=== PATIENT | female | born 1935 | race Hispanic/Latino ===

== ENCOUNTER 2016-12-27 16:37 | Emergency (ER) | payer MEDICARE, BC ==
[2016-12-27 16:37] VITALS: BMI 21.1
[2016-12-27 16:45] VITALS: BP 120/73; PULSE 66; RESP 18; TEMP 97.7; O2SAT 98
[2016-12-27 17:46] LABS: BASO # 0.1 K/uL (0.0-0.2); BASO % 0.6 % (0.0-2.0); EOS # 0.1 K/uL (0.0-0.7); HEMATOCRIT 33.9 % (34.0-47.0); LYMPH % 15.5 % (20.0-40.0); MEAN CELL VOLUME 87.4 fl (81.0-99.0); MEAN CORPUSCULAR HEMOGLOBIN 27.9 pg (27.0-31.0); MEAN CORPUSCULAR HGB CONC 31.9 g/dL (33.0-37.0); MEAN PLATELET VOLUME 9.7 fl (7.2-11.7); MONO # 1.7 K/uL (0.0-0.8); MONO % 12.9 % (0.0-10.0); NEUT # 9.1 K/uL (1.8-7.0); RED CELL DISTRIBUTION WIDTH 19.3 % (11.5-14.5)
[2016-12-27 18:13] LABS: ALB/GLOB RATIO 0.8 (1.0-2.1); ALKALINE PHOSPHATASE 68 U/L (38-126); ALT/SGPT 14 U/L (9-52); AST/SGOT 34 U/L (14-36); BILIRUBIN,TOTAL 0.7 mg/dl (0.2-1.3); BLOOD UREA NITROGEN 16 mg/dl (7-17); CARBON DIOXIDE 25 mmol/L (22-30); CHLORIDE 101 mmol/L (98-107); GFR AFRICAN-AMERICAN > 60; GLUCOSE,RANDOM 120 mg/dL (65-105); SODIUM 136 mmol/l (132-148); TOTAL PROTEIN 8.5 G/DL (6.3-8.2)
[2016-12-27 18:16] LABS: PARTIAL THROMBOPLASTIN TIME 25.3 SECONDS (23.3-32.5)
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
[2016-12-27 18:22] LABS: POTASSIUM 5.5 MMOL/L (3.6-5.0)
[2016-12-27 19:36] LABS: MAGNESIUM 2.1 MG/DL (1.6-2.3); POTASSIUM 3.8 MMOL/L (3.6-5.0)
--- NOTE | 2016-12-27 20:13 | ED PDOC ---
- Laboratory Results Result Diagrams: 12/27/16 17:36 12/27/16 18:38 - ECG O2 Sat by Pulse Oximetry: 98 (RA) Medical Decision Making Medical Decision Making: Case endorsed to magnetic tape typewriter operator from JEFF Guillen at 20:00 pending consult with Pt's blind cleaner and likely admission HPI reviewed: Additional Complaint(s): Catherine Mccord is a 81 year old female, with a past medical history inclusive of atrial fibrillation (compliant with Sotalol), who presents to the ED on 12/27 with complaints of palpitations that she has experienced since just prior to arrival while she had been out shopping. Associated lightheadedness also reported, with patient stating that it felt as if she were going to syncopize; prompting ED visit. Upon arrival in the ED, patient is reporting waves of heart fluttering sensations but otherwise denies any fever, chills, chest pain or shortness of breath. Has been eating/drinking/urinating well. Of note, patients dosage of Sotalol was recently reduced to 1/2 the original, which she has been taking twice daily. She does report a prior history of COPD/ pneumonia but states that she has been breathing well of late and has not taken any antibiotics in months. PMD: Castillo Castaneda I ED course thus far: 16:54 Initial Impression: 81 year old female with rapid a-fib (159bpm on arrival) in setting of known a-fib history and recent Sotalol dose change EKG currently shows NSR at 77bpm, self-converting with no further symptoms. Will place onto lunchroom monitor and give Cardizem to ensure she remains within normal sinus. Case has been discussed with Diane Rodríguez MD (Cardiology). Labs resulted and reviewed with Pt who demonstrated full understanding Upon my eval, Pt resting in bed comfortably Vitals remain stable on lunchroom monitor: P:79 POX: 95% on RA Case discussed with Dr. Sandra, covering for Arnaldo, who advised Pt stable for discharge at this time. follow up in office Friday. Pt made aware of plan and was comfortable going home at this time Disposition - Clinical Impression Clinical Impression: Atrial fibrillation with controlled ventricular response, Syncope - POA Present On Arrival: None - Disposition Disposition: Routine/Home Disposition Time: 21:02 Condition: STABLE Additional Instructions: Follow up with your blind cleaner on Friday as discussed! Return to ED with any concerns Instructions: Atrial Fibrillation (ED), Syncope (ED)
--- NOTE | 2016-12-28 10:56 | RAD ---
HISTORY: tachycardia COMPARISON: 12/01/2016 TECHNIQUE: Chest PA and lateral FINDINGS: LUNGS: Diffuse chronic interstitial changes are identified suggesting interstitial fibrosis. This would include diffuse probable reticular nodular interstitial change. This is better seen on the prior CT scan dated 12/01/2016. No new focal alveolar infiltrate is seen. Stable areas of pleural parenchymal scarring are noted as well as a small linear area of scarring within the right upper lobe. Left-sided pleural parenchymal scarring peripherally in the left upper to mid lung field is also noted. There also appears to be some chronic pleural parenchymal change in the anterior aspects of the right middle lobe and lingula seen on prior CT scan dated 12/01/2016. PLEURA: See above CARDIOVASCULAR: No CHF. Heart is not enlarged. OSSEOUS STRUCTURES: Stable degenerative changes are noted in the spine without acute compression fracture. VISUALIZED UPPER ABDOMEN: Normal. OTHER FINDINGS: None. IMPRESSION: No new focal alveolar infiltrate or CHF. Moderate chronic reticulonodular interstitial change and fibrosis.
--- NOTE | 2016-12-30 10:08 | CARD ---
APPROVED REPORT EKG Measurement Heart [id number] <Conclusion> Atrial fibrillation with rapid ventricular response Nonspecific ST and T wave abnormality Abnormal ECG
--- NOTE | 2016-12-30 10:08 | CARD ---
APPROVED REPORT EKG Measurement Heart [id number] <Conclusion> Normal sinus rhythm Normal ECG
== END 2016-12-27 21:15 | disposition home or self-care (01) ==
LOC: H.ER 16:37
DX: I48.91 Unspecified atrial fibrillation (principal); R55 Syncope and collapse; R00.2 Palpitations; R07.9 Chest pain, unspecified; I10 Essential (primary) hypertension

== ENCOUNTER 2017-03-25 15:44 | Inpatient (IN) | payer MEDICARE, BC ==
[2017-03-25 15:45] VITALS: BMI 21.1
[2017-03-25 16:55] LABS: BASO # 0.1 K/uL (0.0-0.2); EOS # 0.1 K/uL (0.0-0.7); EOS % 0.7 % (0.0-4.0); HEMATOCRIT 34.6 % (34.0-47.0); LYMPH # 1.7 K/uL (1.0-4.3); LYMPH % 15.5 % (20.0-40.0); MEAN CELL VOLUME 88.8 fl (81.0-99.0); MEAN CORPUSCULAR HEMOGLOBIN 28.5 pg (27.0-31.0); MEAN CORPUSCULAR HGB CONC 32.1 g/dL (33.0-37.0); MONO # 1.1 K/uL (0.0-0.8); MONO % 9.7 % (0.0-10.0); NEUT # 8.2 K/uL (1.8-7.0); NEUT % 73.1 % (50.0-75.0); RED CELL DISTRIBUTION WIDTH 14.9 % (11.5-14.5); WHITE BLOOD COUNT 11.3 K/uL (4.8-10.8)
[2017-03-25 17:00] LABS: ALB/GLOB RATIO 0.9 (1.0-2.1); ALKALINE PHOSPHATASE 64 U/L (38-126); ALT/SGPT 15 U/L (9-52); AST/SGOT 20 U/L (14-36); BILIRUBIN,TOTAL 0.7 mg/dl (0.2-1.3); BLOOD UREA NITROGEN 13 mg/dl (7-17); CALCIUM 9.2 mg/dL (8.4-10.2); CARBON DIOXIDE 27 mmol/L (22-30); CHLORIDE 101 mmol/L (98-107); GFR AFRICAN-AMERICAN > 60; GLUCOSE,RANDOM 80 mg/dL (65-105); LIPASE 135 U/L (23-300); SODIUM 140 mmol/l (132-148); TOTAL PROTEIN 8.6 G/DL (6.3-8.2)
[2017-03-25 17:02] LABS: POTASSIUM 4.8 MMOL/L (3.6-5.0)
[2017-03-25 17:25] LABS: PARTIAL THROMBOPLASTIN TIME 31.9 Seconds (25.6-37.1)
--- NOTE | 2017-03-25 18:14 | CT ---
PROCEDURE: CT Abdomen and Pelvis without Oral or IV contrast. HISTORY: lower abd pain, diarrhea COMPARISON: CT abdomen and pelvis without IV contrast performed 10/16/16 TECHNIQUE: Contiguous axial images of the abdomen and pelvis. No oral or IV contrast administered. Coronal and Sagittal reformats generated and reviewed. Radiation dose: Total exam DLP = 241.24 mGy-cm. This CT exam was performed using one or more of the following dose reduction techniques: Automated exposure control, adjustment of the mA and/or kV according to patient size, and/or use of iterative reconstruction technique. FINDINGS: There is limited evaluation of the solid organs without the administration of IV contrast. LOWER THORAX: Chronic interstitial markings noted at the lung bases. Medial right lower lobe consolidation versus pleural based masslike consolidation. LIVER: Calcification along the hepatic surface, right lobe. Hepatomegaly. Mildly nodular hepatic contour. GALLBLADDER AND BILE DUCTS: The gallbladder is not visualized. PANCREAS: Unremarkable unenhanced appearance. SPLEEN: Unremarkable unenhanced appearance. ADRENALS: Unremarkable unenhanced appearance. KIDNEYS AND URETERS: Nonobstructing 2 mm left lower pole renal calculus. No hydronephrosis or obstructing renal calculus. Low-density lesion within the right upper pole kidney and left lower pole kidney, likely cysts. Exophytic left lower pole renal lesion also possibly cyst. Hyperdense 5 mm left lower pole renal lesion, too small to characterize. BLADDER: The urinary bladder appears unremarkable. REPRODUCTIVE: Uterus is absent, presumably due to hysterectomy. APPENDIX: The appendix is not identified. No secondary signs of acute appendicitis. BOWEL: The stomach is nondistended. Lack of oral contrast limits evaluation for bowel pathology. The bowel loops appear within normal limits of caliber without evidence of intestinal obstruction. PERITONEUM: No significant free fluid. No definite free air. LYMPH NODES: No bulky lymphadenopathy identified. VASCULATURE: Atherosclerotic calcifications of the aorta. No aortic aneurysm. BONES: Osseous demineralization. Degenerative changes. OTHER FINDINGS: None. IMPRESSION: Chronic interstitial markings noted at the lung bases. Medial right lower lobe consolidation versus pleural based masslike consolidation. Recommend clinical correlation and short-term follow-up in order to assess for complete resolution. Calcification along the hepatic surface, right lobe. Hepatomegaly. Mildly nodular hepatic contour ; correlate clinically for cirrhosis. Nonobstructing 2 mm left lower pole renal calculus. Low-density lesion within the right upper pole kidney and left lower pole kidney, likely cysts. Exophytic left lower pole renal lesion also possibly cyst. Hyperdense 5 mm left lower pole renal lesion, too small to characterize. Renal ultrasound suggested for further characterization of the above findings if indicated. Additional incidental findings as above.
[2017-03-25] MEDS ORDERED: Albuterol-Ipratrop 3 mg / 0.5 (3 ml) UD INH STA (18:22)
[2017-03-25] MEDS ORDERED: Albuterol-Ipratrop 3 mg / 0.5 (3 ml) UD ONE (18:24)
[2017-03-25] MEDS ORDERED: Sodium Chloride 0.9% 1,000 ML IV STA (18:27)
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
[2017-03-26] MEDS ORDERED: Sodium Chloride 3% for Inhalation 4 ML VIAL.NEB IH PRN (01:52)
[2017-03-26 04:53] LABS: ABG ALLEN TEST YES; ARTERIAL BLOOD GAS HCO3 27.5 mmol/L (21-28); ARTERIAL BLOOD GAS MODE NASAL CANNULA; ARTERIAL BLOOD GAS O2 CAPACITY 13.4 mL/dL (16-24); ARTERIAL BLOOD GAS O2 CONTENT 13.4 ML/dL (15-23); ARTERIAL BLOOD GAS PH 7.44 (7.35-7.45); ARTERIAL BLOOD GAS PO2 102 mm/Hg (80-100); ARTERIAL BLOOD HGB O2 SAT 96.7 % (95.0-98.0); CARBOXYHEMOGLOBIN 1.7 % (0.5-1.5); HHB 0.2 % (0.0-5.0); METHEMOGLOBIN 1.4 % (0.0-3.0)
[2017-03-26] MEDS ORDERED: Levalbuterol 1.25 MG/3 ML Inhal Soln UD INH PRN (06:02)
[2017-03-26] MEDS: Pantoprazole 40 mg EC Tab PO SCH (09:37)
--- NOTE | 2017-03-26 09:48 | HP ---
The patient is an 82-year-old female with multiple medical problems, who was admitted via the Emergen cy Room because of abdominal pain associated with diarrhea and palpitations for the past several days prior to presentation. She also indicates that she has had a cough with production of yellow sputum . She had started a liquid diet the day prior to this presentation in preparation for colonoscopy an d indicates that symptoms of abdominal cramps and pain have worsened following that. She denies naus ea or vomiting. She also indicates that she has had chills with cough. PAST MEDICAL HISTORY: Remarkable for bronchiectasis with recurrent pneumonia, multiple allergies to medication, atrial fibrillation with uncontrolled ventricular response that requires ablation that is scheduled at [facility]. She also has a history of granulomatous lung disease in the past, status post VATS procedure and biopsy of the lung, history of chronic obstructive pulmo nary disease from years of smoking, history of chronic anemia, also history of gastrointestinal bleed ing, and recently diagnosed with Costello's esophagus. FAMILY HISTORY: Nonrevealing. SOCIAL HISTORY: She quit smoking many years ago. Does not drink alcohol and lives alone. REVIEW OF SYSTEMS: Remarkable for shortness of breath, exercise intolerance, and palpitations. PHYSICAL EXAMINATION: GENERAL: The patient is alert and oriented, thin-built, and frail-looking. VITAL SIGNS: Blood pressure 148/68 with a pulse of 93, respiratory rate 16 per minute. She is afebr ile with a temp of 98 degrees Fahrenheit, pulse of 93, O2 sat 95% on room air. SKIN: Shows fair turgor. HEENT: Pupils equally react to light and accommodation. Mouth shows fair hygiene. NECK: JVP flat. LUNGS: Bilateral coarse rales. HEART: S1, S2. Irregular rhythm due to atrial fibrillation. BREASTS: Normal. ABDOMEN: Soft. Mild suprapubic tenderness. GENITALIA AND RECTAL: Essentially unremarkable. EXTREMITIES: Show no edema or cyanosis. CENTRAL NERVOUS SYSTEM: Grossly intact. LABORATORY DATA: Chest x-ray is remarkable for bilateral pulmonary infiltrates superimposed on chron ic lung disease. CT scan of abdomen and pelvis is remarkable for chronic interstitial markings at the lung bases, medi al right lower lobe consolidation that is pleural-based, mass-like consolidation, calcification of he patic surface - right lobe, hepatomegaly, ____ clinically for cirrhosis, nonobstructing 2-mm left low er lobe renal calculus, low density lesions right upper pole kidney, left lower pole kidney, likely cyst. A 5-mm left lower pole renal lesion too small to characterize. ABGs done on 32% FiO2: pH 7.44, pCO2 of 41, pO2 of 102, bicarbonate of 27.5. Sodium 140, potassium 4.8. BUN of 13, creatinine 0.8. Lactase 135. WBC 11.3, hemoglobin 11.1, platelet count 272,000. EKG: Normal sinus rhythm. IMPRESSION: Pneumonia superimposed on bronchiectasis, abdominal pain, questionable etiology, probabl y secondary to bile gastritis, history of Costello's esophagus, history of atrial fibrillation with co ntrolled ventricular response at present despite palpitations, chronic obstructive pulmonary disease with exacerbation due to pneumonia, hypertension, coronary artery disease. PLAN: Continue therapy as ordered with IV antibiotics, aerosolized bronchodilators, and IV H2 blocke rs. Would obtain sputum cultures and blood cultures, oxygen p.r.n. If all workup is negative, we wi ll plan discharge home soon. Advised the patient to have the colonoscopy cancelled. Castillo Castaneda MD cc: 62 TT: 03/26/2017 09:47:50 jn
--- NOTE | 2017-03-26 11:06 | PQF GENQUE ---
Dr. Castaneda, 2 (two) queries to follow: 1. Please specify type of pneumonia in the progress notes: if known after work up completed Aspiration pneumonia Please document specific aspirate (food, liquids, etc.) (please indicate specific cause) Please indicate if this is postprocedural Bacterial (specify organism) Bronchopneumonia (specify organism) Interstitual pneumonia Organizing pneumonia/BOOP RSV pneumonia Viral pneumonia Other pneumonia (specify organism or type) OR Unable to determine OR Unknown 2. Please specify the organism causing the pneumonia if known after the work up is completed Note: CAP, HAP, and HCAP indicate where the pneumonia was acquired, not a specific type. This form is a permanent part of the medical record Clarification of your documentation is requested to better reflect the severity of illness and intensity of treatment of your patient. Indicators present [] Specify: [] [] Specify: [] [] Specify: [] [] Specify: [] Location in the medical record that reflects the above clinical findings: [] Treatment Provided: [] PHYSICIAN'S RESPONSE Based on your medical judgment of the clinical indicators outlined above please clarify the following: [] Practitioner response [] If unable to determine, please check the box, sign and date. Present On Admission (POA) Indicator: [] Present at the time of admission [] Not present at the time of admission [] Clinically Undetermined In responding to this query, please exercise your independent professional judgment. The fact that a question is asked does not imply that any particular answer is desired or expected. Thank you for your clarification on this documentation. If you have any questions please call. * Thank you, Pallavi Villagran RN BSN EXT. #[phone] MTDD
--- NOTE | 2017-03-26 11:16 | PQF GENQUE ---
Dr. Castaneda, Please clarify the type of atrial fibrillation: if known >> Chronic >> Paroxysmal >> Permanent >> Persistent >> Other (please specify type) OR >> Unable to determine OR >> Unknown H and P: history of atrial fibrillation with controlled ventricular response at present despite palpitations. Betapace 40 mg PO BID This form is a permanent part of the medical record Clarification of your documentation is requested to better reflect the severity of illness and intensity of treatment of your patient. Indicators present [] Specify: [] [] Specify: [] [] Specify: [] [] Specify: [] Location in the medical record that reflects the above clinical findings: [] Treatment Provided: [] PHYSICIAN'S RESPONSE Based on your medical judgment of the clinical indicators outlined above please clarify the following: [] Practitioner response [] If unable to determine, please check the box, sign and date. Present On Admission (POA) Indicator: [] Present at the time of admission [] Not present at the time of admission [] Clinically Undetermined In responding to this query, please exercise your independent professional judgment. The fact that a question is asked does not imply that any particular answer is desired or expected. Thank you for your clarification on this documentation. If you have any questions please call. * Thank you Pallavi Villagran RN BSN ext. #[phone] MTDD
[2017-03-26] MEDS: methylPREDNISolone 40 MG in Sodium Chloride 0.9% 50 ML IVPB SCH (11:19)
--- NOTE | 2017-03-26 11:53 | RAD ---
HISTORY: Cough. COMPARISON: 12/27/2016. TECHNIQUE: Chest PA and lateral FINDINGS: LUNGS: Stable, chronic interstitial lung disease. Note new findings/discrete infiltrates. Hyperinflation, manifestations of COPD. PLEURA: No significant pleural effusion identified. No pneumothorax apparent. CARDIOVASCULAR: Normal. OSSEOUS STRUCTURES: No significant abnormalities. VISUALIZED UPPER ABDOMEN: Normal. OTHER FINDINGS: None. IMPRESSION: No significant interval change compared to the prior examination(s). No acute findings.
--- NOTE | 2017-03-26 15:27 | CARD ---
APPROVED REPORT EKG Measurement Heart [id number] [id number] <Conclusion> Normal sinus rhythm Normal ECG
[2017-03-26 22:40] LABS: RBC URINE < 1 /hpf (0-3); URINE BACTERIA FEW (<OCC); URINE BILIRUBIN NEGATIVE (NEGATIVE); URINE BLOOD NEGATIVE (NEGATIVE); URINE COLOR YELLOW (YELLOW); URINE GLUCOSE (UA) NEG (Normal); URINE KETONE NEGATIVE (NEGATIVE); URINE LEUKOCYTE ESTERASE NEG Leu/uL (Negative); URINE PROTEIN NEGATIVE (NEGATIVE); URINE UROBILINOGEN 0.2-1.0 mg/dL (0.2-1.0); WBC URINE 1 /hpf (0-5)
[2017-03-27 06:48] LABS: BASO % 0.1 % (0.0-2.0); EOS # 0.1 K/uL (0.0-0.7); EOS % 1.1 % (0.0-4.0); HEMATOCRIT 30.3 % (34.0-47.0); LYMPH % 18.8 % (20.0-40.0); MEAN CELL VOLUME 87.9 fl (81.0-99.0); MEAN CORPUSCULAR HEMOGLOBIN 28.9 pg (27.0-31.0); MEAN CORPUSCULAR HGB CONC 32.9 g/dL (33.0-37.0); MEAN PLATELET VOLUME 10.2 fl (7.2-11.7); MONO % 9.7 % (0.0-10.0); NEUT # 7.3 K/uL (1.8-7.0); NEUT % 70.3 % (50.0-75.0); RED CELL DISTRIBUTION WIDTH 14.5 % (11.5-14.5); WHITE BLOOD COUNT 10.4 K/uL (4.8-10.8)
[2017-03-27 06:52] LABS: BLOOD UREA NITROGEN 20 mg/dl (7-17); CALCIUM 8.9 mg/dL (8.4-10.2); CARBON DIOXIDE 28 mmol/L (22-30); CHLORIDE 104 mmol/L (98-107); GFR AFRICAN-AMERICAN > 60; GLUCOSE,RANDOM 96 mg/dL (65-105); SODIUM 141 mmol/l (132-148)
--- NOTE | 2017-03-27 09:44 | CP.PCM.PN ---
Subjective - Date & Time of Evaluation Date of Evaluation: 03/27/17 Time of Evaluation: 09:44 - Subjective Subjective: ABDOMINAL PAIN IMPROVED NO DIARRHEA/NAUSEA/VOMITING Objective - Vital Signs/Intake and Output Vital Signs (last 24 hours): Temp Pulse Resp BP Pulse Ox 97.5 F L 68 18 117/60 93 L 03/27/17 08:08 03/27/17 08:08 03/27/17 08:08 03/27/17 08:08 03/27/17 08:08 Intake and Output: 03/27/17 03/27/17 06:59 18:59 Intake Total 250 Balance 250 - Medications Medications: Current Medications Doxycycline Hyclate 100 mg/ (Sodium Chloride) 100 mls @ 100 mls/hr IVPB Q12 [facility] Last Admin: 03/26/17 22:08 Dose: 100 mls/hr Methylprednisolone 40 mg/ (Sodium Chloride) 50 mls @ 100 mls/hr IVPB DAILY [facility] Last Admin: 03/26/17 11:19 Dose: 100 mls/hr Levalbuterol HCl (Xopenex) 1.25 mg INH RQ8 PRN PRN Reason: Shortness of Breath Pantoprazole Sodium (Protonix Ec Tab) 40 mg PO DAILY [facility] Last Admin: 03/26/17 09:37 Dose: 40 mg Sotalol HCl (Betapace) 40 mg PO BID [facility] Last Admin: 03/26/17 16:43 Dose: 40 mg - Labs Labs: 03/27/17 05:00 03/27/17 05:00 PT 13.0 Seconds (9.8-13.1) 03/25/17 16:42 INR 1.2 (0.9-1.2) 03/25/17 16:42 APTT 31.9 Seconds (25.6-37.1) 03/25/17 16:42 - Constitutional Appears: No Acute Distress - Head Exam Head Exam: ATRAUMATIC, NORMAL INSPECTION, NORMOCEPHALIC - Eye Exam Eye Exam: EOMI, Normal appearance, PERRL Pupil Exam: NORMAL ACCOMODATION, PERRL - ENT Exam ENT Exam: Mucous Membranes Moist, Normal Exam - Neck Exam Neck Exam: Full ROM, Normal Inspection. absent: Lymphadenopathy - Respiratory Exam Respiratory Exam: Decreased Breath Sounds, Rales, NORMAL BREATHING PATTERN - Cardiovascular Exam Cardiovascular Exam: REGULAR RHYTHM, +S1, +S2. absent: Murmur - GI/Abdominal Exam GI & Abdominal Exam: Soft, Normal Bowel Sounds. absent: Tenderness - Rectal Exam Rectal Exam: NORMAL INSPECTION - Extremities Exam Extremities Exam: Full ROM, Normal Capillary Refill, Normal Inspection. absent : Joint Swelling, Pedal Edema - Back Exam Back Exam: NORMAL INSPECTION - Neurological Exam Neurological Exam: Alert, Awake, CN II-XII Intact, Normal Gait, Oriented x3 - Psychiatric Exam Psychiatric exam: Normal Affect, Normal Mood - Skin Skin Exam: Dry, Intact, Normal Color, Warm Assessment and Plan - Assessment and Plan (Free Text) Assessment: PNEUMONIA-CLINICALLY IMPROVING BRONCHIECTASES GASTRITIS ARRYTHMIAS Plan: CONTINUE ANTIBIOTIC RX CARDIOLOGY EVAL--ARRYTHMIAS
[2017-03-27] MEDS: methylPREDNISolone 40 MG in Sodium Chloride 0.9% 50 ML IVPB SCH (10:40)
[2017-03-27] MEDS: Pantoprazole 40 mg EC Tab PO SCH (10:40)
[2017-03-28] MEDS: Pantoprazole 40 mg EC Tab PO SCH (08:41)
[2017-03-28] MEDS: methylPREDNISolone 40 MG in Sodium Chloride 0.9% 50 ML IVPB SCH (08:42)
--- NOTE | 2017-03-28 09:33 | CP.PCM.CON ---
History of Present Illness - History of Present Illness History of Present Illness: Full Note Dictated. Pneumonia/Exacerbation of Bronchiectasis Recurrent A Fib H/O Hypertension Pt has finished her W/U at [facility] and awaits ablation for a fib I have strongly urged to proceed with it. Past Patient History - Infectious Disease Hx of Infectious Diseases: None - Past Medical History & Family History Past Medical History?: Yes - Past Social History Smoking Status: Never Smoked - CARDIAC Hx Atrial Fibrillation: Yes Hx Cardia Arrhythmia: Yes Hx Congestive Heart Failure: No Hx Hypercholesterolemia: No Hx Hypertension: Yes Hx Mitral Valve Prolapse: Yes Hx Pacemaker: No Hx Peripheral Edema: No - PULMONARY Hx Asthma: Yes Hx Bronchitis: Yes Hx Chronic Obstructive Pulmonary Disease (COPD): Yes Hx Emphysema: Yes Hx Pneumonia: Yes Hx Pulmonary Embolism: Yes Hx Sleep Apnea: No - NEUROLOGICAL Hx Alzheimer's Disease: No Hx Dementia: No Hx Migraine: No Hx Multiple Sclerosis: No Hx Parkinson's Disease: No Hx Seizures: No Hx Transient Ischemic Attacks (TIA): No - HEENT Hx HEENT Problems: No - RENAL Hx Chronic Kidney Disease: No - ENDOCRINE/METABOLIC Hx Hyperthyroidism: No Hx Hypothyroidism: No - HEMATOLOGICAL/ONCOLOGICAL Hx Anemia: No Hx Human Immunodeficiency Virus (HIV): No Hx Sickle Cell Disease: No - INTEGUMENTARY Hx Dermatological Problems: Yes - MUSCULOSKELETAL/RHEUMATOLOGICAL Hx Arthritis: No Hx Falls: No Hx Fractures: Yes (ribs, wrist, thumb) Hx Osteoporosis: No Hx Rheumatoid Arthritis: No - GASTROINTESTINAL Hx Crohn's Disease: No Hx Diverticulitis: No Hx Gall Bladder Disease: Yes (gb removed) Hx Gastritis: No Hx Pancreatitis: No - GENITOURINARY/GYNECOLOGICAL Hx Sexually Transmitted Disorders: No - PSYCHIATRIC Hx Anxiety: No Hx Bipolar Disorder: No Hx Depression: No Hx Paranoia: No Hx Post Traumatic Stress Disorder: No Hx Schizophrenia: No Hx Substance Use: No - SURGICAL HISTORY Hx Appendectomy: Yes Hx Cholecystectomy: Yes Hx Coronary Artery Bypass Graft: No Hx Coronary Stent: No Hx Tonsillectomy: No - ANESTHESIA Hx Anesthesia: Yes Hx Anesthesia Reactions: No Hx Malignant Hyperthermia: No Meds Allergies/Adverse Reactions: Allergies Allergy/AdvReac Type Severity Reaction Status Date / Time acetaminophen [From Ultracet] Allergy RASH Verified 12/17/16 13:08 aztreonam Allergy RASH Verified 12/17/16 13:08 clarithromycin Allergy RASH Verified 03/25/17 20:37 clindamycin Allergy RASH Verified 03/25/17 20:37 erythromycin base Allergy RASH Verified 03/25/17 20:37 ibuprofen Allergy RASH Verified 03/25/17 20:37 levofloxacin [From Levaquin] Allergy RASH Verified 03/25/17 20:37 moxifloxacin HCl Allergy RASH Verified 03/25/17 20:37 [From Avelox] Penicillins Allergy RASH Verified 03/25/17 20:37 rifampin Allergy RASH Verified 03/25/17 20:37 sulfamethoxazole Allergy RASH Verified 03/25/17 20:37 [From Sulfatrim] tramadol HCl [From Ultracet] Allergy RASH Verified 03/25/17 20:37 trimethoprim [From Sulfatrim] Allergy RASH Verified 03/25/17 20:37 vancomycin Allergy RASH Verified 03/25/17 20:37 - Medications Medications: Current Medications Doxycycline Hyclate 100 mg/ (Sodium Chloride) 100 mls @ 100 mls/hr IVPB Q12 [facility] Last Admin: 03/28/17 08:43 Dose: 100 mls/hr Methylprednisolone 40 mg/ (Sodium Chloride) 50 mls @ 100 mls/hr IVPB DAILY [facility] Last Admin: 03/28/17 08:42 Dose: 100 mls/hr Levalbuterol HCl (Xopenex) 1.25 mg INH RQ8 PRN PRN Reason: Shortness of Breath Pantoprazole Sodium (Protonix Ec Tab) 40 mg PO DAILY [facility] Last Admin: 03/28/17 08:41 Dose: 40 mg Sotalol HCl (Betapace) 40 mg PO 0900,2100 [facility] Last Admin: 03/28/17 08:41 Dose: 40 mg Results - Vital Signs Recent Vital Signs: Last Vital Signs Temp 96.4 F L 03/28/17 07:54 Pulse 58 L 03/28/17 08:41 Resp 18 03/28/17 07:54 BP 136/64 03/28/17 08:41 Pulse Ox 95 03/28/17 07:54 - Labs Result Diagrams: 03/27/17 05:00 03/27/17 05:00
--- NOTE | 2017-03-28 11:57 | CON ---
DATE: 03/28/2017 She is hospitalized under Dr. Castaneda's care. HISTORY OF PRESENT ILLNESS: This 82-year-old female is known to me over approximately 15-17 years. She has a long history of recurrent atrial fibrillation which had responded well to propafenone for a number of years. Now, she is unresponsive to it and has had multiple bouts of atrial fibrillation d uring which she has near fainting to fainting episodes. Attempts to resolve this with medications norris s been unsuccessful. The patient also has bronchiectasis and has had numerous hospitalizations for r ecurring pneumonia and exacerbation of COPD as well as exacerbation of her bronchiectasis. She has u ndergone workup at [facility] both for her lungs and her heart. Has finished the initial mary ann p and is awaiting atrial fibrillation ablation. Now she is hospitalized with an acute episode of exa cerbation of bronchiectasis/pneumonia. PHYSICAL EXAMINATION: GENERAL: Shows an elderly pleasant lady who has lost more than 20 pounds over last year to year and a half. At this point, she looks extremely emaciated. Alert, awake, coherent. VITAL SIGNS: Afebrile with a pulse rate of 68 beats per minute, regular and a blood pressure of 114/ 70 mmHg. NECK: Her jugular venous pressure was not elevated. EXTREMITIES: There was no edema of lower extremity. The pedal pulses were well felt. There were no carotid bruits. Thyroid and breasts did not reveal anything abnormal. HEART: The first and second heart sounds were normal. There was no murmur or gallop. LUNGS: There were no rales. There were coarse crepitations at both bases. ABDOMEN: Soft. Liver and spleen were not palpable. Electrocardiogram showed sinus rhythm with a normal EKG pattern. Review of her echocardiogram from [facility] of last year showed borderline left ventricular systolic function. Review of her nuclear str ess test last month at [facility] showed a preserved left ventricular systolic function. A small area o f myocardial necrosis in the anterior wall was detected, but no potentially ischemic myocardium was d etected. Her labs are noted. IMPRESSION: At this time is recurrent atrial fibrillation in a patient with known bronchiectasis and chronic obstructive pulmonary disease. Because her episodes of atrial fibrillation are so debilitati ng and because they are resistant to medical intervention, I strongly urged her to proceed with the p lanned ablation procedure and the patient concurs. Sharif Rodríguez MD cc: [id number] TT: 03/28/2017 11:57:11 Confirmation # [id number] Dictation # [id number] jn
--- NOTE | 2017-03-28 13:32 | CP.PCM.PN ---
Subjective - Date & Time of Evaluation Date of Evaluation: 03/28/17 Time of Evaluation: 13:32 - Subjective Subjective: FEELS BETTER SOB AND COUGH LESS SPUTUM +PSEUDOMONAS Objective - Vital Signs/Intake and Output Vital Signs (last 24 hours): Temp Pulse Resp BP Pulse Ox 96.4 F L 58 L 18 136/64 95 03/28/17 07:54 03/28/17 08:41 03/28/17 07:54 03/28/17 08:41 03/28/17 07:54 Intake and Output: 03/28/17 03/28/17 06:59 18:59 Intake Total 100 Balance 100 - Medications Medications: Current Medications Doxycycline Hyclate 100 mg/ (Sodium Chloride) 100 mls @ 100 mls/hr IVPB Q12 [facility] Last Admin: 03/28/17 08:43 Dose: 100 mls/hr Methylprednisolone 40 mg/ (Sodium Chloride) 50 mls @ 100 mls/hr IVPB DAILY [facility] Last Admin: 03/28/17 08:42 Dose: 100 mls/hr Levalbuterol HCl (Xopenex) 1.25 mg INH RQ8 PRN PRN Reason: Shortness of Breath Pantoprazole Sodium (Protonix Ec Tab) 40 mg PO DAILY [facility] Last Admin: 03/28/17 08:41 Dose: 40 mg Sotalol HCl (Betapace) 40 mg PO 0900,2100 [facility] Last Admin: 03/28/17 08:41 Dose: 40 mg - Labs Labs: 03/27/17 05:00 03/27/17 05:00 PT 13.0 Seconds (9.8-13.1) 03/25/17 16:42 INR 1.2 (0.9-1.2) 03/25/17 16:42 APTT 31.9 Seconds (25.6-37.1) 03/25/17 16:42 - Constitutional Appears: No Acute Distress - Head Exam Head Exam: ATRAUMATIC, NORMAL INSPECTION, NORMOCEPHALIC - Eye Exam Eye Exam: EOMI, Normal appearance, PERRL Pupil Exam: NORMAL ACCOMODATION, PERRL - ENT Exam ENT Exam: Mucous Membranes Moist, Normal Exam - Neck Exam Neck Exam: Full ROM, Normal Inspection. absent: Lymphadenopathy - Respiratory Exam Respiratory Exam: Decreased Breath Sounds, Prolonged Expiratory Phase, Rales, NORMAL BREATHING PATTERN - Cardiovascular Exam Cardiovascular Exam: REGULAR RHYTHM, +S1, +S2. absent: Murmur - GI/Abdominal Exam GI & Abdominal Exam: Soft, Normal Bowel Sounds. absent: Tenderness - Rectal Exam Rectal Exam: NORMAL INSPECTION - Extremities Exam Extremities Exam: Full ROM, Normal Capillary Refill, Normal Inspection. absent : Joint Swelling, Pedal Edema - Back Exam Back Exam: NORMAL INSPECTION - Neurological Exam Neurological Exam: Alert, Awake, CN II-XII Intact, Normal Gait, Oriented x3 - Psychiatric Exam Psychiatric exam: Normal Affect, Normal Mood - Skin Skin Exam: Dry, Intact, Normal Color, Warm Assessment and Plan - Assessment and Plan (Free Text) Assessment: PNEUMONIA BRONCHIECTASIS PSEUDOMONAS URI ATRIAL FIB GASTRITIS Plan: CHANGE ANTIBIOTICS TO GENTAMYCIN CXR IN AM
[2017-03-28] MEDS: Gentamicin 80mg/50ml NS 80 MG/50 ML BAG IVPB SCH (20:12)
[2017-03-29] MEDS: Gentamicin 80mg/50ml NS 80 MG/50 ML BAG IVPB SCH ×2 (09:53→20:12)
[2017-03-29] MEDS: methylPREDNISolone 40 MG in Sodium Chloride 0.9% 50 ML IVPB SCH (09:53)
[2017-03-29] MEDS: Pantoprazole 40 mg EC Tab PO SCH (09:53)
[2017-03-29] MEDS ORDERED: Sodium Chloride 3% for Inhalation 4 ML VIAL.NEB IH PRN (13:43)
--- NOTE | 2017-03-29 13:46 | CP.PCM.PN ---
Subjective - Date & Time of Evaluation Date of Evaluation: 03/29/17 Time of Evaluation: 13:45 - Subjective Subjective: SOB CONTINUES TO IMPROVE ABDOMINAL PAIN RESOLVED Objective - Vital Signs/Intake and Output Vital Signs (last 24 hours): Temp Pulse Resp BP Pulse Ox 98.6 F 95 H 20 116/70 100 03/29/17 08:36 03/29/17 09:52 03/29/17 08:36 03/29/17 09:52 03/29/17 08:36 - Medications Medications: Current Medications Methylprednisolone 40 mg/ (Sodium Chloride) 50 mls @ 100 mls/hr IVPB DAILY [facility] Last Admin: 03/29/17 09:53 Dose: 100 mls/hr Gentamicin Sulfate/Sodium Chloride (Gentamicin 80mg/50ml Ns) 80 mg in 50 mls @ 50 mls/hr IVPB Q12 [facility] Last Admin: 03/29/17 09:53 Dose: 50 mls/hr Levalbuterol HCl (Xopenex) 1.25 mg INH RQ8 PRN PRN Reason: Shortness of Breath Pantoprazole Sodium (Protonix Ec Tab) 40 mg PO DAILY [facility] Last Admin: 03/29/17 09:53 Dose: 40 mg Sotalol HCl (Betapace) 40 mg PO 0900,2100 [facility] Last Admin: 03/29/17 09:52 Dose: 40 mg - Labs Labs: 03/27/17 05:00 03/27/17 05:00 PT 13.0 Seconds (9.8-13.1) 03/25/17 16:42 INR 1.2 (0.9-1.2) 03/25/17 16:42 APTT 31.9 Seconds (25.6-37.1) 03/25/17 16:42 - Constitutional Appears: No Acute Distress - Head Exam Head Exam: ATRAUMATIC, NORMAL INSPECTION, NORMOCEPHALIC - Eye Exam Eye Exam: EOMI, Normal appearance, PERRL Pupil Exam: NORMAL ACCOMODATION, PERRL - ENT Exam ENT Exam: Mucous Membranes Moist, Normal Exam - Neck Exam Neck Exam: Full ROM, Normal Inspection. absent: Lymphadenopathy - Respiratory Exam Respiratory Exam: Decreased Breath Sounds, Wheezes, NORMAL BREATHING PATTERN - Cardiovascular Exam Cardiovascular Exam: REGULAR RHYTHM, +S1, +S2. absent: Murmur - GI/Abdominal Exam GI & Abdominal Exam: Soft, Normal Bowel Sounds. absent: Tenderness - Rectal Exam Rectal Exam: NORMAL INSPECTION - Extremities Exam Extremities Exam: Full ROM, Normal Capillary Refill, Normal Inspection. absent : Joint Swelling, Pedal Edema - Back Exam Back Exam: NORMAL INSPECTION - Neurological Exam Neurological Exam: Alert, Awake, CN II-XII Intact, Normal Gait, Oriented x3 - Psychiatric Exam Psychiatric exam: Normal Affect, Normal Mood - Skin Skin Exam: Dry, Intact, Normal Color, Warm Assessment and Plan - Assessment and Plan (Free Text) Assessment: PNEUMONIA BRONCHIECTASIS ARRYTHMIAS COPD Plan: CONTINUE PRESENT RX
--- NOTE | 2017-03-29 13:58 | RAD ---
HISTORY: PNEUMONIA COMPARISON: Comparison chest 03/25/2017 comparison also made with CTA chest 12/01/2016. TECHNIQUE: Chest PA and lateral FINDINGS: LUNGS: Hyperinflation. Diffuse interstitial fibrosis and or scarring changes. There are scattered nodular opacities also noted throughout the mid to upper lung zones right greater than left. . Note that the possibility of superimposed scattered multifocal infiltrates or interstitial infiltrates not excluded. . Vague nodular densities within the lower lung mendez could represent patchy nodular infiltrates or possibly bilateral nipple shadows PLEURA: No significant pleural effusion identified. No pneumothorax apparent. CARDIOVASCULAR: Heart size is within range of normal. Ectatic uncoiled aorta. OSSEOUS STRUCTURES: Multilevel degenerative spondylosis of the thoracic spine VISUALIZED UPPER ABDOMEN: Normal. OTHER FINDINGS: None. IMPRESSION: Hyperinflation. Diffuse interstitial fibrosis and or scarring changes. There are scattered nodular opacities also noted throughout the mid to upper lung zones right greater than left. . Note that the possibility of superimposed scattered multifocal infiltrates or interstitial infiltrates not excluded. . Vague nodular densities within the lower lung mendez could represent patchy nodular infiltrates or possibly bilateral nipple shadows
[2017-03-30] MEDS: Gentamicin 80mg/50ml NS 80 MG/50 ML BAG IVPB SCH ×2 (09:21→20:54)
[2017-03-30] MEDS: Pantoprazole 40 mg EC Tab PO SCH (09:21)
[2017-03-30] MEDS: methylPREDNISolone 40 MG in Sodium Chloride 0.9% 50 ML IVPB SCH (09:24)
--- NOTE | 2017-03-30 10:06 | CP.PCM.PN ---
Subjective - Date & Time of Evaluation Date of Evaluation: 03/30/17 Time of Evaluation: 10:06 - Subjective Subjective: FEELS BETTER COUGH AND SOB LESS STILL HAS SPUTUM PRODUCTION BUT CLEAR Objective - Vital Signs/Intake and Output Vital Signs (last 24 hours): Temp Pulse Resp BP Pulse Ox 97.6 F 51 L 20 113/51 L 97 03/30/17 08:44 03/30/17 08:44 03/30/17 08:44 03/30/17 08:44 03/30/17 08:44 - Medications Medications: Current Medications Methylprednisolone 40 mg/ (Sodium Chloride) 50 mls @ 100 mls/hr IVPB DAILY [facility] Last Admin: 03/30/17 09:24 Dose: 100 mls/hr Gentamicin Sulfate/Sodium Chloride (Gentamicin 80mg/50ml Ns) 80 mg in 50 mls @ 50 mls/hr IVPB Q12 [facility] Last Admin: 03/30/17 09:21 Dose: 50 mls/hr Levalbuterol HCl (Xopenex) 1.25 mg INH RQ8 PRN PRN Reason: Shortness of Breath Pantoprazole Sodium (Protonix Ec Tab) 40 mg PO DAILY [facility] Last Admin: 03/30/17 09:21 Dose: 40 mg Sotalol HCl (Betapace) 40 mg PO 0900,2100 [facility] Last Admin: 03/29/17 20:11 Dose: 40 mg - Labs Labs: 03/27/17 05:00 03/27/17 05:00 PT 13.0 Seconds (9.8-13.1) 03/25/17 16:42 INR 1.2 (0.9-1.2) 03/25/17 16:42 APTT 31.9 Seconds (25.6-37.1) 03/25/17 16:42 - Constitutional Appears: Chronically Ill - Head Exam Head Exam: ATRAUMATIC, NORMAL INSPECTION, NORMOCEPHALIC - Eye Exam Eye Exam: EOMI, Normal appearance, PERRL Pupil Exam: NORMAL ACCOMODATION, PERRL - ENT Exam ENT Exam: Mucous Membranes Moist, Normal Exam - Neck Exam Neck Exam: Full ROM, Normal Inspection. absent: Lymphadenopathy - Respiratory Exam Respiratory Exam: Prolonged Expiratory Phase, NORMAL BREATHING PATTERN - Cardiovascular Exam Cardiovascular Exam: REGULAR RHYTHM, +S1, +S2. absent: Murmur - GI/Abdominal Exam GI & Abdominal Exam: Soft, Normal Bowel Sounds. absent: Tenderness - Rectal Exam Rectal Exam: NORMAL INSPECTION - Extremities Exam Extremities Exam: Full ROM, Normal Capillary Refill, Normal Inspection. absent : Joint Swelling, Pedal Edema - Back Exam Back Exam: NORMAL INSPECTION - Neurological Exam Neurological Exam: Alert, Awake, CN II-XII Intact, Normal Gait, Oriented x3 - Psychiatric Exam Psychiatric exam: Normal Affect, Normal Mood - Skin Skin Exam: Dry, Intact, Normal Color, Warm Assessment and Plan - Assessment and Plan (Free Text) Assessment: PNEUMONIA IMPROVING BRONCHIECTASIS IMPROVING ATRIAL FIB--CHRONIC ABDOMINAL PAIN RESOLCED Plan: CONTINUE PRESENT RX DISCHARGE IN AM IF STABLE
[2017-03-30] MEDS ORDERED: Sodium Chloride 0.9% 50 ML IV ONE (12:13)
[2017-03-30] MEDS ORDERED: Iodixanol 320 MG/ML 100 ML BOTTLE IV ONE (12:13)
--- NOTE | 2017-03-31 08:10 | PQF GENQUE ---
Dr. Castaneda, (1) In agreement with BMI 18.1 listed in the EMR? (5ft 96lbs) ?:if yes please include the BMI in your next progress note (2 )If you are in agreement: Is there an associated diagnosis to go along with the BMI? OR: Disagree OR: Other explanation of clinical findings 03/28: Cardiology consult: elderly pleasant lady who has lost more than 20 pounds over last year to year and a half. At this point, she looks extremely emaciated Heart Healthy Diet This form is a permanent part of the medical record Clarification of your documentation is requested to better reflect the severity of illness and intensity of treatment of your patient. Indicators present [] Specify: [X LOW BMI--ETIOLOGY UNDETERMINED] [] Specify: [] [] Specify: [] [] Specify: [] Location in the medical record that reflects the above clinical findings: [] Treatment Provided: [] PHYSICIAN'S RESPONSE Based on your medical judgment of the clinical indicators outlined above please clarify the following: [] Practitioner response [] If unable to determine, please check the box, sign and date. Present On Admission (POA) Indicator: [] Present at the time of admission [] Not present at the time of admission [] Clinically Undetermined In responding to this query, please exercise your independent professional judgment. The fact that a question is asked does not imply that any particular answer is desired or expected. Thank you for your clarification on this documentation. If you have any questions please call. * Thank you, Pallavi Villagran RN BSN ext. #[phone] MTDD
--- NOTE | 2017-03-31 09:15 | IP.NPCORE ---
COPD Progress Note - COPD Progress Note Spirometry Assessment Completed:: No Symptoms:: Increase in Dyspnea Initial CXR:: yes Date:: 03/25/17 Oxygen Saturation/Pulse Oximetry:: 95 ABG:: yes Date:: 03/26/17 Nebulizers Q2-4 hrs:: Xopenex Antibiotics (Name/Dose/Frequency):: Gentamycin Systemic Steroids w/ methylprednisolone Name/Dose/Frequency:: methylprednisolone Oxygen Delivery Method: Room Air
--- NOTE | 2017-03-31 09:16 | CP.PCM.PN ---
Subjective - Date & Time of Evaluation Date of Evaluation: 03/31/17 Time of Evaluation: 09:17 - Subjective Subjective: C/O SOB TODAY C/O DARK GREEN SPUTUM STATES THAT SHE INHALED SONE [employer]FUME/[employer]ING [employer] YESTERDAY AND BECAME ILL Objective - Vital Signs/Intake and Output Vital Signs (last 24 hours): Temp Pulse Resp BP Pulse Ox 98.5 F 63 19 112/66 97 03/31/17 07:36 03/31/17 07:36 03/31/17 07:36 03/31/17 07:36 03/31/17 07:36 - Medications Medications: Current Medications Methylprednisolone 40 mg/ (Sodium Chloride) 50 mls @ 100 mls/hr IVPB DAILY [facility] Last Admin: 03/30/17 09:24 Dose: 100 mls/hr Gentamicin Sulfate/Sodium Chloride (Gentamicin 80mg/50ml Ns) 80 mg in 50 mls @ 50 mls/hr IVPB Q12 [facility] Last Admin: 03/30/17 20:54 Dose: 50 mls/hr Levalbuterol HCl (Xopenex) 1.25 mg INH RQ8 PRN PRN Reason: Shortness of Breath Pantoprazole Sodium (Protonix Ec Tab) 40 mg PO DAILY [facility] Last Admin: 03/30/17 09:21 Dose: 40 mg Sotalol HCl (Betapace) 40 mg PO 0900,2100 [facility] Last Admin: 03/30/17 21:35 Dose: 40 mg - Labs Labs: 03/27/17 05:00 03/27/17 05:00 PT 13.0 Seconds (9.8-13.1) 03/25/17 16:42 INR 1.2 (0.9-1.2) 03/25/17 16:42 APTT 31.9 Seconds (25.6-37.1) 03/25/17 16:42 - Constitutional Appears: Chronically Ill - Head Exam Head Exam: ATRAUMATIC, NORMAL INSPECTION, NORMOCEPHALIC - Eye Exam Eye Exam: EOMI, Normal appearance, PERRL Pupil Exam: NORMAL ACCOMODATION, PERRL - ENT Exam ENT Exam: Mucous Membranes Moist, Normal Exam - Neck Exam Neck Exam: Full ROM, Normal Inspection. absent: Lymphadenopathy - Respiratory Exam Respiratory Exam: Decreased Breath Sounds, Rales, Wheezes, NORMAL BREATHING PATTERN - Cardiovascular Exam Cardiovascular Exam: REGULAR RHYTHM, +S1, +S2. absent: Murmur - GI/Abdominal Exam GI & Abdominal Exam: Soft, Normal Bowel Sounds. absent: Tenderness - Rectal Exam Rectal Exam: NORMAL INSPECTION - Extremities Exam Extremities Exam: Full ROM, Normal Capillary Refill, Normal Inspection. absent : Joint Swelling, Pedal Edema - Back Exam Back Exam: NORMAL INSPECTION - Neurological Exam Neurological Exam: Alert, Awake, CN II-XII Intact, Normal Gait, Oriented x3 - Psychiatric Exam Psychiatric exam: Normal Affect, Normal Mood - Skin Skin Exam: Dry, Intact, Normal Color, Warm Assessment and Plan - Assessment and Plan (Free Text) Assessment: ACUTE EXAC OF BRONCHIECTASIS PNEUMONIA COPD EXAC ARRYTHMIAS LOW BMI ABDOMINAL PAINS-RESOLVED Plan: CONTINUE PRESENT RX HOLD D/C TODAY
[2017-03-31] MEDS: Pantoprazole 40 mg EC Tab PO SCH (09:18)
[2017-03-31] MEDS: methylPREDNISolone 40 MG in Sodium Chloride 0.9% 50 ML IVPB SCH (09:19)
[2017-03-31] MEDS: Gentamicin 80mg/50ml NS 80 MG/50 ML BAG IVPB SCH ×2 (09:24→21:15)
--- NOTE | 2017-04-01 08:34 | CP.PCM.DIS ---
Provider - Provider Date of Admission: 03/25/17 18:32 Attending physician: Castillo Markham MD Time Spent in preparation of Discharge (in minutes): 30 Diagnosis - Discharge Diagnosis (1) Abdominal pain Status: Acute (2) COPD exacerbation Status: Acute (3) Pneumonia Status: Acute (4) Anemia Status: Acute (5) Arrhythmia Status: Acute (6) Atrial fibrillation Status: Acute (7) Bronchiectasis Status: Acute (8) COPD (chronic obstructive pulmonary disease) Status: Acute (9) Gastritis Status: Acute (10) Pseudomonas aeruginosa infection Status: Acute Hospital Course - Lab Results Lab Results: Micro Results 03/29/17 00:50 Sputum Induced Gram Stain - Final 03/29/17 00:50 Sputum Induced Sputum Culture - Preliminary Gram Negative Yeison 03/25/17 19:20 Blood Blood Culture - Final NO GROWTH AFTER 5 DAYS 03/25/17 19:20 Blood Gram Stain - Final 03/25/17 18:55 Blood Blood Culture - Final NO GROWTH AFTER 5 DAYS 03/25/17 18:55 Blood Gram Stain - Final TEST NOT PERFORMED 03/26/17 02:00 Sputum Gram Stain - Final 03/26/17 02:00 Sputum Sputum Culture - Final Pseudomonas Aeruginosa Most Recent Lab Values WBC 10.4 K/uL (4.8-10.8) 03/27/17 05:00 RBC 3.44 Mil/uL (3.80-5.20) L 03/27/17 05:00 Hgb 9.9 g/dL (12.0-16.0) L 03/27/17 05:00 Hct 30.3 % (34.0-47.0) L 03/27/17 05:00 MCV 87.9 fl (81.0-99.0) 03/27/17 05:00 MCH 28.9 pg (27.0-31.0) 03/27/17 05:00 MCHC 32.9 g/dL (33.0-37.0) L 03/27/17 05:00 RDW 14.5 % (11.5-14.5) 03/27/17 05:00 Plt Count 236 K/uL (130-400) 03/27/17 05:00 MPV 10.2 fl (7.2-11.7) 03/27/17 05:00 Neut % (Auto) 70.3 % (50.0-75.0) 03/27/17 05:00 Lymph % (Auto) 18.8 % (20.0-40.0) L 03/27/17 05:00 [place] % (Auto) 9.7 % (0.0-10.0) 03/27/17 05:00 Eos % (Auto) 1.1 % (0.0-4.0) 03/27/17 05:00 Baso % (Auto) 0.1 % (0.0-2.0) 03/27/17 05:00 Neut # 7.3 K/uL (1.8-7.0) H 03/27/17 05:00 Lymph # 2.0 K/uL (1.0-4.3) 03/27/17 05:00 Hancock # 1.0 K/uL (0.0-0.8) H 03/27/17 05:00 Eos # 0.1 K/uL (0.0-0.7) 03/27/17 05:00 Baso # 0.0 K/uL (0.0-0.2) 03/27/17 05:00 PT 13.0 Seconds (9.8-13.1) 03/25/17 16:42 INR 1.2 (0.9-1.2) 03/25/17 16:42 APTT 31.9 Seconds (25.6-37.1) 03/25/17 16:42 pCO2 41 mm/Hg (35-45) 03/26/17 04:50 pO2 102 mm/Hg (80-100) H 03/26/17 04:50 HCO3 27.5 mmol/L (21-28) 03/26/17 04:50 ABG pH 7.44 (7.35-7.45) 03/26/17 04:50 ABG Total CO2 29.1 mmol/L (22-28) H 03/26/17 04:50 ABG O2 Saturation 99.8 % (95-98) H 03/26/17 04:50 ABG O2 Content 13.4 ML/dL (15-23) L 03/26/17 04:50 ABG Base Excess 3.3 mmol/L (-2.0-3.0) H 03/26/17 04:50 ABG Hemoglobin 9.7 g/dL (11.7-17.4) L 03/26/17 04:50 ABG Carboxyhemoglobin 1.7 % (0.5-1.5) H 03/26/17 04:50 POC ABG HHb (Measured) 0.2 % (0.0-5.0) 03/26/17 04:50 ABG Methemoglobin 1.4 % (0.0-3.0) 03/26/17 04:50 ABG O2 Capacity 13.4 mL/dL (16-24) L 03/26/17 04:50 Yan Test Yes 03/26/17 04:50 A-a O2 Difference 75.0 mm/Hg 03/26/17 04:50 Hgb O2 Saturation 96.7 % (95.0-98.0) 03/26/17 04:50 Vent Mode Nasal cannula 03/26/17 04:50 FiO2 32.0 % 03/26/17 04:50 Sodium 141 mmol/l (132-148) 03/27/17 05:00 Potassium 4.0 MMOL/L (3.6-5.0) 03/27/17 05:00 Chloride 104 mmol/L (98-107) 03/27/17 05:00 Carbon Dioxide 28 mmol/L (22-30) 03/27/17 05:00 Anion Gap 13 (10-20) 03/27/17 05:00 BUN 20 mg/dl (7-17) H 03/27/17 05:00 Creatinine 0.9 mg/dL (0.7-1.2) 03/27/17 05:00 Est GFR ( Amer) > 60 03/27/17 05:00 Est GFR (Non-Af Amer) > 60 03/27/17 05:00 Random Glucose 96 mg/dL (65-105) 03/27/17 05:00 Calcium 8.9 mg/dL (8.4-10.2) 03/27/17 05:00 Total Bilirubin 0.7 mg/dl (0.2-1.3) 03/25/17 16:42 AST 20 U/L (14-36) 03/25/17 16:42 ALT 15 U/L (9-52) 03/25/17 16:42 Alkaline Phosphatase 64 U/L (38-126) 03/25/17 16:42 Total Protein 8.6 G/DL (6.3-8.2) H 03/25/17 16:42 Albumin 4.0 g/dL (3.5-5.0) 03/25/17 16:42 Globulin 4.6 gm/dL (2.2-3.9) H 03/25/17 16:42 Albumin/Globulin Ratio 0.9 (1.0-2.1) L 03/25/17 16:42 Lipase 135 U/L (23-300) 03/25/17 16:42 Urine Color Yellow (YELLOW) 03/26/17 22:21 Urine Clarity Clear (Clear) 03/26/17 22:21 Urine pH 5.0 (5.0-8.0) 03/26/17 22:21 Ur Specific [place] 1.009 (1.003-1.030) 03/26/17 22:21 Urine Protein Negative mg/dL (NEGATIVE) 03/26/17 22:21 Urine Glucose (UA) Neg mg/dL (Normal) 03/26/17 22:21 Urine Ketones Negative mg/dL (NEGATIVE) 03/26/17 22:21 Urine Blood Negative (NEGATIVE) 03/26/17 22:21 Urine Nitrate Negative (NEGATIVE) 03/26/17 22:21 Urine Bilirubin Negative (NEGATIVE) 03/26/17 22:21 Urine Urobilinogen 0.2-1.0 mg/dL (0.2-1.0) 03/26/17 22:21 Ur Leukocyte Esterase Neg Dom/uL (Negative) 03/26/17 22:21 Urine RBC (Auto) < 1 /hpf (0-3) 03/26/17 22:21 Urine Microscopic WBC 1 /hpf (0-5) 03/26/17 22:21 Ur Squamous Epith Cells < 1 /hpf (0-5) 03/26/17 22:21 Urine Bacteria Few (<OCC) H 03/26/17 22:21 - Hospital Course Hospital Course: FEELS BETTER COUGH AND SOB IMPROVED ABDOMINAL PAIN RESOLVED Discharge Exam - Head Exam Head Exam: ATRAUMATIC, NORMAL INSPECTION, NORMOCEPHALIC - Eye Exam Eye Exam: EOMI, Normal appearance, PERRL Pupil Exam: NORMAL ACCOMODATION, PERRL - GI/Abdominal Exam GI & Abdominal Exam: Normal Bowel Sounds - Rectal Exam Rectal Exam: NORMAL INSPECTION - Neurological Exam Neurological exam: Alert, CN II-XII Intact, Normal Gait, Oriented x3, Reflexes Normal - Psychiatric Exam Psychiatric exam: Normal Affect, Normal Mood - Skin Skin Exam: Dry, Intact, Normal Color, Warm Discharge Plan - Follow Up Plan Condition: FAIR Disposition: HOME/ ROUTINE Patient education suggested?: Yes Additional Instructions: DISCHARGE HOME TODAY FOLLOW UP WITH DR MARKHAM IN 1 WEEK
[2017-04-01 08:39] VITALS: PULSE 81; RESP 20; TEMP 98.1; O2SAT 97
[2017-04-01 09:00] VITALS: BP 121/60
[2017-04-01] MEDS: Pantoprazole 40 mg EC Tab PO SCH (09:00)
== END 2017-04-01 10:30 | disposition home or self-care (01) | DRG 190 ==
LOC: H.ER 15:44 → H.ERHOLD 18:32 → H.TEL 21:11 → H.MEDSURG1 03-27 14:42
PROVIDERS: ADMIT Internal Medicine Pulmonary Disease; ATTEND Internal Medicine Pulmonary Disease
DX: J44.0 Chronic obstructive pulmonary disease with (acute) lower respiratory infection (principal); J15.1 Pneumonia due to Pseudomonas; D64.9 Anemia, unspecified; J47.1 Bronchiectasis with (acute) exacerbation; I34.1 Nonrheumatic mitral (valve) prolapse; I48.2 Chronic atrial fibrillation; J44.1 Chronic obstructive pulmonary disease with (acute) exacerbation; I10 Essential (primary) hypertension; I25.10 Atherosclerotic heart disease of native coronary artery without angina pectoris; K22.70 Barrett's esophagus without dysplasia; K29.70 Gastritis, unspecified, without bleeding; Z86.711 Personal history of pulmonary embolism; Z88.1 Allergy status to other antibiotic agents

== ENCOUNTER 2017-04-02 18:14 | Inpatient (IN) | payer MEDICARE, BC ==
[2017-04-02 18:14] VITALS: BMI 21.1
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
[2017-04-02 19:44] LABS: BASO # 0.2 K/uL (0.0-0.2); EOS # 0.2 K/uL (0.0-0.7); EOS % 0.9 % (0.0-4.0); HEMATOCRIT 32.7 % (34.0-47.0); LYMPH # 1.7 K/uL (1.0-4.3); LYMPH % 8.8 % (20.0-40.0); MEAN CELL VOLUME 89.1 fl (81.0-99.0); MEAN CORPUSCULAR HEMOGLOBIN 28.3 pg (27.0-31.0); MEAN CORPUSCULAR HGB CONC 31.7 g/dL (33.0-37.0); MEAN PLATELET VOLUME 10.1 fl (7.2-11.7); MONO # 1.4 K/uL (0.0-0.8); MONO % 7.2 % (0.0-10.0); NEUT % 82.1 % (50.0-75.0); PLATELET COUNT 249 K/uL (130-400); RED CELL DISTRIBUTION WIDTH 15.3 % (11.5-14.5); WHITE BLOOD COUNT 19.5 K/uL (4.8-10.8)
[2017-04-02 19:54] LABS: VENOUS BLOOD GAS BASE EXCESS 6.5 mmol/L (0.0-2.0); VENOUS BLOOD GAS PCO2 53 mmHg (40-60)
[2017-04-02 20:02] LABS: ALB/GLOB RATIO 0.9 (1.0-2.1); ALKALINE PHOSPHATASE 65 U/L (38-126); ALT/SGPT 38 U/L (9-52); AST/SGOT 16 U/L (14-36); BILIRUBIN,TOTAL 0.4 mg/dl (0.2-1.3); BLOOD UREA NITROGEN 26 mg/dl (7-17); CALCIUM 8.7 mg/dL (8.4-10.2); CARBON DIOXIDE 30 mmol/L (22-30); CHLORIDE 98 mmol/L (98-107); GFR AFRICAN-AMERICAN > 60; GLUCOSE,RANDOM 85 mg/dL (65-105); POTASSIUM 3.9 MMOL/L (3.6-5.0); SODIUM 138 mmol/l (132-148); TOTAL PROTEIN 7.4 G/DL (6.3-8.2)
[2017-04-02 20:12] LABS: EOSINOPHIL 1 % (0-7); NEUTROPHIL 78 % (42-75); REACTIVE LYMPHOCYTES 1 % (0-0); TOTAL CELLS COUNTED 100
[2017-04-02 20:17] LABS: VENOUS BLOOD GAS BASE EXCESS 6.8 mmol/L (0.0-2.0); VENOUS BLOOD GAS PCO2 57 mmHg (40-60); VENOUS BLOOD PH 7.38 (7.32-7.43)
--- NOTE | 2017-04-02 21:03 | ED PDOC ---
- Laboratory Results Result Diagrams: 04/02/17 19:35 04/02/17 19:35 - ECG O2 Sat by Pulse Oximetry: 99 - Radiology X-Ray: Viewed By Me X-Ray Interpretation: Other (unchanged from previous) - Progress ED Course And Treament: Case endorsed to entry writer from Eva AGUILAR pending labs, xray duoneb ordered Case discussed with Dr. Castaneda, recommends placement in tele obs status and IV Gentamicin. Disposition - Clinical Impression Clinical Impression: Bronchiectasis - POA Present On Arrival: None - Disposition Disposition: Hospitalized as Observation Patient Disposition Time: 21:31 Condition: FAIR
[2017-04-02] MEDS ORDERED: Albuterol-Ipratrop 3 mg / 0.5 (3 ml) UD INH STA (21:26)
[2017-04-02] MEDS ORDERED: Gentamicin 80mg/50ml NS 80 MG/50 ML BAG IVPB ONE (22:00)
[2017-04-03] MEDS ORDERED: guaiFENesin DM 200 mg-20 mg/10 ml UD PO PRN (00:45)
[2017-04-03] MEDS ORDERED: Levalbuterol 1.25 MG/3 ML Inhal Soln UD INH PRN (00:46)
[2017-04-03] MEDS ORDERED: Sodium Chloride 3% for Inhalation 4 ML VIAL.NEB IH PRN (00:48)
[2017-04-03 01:17] LABS: RBC URINE 6 /hpf (0-3); URINE BILIRUBIN NEGATIVE (NEGATIVE); URINE BLOOD NEGATIVE (NEGATIVE); URINE COLOR YELLOW (YELLOW); URINE GLUCOSE (UA) NEG (Normal); URINE KETONE NEGATIVE (NEGATIVE); URINE LEUKOCYTE ESTERASE NEG Leu/uL (Negative); URINE PROTEIN 30 mg/dL (NEGATIVE); URINE UROBILINOGEN 0.2-1.0 mg/dL (0.2-1.0); WBC URINE 1 /hpf (0-5)
[2017-04-03] MEDS: Gentamicin 80mg/50ml NS 80 MG/50 ML BAG IVPB SCH ×3 (05:53→21:52)
[2017-04-03 07:21] LABS: BASO % 0.3 % (0.0-2.0); EOS # 0.2 K/uL (0.0-0.7); EOS % 1.8 % (0.0-4.0); HEMATOCRIT 30.2 % (34.0-47.0); LYMPH # 1.9 K/uL (1.0-4.3); LYMPH % 15.2 % (20.0-40.0); MEAN CELL VOLUME 88.6 fl (81.0-99.0); MEAN CORPUSCULAR HEMOGLOBIN 29.1 pg (27.0-31.0); MEAN CORPUSCULAR HGB CONC 32.9 g/dL (33.0-37.0); MEAN PLATELET VOLUME 10.1 fl (7.2-11.7); MONO # 1.4 K/uL (0.0-0.8); NEUT # 9.1 K/uL (1.8-7.0); NEUT % 71.7 % (50.0-75.0); RED CELL DISTRIBUTION WIDTH 15.1 % (11.5-14.5); WHITE BLOOD COUNT 12.6 K/uL (4.8-10.8)
[2017-04-03 07:32] LABS: BLOOD UREA NITROGEN 21 mg/dl (7-17); CALCIUM 8.5 mg/dL (8.4-10.2); CARBON DIOXIDE 32 mmol/L (22-30); CHLORIDE 99 mmol/L (98-107); GFR AFRICAN-AMERICAN > 60; GLUCOSE,RANDOM 86 mg/dL (65-105); POTASSIUM 4.1 MMOL/L (3.6-5.0); SODIUM 139 mmol/l (132-148)
--- NOTE | 2017-04-03 09:54 | HP ---
The patient is an 82-year-old female who was recently discharged from [facility]. She spent less than 24 hours home and then was readmitted because of fever, chills, shortness of breath, cough productive of thick tenacious sputum. She was admitted with pneumonia and bronchiecta sis with recurrent pseudomonas upper respiratory tract infection, and seems to have done quite well w ith IV antibiotics and oxygen, with antitussives and aerosolized bronchodilators. She went home and then returned less than 24 hours after discharge. PAST MEDICAL HISTORY: Bronchiectasis with recurrent pseudomonas upper respiratory tract infection wi th chronic obstructive pulmonary disease with recurrent exacerbations, coronary artery disease and ca rdiac arrhythmias (atrial fibrillation - chronic requiring ablation therapy). She also has severe an xiety disorder, recently admitted with abdominal pain, which resolved, and granulomatous lung disease , which has been biopsied with open lung biopsy in the past. FAMILY HISTORY: Noncontributory. SOCIAL HISTORY: She used to smoke years ago, but quit. Does not drink and does not use drugs. REVIEW OF SYSTEMS: Remarkable for recurrent shortness of breath, exercise intolerance, and cough wit h recurrent upper respiratory tract infections. PHYSICAL EXAMINATION: GENERAL: The patient is alert, oriented, appears to be in moderate distress this morning. VITAL SIGNS: Blood pressure 94/41 with a pulse of 62. Respiratory rate is 18 per minute. She was f ebrile to 101 degrees on admission, down to 98.3 degrees Fahrenheit today. O2 sat 95% on room air. SKIN: Shows fair turgor. HEENT: Pupils are equal and react to light and accommodation. Mouth shows mucous engorgement of pha rynx. LUNGS: Poor aeration bilaterally with audible rales and wheezing, dullness at both bases. HEART: Regular. BREASTS: Normal. ABDOMEN: Soft, nontender. No organomegaly. EXTREMITIES: Shows no edema or cyanosis. GENITAL AND RECTAL: Deferred. CENTRAL NERVOUS SYSTEM: Grossly intact. LABORATORY DATA: Remarkable for WBC count of 19.5 on admission, hemoglobin 10.4, platelet count of 2 49,000. Sodium 138, potassium 3.9. BUN 26, creatinine 0.9. Venous blood gas: pH of 7.4, pCO2 of 5 3, pO2 of 23; this is on room air. Chest x-ray shows chronic pulmonary disease. Compared to old x-ray, shows no changes. IMPRESSION: Acute exacerbation of bronchiectasis secondary to recurrent pseudomonas upper respirator y tract infection (pneumonia), acute exacerbation of chronic obstructive pulmonary disease, history o f cardiac arrhythmias, history of coronary artery disease, history of granulomatous lung disease. PLAN: Restart IV antibiotics, infectious disease evaluation. Obtain sputum for cultures, oxygen the rapy, aerosolized bronchodilators. Would consider transferring the patient to transitional care unit for IV antibiotic therapy prior to discharge home. In the past, the patient's insurance has been un willing to pay for IV antibiotic therapy at home or aerosolized gentamicin or amikacin at home. We w ill continue therapy as ordered. Castillo Castaneda MD cc: 62 TT: 04/03/2017 09:53:19 jn
--- NOTE | 2017-04-03 11:43 | PCM.SURG1 ---
Surgeon's Initial Post Op Note - Surgeon's Notes Surgeon: Keagan Occupational Therapist Home Based: None Type of Anesthesia: Local Pre-Operative Diagnosis: Infection Operative Findings: Patent right basilic vein. Post-Operative Diagnosis: Infection. Operation Performed: Right basilic vein 4F SL 30cm PICC placed with the tip at the RA/SVC junction. Specimen/Specimens Removed: None Estimated Blood Loss: EBL {In ML}: 1 Date of Surgery/Procedure: 04/03/17 Time of Surgery/Procedure: 10:45
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
--- NOTE | 2017-04-03 15:45 | RAD ---
HISTORY: cough COMPARISON: Comparison made with prior chest radiograph 03/29/2017 comparison also made with CTA chest 12/01/2016. TECHNIQUE: Chest PA and lateral FINDINGS: LUNGS: Hyperinflation. Consistent with COPD. Extensive interstitial fibrosis. Changes are most severe in the upper lung mendez and apices. Note that the possibility of superimposed infiltrate cannot be excluded PLEURA: No significant pleural effusion identified. No pneumothorax apparent. CARDIOVASCULAR: Heart size within range of normal. OSSEOUS STRUCTURES: No significant abnormalities. VISUALIZED UPPER ABDOMEN: Normal. OTHER FINDINGS: None. IMPRESSION: Extensive on hyperinflation consistent with underlying COPD. Extensive interstitial fibrosis particularly severe in the upper lung mendez and apices. Superimposed infiltrate not excluded. Clinical correlation recommended.
--- NOTE | 2017-04-03 15:50 | RAD ---
PROCEDURE: Radiographs of the Left Shoulder HISTORY: pain COMPARISON: No prior. FINDINGS: BONES: No evidence of acute displaced fracture nor dislocation. 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 SOFT TISSUES: Normal. OTHER FINDINGS: Note made of mild left apical pleural thickening IMPRESSION: No evidence of acute displaced fracture nor dislocation. Mild degenerative osteoarthritis as above
--- NOTE | 2017-04-03 23:57 | CARD ---
APPROVED REPORT EKG Measurement Heart [id number] <Conclusion> Sinus rhythm with premature atrial complexes Nonspecific ST abnormality Abnormal ECG
[2017-04-04] MEDS: Gentamicin 80mg/50ml NS 80 MG/50 ML BAG IVPB SCH ×2 (05:43→15:24)
[2017-04-04 09:40] VITALS: RESP 20
--- NOTE | 2017-04-04 12:20 | CP.PCM.PN ---
Subjective - Date & Time of Evaluation Date of Evaluation: 04/04/17 Time of Evaluation: 07:00 - Subjective Subjective: wbc trending down c/o pleuritic pain Objective - Vital Signs/Intake and Output Vital Signs (last 24 hours): Temp Pulse Resp BP Pulse Ox 97.6 F 63 20 97/58 L 95 04/04/17 09:00 04/04/17 09:06 04/04/17 09:00 04/04/17 09:06 04/04/17 09:00 - Medications Medications: Current Medications Acetaminophen (Tylenol 325mg Tab) 650 mg PO Q6 PRN PRN Reason: Fever T>100.1 Last Admin: 04/03/17 09:36 Dose: 650 mg Acetaminophen (Tylenol 325mg Tab) 650 mg PO Q4 PRN PRN Reason: Pain, moderate (4-7) Last Admin: 04/04/17 05:40 Dose: 650 mg Guaifenesin/Dextromethorphan (Robitussin Dm) 10 ml PO Q6 PRN PRN Reason: Cough Gentamicin Sulfate/Sodium Chloride (Gentamicin 80mg/50ml Ns) 80 mg in 50 mls @ 50 mls/hr IVPB Q8H [facility] Last Admin: 04/04/17 05:43 Dose: 50 mls/hr Levalbuterol HCl (Xopenex) 1.25 mg INH RQ6 PRN PRN Reason: Shortness of Breath Sotalol HCl (Betapace) 40 mg PO BID [facility] Last Admin: 04/04/17 09:06 Dose: 40 mg - Constitutional Appears: Non-toxic, Cachectic, Chronically Ill - Head Exam Head Exam: NORMOCEPHALIC - Eye Exam Eye Exam: PERRL. absent: Scleral icterus - ENT Exam ENT Exam: Mucous Membranes Dry, Normal External Ear Exam - Neck Exam Neck Exam: absent: Lymphadenopathy - Respiratory Exam Respiratory Exam: Decreased Breath Sounds, Rhonchi - Cardiovascular Exam Cardiovascular Exam: REGULAR RHYTHM, +S1, +S2 - GI/Abdominal Exam GI & Abdominal Exam: Distended, Soft - Rectal Exam Rectal Exam: Deferred Assessment and Plan (1) Bronchiectasis Status: Acute (2) Bronchiectasis Status: Acute (3) COPD (chronic obstructive pulmonary disease) Status: Acute (4) Chr obstructive pulmonary disease w/ acute lower respiratory infxn Status: Acute (5) Pseudomonas aeruginosa infection Status: Acute
--- NOTE | 2017-04-04 14:28 | CP.PCM.PN ---
Subjective - Date & Time of Evaluation Date of Evaluation: 04/04/17 Time of Evaluation: 14:28 - Subjective Subjective: FEELS WEAK TODAY AFEBRILE STILL COUGHING C/O BACK PAIN Objective - Vital Signs/Intake and Output Vital Signs (last 24 hours): Temp Pulse Resp BP Pulse Ox 97.6 F 63 20 97/58 L 95 04/04/17 09:00 04/04/17 09:06 04/04/17 09:00 04/04/17 09:06 04/04/17 09:00 - Medications Medications: Current Medications Acetaminophen (Tylenol 325mg Tab) 650 mg PO Q6 PRN PRN Reason: Fever T>100.1 Last Admin: 04/03/17 09:36 Dose: 650 mg Acetaminophen (Tylenol 325mg Tab) 650 mg PO Q4 PRN PRN Reason: Pain, moderate (4-7) Last Admin: 04/04/17 05:40 Dose: 650 mg Guaifenesin/Dextromethorphan (Robitussin Dm) 10 ml PO Q6 PRN PRN Reason: Cough Gentamicin Sulfate/Sodium Chloride (Gentamicin 80mg/50ml Ns) 80 mg in 50 mls @ 50 mls/hr IVPB Q8H [facility] Last Admin: 04/04/17 05:43 Dose: 50 mls/hr Levalbuterol HCl (Xopenex) 1.25 mg INH RQ6 PRN PRN Reason: Shortness of Breath Sotalol HCl (Betapace) 40 mg PO BID [facility] Last Admin: 04/04/17 09:06 Dose: 40 mg - Constitutional Appears: Chronically Ill - Head Exam Head Exam: ATRAUMATIC, NORMAL INSPECTION, NORMOCEPHALIC - Eye Exam Eye Exam: EOMI, Normal appearance, PERRL Pupil Exam: NORMAL ACCOMODATION, PERRL - ENT Exam ENT Exam: Mucous Membranes Moist, Normal Exam - Neck Exam Neck Exam: Full ROM, Normal Inspection. absent: Lymphadenopathy - Respiratory Exam Respiratory Exam: Decreased Breath Sounds, Prolonged Expiratory Phase, Rales, NORMAL BREATHING PATTERN - Cardiovascular Exam Cardiovascular Exam: REGULAR RHYTHM, +S1, +S2. absent: Murmur - GI/Abdominal Exam GI & Abdominal Exam: Soft, Normal Bowel Sounds. absent: Tenderness - Rectal Exam Rectal Exam: NORMAL INSPECTION - Extremities Exam Extremities Exam: Full ROM, Normal Capillary Refill, Normal Inspection. absent : Joint Swelling, Pedal Edema - Back Exam Back Exam: NORMAL INSPECTION - Neurological Exam Neurological Exam: Alert, Awake, CN II-XII Intact, Normal Gait, Oriented x3 - Psychiatric Exam Psychiatric exam: Normal Affect, Normal Mood - Skin Skin Exam: Dry, Intact, Normal Color, Warm Assessment and Plan - Assessment and Plan (Free Text) Assessment: BRONCHIECTASIS PNEUMONIA [id number] PULMONARY INFECTION ARRYTHMIAS Plan: CONTINUE ANTIBIOTIC RX TRANSFER TO TCU ONCE A BED IS AVALIABLE
[2017-04-04] MEDS ORDERED: Lidocaine 5% Patch TD SCH (14:30)
[2017-04-04 16:08] VITALS: BP 106/57; PULSE 77; TEMP 98.2; O2SAT 94
--- NOTE | 2017-04-04 17:34 | VASCULAR ---
Procedure: Ultrasound and fluoroscopically placed Right upper extremity PICC. Clinical indication: Long-term IV antibiotics. Technique: The relative risks and indications of the procedure were explained to the patient and written informed consent obtained. The patient was placed supine on the angiographic table and the right arm prepped and draped in the usual sterile fashion. A tourniquet was applied to the right axilla. 1% lidocaine was used to anesthetize the skin and soft tissues at the puncture site above the elbow. The right basilic vein was punctured under direct ultrasound guidance with a micropuncture set. Permanent image was stored. A 0.018 guidewire was advanced centrally and used to measure the length to the SVC/RA junction. A 4 Macedonian single -lumen PICC size 30 cm long was advanced to the SVC/RA junction. The catheter was flushed and secured. The patient tolerated the procedure well. Impression: Ultrasound and fluoroscopically placed right upper extremity PICC. A 4 Macedonian single -lumen PICC line size 30 cm long was advanced to the SVC/RA junction
--- NOTE | 2017-04-05 12:11 | CP.PCM.DIS ---
Provider - Provider Date of Admission: 04/03/17 08:57 Attending physician: Castillo Castaneda MD Time Spent in preparation of Discharge (in minutes): 30 Diagnosis - Discharge Diagnosis (1) Anemia Status: Acute (2) Arrhythmia Status: Acute (3) Atrial fibrillation Status: Acute (4) Atypical chest pain Status: Acute (5) Bronchiectasis Status: Acute (6) COPD (chronic obstructive pulmonary disease) Status: Acute (7) Chr obstructive pulmonary disease w/ acute lower respiratory infxn Status: Acute (8) Pneumonia Status: Acute (9) Pseudomonas aeruginosa infection Status: Acute Hospital Course - Lab Results Lab Results: Micro Results 04/03/17 13:00 Sputum Gram Stain - Final 04/03/17 13:00 Sputum Sputum Culture - Preliminary Gram Negative Yeison Most Recent Lab Values WBC 12.6 K/uL (4.8-10.8) H 04/03/17 06:15 RBC 3.40 Mil/uL (3.80-5.20) L 04/03/17 06:15 Hgb 9.9 g/dL (12.0-16.0) L 04/03/17 06:15 Hct 30.2 % (34.0-47.0) L 04/03/17 06:15 MCV 88.6 fl (81.0-99.0) 04/03/17 06:15 MCH 29.1 pg (27.0-31.0) 04/03/17 06:15 MCHC 32.9 g/dL (33.0-37.0) L 04/03/17 06:15 RDW 15.1 % (11.5-14.5) H 04/03/17 06:15 Plt Count 251 K/uL (130-400) 04/03/17 06:15 MPV 10.1 fl (7.2-11.7) 04/03/17 06:15 Neut % (Auto) 71.7 % (50.0-75.0) 04/03/17 06:15 Lymph % (Auto) 15.2 % (20.0-40.0) L 04/03/17 06:15 Bee % (Auto) 11.0 % (0.0-10.0) H 04/03/17 06:15 Eos % (Auto) 1.8 % (0.0-4.0) 04/03/17 06:15 Baso % (Auto) 0.3 % (0.0-2.0) 04/03/17 06:15 Neut # 9.1 K/uL (1.8-7.0) H 04/03/17 06:15 Lymph # 1.9 K/uL (1.0-4.3) 04/03/17 06:15 Bee # 1.4 K/uL (0.0-0.8) H 04/03/17 06:15 Eos # 0.2 K/uL (0.0-0.7) 04/03/17 06:15 Baso # 0.0 K/uL (0.0-0.2) 04/03/17 06:15 Neutrophils % (Manual) 78 % (42-75) H 04/02/17 19:35 Band Neutrophils % 2 % (0-2) 04/02/17 19:35 Lymphocytes % (Manual) 10 % (20-50) L 04/02/17 19:35 Reactive Lymphs % 1 % (0-0) H 04/02/17 19:35 Monocytes % (Manual) 8 % (0-10) 04/02/17 19:35 Eosinophils % (Manual) 1 % (0-7) 04/02/17 19:35 Toxic Granulation Present 04/02/17 19:35 Platelet Estimate Normal (NORMAL) 04/02/17 19:35 Hypochromasia (manual) Slight 04/02/17 19:35 Anisocytosis (manual) Moderate 04/02/17 19:35 Ovalocytes Slight 04/02/17 19:35 pO2 23 mm/Hg (30-55) L 04/02/17 20:14 VBG pH 7.38 (7.32-7.43) 04/02/17 20:14 VBG pCO2 57 mmHg (40-60) 04/02/17 20:14 VBG HCO3 28.6 mmol/L 04/02/17 20:14 VBG Total CO2 35.4 mmol/L (22-28) H 04/02/17 20:14 VBG O2 Sat (Calc) 41.8 % (40-65) 04/02/17 20:14 VBG Base Excess 6.8 mmol/L (0.0-2.0) H 04/02/17 20:14 VBG Potassium 3.9 mmol/L (3.6-5.2) 04/02/17 20:14 Sodium 136.0 mmol/L (132-148) 04/02/17 20:14 Chloride 98.0 mmol/L (98-107) 04/02/17 20:14 Glucose 81 mg/dL (65-105) 04/02/17 20:14 Lactate 1.6 mmol/L (0.7-2.1) 04/02/17 20:14 FiO2 21.0 % 04/02/17 20:14 Sodium 139 mmol/l (132-148) 04/03/17 06:15 Potassium 4.1 MMOL/L (3.6-5.0) 04/03/17 06:15 Chloride 99 mmol/L (98-107) 04/03/17 06:15 Carbon Dioxide 32 mmol/L (22-30) H 04/03/17 06:15 Anion Gap 12 (10-20) 04/03/17 06:15 BUN 21 mg/dl (7-17) H 04/03/17 06:15 Creatinine 0.9 mg/dL (0.7-1.2) 04/03/17 06:15 Est GFR ( Amer) > 60 04/03/17 06:15 Est GFR (Non-Af Amer) > 60 04/03/17 06:15 Random Glucose 86 mg/dL (65-105) 04/03/17 06:15 Calcium 8.5 mg/dL (8.4-10.2) 04/03/17 06:15 Total Bilirubin 0.4 mg/dl (0.2-1.3) 04/02/17 19:35 AST 16 U/L (14-36) 04/02/17 19:35 ALT 38 U/L (9-52) 04/02/17 19:35 Alkaline Phosphatase 65 U/L (38-126) 04/02/17 19:35 Troponin I < 0.0120 ng/mL (0.00-0.120) 04/02/17 19:35 Total Protein 7.4 G/DL (6.3-8.2) 04/02/17 19:35 Albumin 3.6 g/dL (3.5-5.0) 04/02/17 19:35 Globulin 3.8 gm/dL (2.2-3.9) 04/02/17 19:35 Albumin/Globulin Ratio 0.9 (1.0-2.1) L 04/02/17 19:35 Venous Blood Potassium 3.9 mmol/L (3.6-5.2) 04/02/17 20:14 Urine Color Yellow (YELLOW) 04/02/17 23:27 Urine Clarity Clear (Clear) 04/02/17 23:27 Urine pH 6.0 (5.0-8.0) 04/02/17 23:27 Ur Specific Burton 1.017 (1.003-1.030) 04/02/17 23:27 Urine Protein 30 mg/dL (NEGATIVE) 04/02/17 23:27 Urine Glucose (UA) Neg mg/dL (Normal) 04/02/17 23:27 Urine Ketones Negative mg/dL (NEGATIVE) 04/02/17 23:27 Urine Blood Negative (NEGATIVE) 04/02/17 23:27 Urine Nitrate Negative (NEGATIVE) 04/02/17 23:27 Urine Bilirubin Negative (NEGATIVE) 04/02/17 23:27 Urine Urobilinogen 0.2-1.0 mg/dL (0.2-1.0) 04/02/17 23:27 Ur Leukocyte Esterase Neg Dom/uL (Negative) 04/02/17 23:27 Urine RBC (Auto) 6 /hpf (0-3) H 04/02/17 23:27 Urine Microscopic WBC 1 /hpf (0-5) 04/02/17 23:27 Gentamicin Trough 6.4 ug/mL (0.0-0.9) H* 04/04/17 13:00 Influenza Typ A,B (EIA) Negative for flu a/b (NEGATIVE) 04/02/17 19:35 - Hospital Course Hospital Course: PERSISTENT COUGH WITH SOB AND BACK PAIN Discharge Exam - Head Exam Head Exam: ATRAUMATIC, NORMAL INSPECTION, NORMOCEPHALIC - Eye Exam Eye Exam: EOMI, Normal appearance, PERRL Pupil Exam: NORMAL ACCOMODATION, PERRL - Respiratory Exam Respiratory Exam: Decreased Breath Sounds, Rales, NORMAL BREATHING PATTERN - GI/Abdominal Exam GI & Abdominal Exam: Normal Bowel Sounds - Rectal Exam Rectal Exam: NORMAL INSPECTION - Neurological Exam Neurological exam: Alert, CN II-XII Intact, Normal Gait, Oriented x3, Reflexes Normal - Psychiatric Exam Psychiatric exam: Normal Affect, Normal Mood - Skin Skin Exam: Dry, Intact, Normal Color, Warm Discharge Plan - Discharge Medications Prescriptions: Gentamicin 80 mg in 0.9% NS [Gentamicin IV 80 mg PREMIX] 80 mg IVPB Q8 #21 bag - Follow Up Plan Condition: FAIR Disposition: HOME/ ROUTINE Patient education suggested?: Yes Instructions: Bronchiectasis (DC) Additional Instructions: TRANSFER TO TCU
== END 2017-04-04 18:26 | DRG 190 ==
LOC: H.ER 18:14 → H.ERHOLD 21:25 → H.TEL 23:45 → OBSVTOIN 04-03 08:57 → H.MEDSURG1 04-03 13:15
PROVIDERS: ADMIT Internal Medicine Pulmonary Disease; ATTEND Internal Medicine Pulmonary Disease
PROC: 02HV33Z Insertion of Infusion Device into Superior Vena Cava, Percutaneous Approach (ICD-10-PCS; principal; 2017-04-03)
DX: J44.0 Chronic obstructive pulmonary disease with (acute) lower respiratory infection (principal); J15.1 Pneumonia due to Pseudomonas; I48.2 Chronic atrial fibrillation; D64.9 Anemia, unspecified; I34.1 Nonrheumatic mitral (valve) prolapse; J47.1 Bronchiectasis with (acute) exacerbation; R07.89 Other chest pain; J47.9 Bronchiectasis, uncomplicated; Z87.891 Personal history of nicotine dependence; J45.909 Unspecified asthma, uncomplicated; I10 Essential (primary) hypertension; I25.10 Atherosclerotic heart disease of native coronary artery without angina pectoris; F41.9 Anxiety disorder, unspecified; M25.512 Pain in left shoulder; Z88.1 Allergy status to other antibiotic agents; Z86.711 Personal history of pulmonary embolism; J44.1 Chronic obstructive pulmonary disease with (acute) exacerbation

== ENCOUNTER 2017-04-04 18:47 | Inpatient (IN) | payer OTHER, BC ==
[2017-04-04 18:58] VITALS: BMI 18.1
[2017-04-04 19:59] VITALS: RESP 20
[2017-04-04] MEDS ORDERED: Levalbuterol 1.25 MG/3 ML Inhal Soln UD INH PRN (20:26)
[2017-04-04] MEDS ORDERED: guaiFENesin DM 200 mg-20 mg/10 ml UD PO PRN (20:26)
[2017-04-05] MEDS: Lidocaine 5% Patch TD SCH (08:26)
[2017-04-05] MEDS: Levalbuterol 1.25 MG/3 ML Inhal Soln UD INH SCH ×2 (14:09→19:25)
--- NOTE | 2017-04-05 14:31 | HP ---
HISTORY OF PRESENT ILLNESS: This patient is an 82-year-old female who was admitted to the transition al care unit following admission to the medical floor for pneumonia, persistent pseudomonas pulmonary infection, acute exacerbation of bronchiectasis. She was recently discharged from [facility] and then readmitted with fever, chills, cough, body aches and pains and then transfe rred to the transitional care unit for IV antibiotic therapy, occupational and physical therapy. PAST MEDICAL HISTORY: She has a past medical history of bronchiectasis, chronic obstructive pulmonar y disease, granulomatous lung disease, cardiac arrhythmias, cachexia with a low BMI anemia. FAMILY HISTORY: Noncontributory. SOCIAL HISTORY: She used to smoke, but quit years ago, does not drink alcohol, does not use drugs an d lives by herself, but has a supportive family. REVIEW OF SYSTEMS: Remarkable for shortness of breath, exercise intolerance, cough and occasional fe dougie. PHYSICAL EXAMINATION: GENERAL: The patient is alert and oriented. VITAL SIGNS: Stable. She appears emaciated. HEENT: Pupils equal, react to light and accommodation. Mouth shows fair hygiene. NECK: JVP flat. LUNGS: Bilateral scattered rales with dullness at the bases. HEART: S1, S2. ABDOMEN: Soft, nontender, no organomegaly. EXTREMITIES: Shows no edema or cyanosis. RECTAL AND GENITALIA: Deferred. CENTRAL NERVOUS SYSTEM: Grossly intact. LABORATORY DATA: Pending. IMPRESSION: Acute exacerbation of bronchiectasis, pseudomonas pneumonia, cardiac arrhythmias, chroni c anemia, cachexia with a BMI of 18. PLAN: Intravenous antibiotics, aerosolized bronchodilators. I repeat medications. Oxygen therapy p .r.n. Further therapy will depend on findings. Castillo Castaneda MD cc: [id number] TT: 04/05/2017 14:30:20 carola
[2017-04-05] MEDS: Gentamicin 80mg/50ml NS 80 MG/50 ML BAG IVPB SCH (21:45)
[2017-04-06] MEDS: Levalbuterol 1.25 MG/3 ML Inhal Soln UD INH SCH ×4 (01:03→19:25)
[2017-04-06] MEDS: Gentamicin 80mg/50ml NS 80 MG/50 ML BAG IVPB SCH ×3 (04:10→21:53)
[2017-04-06] MEDS: Lidocaine 5% Patch TD SCH (08:50)
--- NOTE | 2017-04-06 09:49 | CP.PCM.PN ---
Subjective - Date & Time of Evaluation Date of Evaluation: 04/06/17 Time of Evaluation: 09:53 - Subjective Subjective: C/O BACK AND SHOULDER PAINS THICK TENACEOUS SPUTUM PRODUCTION PERSISTS Objective - Vital Signs/Intake and Output Vital Signs (last 24 hours): Temp Pulse Resp BP Pulse Ox 97.0 F L 60 20 101/52 L 99 04/06/17 08:12 04/06/17 08:49 04/06/17 08:12 04/06/17 08:49 04/06/17 08:12 - Medications Medications: Current Medications Acetaminophen (Tylenol 325mg Tab) 650 mg PO Q4 PRN PRN Reason: Pain, moderate (4-7) Last Admin: 04/06/17 02:33 Dose: 650 mg Acetaminophen (Tylenol 325mg Tab) 650 mg PO Q6 PRN PRN Reason: Fever T>100.1 Guaifenesin/Dextromethorphan (Robitussin Dm) 10 ml PO Q6 PRN PRN Reason: Cough Last Admin: 04/05/17 01:36 Dose: 10 ml Gentamicin Sulfate/Sodium Chloride (Gentamicin 80mg/50ml Ns) 80 mg in 50 mls @ 50 mls/hr IVPB Q8@0500,1300,2100 [facility] Last Admin: 04/06/17 04:10 Dose: 50 mls/hr Levalbuterol HCl (Xopenex) 1.25 mg INH RQ6 [facility] Last Admin: 04/06/17 08:39 Dose: 1.25 mg Lidocaine (Lidoderm) 1 ea TD DAILY [facility] Last Admin: 04/06/17 08:50 Dose: 1 ea Sotalol HCl (Betapace) 40 mg PO BID [facility] Last Admin: 04/06/17 08:49 Dose: 40 mg - Constitutional Appears: Cachectic, Chronically Ill - Head Exam Head Exam: ATRAUMATIC, NORMAL INSPECTION, NORMOCEPHALIC - Eye Exam Eye Exam: EOMI, Normal appearance, PERRL Pupil Exam: NORMAL ACCOMODATION, PERRL - ENT Exam ENT Exam: Mucous Membranes Moist, Normal Exam - Neck Exam Neck Exam: Full ROM, Normal Inspection. absent: Lymphadenopathy - Respiratory Exam Respiratory Exam: Prolonged Expiratory Phase, Rales, Wheezes, NORMAL BREATHING PATTERN - Cardiovascular Exam Cardiovascular Exam: REGULAR RHYTHM, +S1, +S2. absent: Murmur - GI/Abdominal Exam GI & Abdominal Exam: Soft, Normal Bowel Sounds. absent: Tenderness - Rectal Exam Rectal Exam: NORMAL INSPECTION - Extremities Exam Extremities Exam: Full ROM, Normal Capillary Refill, Normal Inspection. absent : Joint Swelling, Pedal Edema - Back Exam Back Exam: muscle spasm, NORMAL INSPECTION, tenderness - Neurological Exam Neurological Exam: Alert, Awake, CN II-XII Intact, Normal Gait, Oriented x3 - Psychiatric Exam Psychiatric exam: Normal Affect, Normal Mood - Skin Skin Exam: Dry, Intact, Normal Color, Warm Assessment and Plan - Assessment and Plan (Free Text) Assessment: ACUTE BRONCHIECTASIS MUSCULOSKELETAL PAIN PSEUDOMONAS PNEUMONIA CHRONIC ATRIAL FIB CACHEXIA CHRONIC ANEMIA Plan: ADD MUCOMYST TO RX TO HELP EXPECTORATE SPUTUM FLEXERIL BID TO RELIEVE MUSCLE SPASM REPEAT CXR AND LABS
[2017-04-06] MEDS ORDERED: Sodium Chloride 3% for Inhalation 4 ML VIAL.NEB IH PRN (09:54)
--- NOTE | 2017-04-06 12:41 | CP.PCM.CON ---
History of Present Illness - History of Present Illness History of Present Illness: admitted to tcu for iv rx of pseudomonas pneumonia has multiple severe allergies tolerating genta however genta levels high Review of Systems - Constitutional Constitutional: As Per HPI, Anorexia, Chills - EENT Eyes: absent: As Per HPI, Blind Spots, Blurred Vision, Change in Vision, Decreased Night Vision, Diplopia, Discharge, Dry Eye, Exophthalmos, Floaters, Irritation, Itchy Eyes, Loss of Peripheral Vision, Pain, Photophobia, Requires Corrective Lenses, Sees Flashes, Spots in Vision, Tunnel Vision, Other Visual Disturbances, Loss of Vision, Other Ears: absent: As Per HPI, Decreased Hearing, Ear Discharge, Ear Pain, Tinnitus, Abnormal Hearing, Disequilibrium, Dizziness, Other Nose/Mouth/Throat: absent: As Per HPI, Epistaxis, Nasal Congestion, Nasal Discharge, Nasal Obstruction, Nasal Trauma, Nose Pain, Post Nasal Drip, Sinus Pain, Sinus Pressure, Bleeding Gums, Change in Voice, Dental Pain, Dry Mouth, Dysphagia, Halitosis, Hoarsness, Lip Swelling, Mouth Lesions, Mouth Pain, Odynophagia, Sore Throat, Throat Swelling, Tongue Swelling, Facial Pain, Neck Pain, Neck Mass, Other - Breasts Breasts: absent: As Per HPI, Change in Shape, Mass, Pain, Nipple Discharge, Nipple Inversion, Skin Changes, Swelling, Other - Cardiovascular Cardiovascular: absent: As Per HPI, Acrocyanosis, Chest Pain, Chest Pain at Rest , Chest Pain with Activity, Claudication, Diaphoresis, Dyspnea, Dyspnea on Exertion, Edema, Irregular Heart Rhythm, Pain Radiating to Arm/Neck/Jaw, Leg Edema, Leg Ulcers, Lightheadedness, Orthopnea, Palpitations, Paroxysmal Nocturnal Dyspnea, Pedal Edema, Radiating Pain, Rapid Heart Rate, Slow Heart Rate, Syncope, Other - Respiratory Respiratory: As Per HPI, Cough, Dyspnea, Pain on Inspiration, Chest Congestion, Excessive Mucous Production, Pain with Coughing - Gastrointestinal Gastrointestinal: absent: As Per HPI, Abdominal Pain, Belching, Bloating, Change in Bowel Habits, Change in Stool Character, Coffee Ground Emesis, Constipation, Cramping, Diarrhea, Dyspepsia, Dysphagia, Early Satiety, Excessive Flatus, Fecal Incontinence, Heartburn, Hematemesis, Hematochezia, Loose Stools, Melena, Nausea, Odynophagia, Temesmus, Vomiting, Other - Genitourinary Genitourinary: absent: As Per HPI, Change in Urinary Stream, Difficulty Urinating, Dysuria, Flank Pain, Hematuria, Pyuria, Nocturia, Urinary Incontinence, Urinary Frequency, Urinary Hesitance, Urinary Urgency, Voiding Freq/Small Amts, Freq UTI, Hx Renal/Bladder Calculi, Hx /Renal Surgery, Bladder Distension, Other - Reproductive: Female Reproductive:Female: absent: As Per HPI, Amenorrhea, Amenorrhea/ Control, Currently Menstual, Cycle <21 Days, Cycle >35 Days, Cycle Variable, Menses 1-7 Days, Menses >/= 8 Days, Menses Variable, Cycle > 4 Weeks Between, No Menses for 6 Months, Heavy Menses, Light Menses, Normal Menses, Spotting Between Cycles , S/P Hysterectomy, Menopausal, Post Menopausal, Premenarche, Abnormal Vaginal Bleeding, Dysmenorrhea, Dyspareunia, Genital Lesions, Genital Pruritis, Pelvic Pain, Prolapse Symptoms, Sexual Dysfunction, Vaginal Discharge, Vaginal Dryness , Vaginal Odor, Vaginal Pruritis, Other - Menstruation Menstruation: absent: As Per HPI, Amenorrhea, Amenorrhea/ Control, Currently Menstual, Cycle <21 Days, Cycle >35 Days, Cycle Variable, Menses 1-7 Days, Menses >/= 8 Days, Menses Variable, Cycle > 4 Weeks Between, No Menses for 6 Months, Heavy Menses, Light Menses, Normal Menses, Spotting Between Cycles , S/P Hysterectomy, Menopausal, Post Menopausal, Premenarche, Abnormal Vaginal Bleeding, Dysmenorrhea, Other - Musculoskeletal Musculoskeletal: absent: As Per HPI, Abnormal Gait, Arthralgias, Atrophy, Back Pain, Deformity, Joint Swelling, Limited Range of Motion, Loss of Height, Muscle Cramps, Muscle Weakness, Myalgias, Neck Pain, Numbness, Radiating Pain into Limb, Stiffness, Tingling, Other - Integumentary Integumentary: absent: As Per HPI, Acne, Alopecia, Bleeding Lesions, Change in Hair, Change in Nails, Change in Pigmentation, Changing Lesions, Dry Skin, Erythema, Furuncle, Hirsutism, Lesions, New Lesions, Non-Healing Lesions, Photosensitivity, Pruritus, Rash, Skin Pain, Skin Ulcer, Sores, Striae, Swelling , Unusual Bruising, Wounds, Jaundice, Other - Neurological Neurological: absent: As Per HPI, Abnormal Gait, Abnormal Hearing, Abnormal Movements, Abnormal Speech, Behavioral Changes, Burning Sensations, Confusion, Convulsions, Disequilibrium, Dizziness, Numbness, Focal Weakness, Frequent Falls , Headaches, Lack of Coordination, Loss of Vision, Memory Loss, Paresthesias, Radicular Pain, Restless Legs, Sensory Deficit, Syncope, Tingling, Tremor, Vertigo, Weakness, Other Visual Disturbances, Other - Psychiatric Psychiatric: absent: As Per HPI, Abnormal Sleep Pattern, Anhedonia, Anxiety, Auditory Hallucinations, Behavioral Changes, Change in Appetite, Change in Libido, Confusion, Depression, Difficulty Concentrating, Hallucinations, Homicidal Ideation, Hopelessness, Irritability, Memory Loss, Mood Swings, Panic Attacks, Paranoia, Suicidal Ideation, Visual Hallucinations, Tactile Hallucinations, Other - Endocrine Endocrine: absent: As Per HPI, Change in Body Appearance, Change in Libido, Cold Intolorance, Deepening of Voice, Excessive Sweating, Fatigue, Flushing, Heat Intolorance, Increase in Ring/Shoe/Hat Size, Palpitations, Polydipsia, Polyphagia, Polyuria, Other - Hematologic/Lymphatic Hematologic: absent: As Per HPI, Easy Bleeding, Easy Bruising, Lymphadenopathy, Other Past Patient History - Infectious Disease Hx of Infectious Diseases: None - Past Medical History & Family History Past Medical History?: Yes - Past Social History Smoking Status: Never Smoked - CARDIAC Hx Cardiac Disorders: Yes Hx Hypertension: Yes - PULMONARY Hx Chronic Obstructive Pulmonary Disease (COPD): Yes - NEUROLOGICAL Hx Neurological Disorder: No - HEENT Hx HEENT Problems: No - RENAL Hx Chronic Kidney Disease: No - ENDOCRINE/METABOLIC Hx Endocrine Disorders: No - HEMATOLOGICAL/ONCOLOGICAL Hx Blood Disorders: No Hx AIDS: No Hx Human Immunodeficiency Virus (HIV): No - INTEGUMENTARY Hx Dermatological Problems: No - MUSCULOSKELETAL/RHEUMATOLOGICAL Hx Musculoskeletal Disorders: Yes Hx Back Pain: Yes Hx Falls: No Hx Fractures: Yes (ribs, wrist,thumb) - GASTROINTESTINAL Hx Crohn's Disease: No Hx Diverticulitis: No Hx Gall Bladder Disease: Yes (gb removed) Hx Gastritis: No Hx Pancreatitis: No - GENITOURINARY/GYNECOLOGICAL Hx Genitourinary Disorders: No - PSYCHIATRIC Hx Psychophysiologic Disorder: No Hx Substance Use: No - SURGICAL HISTORY Hx Appendectomy: Yes Hx Cholecystectomy: Yes Hx Coronary Artery Bypass Graft: No Hx Coronary Stent: No Hx Tonsillectomy: No - ANESTHESIA Hx Anesthesia: Yes Hx Anesthesia Reactions: No Hx Malignant Hyperthermia: No Meds Allergies/Adverse Reactions: Allergies Allergy/AdvReac Type Severity Reaction Status Date / Time aztreonam Allergy RASH Verified 04/04/17 18:58 clarithromycin Allergy RASH Verified 04/04/17 18:58 clindamycin Allergy RASH Verified 04/04/17 18:58 erythromycin base Allergy RASH Verified 04/04/17 18:58 ibuprofen Allergy RASH Verified 04/04/17 18:58 levofloxacin [From Levaquin] Allergy RASH Verified 04/04/17 18:58 moxifloxacin HCl Allergy RASH Verified 04/04/17 18:58 [From Avelox] Penicillins Allergy RASH Verified 04/04/17 18:58 rifampin Allergy RASH Verified 04/04/17 18:58 sulfamethoxazole Allergy RASH Verified 04/04/17 18:58 [From Sulfatrim] tramadol HCl [From Ultracet] Allergy RASH Verified 04/04/17 18:58 trimethoprim [From Sulfatrim] Allergy RASH Verified 04/04/17 18:58 vancomycin Allergy RASH Verified 04/04/17 18:58 - Medications Medications: Current Medications Acetaminophen (Tylenol 325mg Tab) 650 mg PO Q4 PRN PRN Reason: Pain, moderate (4-7) Last Admin: 04/06/17 02:33 Dose: 650 mg Acetaminophen (Tylenol 325mg Tab) 650 mg PO Q6 PRN PRN Reason: Fever T>100.1 Acetylcysteine (Acetylcysteine 20%) 2 ml INH RBID [facility] Cyclobenzaprine HCl (Flexeril) 10 mg PO BID [facility] Last Admin: 04/06/17 12:19 Dose: 10 mg Guaifenesin/Dextromethorphan (Robitussin Dm) 10 ml PO Q6 PRN PRN Reason: Cough Last Admin: 04/05/17 01:36 Dose: 10 ml Gentamicin Sulfate/Sodium Chloride (Gentamicin 80mg/50ml Ns) 80 mg in 50 mls @ 50 mls/hr IVPB Q8@0500,1300,2100 [facility] Last Admin: 04/06/17 12:21 Dose: 50 mls/hr Levalbuterol HCl (Xopenex) 1.25 mg INH RQ6 [facility] Last Admin: 04/06/17 08:39 Dose: 1.25 mg Lidocaine (Lidoderm) 1 ea TD DAILY [facility] Last Admin: 04/06/17 08:50 Dose: 1 ea Sotalol HCl (Betapace) 40 mg PO BID [facility] Last Admin: 04/06/17 08:49 Dose: 40 mg Physical Exam - Constitutional Appears: Non-toxic, Cachectic, Chronically Ill - Head Exam Head Exam: NORMOCEPHALIC - Eye Exam Eye Exam: PERRL. absent: Scleral icterus - ENT Exam ENT Exam: Mucous Membranes Dry, Normal External Ear Exam - Neck Exam Neck exam: Negative for: Lymphadenopathy - Respiratory Exam Respiratory Exam: Decreased Breath Sounds, Prolonged Expiratory Phase, Rhonchi - Cardiovascular Exam Cardiovascular Exam: REGULAR RHYTHM, +S1, +S2 - GI/Abdominal Exam GI & Abdominal Exam: Diminished Bowel Sounds, Soft. absent: Tenderness - Rectal Exam Rectal Exam: Deferred - Exam Exam: NORMAL INSPECTION - Extremities Exam Extremities exam: Negative for: calf tenderness, pedal edema - Back Exam Back exam: absent: CVA tenderness (L), CVA tenderness (R), paraspinal tenderness - Neurological Exam Neurological exam: Alert, CN II-XII Intact, Oriented x3, Reflexes Normal - Psychiatric Exam Psychiatric exam: Normal Mood - Skin Skin Exam: Dry, Intact Results - Vital Signs Recent Vital Signs: Last Vital Signs Temp 97.0 F L 04/06/17 08:12 Pulse 60 04/06/17 08:49 Resp 20 04/06/17 08:12 BP 101/52 L 04/06/17 08:49 Pulse Ox 99 04/06/17 08:12 - Labs Labs: Laboratory Results - last 24 hr 04/05/17 07:30 Random Gentamicin 2.9 Assessment & Plan (1) Pseudomonas infection Status: Acute (2) Bronchiectasis Status: Acute (3) COPD exacerbation Status: Acute (4) COPD exacerbation Status: Acute (5) COPD with acute exacerbation Status: Acute (6) Chr obstructive pulmonary disease w/ acute lower respiratory infxn Status: Acute - Assessment and Plan (Free Text) Assessment: cont genta check levels
--- NOTE | 2017-04-06 14:41 | RAD ---
PROCEDURE: CHEST RADIOGRAPH, 1 VIEW HISTORY: PNEUMONIA/BRONCHIECTASIS COMPARISON: Comparison chest 04/02/2017 and CTA chest 12/01/2016. FINDINGS: LUNGS: Interval placement right-sided PICC line with tip in the SVC. Re- demonstrated are hyperinflation consistent with COPD. E additionally, note again made of extensive interstitial fibrosis scarring with atelectasis and bronchiectasis. . Changes are most severe in the upper lung mendez and apices. Note that possibility of superimposed infiltrate cannot be excluded PLEURA: No pneumothorax or pleural fluid seen. CARDIOVASCULAR: Normal. OSSEOUS STRUCTURES: No significant abnormalities. VISUALIZED UPPER ABDOMEN: Normal. OTHER FINDINGS: None. IMPRESSION: Interval placement right-sided PICC line with tip in the SVC. Re- demonstrated are hyperinflation consistent with COPD. E additionally, note again made of extensive interstitial fibrosis scarring with atelectasis and bronchiectasis. . Changes are most severe in the upper lung mendez and apices. Note that possibility of superimposed infiltrate cannot be excluded
[2017-04-06] MEDS: Acetylcysteine 20% Inhal Soln (4ml) INH SCH (19:25)
[2017-04-07] MEDS: Levalbuterol 1.25 MG/3 ML Inhal Soln UD INH SCH ×4 (01:00→19:01)
[2017-04-07] MEDS: Gentamicin 80mg/50ml NS 80 MG/50 ML BAG IVPB SCH ×2 (05:18→13:45)
[2017-04-07 05:34] LABS: BASO # 0.1 K/uL (0.0-0.2); BASO % 0.6 % (0.0-2.0); EOS # 0.5 K/uL (0.0-0.7); EOS % 4.9 % (0.0-4.0); HEMOGLOBIN 10.6 g/dL (12.0-16.0); LYMPH # 1.9 K/uL (1.0-4.3); LYMPH % 20.4 % (20.0-40.0); MEAN CELL VOLUME 88.8 fl (81.0-99.0); MEAN CORPUSCULAR HGB CONC 32.6 g/dL (33.0-37.0); MEAN PLATELET VOLUME 9.4 fl (7.2-11.7); MONO # 1.1 K/uL (0.0-0.8); MONO % 12.3 % (0.0-10.0); NEUT # 5.8 K/uL (1.8-7.0); NEUT % 61.8 % (50.0-75.0); RBC 3.64 Mil/uL (3.80-5.20); RED CELL DISTRIBUTION WIDTH 14.6 % (11.5-14.5); WHITE BLOOD COUNT 9.4 K/uL (4.8-10.8)
[2017-04-07 06:03] LABS: BLOOD UREA NITROGEN 30 mg/dl (7-17); CALCIUM 8.9 mg/dL (8.4-10.2); GFR AFRICAN-AMERICAN > 60; GFR NON-AFRICAN AMERICAN 53
[2017-04-07] MEDS: Acetylcysteine 20% Inhal Soln (4ml) INH SCH ×2 (07:54→19:01)
--- NOTE | 2017-04-07 08:32 | CP.PCM.PN ---
Subjective - Date & Time of Evaluation Date of Evaluation: 04/07/17 Time of Evaluation: 08:32 - Subjective Subjective: C/O GENERALISED WEAKNESS COUGH IMPROVING NO CHEST PAINS SOB LESS Objective - Vital Signs/Intake and Output Vital Signs (last 24 hours): Temp Pulse Resp BP Pulse Ox 97.2 F L 59 L 20 105/51 L 100 04/07/17 08:26 04/07/17 08:26 04/07/17 08:26 04/07/17 08:26 04/07/17 08:26 - Medications Medications: Current Medications Acetaminophen (Tylenol 325mg Tab) 650 mg PO Q4 PRN PRN Reason: Pain, moderate (4-7) Last Admin: 04/07/17 05:27 Dose: 650 mg Acetaminophen (Tylenol 325mg Tab) 650 mg PO Q6 PRN PRN Reason: Fever T>100.1 Acetylcysteine (Acetylcysteine 20%) 2 ml INH RBID [facility] Last Admin: 04/07/17 07:54 Dose: 2 ml Cyclobenzaprine HCl (Flexeril) 10 mg PO BID [facility] Last Admin: 04/06/17 18:29 Dose: Not Given Guaifenesin/Dextromethorphan (Robitussin Dm) 10 ml PO Q6 PRN PRN Reason: Cough Last Admin: 04/05/17 01:36 Dose: 10 ml Gentamicin Sulfate/Sodium Chloride (Gentamicin 80mg/50ml Ns) 80 mg in 50 mls @ 50 mls/hr IVPB Q8@0500,1300,2100 [facility] Last Admin: 04/07/17 05:18 Dose: 50 mls/hr Levalbuterol HCl (Xopenex) 1.25 mg INH RQ6 [facility] Last Admin: 04/07/17 07:55 Dose: 1.25 mg Lidocaine (Lidoderm) 1 ea TD DAILY [facility] Last Admin: 04/06/17 08:50 Dose: 1 ea Sotalol HCl (Betapace) 40 mg PO BID [facility] Last Admin: 04/06/17 18:28 Dose: Not Given - Labs Labs: 04/07/17 05:10 04/07/17 05:10 - Constitutional Appears: Chronically Ill - Head Exam Head Exam: ATRAUMATIC, NORMAL INSPECTION, NORMOCEPHALIC - Eye Exam Eye Exam: EOMI, Normal appearance, PERRL Pupil Exam: NORMAL ACCOMODATION, PERRL - ENT Exam ENT Exam: Mucous Membranes Moist, Normal Exam - Neck Exam Neck Exam: Full ROM, Normal Inspection. absent: Lymphadenopathy - Respiratory Exam Respiratory Exam: Decreased Breath Sounds, Prolonged Expiratory Phase, Rales, NORMAL BREATHING PATTERN - Cardiovascular Exam Cardiovascular Exam: REGULAR RHYTHM, +S1, +S2. absent: Murmur - GI/Abdominal Exam GI & Abdominal Exam: Soft, Normal Bowel Sounds. absent: Tenderness - Rectal Exam Rectal Exam: NORMAL INSPECTION - Extremities Exam Extremities Exam: Full ROM, Normal Capillary Refill, Normal Inspection. absent : Joint Swelling, Pedal Edema - Back Exam Back Exam: NORMAL INSPECTION - Neurological Exam Neurological Exam: Alert, Awake, CN II-XII Intact, Normal Gait, Oriented x3 - Psychiatric Exam Psychiatric exam: Normal Affect, Normal Mood - Skin Skin Exam: Dry, Intact, Normal Color, Warm Assessment and Plan - Assessment and Plan (Free Text) Assessment: ACUTE EXAC OF BRONCHIECTASIS ACUTE EXAC OF COPD CARDIAC ARRYTHMIAS LOW BP Plan: CONTINUE IV ANTIBIOTIC RX AND ANTIARRYTHMICS
[2017-04-07] MEDS: Lidocaine 5% Patch TD SCH (08:57)
[2017-04-08] MEDS: Levalbuterol 1.25 MG/3 ML Inhal Soln UD INH SCH ×4 (01:11→20:00)
[2017-04-08] MEDS: Acetylcysteine 20% Inhal Soln (4ml) INH SCH ×2 (07:32→20:01)
--- NOTE | 2017-04-08 08:42 | CP.PCM.PN ---
Subjective - Date & Time of Evaluation Date of Evaluation: 04/08/17 Time of Evaluation: 08:44 - Subjective Subjective: STILL COUGHING UP BROWN SPUTUM FEELS SLIGHTLY BETTER SOB IMPROVED BACK PAIN LESS Objective - Vital Signs/Intake and Output Vital Signs (last 24 hours): Temp Pulse Resp BP Pulse Ox 96.6 F L 66 20 96/52 L 100 04/08/17 08:04 04/08/17 08:04 04/08/17 08:04 04/08/17 08:04 04/08/17 08:04 - Medications Medications: Current Medications Acetaminophen (Tylenol 325mg Tab) 650 mg PO Q4 PRN PRN Reason: Pain, moderate (4-7) Last Admin: 04/08/17 01:25 Dose: 650 mg Acetaminophen (Tylenol 325mg Tab) 650 mg PO Q6 PRN PRN Reason: Fever T>100.1 Acetylcysteine (Acetylcysteine 20%) 2 ml INH RBID [facility] Last Admin: 04/08/17 07:32 Dose: 2 ml Cyclobenzaprine HCl (Flexeril) 10 mg PO BID [facility] Last Admin: 04/07/17 17:36 Dose: 10 mg Guaifenesin/Dextromethorphan (Robitussin Dm) 10 ml PO Q6 PRN PRN Reason: Cough Last Admin: 04/05/17 01:36 Dose: 10 ml Gentamicin Sulfate/Sodium Chloride (Gentamicin 80mg/50ml Ns) 80 mg in 50 mls @ 50 mls/hr IVPB Q8@0500,1300,2100 [facility] Last Admin: 04/07/17 13:45 Dose: Not Given Levalbuterol HCl (Xopenex) 1.25 mg INH RQ6 [facility] Last Admin: 04/08/17 07:32 Dose: 1.25 mg Lidocaine (Lidoderm) 1 ea TD DAILY [facility] Last Admin: 04/07/17 08:57 Dose: 1 ea Sotalol HCl (Betapace) 40 mg PO BID [facility] Last Admin: 04/07/17 17:34 Dose: Not Given - Labs Labs: 04/07/17 05:10 04/07/17 05:10 - Constitutional Appears: No Acute Distress - Head Exam Head Exam: ATRAUMATIC, NORMAL INSPECTION, NORMOCEPHALIC - Eye Exam Eye Exam: EOMI, Normal appearance, PERRL Pupil Exam: NORMAL ACCOMODATION, PERRL - ENT Exam ENT Exam: Mucous Membranes Moist, Normal Exam - Neck Exam Neck Exam: Full ROM, Normal Inspection. absent: Lymphadenopathy - Respiratory Exam Respiratory Exam: Clear to Ausculation Bilateral, Prolonged Expiratory Phase, NORMAL BREATHING PATTERN - Cardiovascular Exam Cardiovascular Exam: REGULAR RHYTHM, +S1, +S2. absent: Murmur - GI/Abdominal Exam GI & Abdominal Exam: Soft, Normal Bowel Sounds. absent: Tenderness - Rectal Exam Rectal Exam: NORMAL INSPECTION - Extremities Exam Extremities Exam: Full ROM, Normal Capillary Refill, Normal Inspection. absent : Joint Swelling, Pedal Edema - Back Exam Back Exam: NORMAL INSPECTION - Neurological Exam Neurological Exam: Alert, Awake, CN II-XII Intact, Normal Gait, Oriented x3 - Psychiatric Exam Psychiatric exam: Normal Affect, Normal Mood - Skin Skin Exam: Dry, Intact, Normal Color, Warm Assessment and Plan - Assessment and Plan (Free Text) Assessment: BRONCHIECTASIS PSEUDOMONAS PNEUMONIA COPD EXAC ARRYTHMIAS Plan: GENTAMYCIN IS ON HOLD BECAUSE OF ELEVATED SERUM LEVELS WILL CONTINUE RX ORDERED
[2017-04-08] MEDS: Lidocaine 5% Patch TD SCH (08:44)
[2017-04-09] MEDS: Levalbuterol 1.25 MG/3 ML Inhal Soln UD INH SCH ×4 (01:23→19:30)
[2017-04-09] MEDS: Acetylcysteine 20% Inhal Soln (4ml) INH SCH ×2 (07:55→19:29)
[2017-04-09 08:03] LABS: BLOOD UREA NITROGEN 29 mg/dl (7-17); CALCIUM 8.8 mg/dL (8.4-10.2); GFR AFRICAN-AMERICAN > 60; GFR NON-AFRICAN AMERICAN 53
[2017-04-09] MEDS: Lidocaine 5% Patch TD SCH (08:25)
--- NOTE | 2017-04-09 09:26 | CP.PCM.PN ---
Subjective - Date & Time of Evaluation Date of Evaluation: 04/09/17 Time of Evaluation: 09:26 - Subjective Subjective: clinically continues to improve no chest pains cough less Objective - Vital Signs/Intake and Output Vital Signs (last 24 hours): Temp Pulse Resp BP Pulse Ox 97.3 F L 80 20 119/57 L 98 04/09/17 08:07 04/09/17 08:23 04/09/17 08:07 04/09/17 08:23 04/09/17 08:07 - Medications Medications: Current Medications Acetaminophen (Tylenol 325mg Tab) 650 mg PO Q4 PRN PRN Reason: Pain, moderate (4-7) Last Admin: 04/08/17 01:25 Dose: 650 mg Acetaminophen (Tylenol 325mg Tab) 650 mg PO Q6 PRN PRN Reason: Fever T>100.1 Acetylcysteine (Acetylcysteine 20%) 2 ml INH RBID [facility] Last Admin: 04/09/17 07:55 Dose: 2 ml Cyclobenzaprine HCl (Flexeril) 10 mg PO BID [facility] Last Admin: 04/09/17 08:26 Dose: 10 mg Guaifenesin/Dextromethorphan (Robitussin Dm) 10 ml PO Q6 PRN PRN Reason: Cough Last Admin: 04/05/17 01:36 Dose: 10 ml Gentamicin Sulfate/Sodium Chloride (Gentamicin 80mg/50ml Ns) 80 mg in 50 mls @ 50 mls/hr IVPB Q8@0500,1300,2100 [facility] Last Admin: 04/07/17 13:45 Dose: Not Given Levalbuterol HCl (Xopenex) 1.25 mg INH RQ6 [facility] Last Admin: 04/09/17 07:56 Dose: 1.25 mg Lidocaine (Lidoderm) 1 ea TD DAILY [facility] Last Admin: 04/09/17 08:25 Dose: 1 ea Sotalol HCl (Betapace) 40 mg PO BID [facility] Last Admin: 04/09/17 08:23 Dose: 40 mg - Labs Labs: 04/07/17 05:10 04/09/17 07:06 - Constitutional Appears: Chronically Ill - Head Exam Head Exam: ATRAUMATIC, NORMAL INSPECTION, NORMOCEPHALIC - Eye Exam Eye Exam: EOMI, Normal appearance, PERRL Pupil Exam: NORMAL ACCOMODATION, PERRL - ENT Exam ENT Exam: Mucous Membranes Moist, Normal Exam - Neck Exam Neck Exam: Full ROM, Normal Inspection. absent: Lymphadenopathy - Respiratory Exam Respiratory Exam: Decreased Breath Sounds, Prolonged Expiratory Phase, Rales, NORMAL BREATHING PATTERN - Cardiovascular Exam Cardiovascular Exam: REGULAR RHYTHM, +S1, +S2. absent: Murmur - GI/Abdominal Exam GI & Abdominal Exam: Soft, Normal Bowel Sounds. absent: Tenderness - Rectal Exam Rectal Exam: NORMAL INSPECTION - Extremities Exam Extremities Exam: Full ROM, Normal Capillary Refill, Normal Inspection. absent : Joint Swelling, Pedal Edema - Back Exam Back Exam: NORMAL INSPECTION - Neurological Exam Neurological Exam: Alert, Awake, CN II-XII Intact, Normal Gait, Oriented x3 - Psychiatric Exam Psychiatric exam: Normal Affect, Normal Mood - Skin Skin Exam: Dry, Intact, Normal Color, Warm Assessment and Plan - Assessment and Plan (Free Text) Assessment: acute bronchiectasis pseudomonas pneumonia arrythmias Plan: will review gentamycin level and restart meds
--- NOTE | 2017-04-09 18:50 | CP.PCM.PN ---
Subjective - Date & Time of Evaluation Date of Evaluation: 04/09/17 Time of Evaluation: 08:00 - Subjective Subjective: genta level 0.6 will resume rx Objective - Vital Signs/Intake and Output Vital Signs (last 24 hours): Temp Pulse Resp BP Pulse Ox 97.2 F L 78 20 97/61 L 97 04/09/17 17:31 04/09/17 17:31 04/09/17 17:31 04/09/17 17:31 04/09/17 17:31 - Medications Medications: Current Medications Acetaminophen (Tylenol 325mg Tab) 650 mg PO Q4 PRN PRN Reason: Pain, moderate (4-7) Last Admin: 04/08/17 01:25 Dose: 650 mg Acetaminophen (Tylenol 325mg Tab) 650 mg PO Q6 PRN PRN Reason: Fever T>100.1 Acetylcysteine (Acetylcysteine 20%) 2 ml INH RBID [facility] Last Admin: 04/09/17 07:55 Dose: 2 ml Cyclobenzaprine HCl (Flexeril) 10 mg PO BID [facility] Last Admin: 04/09/17 17:05 Dose: Not Given Guaifenesin/Dextromethorphan (Robitussin Dm) 10 ml PO Q6 PRN PRN Reason: Cough Last Admin: 04/05/17 01:36 Dose: 10 ml Gentamicin Sulfate 80 mg/ (Sodium Chloride) 102 mls @ 100 mls/hr IVPB Q24H [facility] Levalbuterol HCl (Xopenex) 1.25 mg INH RQ6 [facility] Last Admin: 04/09/17 13:31 Dose: 1.25 mg Lidocaine (Lidoderm) 1 ea TD DAILY [facility] Last Admin: 04/09/17 08:25 Dose: 1 ea Sotalol HCl (Betapace) 40 mg PO BID [facility] Last Admin: 04/09/17 17:01 Dose: 40 mg - Labs Labs: 04/07/17 05:10 04/09/17 07:06 Assessment and Plan (1) Pseudomonas infection Status: Acute (2) Bronchiectasis Status: Acute (3) COPD exacerbation Status: Acute (4) COPD exacerbation Status: Acute (5) COPD with acute exacerbation Status: Acute (6) Chr obstructive pulmonary disease w/ acute lower respiratory infxn Status: Acute
[2017-04-09] MEDS ORDERED: Gentamicin 80mg/50ml NS 80 MG/50 ML BAG IVPB SCH (19:00)
[2017-04-10] MEDS: Levalbuterol 1.25 MG/3 ML Inhal Soln UD INH SCH ×4 (01:00→19:14)
[2017-04-10] MEDS: Acetylcysteine 20% Inhal Soln (4ml) INH SCH ×2 (08:02→19:13)
--- NOTE | 2017-04-10 08:20 | CP.PCM.PN ---
Subjective - Date & Time of Evaluation Date of Evaluation: 04/10/17 Time of Evaluation: 08:22 - Subjective Subjective: FEELS BETTER NO CHEST PAINS/SOB COUGH LESS SPUTUM STILL POSITIVE FOR MODERATE GROWTH OF PSEUDOMONAS Objective - Vital Signs/Intake and Output Vital Signs (last 24 hours): Temp Pulse Resp BP Pulse Ox 97.7 F 66 20 91/53 L 100 04/10/17 08:05 04/10/17 08:05 04/10/17 08:05 04/10/17 08:05 04/10/17 08:05 - Medications Medications: Current Medications Acetaminophen (Tylenol 325mg Tab) 650 mg PO Q4 PRN PRN Reason: Pain, moderate (4-7) Last Admin: 04/08/17 01:25 Dose: 650 mg Acetaminophen (Tylenol 325mg Tab) 650 mg PO Q6 PRN PRN Reason: Fever T>100.1 Acetylcysteine (Acetylcysteine 20%) 2 ml INH RBID [facility] Last Admin: 04/10/17 08:02 Dose: 2 ml Cyclobenzaprine HCl (Flexeril) 10 mg PO BID [facility] Last Admin: 04/09/17 17:05 Dose: Not Given Guaifenesin/Dextromethorphan (Robitussin Dm) 10 ml PO Q6 PRN PRN Reason: Cough Last Admin: 04/05/17 01:36 Dose: 10 ml Gentamicin Sulfate/Sodium Chloride (Gentamicin 80mg/50ml Ns) 80 mg in 50 mls @ 50 mls/hr IVPB DAILY@1700 [facility] Levalbuterol HCl (Xopenex) 1.25 mg INH RQ6 [facility] Last Admin: 04/10/17 08:02 Dose: 1.25 mg Lidocaine (Lidoderm) 1 ea TD DAILY [facility] Last Admin: 04/09/17 08:25 Dose: 1 ea Sotalol HCl (Betapace) 40 mg PO BID [facility] Last Admin: 04/09/17 17:01 Dose: 40 mg - Labs Labs: 04/07/17 05:10 04/09/17 07:06 - Constitutional Appears: No Acute Distress - Head Exam Head Exam: ATRAUMATIC, NORMAL INSPECTION, NORMOCEPHALIC - Eye Exam Eye Exam: EOMI, Normal appearance, PERRL Pupil Exam: NORMAL ACCOMODATION, PERRL - ENT Exam ENT Exam: Mucous Membranes Moist, Normal Exam - Neck Exam Neck Exam: Full ROM, Normal Inspection. absent: Lymphadenopathy - Respiratory Exam Respiratory Exam: Prolonged Expiratory Phase, Rales, NORMAL BREATHING PATTERN - Cardiovascular Exam Cardiovascular Exam: REGULAR RHYTHM, +S1, +S2. absent: Murmur - GI/Abdominal Exam GI & Abdominal Exam: Soft, Normal Bowel Sounds. absent: Tenderness - Rectal Exam Rectal Exam: NORMAL INSPECTION - Extremities Exam Extremities Exam: Full ROM, Normal Capillary Refill, Normal Inspection. absent : Joint Swelling, Pedal Edema - Back Exam Back Exam: NORMAL INSPECTION - Neurological Exam Neurological Exam: Alert, Awake, CN II-XII Intact, Normal Gait, Oriented x3 - Psychiatric Exam Psychiatric exam: Normal Affect, Normal Mood - Skin Skin Exam: Dry, Intact, Normal Color, Warm Assessment and Plan - Assessment and Plan (Free Text) Assessment: BRONCHIECTASIS PSEUDOMONAS PNEUMONIA Plan: CONTINUE IV ANTIBIOTIC RX
[2017-04-10] MEDS: Lidocaine 5% Patch TD SCH (08:43)
[2017-04-10] MEDS: Gentamicin 80mg/50ml NS 80 MG/50 ML BAG IVPB SCH (16:49)
[2017-04-11] MEDS: Levalbuterol 1.25 MG/3 ML Inhal Soln UD INH SCH ×4 (01:01→19:52)
[2017-04-11] MEDS: Acetylcysteine 20% Inhal Soln (4ml) INH SCH ×2 (07:37→19:51)
[2017-04-11] MEDS: Lidocaine 5% Patch TD SCH (09:06)
--- NOTE | 2017-04-11 12:04 | CP.PCM.PN ---
Subjective - Date & Time of Evaluation Date of Evaluation: 04/11/17 Time of Evaluation: 12:04 - Subjective Subjective: COUGHING UP GREEN SPUTUM NO CHEST PAINS/SOB Objective - Vital Signs/Intake and Output Vital Signs (last 24 hours): Temp Pulse Resp BP Pulse Ox 97.2 F L 65 20 109/60 99 04/11/17 08:20 04/11/17 09:04 04/11/17 08:20 04/11/17 09:04 04/11/17 08:20 - Medications Medications: Current Medications Acetaminophen (Tylenol 325mg Tab) 650 mg PO Q4 PRN PRN Reason: Pain, moderate (4-7) Last Admin: 04/10/17 21:21 Dose: 650 mg Acetaminophen (Tylenol 325mg Tab) 650 mg PO Q6 PRN PRN Reason: Fever T>100.1 Acetylcysteine (Acetylcysteine 20%) 2 ml INH RBID [facility] Last Admin: 04/11/17 07:37 Dose: 2 ml Cyclobenzaprine HCl (Flexeril) 10 mg PO BID [facility] Last Admin: 04/11/17 09:07 Dose: Not Given Guaifenesin/Dextromethorphan (Robitussin Dm) 10 ml PO Q6 PRN PRN Reason: Cough Last Admin: 04/05/17 01:36 Dose: 10 ml Gentamicin Sulfate/Sodium Chloride (Gentamicin 80mg/50ml Ns) 80 mg in 50 mls @ 50 mls/hr IVPB DAILY@1700 [facility] Last Admin: 04/10/17 16:49 Dose: 50 mls/hr Levalbuterol HCl (Xopenex) 1.25 mg INH RQ6 [facility] Last Admin: 04/11/17 07:38 Dose: 1.25 mg Lidocaine (Lidoderm) 1 ea TD DAILY [facility] Last Admin: 04/11/17 09:06 Dose: 1 ea Sotalol HCl (Betapace) 40 mg PO BID [facility] Last Admin: 04/11/17 09:04 Dose: 40 mg - Labs Labs: 04/07/17 05:10 04/09/17 07:06 - Constitutional Appears: No Acute Distress - Head Exam Head Exam: ATRAUMATIC, NORMAL INSPECTION, NORMOCEPHALIC - Eye Exam Eye Exam: EOMI, Normal appearance, PERRL Pupil Exam: NORMAL ACCOMODATION, PERRL - ENT Exam ENT Exam: Mucous Membranes Moist, Normal Exam - Neck Exam Neck Exam: Full ROM, Normal Inspection. absent: Lymphadenopathy - Respiratory Exam Respiratory Exam: Decreased Breath Sounds, Prolonged Expiratory Phase, Rales, NORMAL BREATHING PATTERN - Cardiovascular Exam Cardiovascular Exam: REGULAR RHYTHM, +S1, +S2. absent: Murmur - GI/Abdominal Exam GI & Abdominal Exam: Soft, Normal Bowel Sounds. absent: Tenderness - Rectal Exam Rectal Exam: NORMAL INSPECTION - Extremities Exam Extremities Exam: Full ROM, Normal Capillary Refill, Normal Inspection. absent : Joint Swelling, Pedal Edema - Back Exam Back Exam: NORMAL INSPECTION - Neurological Exam Neurological Exam: Alert, Awake, CN II-XII Intact, Normal Gait, Oriented x3 - Psychiatric Exam Psychiatric exam: Normal Affect, Normal Mood - Skin Skin Exam: Dry, Intact, Normal Color, Warm Assessment and Plan - Assessment and Plan (Free Text) Assessment: BRONCHIECTASIS PSEUDOMONAS PNEUMONIA ANEMIA ARRYTHMIAS Plan: CONTINUE IV ANTIBIOTICS AND BRONCHODILATORS D/C FLEXERIL
--- NOTE | 2017-04-11 13:00 | CP.PCM.PN ---
Subjective - Date & Time of Evaluation Date of Evaluation: 04/11/17 Time of Evaluation: 09:00 - Subjective Subjective: still has pseudomonas iv rx in progress may need 3 wks more ? refused out pt rx due to cost Objective - Vital Signs/Intake and Output Vital Signs (last 24 hours): Temp Pulse Resp BP Pulse Ox 97.2 F L 65 20 109/60 99 04/11/17 08:20 04/11/17 09:04 04/11/17 08:20 04/11/17 09:04 04/11/17 08:20 - Medications Medications: Current Medications Acetaminophen (Tylenol 325mg Tab) 650 mg PO Q4 PRN PRN Reason: Pain, moderate (4-7) Last Admin: 04/10/17 21:21 Dose: 650 mg Acetaminophen (Tylenol 325mg Tab) 650 mg PO Q6 PRN PRN Reason: Fever T>100.1 Acetylcysteine (Acetylcysteine 20%) 2 ml INH RBID [facility] Last Admin: 04/11/17 07:37 Dose: 2 ml Guaifenesin/Dextromethorphan (Robitussin Dm) 10 ml PO Q6 PRN PRN Reason: Cough Last Admin: 04/05/17 01:36 Dose: 10 ml Gentamicin Sulfate/Sodium Chloride (Gentamicin 80mg/50ml Ns) 80 mg in 50 mls @ 50 mls/hr IVPB DAILY@1700 [facility] Last Admin: 04/10/17 16:49 Dose: 50 mls/hr Levalbuterol HCl (Xopenex) 1.25 mg INH RQ6 [facility] Last Admin: 04/11/17 07:38 Dose: 1.25 mg Lidocaine (Lidoderm) 1 ea TD DAILY [facility] Last Admin: 04/11/17 09:06 Dose: 1 ea Sotalol HCl (Betapace) 40 mg PO BID [facility] Last Admin: 04/11/17 09:04 Dose: 40 mg - Labs Labs: 04/07/17 05:10 04/09/17 07:06 - Constitutional Appears: Non-toxic, Cachectic, Chronically Ill - Head Exam Head Exam: NORMOCEPHALIC - Eye Exam Eye Exam: absent: Scleral icterus - ENT Exam ENT Exam: Mucous Membranes Dry, Normal External Ear Exam - Neck Exam Neck Exam: absent: Lymphadenopathy - Respiratory Exam Respiratory Exam: Decreased Breath Sounds, Prolonged Expiratory Phase, Rhonchi - Cardiovascular Exam Cardiovascular Exam: REGULAR RHYTHM, +S1, +S2 - GI/Abdominal Exam GI & Abdominal Exam: Distended, Soft Assessment and Plan (1) Pseudomonas infection Status: Acute (2) Bronchiectasis Status: Acute (3) COPD exacerbation Status: Acute (4) COPD exacerbation Status: Acute (5) COPD with acute exacerbation Status: Acute (6) Chr obstructive pulmonary disease w/ acute lower respiratory infxn Status: Acute
[2017-04-11] MEDS: Gentamicin 80mg/50ml NS 80 MG/50 ML BAG IVPB SCH (16:55)
[2017-04-12] MEDS: Levalbuterol 1.25 MG/3 ML Inhal Soln UD INH SCH ×3 (01:17→19:45)
[2017-04-12] MEDS: Acetylcysteine 20% Inhal Soln (4ml) INH SCH ×2 (07:10→19:45)
[2017-04-12 07:32] LABS: BASO % 0.4 % (0.0-2.0); EOS # 0.2 K/uL (0.0-0.7); EOS % 1.6 % (0.0-4.0); HEMOGLOBIN 9.6 g/dL (12.0-16.0); LYMPH # 1.7 K/uL (1.0-4.3); MEAN CELL VOLUME 88.8 fl (81.0-99.0); MEAN CORPUSCULAR HEMOGLOBIN 29.4 pg (27.0-31.0); MEAN CORPUSCULAR HGB CONC 33.1 g/dL (33.0-37.0); MEAN PLATELET VOLUME 9.9 fl (7.2-11.7); MONO # 1.1 K/uL (0.0-0.8); MONO % 10.6 % (0.0-10.0); NEUT # 7.2 K/uL (1.8-7.0); NEUT % 70.4 % (50.0-75.0); RBC 3.28 Mil/uL (3.80-5.20); RED CELL DISTRIBUTION WIDTH 15.1 % (11.5-14.5); WHITE BLOOD COUNT 10.2 K/uL (4.8-10.8)
[2017-04-12 07:45] LABS: BLOOD UREA NITROGEN 31 mg/dl (7-17); CALCIUM 8.7 mg/dL (8.4-10.2); GFR AFRICAN-AMERICAN > 60; GFR NON-AFRICAN AMERICAN 53
[2017-04-12] MEDS: Lidocaine 5% Patch TD SCH (08:31)
[2017-04-12] MEDS ORDERED: Gentamicin 80 mg/2mL Inj. ONE (09:00)
[2017-04-12] MEDS ORDERED: Acetylcysteine 20% Inhal Soln (4ml) ONE (09:00)
[2017-04-12] MEDS ORDERED: Levalbuterol 1.25 MG/3 ML Inhal Soln UD ONE (09:00)
[2017-04-13] MEDS: Levalbuterol 1.25 MG/3 ML Inhal Soln UD INH SCH ×4 (01:00→19:26)
[2017-04-13] MEDS: Acetylcysteine 20% Inhal Soln (4ml) INH SCH ×2 (07:26→19:26)
[2017-04-13] MEDS: Lidocaine 5% Patch TD SCH (08:34)
--- NOTE | 2017-04-13 12:03 | CP.PCM.PN ---
Subjective - Date & Time of Evaluation Date of Evaluation: 04/13/17 Time of Evaluation: 12:05 - Subjective Subjective: FEELS WELL TODAY COUGH LESS FAMILY AT BEDSIDE WILLING TO STAY IN HOSPITAL FOR A FEW MORE DAYS FOR IV ANTIBIOTIC RX Objective - Vital Signs/Intake and Output Vital Signs (last 24 hours): Temp Pulse Resp BP Pulse Ox 97.3 F L 77 20 106/57 L 97 04/13/17 08:53 04/13/17 08:53 04/13/17 08:53 04/13/17 08:53 04/13/17 08:53 - Medications Medications: Current Medications Acetaminophen (Tylenol 325mg Tab) 650 mg PO Q4 PRN PRN Reason: Pain, moderate (4-7) Last Admin: 04/13/17 00:49 Dose: 650 mg Acetaminophen (Tylenol 325mg Tab) 650 mg PO Q6 PRN PRN Reason: Fever T>100.1 Acetylcysteine (Acetylcysteine 20%) 2 ml INH RBID [facility] Last Admin: 04/13/17 07:26 Dose: 2 ml Guaifenesin/Dextromethorphan (Robitussin Dm) 10 ml PO Q6 PRN PRN Reason: Cough Last Admin: 04/05/17 01:36 Dose: 10 ml Gentamicin Sulfate/Sodium Chloride (Gentamicin 80mg/50ml Ns) 80 mg in 50 mls @ 50 mls/hr IVPB DAILY@1700 [facility] Last Admin: 04/11/17 16:55 Dose: 50 mls/hr Levalbuterol HCl (Xopenex) 1.25 mg INH RQ6 [facility] Last Admin: 04/13/17 07:26 Dose: 1.25 mg Lidocaine (Lidoderm) 1 ea TD DAILY [facility] Last Admin: 04/13/17 08:34 Dose: 1 ea Sotalol HCl (Betapace) 40 mg PO BID [facility] Last Admin: 04/13/17 08:34 Dose: 40 mg - Labs Labs: 04/12/17 05:30 04/12/17 05:30 - Constitutional Appears: No Acute Distress - Head Exam Head Exam: ATRAUMATIC, NORMAL INSPECTION, NORMOCEPHALIC - Eye Exam Eye Exam: EOMI, Normal appearance, PERRL Pupil Exam: NORMAL ACCOMODATION, PERRL - ENT Exam ENT Exam: Mucous Membranes Moist, Normal Exam - Neck Exam Neck Exam: Full ROM, Normal Inspection. absent: Lymphadenopathy - Respiratory Exam Respiratory Exam: Decreased Breath Sounds, Rales, NORMAL BREATHING PATTERN - Cardiovascular Exam Cardiovascular Exam: REGULAR RHYTHM, +S1, +S2. absent: Murmur - GI/Abdominal Exam GI & Abdominal Exam: Soft, Normal Bowel Sounds. absent: Tenderness - Rectal Exam Rectal Exam: NORMAL INSPECTION - Extremities Exam Extremities Exam: Full ROM, Normal Capillary Refill, Normal Inspection. absent : Joint Swelling, Pedal Edema - Back Exam Back Exam: NORMAL INSPECTION - Neurological Exam Neurological Exam: Alert, Awake, CN II-XII Intact, Normal Gait, Oriented x3 - Psychiatric Exam Psychiatric exam: Normal Affect, Normal Mood - Skin Skin Exam: Dry, Intact, Normal Color, Warm Assessment and Plan - Assessment and Plan (Free Text) Assessment: BRONCHIECTASIS PSEUDOMONAS PNEUMONIA--PERSISTENT Plan: HOLD GENTAMYCIN FOR NOW UNTIL TROUGH IS THERAPEUTIC WILL DISCUS POSSIBILITY OF OUTPT RX WITH [facility] [employer]
--- NOTE | 2017-04-13 12:44 | CP.PCM.PN ---
Subjective - Date & Time of Evaluation Date of Evaluation: 04/13/17 Time of Evaluation: 07:00 - Subjective Subjective: discussed on rounds genta adjusted Objective - Vital Signs/Intake and Output Vital Signs (last 24 hours): Temp Pulse Resp BP Pulse Ox 97.3 F L 77 20 106/57 L 97 04/13/17 08:53 04/13/17 08:53 04/13/17 08:53 04/13/17 08:53 04/13/17 08:53 - Medications Medications: Current Medications Acetaminophen (Tylenol 325mg Tab) 650 mg PO Q4 PRN PRN Reason: Pain, moderate (4-7) Last Admin: 04/13/17 00:49 Dose: 650 mg Acetaminophen (Tylenol 325mg Tab) 650 mg PO Q6 PRN PRN Reason: Fever T>100.1 Acetylcysteine (Acetylcysteine 20%) 2 ml INH RBID [facility] Last Admin: 04/13/17 07:26 Dose: 2 ml Guaifenesin/Dextromethorphan (Robitussin Dm) 10 ml PO Q6 PRN PRN Reason: Cough Last Admin: 04/05/17 01:36 Dose: 10 ml Levalbuterol HCl (Xopenex) 1.25 mg INH RQ6 [facility] Last Admin: 04/13/17 07:26 Dose: 1.25 mg Lidocaine (Lidoderm) 1 ea TD DAILY [facility] Last Admin: 04/13/17 08:34 Dose: 1 ea Sotalol HCl (Betapace) 40 mg PO BID [facility] Last Admin: 04/13/17 08:34 Dose: 40 mg - Labs Labs: 04/12/17 05:30 04/12/17 05:30 Assessment and Plan (1) Pseudomonas infection Status: Acute (2) Bronchiectasis Status: Acute (3) COPD exacerbation Status: Acute (4) COPD exacerbation Status: Acute (5) COPD with acute exacerbation Status: Acute (6) Chr obstructive pulmonary disease w/ acute lower respiratory infxn Status: Acute
[2017-04-14] MEDS: Levalbuterol 1.25 MG/3 ML Inhal Soln UD INH SCH ×4 (01:05→19:02)
[2017-04-14 06:23] LABS: BLOOD UREA NITROGEN 33 mg/dl (7-17); GFR AFRICAN-AMERICAN > 60; GFR NON-AFRICAN AMERICAN 53
[2017-04-14] MEDS: Acetylcysteine 20% Inhal Soln (4ml) INH SCH ×2 (07:42→19:02)
[2017-04-14] MEDS: Lidocaine 5% Patch TD SCH (08:28)
--- NOTE | 2017-04-14 10:40 | CP.PCM.PN ---
Subjective - Date & Time of Evaluation Date of Evaluation: 04/14/17 Time of Evaluation: 10:42 - Subjective Subjective: CONTINUES TO IMPROVE CLINICALLY NO CHEST PAINS AFEBRILE Objective - Vital Signs/Intake and Output Vital Signs (last 24 hours): Temp Pulse Resp BP Pulse Ox 97.0 F L 64 20 110/55 L 99 04/14/17 08:13 04/14/17 08:32 04/14/17 08:13 04/14/17 08:32 04/14/17 08:13 - Medications Medications: Current Medications Acetaminophen (Tylenol 325mg Tab) 650 mg PO Q4 PRN PRN Reason: Pain, moderate (4-7) Last Admin: 04/14/17 01:08 Dose: 650 mg Acetaminophen (Tylenol 325mg Tab) 650 mg PO Q6 PRN PRN Reason: Fever T>100.1 Acetylcysteine (Acetylcysteine 20%) 2 ml INH RBID [facility] Last Admin: 04/14/17 07:42 Dose: 2 ml Guaifenesin/Dextromethorphan (Robitussin Dm) 10 ml PO Q6 PRN PRN Reason: Cough Last Admin: 04/05/17 01:36 Dose: 10 ml Gentamicin Sulfate/Sodium Chloride (Gentamicin 80mg/50ml Ns) 80 mg in 50 mls @ 49.02 mls/hr IVPB Q48H [facility] Levalbuterol HCl (Xopenex) 1.25 mg INH RQ6 [facility] Last Admin: 04/14/17 07:43 Dose: 1.25 mg Lidocaine (Lidoderm) 1 ea TD DAILY [facility] Last Admin: 04/14/17 08:28 Dose: 1 ea Sotalol HCl (Betapace) 40 mg PO BID [facility] Last Admin: 04/14/17 08:32 Dose: 40 mg - Labs Labs: 04/12/17 05:30 04/14/17 05:40 - Constitutional Appears: No Acute Distress - Head Exam Head Exam: ATRAUMATIC, NORMAL INSPECTION, NORMOCEPHALIC - Eye Exam Eye Exam: EOMI, Normal appearance, PERRL Pupil Exam: NORMAL ACCOMODATION, PERRL - ENT Exam ENT Exam: Mucous Membranes Moist, Normal Exam - Neck Exam Neck Exam: Full ROM, Normal Inspection. absent: Lymphadenopathy - Respiratory Exam Respiratory Exam: Clear to Ausculation Bilateral, NORMAL BREATHING PATTERN - Cardiovascular Exam Cardiovascular Exam: REGULAR RHYTHM, +S1, +S2. absent: Murmur - GI/Abdominal Exam GI & Abdominal Exam: Soft, Normal Bowel Sounds. absent: Tenderness - Rectal Exam Rectal Exam: NORMAL INSPECTION - Extremities Exam Extremities Exam: Full ROM, Normal Capillary Refill, Normal Inspection. absent : Joint Swelling, Pedal Edema - Back Exam Back Exam: NORMAL INSPECTION - Neurological Exam Neurological Exam: Alert, Awake, CN II-XII Intact, Normal Gait, Oriented x3 - Psychiatric Exam Psychiatric exam: Normal Affect, Normal Mood - Skin Skin Exam: Dry, Intact, Normal Color, Warm Assessment and Plan - Assessment and Plan (Free Text) Assessment: ACUTE EXAC OF BRONCHIECTASIS PSEUDOMONAS PNEUMONIA ARRYTHMIAS Plan: CONTINUE RX ORDERED CAREER AND GUIDANCE COUNSELOR TO LOOK INTO OUT PT WEEKLY IV ANTIBIOTICS X 1 MONTH--[facility]
--- NOTE | 2017-04-14 12:08 | CP.PCM.PN ---
Subjective - Date & Time of Evaluation Date of Evaluation: 04/14/17 Time of Evaluation: 08:00 - Subjective Subjective: afeb on genta 80mg q 48 h has picc line possible out pt rx Objective - Vital Signs/Intake and Output Vital Signs (last 24 hours): Temp Pulse Resp BP Pulse Ox 97.0 F L 64 20 110/55 L 99 04/14/17 08:13 04/14/17 08:32 04/14/17 08:13 04/14/17 08:32 04/14/17 08:13 - Medications Medications: Current Medications Acetaminophen (Tylenol 325mg Tab) 650 mg PO Q4 PRN PRN Reason: Pain, moderate (4-7) Last Admin: 04/14/17 01:08 Dose: 650 mg Acetaminophen (Tylenol 325mg Tab) 650 mg PO Q6 PRN PRN Reason: Fever T>100.1 Acetylcysteine (Acetylcysteine 20%) 2 ml INH RBID [facility] Last Admin: 04/14/17 07:42 Dose: 2 ml Guaifenesin/Dextromethorphan (Robitussin Dm) 10 ml PO Q6 PRN PRN Reason: Cough Last Admin: 04/05/17 01:36 Dose: 10 ml Gentamicin Sulfate/Sodium Chloride (Gentamicin 80mg/50ml Ns) 80 mg in 50 mls @ 49.02 mls/hr IVPB Q48H [facility] Levalbuterol HCl (Xopenex) 1.25 mg INH RQ6 [facility] Last Admin: 04/14/17 07:43 Dose: 1.25 mg Lidocaine (Lidoderm) 1 ea TD DAILY [facility] Last Admin: 04/14/17 08:28 Dose: 1 ea Sotalol HCl (Betapace) 40 mg PO BID [facility] Last Admin: 04/14/17 08:32 Dose: 40 mg - Labs Labs: 04/12/17 05:30 04/14/17 05:40 Assessment and Plan (1) Pseudomonas infection Status: Acute (2) Bronchiectasis Status: Acute (3) COPD exacerbation Status: Acute (4) COPD exacerbation Status: Acute (5) COPD with acute exacerbation Status: Acute (6) Chr obstructive pulmonary disease w/ acute lower respiratory infxn Status: Acute
[2017-04-14] MEDS: Gentamicin 80mg/50ml NS 80 MG/50 ML BAG IVPB SCH (12:26)
[2017-04-15] MEDS: Levalbuterol 1.25 MG/3 ML Inhal Soln UD INH SCH ×4 (02:00→19:04)
[2017-04-15] MEDS: Acetylcysteine 20% Inhal Soln (4ml) INH SCH ×2 (07:33→19:04)
[2017-04-15] MEDS: Lidocaine 5% Patch TD SCH (08:40)
--- NOTE | 2017-04-15 09:09 | CP.PCM.PN ---
Subjective - Date & Time of Evaluation Date of Evaluation: 04/15/17 Time of Evaluation: 09:09 - Subjective Subjective: NO CHEST PAINS/SOB COUGH LESS TOLERATING IV GENTAMYCIN Objective - Vital Signs/Intake and Output Vital Signs (last 24 hours): Temp Pulse Resp BP Pulse Ox 97.0 F L 71 20 106/50 L 98 04/15/17 08:00 04/15/17 08:45 04/15/17 08:00 04/15/17 08:45 04/15/17 08:00 - Medications Medications: Current Medications Acetaminophen (Tylenol 325mg Tab) 650 mg PO Q4 PRN PRN Reason: Pain, moderate (4-7) Last Admin: 04/15/17 02:23 Dose: 650 mg Acetaminophen (Tylenol 325mg Tab) 650 mg PO Q6 PRN PRN Reason: Fever T>100.1 Acetylcysteine (Acetylcysteine 20%) 2 ml INH RBID [facility] Last Admin: 04/15/17 07:33 Dose: 2 ml Guaifenesin/Dextromethorphan (Robitussin Dm) 10 ml PO Q6 PRN PRN Reason: Cough Last Admin: 04/05/17 01:36 Dose: 10 ml Gentamicin Sulfate/Sodium Chloride (Gentamicin 80mg/50ml Ns) 80 mg in 50 mls @ 49.02 mls/hr IVPB Q48H [facility] Last Admin: 04/14/17 12:26 Dose: 49.02 mls/hr Levalbuterol HCl (Xopenex) 1.25 mg INH RQ6 [facility] Last Admin: 04/15/17 07:33 Dose: 1.25 mg Lidocaine (Lidoderm) 1 ea TD DAILY [facility] Last Admin: 04/15/17 08:40 Dose: 1 ea Sotalol HCl (Betapace) 40 mg PO BID [facility] Last Admin: 04/15/17 08:45 Dose: 40 mg - Labs Labs: 04/12/17 05:30 04/14/17 05:40 - Constitutional Appears: No Acute Distress - Head Exam Head Exam: ATRAUMATIC, NORMAL INSPECTION, NORMOCEPHALIC - Eye Exam Eye Exam: EOMI, Normal appearance, PERRL Pupil Exam: NORMAL ACCOMODATION, PERRL - ENT Exam ENT Exam: Mucous Membranes Moist, Normal Exam - Neck Exam Neck Exam: Full ROM, Normal Inspection. absent: Lymphadenopathy - Respiratory Exam Respiratory Exam: Prolonged Expiratory Phase, NORMAL BREATHING PATTERN - Cardiovascular Exam Cardiovascular Exam: REGULAR RHYTHM, +S1, +S2. absent: Murmur - GI/Abdominal Exam GI & Abdominal Exam: Soft, Normal Bowel Sounds. absent: Tenderness - Rectal Exam Rectal Exam: NORMAL INSPECTION - Extremities Exam Extremities Exam: Full ROM, Normal Capillary Refill, Normal Inspection. absent : Joint Swelling, Pedal Edema - Back Exam Back Exam: NORMAL INSPECTION - Neurological Exam Neurological Exam: Alert, Awake, CN II-XII Intact, Normal Gait, Oriented x3 - Psychiatric Exam Psychiatric exam: Normal Affect, Normal Mood - Skin Skin Exam: Dry, Intact, Normal Color, Warm Assessment and Plan - Assessment and Plan (Free Text) Assessment: ACUTE EXAC OF BRONCHIECTASIS PSEUDOMONAS PNEUMONIA COPD EXAC ARRYTHMIAS ANEMIA--CHRONIC Plan: CONTINUE PRESENT RX DISCHARGE IN AM --OUT PT IV ANTIBIOTIC RX X 1 MONTH
[2017-04-16] MEDS: Levalbuterol 1.25 MG/3 ML Inhal Soln UD INH SCH ×2 (01:00→07:26)
[2017-04-16] MEDS: Acetylcysteine 20% Inhal Soln (4ml) INH SCH (07:25)
[2017-04-16 07:51] VITALS: TEMP 97.7; O2SAT 98
--- NOTE | 2017-04-16 08:51 | CP.PCM.DIS ---
Provider - Provider Date of Admission: 04/04/17 18:59 Attending physician: Castillo Castaneda MD Time Spent in preparation of Discharge (in minutes): 30 Diagnosis - Discharge Diagnosis (1) Anemia Status: Acute (2) Pseudomonas infection Status: Acute (3) Acute bronchitis with chronic obstructive pulmonary disease (COPD) Status: Acute (4) Arrhythmia Status: Acute (5) Atrial fibrillation Status: Acute (6) Bronchiectasis Status: Acute (7) Pseudomonas aeruginosa infection Status: Acute Hospital Course - Lab Results Lab Results: Micro Results 04/06/17 07:00 Sputum Gram Stain - Final 04/06/17 07:00 Sputum Sputum Culture - Final Pseudomonas Aeruginosa Most Recent Lab Values WBC 10.2 K/uL (4.8-10.8) 04/12/17 05:30 RBC 3.28 Mil/uL (3.80-5.20) L 04/12/17 05:30 Hgb 9.6 g/dL (12.0-16.0) L 04/12/17 05:30 Hct 29.1 % (34.0-47.0) L 04/12/17 05:30 MCV 88.8 fl (81.0-99.0) 04/12/17 05:30 MCH 29.4 pg (27.0-31.0) 04/12/17 05:30 MCHC 33.1 g/dL (33.0-37.0) 04/12/17 05:30 RDW 15.1 % (11.5-14.5) H 04/12/17 05:30 Plt Count 256 K/uL (130-400) 04/12/17 05:30 MPV 9.9 fl (7.2-11.7) 04/12/17 05:30 Neut % (Auto) 70.4 % (50.0-75.0) 04/12/17 05:30 Lymph % (Auto) 17.0 % (20.0-40.0) L 04/12/17 05:30 Riley % (Auto) 10.6 % (0.0-10.0) H 04/12/17 05:30 Eos % (Auto) 1.6 % (0.0-4.0) 04/12/17 05:30 Baso % (Auto) 0.4 % (0.0-2.0) 04/12/17 05:30 Neut # 7.2 K/uL (1.8-7.0) H 04/12/17 05:30 Lymph # 1.7 K/uL (1.0-4.3) 04/12/17 05:30 Riley # 1.1 K/uL (0.0-0.8) H 04/12/17 05:30 Eos # 0.2 K/uL (0.0-0.7) 04/12/17 05:30 Baso # 0.0 K/uL (0.0-0.2) 04/12/17 05:30 ESR 92 mm/hr (0-30) H 04/07/17 05:10 Sodium 140 mmol/l (132-148) 04/14/17 05:40 Potassium 4.2 MMOL/L (3.6-5.0) 04/14/17 05:40 Chloride 102 mmol/L (98-107) 04/14/17 05:40 Carbon Dioxide 32 mmol/L (22-30) H 04/14/17 05:40 Anion Gap 10 (10-20) 04/14/17 05:40 BUN 33 mg/dl (7-17) H 04/14/17 05:40 Creatinine 1.0 mg/dL (0.7-1.2) 04/14/17 05:40 Est GFR ( Amer) > 60 04/14/17 05:40 Est GFR (Non-Af Amer) 53 04/14/17 05:40 Random Glucose 83 mg/dL (65-105) 04/14/17 05:40 Calcium 9.0 mg/dL (8.4-10.2) 04/14/17 05:40 Gentamicin Trough < 0.6 ug/mL (0.0-0.9) 04/14/17 05:40 Random Gentamicin 1.7 ug/mL 04/11/17 06:30 - Hospital Course Hospital Course: cough with sob improved no chest pains sputum continues to show pseudomonas Discharge Exam - Head Exam Head Exam: ATRAUMATIC, NORMAL INSPECTION, NORMOCEPHALIC - Eye Exam Eye Exam: EOMI, Normal appearance, PERRL Pupil Exam: NORMAL ACCOMODATION, PERRL - GI/Abdominal Exam GI & Abdominal Exam: Normal Bowel Sounds - Rectal Exam Rectal Exam: NORMAL INSPECTION - Neurological Exam Neurological exam: Alert, CN II-XII Intact, Normal Gait, Oriented x3, Reflexes Normal - Psychiatric Exam Psychiatric exam: Normal Affect, Normal Mood - Skin Skin Exam: Dry, Intact, Normal Color, Warm Discharge Plan - Follow Up Plan Condition: GOOD Disposition: HOME/ ROUTINE Patient education suggested?: Yes Additional Instructions: d/c home today on iv gentamycin weekly x 1 month
[2017-04-16] MEDS: Gentamicin 80mg/50ml NS 80 MG/50 ML BAG IVPB SCH (09:13)
[2017-04-16] MEDS: Lidocaine 5% Patch TD SCH (09:15)
[2017-04-16 09:17] VITALS: BP 102/47; PULSE 77
== END 2017-04-16 13:10 | disposition home or self-care (01) | DRG 190 ==
LOC: H.TCU 18:59
PROVIDERS: ADMIT Internal Medicine Pulmonary Disease; ATTEND Internal Medicine Pulmonary Disease
PROC: F08Z4ZZ Home Management Treatment (ICD-10-PCS; principal; 2017-04-04)
PROC: 5A0955Z Assistance with Respiratory Ventilation, Greater than 96 Consecutive Hours (ICD-10-PCS; 2017-04-04)
DX: J44.0 Chronic obstructive pulmonary disease with (acute) lower respiratory infection (principal); J15.1 Pneumonia due to Pseudomonas; R64 Cachexia; D64.9 Anemia, unspecified; I48.2 Chronic atrial fibrillation; J47.1 Bronchiectasis with (acute) exacerbation; Z68.1 Body mass index [BMI] 19.9 or less, adult; J44.1 Chronic obstructive pulmonary disease with (acute) exacerbation; J20.9 Acute bronchitis, unspecified; M54.9 Dorsalgia, unspecified; M25.519 Pain in unspecified shoulder

== ENCOUNTER 2017-06-03 14:21 | Inpatient (IN) | payer MEDICARE, BC ==
[2017-06-03 14:21] VITALS: BMI 18.1
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
[2017-06-03 14:58] LABS: BASO # 0.1 K/uL (0.0-0.2); BASO % 1.1 % (0.0-2.0); EOS # 0.1 K/uL (0.0-0.7); EOS % 1.4 % (0.0-4.0); HEMATOCRIT 31.1 % (34.0-47.0); LYMPH # 1.9 K/uL (1.0-4.3); LYMPH % 20.5 % (20.0-40.0); MEAN CELL VOLUME 89.8 fl (81.0-99.0); MEAN CORPUSCULAR HEMOGLOBIN 30.3 pg (27.0-31.0); MEAN CORPUSCULAR HGB CONC 33.7 g/dL (33.0-37.0); MEAN PLATELET VOLUME 9.6 fl (7.2-11.7); MONO # 1.1 K/uL (0.0-0.8); MONO % 11.7 % (0.0-10.0); NEUT # 6.1 K/uL (1.8-7.0); NEUT % 65.3 % (50.0-75.0); RED CELL DISTRIBUTION WIDTH 14.8 % (11.5-14.5); WHITE BLOOD COUNT 9.4 K/uL (4.8-10.8)
[2017-06-03 15:07] LABS: ALB/GLOB RATIO 0.9 (1.0-2.1); ALKALINE PHOSPHATASE 68 U/L (38-126); ALT/SGPT 28 U/L (9-52); AST/SGOT 18 U/L (14-36); BILIRUBIN,TOTAL 0.4 mg/dl (0.2-1.3); BLOOD UREA NITROGEN 16 mg/dl (7-17); CALCIUM 9.1 mg/dL (8.4-10.2); CARBON DIOXIDE 28 mmol/L (22-30); CHLORIDE 100 mmol/L (98-107); GFR AFRICAN-AMERICAN > 60; GLUCOSE,RANDOM 91 mg/dL (65-105); PHOSPHOROUS 4.4 mg/dl (2.5-4.5); POTASSIUM 3.8 MMOL/L (3.6-5.0); SODIUM 137 mmol/l (132-148); TOTAL PROTEIN 7.9 G/DL (6.3-8.2)
[2017-06-03] MEDS ORDERED: Sodium Chloride 0.9% 250 ML IV STA (15:16)
[2017-06-03 15:28] LABS: PARTIAL THROMBOPLASTIN TIME 33.3 Seconds (25.6-37.1)
[2017-06-03 15:39] LABS: THYROID STIMULATING HORMONE 2.36 mIU/ML (0.46-4.68)
--- NOTE | 2017-06-03 15:42 | RAD ---
HISTORY: palpitations COMPARISON: 04/06/2017 FINDINGS: LUNGS: The lungs are hyperinflated and there is peribronchial thickening with chronic changes in both lungs. There are fibrotic changes in both lungs and old calcified granulomas in the upper lobes. No lobar pneumonia. PLEURA: No significant pleural effusion identified, no pneumothorax apparent. CARDIOVASCULAR: Normal. OSSEOUS STRUCTURES: Within normal limits for the patient's age. VISUALIZED UPPER ABDOMEN: Normal. OTHER FINDINGS: None. IMPRESSION: COPD. No acute findings.
[2017-06-03] MEDS ORDERED: Levalbuterol 1.25 MG/3 ML Inhal Soln UD INH PRN (17:28)
[2017-06-04 06:52] LABS: T4 7.52 ug/dl (5.5-11.0)
[2017-06-04 07:05] LABS: THYROID STIMULATING HORMONE 2.5 mIU/ML (0.46-4.68)
[2017-06-04] MEDS ORDERED: Sodium Chloride 3% for Inhalation 4 ML VIAL.NEB IH PRN (10:41)
--- NOTE | 2017-06-04 10:43 | CARD ---
APPROVED REPORT EKG Measurement Heart [id number] <Conclusion> Sinus rhythm with premature atrial contractions in a trigeminal pattern Otherwise normal ECG
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
[2017-06-04] MEDS: methylPREDNISolone 40 MG in Sodium Chloride 0.9% 50 ML IV SCH (12:12)
[2017-06-04] MEDS: Gentamicin 80mg/50ml NS 80 MG/50 ML BAG IVPB SCH (12:13)
[2017-06-04] MEDS: Lidocaine 5% Patch TD SCH (12:14)
--- NOTE | 2017-06-04 20:53 | HP ---
HISTORY OF PRESENT ILLNESS: Ms. Mccord is an 82-year-old female who was admitted via the emergency room because of rapid atrial fibrillation and feeling of near syncope on the day of admission. PAST MEDICAL HISTORY: She has a past medical history of paroxysmal atrial fibrillation with rapid ventricular response, had recently been to [facility] in [place], [place] and had been offered ablative therapy, but still thinking about it. She has been admitted to on multiple occasions for similar complaints and has been placed on multiple medications including sotalol, but has not been able to tolerate medications properly. She has multiple drug allergies and is unable to tolerate multiple medications. She also has a history of bronchiectasis with recurrent hemoptysis, chronic obstructive pulmonary disease, granulomatous lung disease, weight loss, bone pains. FAMILY HISTORY: Unremarkable except for sister that recently of pancreatic cancer. SOCIAL HISTORY: The patient quit smoking several years ago, does not drink alcohol, does not use drugs and he lives alone. REVIEW OF SYSTEMS: Essentially unremarkable for shortness of breath, exercise intolerance, chest tightness, palpitations, and hemoptysis. PHYSICAL EXAMINATION: GENERAL: The patient is alert and oriented, but appears emaciated. VITAL SIGNS: Blood pressure 112/69 with a pulse 69, respiratory rate 20 per minute. She is afebrile, O2 sat 99% on nasal cannula oxygen. SKIN: Shows fair turgor. HEENT: Pupils are equal and reactive to light and accommodation. Mouth shows fair hygiene. JVP flat. CARDIOPULMONARY: Regular rhythm. No murmurs or gallops are appreciated at rest. LUNGS: Fair aeration with wheezing bilaterally and basal rales ABDOMEN: Soft, nontender, no organomegaly. EXTREMITIES: Shows no edema or cyanosis. CENTRAL NERVOUS SYSTEM: Grossly intact. LABORATORY DATA: Remarkable for sodium of 137, potassium 3.8, BUN of 16, creatinine 0.9, pro-BNP 1170, troponin less than 0.012, TSH 2.5, T4 7.52, WBC 9.4, hemoglobin 10.5, platelet count 312,000. Chest x-ray shows no acute cardiopulmonary pathology. EKG first in the emergency room was remarkable for sinus rhythm with premature atrial contractions and trigeminy; repeat this a.m. shows regular sinus rhythm. IMPRESSION: Paroxysmal atrial fibrillation with rapid ventricular response, appears to have reverted to normal sinus rhythm, hemoptysis due to bronchiectasis, chronic obstructive pulmonary disease with exacerbation, weight loss. PLAN: Monitor the patient in telemetry, monitor for hemoptysis and treat bronchiectasis with IV antibiotics, aerosol as bronchodilator is already started, sputum sent for cultures. The patient is strongly advised to return to [facility] for ablation once clinically stable. Castillo Castaneda MD
--- NOTE | 2017-06-05 08:00 | PQF GENQUE ---
This form is a permanent part of the medical record 06/05/17 Dr. Castaneda, Would you please further clarify the Bronchiectasis if known: Admitted with the feeling of near syncope. Diagnoses include: Paroxysmal atrial fibrillation with rapid ventricular \response, appears to have reverted to normal sinus rhythm, hemoptysis due to bronchiectasis, chronic obstructive pulmonary disease with exacerbation, weight loss. Fair aeration with wheezing bilaterally and basal rales. Treatment includes: Xopenex, Solumedrol and IV Gentamycin. Clarification of your documentation is requested to better reflect the severity of illness and intensity of treatment of your patient. PHYSICIAN'S RESPONSE [] Bronchiectasis uncomplicated [x] Bronchiectasis with acute exacerbation [] Bronchiectasis with acute lower respiratory infection [] Other please specify [] Unable to determine Based on your medical judgment of the clinical indicators outlined above please clarify the following: [] Practitioner response [] If unable to determine, please check the box, sign and date. Present On Admission (POA) Indicator: x[] Present at the time of admission [] Not present at the time of admission [] Clinically Undetermined In responding to this query, please exercise your independent professional judgment. The fact that a question is asked does not imply that any particular answer is desired or expected. Thank you for your clarification on this documentation. If you have any questions please call:extension [phone] * Thank you, Tatyana Solorio RN CDMP MTDD
--- NOTE | 2017-06-05 08:10 | PQF GENQUE ---
This form is a permanent part of the medical record 06/05/17 Dr. Castaneda, ER with an additional diagnosis of a history of CHF. No mention elsewhere of this diagnosis. Please clarify if CHF is ruled out or ruled in. If ruled in please clarify the type/acuity. Clarification of your documentation is requested to better reflect the severity of illness and intensity of treatment of your patient. PHYSICIAN'S RESPONSE [x] CHF ruled out [] CHF ruled in. Please clarify the type and acuity Based on your medical judgment of the clinical indicators outlined above please clarify the following: [] Practitioner response [] If unable to determine, please check the box, sign and date. Present On Admission (POA) Indicator: [] Present at the time of admission [x] Not present at the time of admission [] Clinically Undetermined In responding to this query, please exercise your independent professional judgment. The fact that a question is asked does not imply that any particular answer is desired or expected. Thank you for your clarification on this documentation. If you have any questions please call:ext [phone] * Thank you, Tatyana Solorio RN [facility]
[2017-06-05] MEDS: methylPREDNISolone 40 MG in Sodium Chloride 0.9% 50 ML IV SCH (09:28)
[2017-06-05] MEDS: Gentamicin 80mg/50ml NS 80 MG/50 ML BAG IVPB SCH (09:29)
[2017-06-05] MEDS: Lidocaine 5% Patch TD SCH (09:31)
--- NOTE | 2017-06-05 09:44 | CP.PCM.PN ---
Subjective - Date & Time of Evaluation Date of Evaluation: 06/05/17 Time of Evaluation: 09:43 - Subjective Subjective: HEMOPTYSIS RESOLVED NO RECURRENCE OF DIZZINESS OR PALPITAIONS Objective - Vital Signs/Intake and Output Vital Signs (last 24 hours): Temp Pulse Resp BP Pulse Ox 97.7 F 66 18 122/63 97 06/05/17 08:00 06/05/17 09:32 06/05/17 08:00 06/05/17 09:32 06/05/17 08:00 - Medications Medications: Current Medications Acetaminophen (Tylenol 325mg Tab) 650 mg PO Q4 PRN PRN Reason: Pain, moderate (4-7) Cyproheptadine HCl (Periactin) 4 mg PO Q8 [facility] Last Admin: 06/05/17 09:31 Dose: 4 mg Gentamicin Sulfate/Sodium Chloride (Gentamicin 80mg/50ml Ns) 80 mg in 50 mls @ 49.02 mls/hr IVPB DAILY [facility] Last Admin: 06/05/17 09:29 Dose: 49.02 mls/hr Methylprednisolone 40 mg/ (Sodium Chloride) 50 mls @ 100 mls/hr IV DAILY [facility] Last Admin: 06/05/17 09:28 Dose: 100 mls/hr Levalbuterol HCl (Xopenex) 1.25 mg INH RQ8 PRN PRN Reason: Shortness of Breath Lidocaine (Lidoderm) 1 ea TD DAILY [facility] Last Admin: 06/05/17 09:31 Dose: 1 ea Sotalol HCl (Betapace) 40 mg PO Q12 [facility] Last Admin: 06/05/17 09:32 Dose: 40 mg - Labs Labs: PT 13.0 Seconds (9.8-13.1) 06/03/17 14:40 INR 1.3 (0.9-1.2) H 06/03/17 14:40 APTT 33.3 Seconds (25.6-37.1) 06/03/17 14:40 - Constitutional Appears: No Acute Distress - Head Exam Head Exam: ATRAUMATIC, NORMAL INSPECTION, NORMOCEPHALIC - Eye Exam Eye Exam: EOMI, Normal appearance, PERRL Pupil Exam: NORMAL ACCOMODATION, PERRL - ENT Exam ENT Exam: Mucous Membranes Moist, Normal Exam - Neck Exam Neck Exam: Full ROM, Normal Inspection. absent: Lymphadenopathy - Respiratory Exam Respiratory Exam: Clear to Ausculation Bilateral, NORMAL BREATHING PATTERN - Cardiovascular Exam Cardiovascular Exam: REGULAR RHYTHM, +S1, +S2. absent: Murmur - GI/Abdominal Exam GI & Abdominal Exam: Soft, Normal Bowel Sounds. absent: Tenderness - Rectal Exam Rectal Exam: NORMAL INSPECTION - Extremities Exam Extremities Exam: Full ROM, Normal Capillary Refill, Normal Inspection. absent : Joint Swelling, Pedal Edema - Back Exam Back Exam: NORMAL INSPECTION - Neurological Exam Neurological Exam: Alert, Awake, CN II-XII Intact, Normal Gait, Oriented x3 - Psychiatric Exam Psychiatric exam: Normal Affect, Normal Mood - Skin Skin Exam: Dry, Intact, Normal Color, Warm Assessment and Plan - Assessment and Plan (Free Text) Assessment: ATRIAL FIB--RSR BRONCHIECTASES--EXACERBATION MULTIPLE ALLERGIES Plan: CONTINUE PRESENT RX D/C IN AM IF STABLE
--- NOTE | 2017-06-05 12:28 | CP.PCM.PN ---
Subjective - Date & Time of Evaluation Date of Evaluation: 06/05/17 Time of Evaluation: 11:00 - Subjective Subjective: Feels sl better No dizziness no palpitations Objective - Vital Signs/Intake and Output Vital Signs (last 24 hours): Temp Pulse Resp BP Pulse Ox 97.7 F 66 18 122/63 97 06/05/17 08:00 06/05/17 09:32 06/05/17 08:00 06/05/17 09:32 06/05/17 08:00 - Medications Medications: Current Medications Acetaminophen (Tylenol 325mg Tab) 650 mg PO Q4 PRN PRN Reason: Pain, moderate (4-7) Cyproheptadine HCl (Periactin) 4 mg PO Q8 [facility] Last Admin: 06/05/17 09:31 Dose: 4 mg Gentamicin Sulfate/Sodium Chloride (Gentamicin 80mg/50ml Ns) 80 mg in 50 mls @ 49.02 mls/hr IVPB DAILY [facility] Last Admin: 06/05/17 09:29 Dose: 49.02 mls/hr Methylprednisolone 40 mg/ (Sodium Chloride) 50 mls @ 100 mls/hr IV DAILY [facility] Last Admin: 06/05/17 09:28 Dose: 100 mls/hr Levalbuterol HCl (Xopenex) 1.25 mg INH RQ8 PRN PRN Reason: Shortness of Breath Lidocaine (Lidoderm) 1 ea TD DAILY [facility] Last Admin: 06/05/17 09:31 Dose: 1 ea Sotalol HCl (Betapace) 40 mg PO Q12 [facility] Last Admin: 06/05/17 09:32 Dose: 40 mg - Labs Labs: PT 13.0 Seconds (9.8-13.1) 06/03/17 14:40 INR 1.3 (0.9-1.2) H 06/03/17 14:40 APTT 33.3 Seconds (25.6-37.1) 06/03/17 14:40 Assessment and Plan (1) Near syncope Status: Acute (2) Atrial fibrillation Status: Acute (3) Bronchiectasis Status: Acute (4) COPD (chronic obstructive pulmonary disease) Status: Acute
--- NOTE | 2017-06-05 12:48 | PQF GENQUE ---
This form is a permanent part of the medical record 06/05/17 Dr. Castaneda, If in agreement with BMI of 17.8 please include it in your next progress note along with any associated diagnosis to go along with it. Admitted with COPD exacerbation, bronchiectasis, near syncope and PAF. Documentation of patient appears "emaciated", "weight loss". EMR has the patient listed as 5' 1" and weighing 94 pounds with a BMI of 17.8. Total protein and albumin normal. Dietary consult pending. Clarification of your documentation is requested to better reflect the severity of illness and intensity of treatment of your patient. PHYSICIAN'S RESPONSE Based on your medical judgment of the clinical indicators outlined above please clarify the following: [] Practitioner response [] If unable to determine, please check the box, sign and date. Present On Admission (POA) Indicator: [] Present at the time of admission [] Not present at the time of admission [] Clinically Undetermined In responding to this query, please exercise your independent professional judgment. The fact that a question is asked does not imply that any particular answer is desired or expected. Thank you for your clarification on this documentation. If you have any questions please call:extension [phone] * Thank you, Tatyana Solorio RN CDMP [facility]
[2017-06-06] MEDS: methylPREDNISolone 40 MG in Sodium Chloride 0.9% 50 ML IV SCH (09:00)
--- NOTE | 2017-06-06 09:56 | CARD ---
APPROVED REPORT EKG Measurement Heart [id number] <Conclusion> Normal sinus rhythm Normal ECG
[2017-06-06] MEDS: Lidocaine 5% Patch TD SCH (10:00)
[2017-06-06] MEDS: Gentamicin 80mg/50ml NS 80 MG/50 ML BAG IVPB SCH (10:00)
--- NOTE | 2017-06-06 11:25 | CP.PCM.PN ---
Subjective - Date & Time of Evaluation Date of Evaluation: 06/06/17 Time of Evaluation: 10:00 - Subjective Subjective: Feels much better no Palpitations/vertigo since admission Breathing better Telemetry: NSR for possible discharge today ( as per patient) Objective - Vital Signs/Intake and Output Vital Signs (last 24 hours): Temp Pulse Resp BP Pulse Ox 97.8 F 55 L 20 101/58 L 95 06/06/17 04:54 06/06/17 10:32 06/06/17 04:54 06/06/17 10:32 06/06/17 04:54 - Medications Medications: Current Medications Acetaminophen (Tylenol 325mg Tab) 650 mg PO Q4 PRN PRN Reason: Pain, moderate (4-7) Cyproheptadine HCl (Periactin) 4 mg PO Q8 [facility] Last Admin: 06/06/17 10:00 Dose: 4 mg Gentamicin Sulfate/Sodium Chloride (Gentamicin 80mg/50ml Ns) 80 mg in 50 mls @ 49.02 mls/hr IVPB DAILY [facility] Last Admin: 06/06/17 10:00 Dose: 49.02 mls/hr Methylprednisolone 40 mg/ (Sodium Chloride) 50 mls @ 100 mls/hr IV DAILY [facility] Last Admin: 06/06/17 09:00 Dose: 100 mls/hr Levalbuterol HCl (Xopenex) 1.25 mg INH RQ8 PRN PRN Reason: Shortness of Breath Lidocaine (Lidoderm) 1 ea TD DAILY [facility] Last Admin: 06/06/17 10:00 Dose: 1 ea Sotalol HCl (Betapace) 40 mg PO Q12 [facility] Last Admin: 06/06/17 10:32 Dose: 40 mg - Labs Labs: PT 13.0 Seconds (9.8-13.1) 06/03/17 14:40 INR 1.3 (0.9-1.2) H 06/03/17 14:40 APTT 33.3 Seconds (25.6-37.1) 06/03/17 14:40 Assessment and Plan (1) Near syncope Status: Acute (2) Atrial fibrillation Status: Acute (3) Bronchiectasis Status: Acute (4) COPD (chronic obstructive pulmonary disease) Status: Acute
[2017-06-06 11:56] VITALS: BP 98/55; PULSE 67; RESP 18; TEMP 97.6; O2SAT 97
--- NOTE | 2017-06-06 12:39 | CP.PCM.DIS ---
Provider - Provider Date of Admission: 06/04/17 10:49 Attending physician: Castillo Castaneda MD Primary care physician: Castillo Castaneda MD Time Spent in preparation of Discharge (in minutes): 35 Diagnosis - Discharge Diagnosis (1) Atrial fibrillation Status: Acute (2) Near syncope Status: Acute (3) Acute bronchitis with chronic obstructive pulmonary disease (COPD) Status: Acute (4) Anemia Status: Acute (5) Bronchiectasis Status: Acute (6) Hemoptysis Status: Acute Hospital Course - Lab Results Lab Results: Most Recent Lab Values WBC 9.4 K/uL (4.8-10.8) 06/03/17 14:40 RBC 3.46 Mil/uL (3.80-5.20) L 06/03/17 14:40 Hgb 10.5 g/dL (12.0-16.0) L 06/03/17 14:40 Hct 31.1 % (34.0-47.0) L 06/03/17 14:40 MCV 89.8 fl (81.0-99.0) 06/03/17 14:40 MCH 30.3 pg (27.0-31.0) 06/03/17 14:40 MCHC 33.7 g/dL (33.0-37.0) 06/03/17 14:40 RDW 14.8 % (11.5-14.5) H 06/03/17 14:40 Plt Count 312 K/uL (130-400) 06/03/17 14:40 MPV 9.6 fl (7.2-11.7) 06/03/17 14:40 Neut % (Auto) 65.3 % (50.0-75.0) 06/03/17 14:40 Lymph % (Auto) 20.5 % (20.0-40.0) 06/03/17 14:40 [place] % (Auto) 11.7 % (0.0-10.0) H 06/03/17 14:40 Eos % (Auto) 1.4 % (0.0-4.0) 06/03/17 14:40 Baso % (Auto) 1.1 % (0.0-2.0) 06/03/17 14:40 Neut # 6.1 K/uL (1.8-7.0) 06/03/17 14:40 Lymph # 1.9 K/uL (1.0-4.3) 06/03/17 14:40 [place] # 1.1 K/uL (0.0-0.8) H 06/03/17 14:40 Eos # 0.1 K/uL (0.0-0.7) 06/03/17 14:40 Baso # 0.1 K/uL (0.0-0.2) 06/03/17 14:40 PT 13.0 Seconds (9.8-13.1) 06/03/17 14:40 INR 1.3 (0.9-1.2) H 06/03/17 14:40 APTT 33.3 Seconds (25.6-37.1) 06/03/17 14:40 Sodium 137 mmol/l (132-148) 06/03/17 14:40 Potassium 3.8 MMOL/L (3.6-5.0) 06/03/17 14:40 Chloride 100 mmol/L (98-107) 06/03/17 14:40 Carbon Dioxide 28 mmol/L (22-30) 06/03/17 14:40 Anion Gap 13 (10-20) 06/03/17 14:40 BUN 16 mg/dl (7-17) 06/03/17 14:40 Creatinine 0.9 mg/dL (0.7-1.2) 06/03/17 14:40 Est GFR ( Amer) > 60 06/03/17 14:40 Est GFR (Non-Af Amer) > 60 06/03/17 14:40 POC Glucose (mg/dL) 95 mg/dL (65-110) 06/03/17 14:24 Random Glucose 91 mg/dL (65-105) 06/03/17 14:40 Calcium 9.1 mg/dL (8.4-10.2) 06/03/17 14:40 Phosphorus 4.4 mg/dl (2.5-4.5) 06/03/17 14:40 Magnesium 2.0 MG/DL (1.6-2.3) 06/03/17 14:40 Total Bilirubin 0.4 mg/dl (0.2-1.3) 06/03/17 14:40 AST 18 U/L (14-36) 06/03/17 14:40 ALT 28 U/L (9-52) 06/03/17 14:40 Alkaline Phosphatase 68 U/L (38-126) 06/03/17 14:40 Troponin I < 0.0120 ng/mL (0.00-0.120) 06/04/17 05:15 NT-Pro-B Natriuret Pep 1170 pg/ml (0-900) H 06/03/17 14:40 Total Protein 7.9 G/DL (6.3-8.2) 06/03/17 14:40 Albumin 3.8 g/dL (3.5-5.0) 06/03/17 14:40 Globulin 4.1 gm/dL (2.2-3.9) H 06/03/17 14:40 Albumin/Globulin Ratio 0.9 (1.0-2.1) L 06/03/17 14:40 Triglycerides 82 mg/DL (0-149) D 06/04/17 05:15 Cholesterol 101 mg/dL (0-199) 06/04/17 05:15 LDL Cholesterol Direct 38 mg/dL (0-129) 06/04/17 05:15 HDL Cholesterol 26 MG/DL (30-70) L 06/04/17 05:15 Thyroxine (T4) 7.52 ug/dl (5.5-11.0) 06/04/17 05:15 TSH 3rd Generation 2.50 mIU/ML (0.46-4.68) 06/04/17 05:15 Blood Type A POSITIVE 06/03/17 14:40 Antibody Screen Positive 06/03/17 14:40 Antibody Identification Anti E 06/03/17 14:40 BBK History Checked Patient has bt 06/03/17 14:40 - Hospital Course Hospital Course: FEELS BETTER NO RECURRENCE OF NEAR SYNCOPE/HEMOPTYSIS Discharge Exam - Head Exam Head Exam: ATRAUMATIC, NORMAL INSPECTION, NORMOCEPHALIC - Eye Exam Eye Exam: EOMI, Normal appearance, PERRL Pupil Exam: NORMAL ACCOMODATION, PERRL - GI/Abdominal Exam GI & Abdominal Exam: Normal Bowel Sounds - Rectal Exam Rectal Exam: NORMAL INSPECTION - Neurological Exam Neurological exam: Alert, CN II-XII Intact, Normal Gait, Oriented x3, Reflexes Normal - Psychiatric Exam Psychiatric exam: Normal Affect, Normal Mood - Skin Skin Exam: Dry, Intact, Normal Color, Warm Discharge Plan - Follow Up Plan Condition: GUARDED Disposition: HOME/ ROUTINE Patient education suggested?: Yes Additional Instructions: DISCHARGE TODAY FOLLOW UP AT [facility] Referrals: Castillo Castaneda MD [Primary Care Provider] -
--- NOTE | 2017-06-10 08:19 | PQF GENQUE ---
This form is a permanent part of the medical record Dr. Castaneda, If in agreement with BMI of 17.8 please include it in your notes along with any associated diagnosis to go along with it. Admitted with COPD exacerbation, bronchiectasis, near syncope and PAF. Documentation of patient appears "emaciated, weight loss". EMR has the patient listed as 5' 1" and weighing 94 pounds with a BMI of 17.8. Total protein and albumin normal. Dietary consult with "underweight". Clarification of your documentation is requested to better reflect the severity of illness and intensity of treatment of your patient. Indicators present [] Specify: [] [] Specify: [] [] Specify: [] [] Specify: [] Location in the medical record that reflects the above clinical findings: [] Treatment Provided: [] PHYSICIAN'S RESPONSE Based on your medical judgment of the clinical indicators outlined above please clarify the following: [x] Practitioner response --underweight--low bmi-17 [] If unable to determine, please check the box, sign and date. Present On Admission (POA) Indicator: [x] Present at the time of admission [] Not present at the time of admission [] Clinically Undetermined In responding to this query, please exercise your independent professional judgment. The fact that a question is asked does not imply that any particular answer is desired or expected. Thank you for your clarification on this documentation. If you have any questions please call:extension [phone] * Thank you, Tatyana Solorio RN CD MTDD
== END 2017-06-06 14:28 | disposition home or self-care (01) | DRG 191 ==
LOC: H.ER 14:21 → H.ERHOLD 15:29 → H.TEL 16:37 → OBSVTOIN 06-04 10:49
PROVIDERS: ADMIT Internal Medicine Pulmonary Disease; ATTEND Internal Medicine Pulmonary Disease
DX: J44.0 Chronic obstructive pulmonary disease with (acute) lower respiratory infection (principal); J47.1 Bronchiectasis with (acute) exacerbation; D64.9 Anemia, unspecified; R04.2 Hemoptysis; I48.0 Paroxysmal atrial fibrillation; Z68.1 Body mass index [BMI] 19.9 or less, adult; I10 Essential (primary) hypertension; R55 Syncope and collapse; J44.1 Chronic obstructive pulmonary disease with (acute) exacerbation; I34.1 Nonrheumatic mitral (valve) prolapse; J20.9 Acute bronchitis, unspecified; K29.70 Gastritis, unspecified, without bleeding; J45.909 Unspecified asthma, uncomplicated; Z86.711 Personal history of pulmonary embolism; R63.4 Abnormal weight loss; Z88.1 Allergy status to other antibiotic agents

== ENCOUNTER 2017-07-21 22:31 | Emergency (ER) | payer MEDICARE, BC ==
[2017-07-21 22:31] VITALS: BMI 18.1
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
[2017-07-22 00:49] VITALS: BP 121/73; PULSE 83; RESP 17; TEMP 98.6
[2017-07-22 00:54] VITALS: O2SAT 99
== END 2017-07-22 00:45 | disposition home or self-care (01) ==
LOC: H.ER 22:31
DX: K59.00 Constipation, unspecified (principal)

== ENCOUNTER 2017-10-03 08:28 | Inpatient (IN) | payer MEDICARE, BC ==
[2017-10-03 08:28] VITALS: BMI 18.1
[2017-10-03] MEDS ORDERED: Albuterol-Ipratrop 3 mg / 0.5 (3 ml) UD IH STA (08:56)
[2017-10-03] MEDS ORDERED: Lactated Ringer's 1,000 ML IV SCH (09:00)
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
[2017-10-03] MEDS ORDERED: MethylPREDNISolone 40 mg Vial ONE (09:32)
[2017-10-03] MEDS ORDERED: Albuterol-Ipratrop 3 mg / 0.5 (3 ml) UD ONE (09:33)
[2017-10-03 09:35] LABS: BASO % 0.6 % (0.0-2.0); EOS % 0.3 % (0.0-4.0); HEMATOCRIT 32.4 % (34.0-47.0); LYMPH # 0.7 K/uL (1.0-4.3); LYMPH % 10.1 % (20.0-40.0); MEAN CORPUSCULAR HEMOGLOBIN 28.5 pg (27.0-31.0); MEAN CORPUSCULAR HGB CONC 32.7 g/dL (33.0-37.0); MEAN PLATELET VOLUME 9.2 fl (7.2-11.7); MONO # 0.9 K/uL (0.0-0.8); MONO % 12.7 % (0.0-10.0); NEUT # 5.4 K/uL (1.8-7.0); NEUT % 76.3 % (50.0-75.0); NRBC % 0.1 % (0.0-0.0); RED CELL DISTRIBUTION WIDTH 15.9 % (11.5-14.5); WHITE BLOOD COUNT 7.1 K/uL (4.8-10.8)
[2017-10-03 09:43] LABS: VENOUS BLOOD GAS BASE EXCESS 5.1 mmol/L (0.0-2.0); VENOUS BLOOD GAS PCO2 44 mmHg (40-60); VENOUS BLOOD PH 7.44 (7.32-7.43)
[2017-10-03 10:01] LABS: ALB/GLOB RATIO 0.9 (1.0-2.1); ALKALINE PHOSPHATASE 67 U/L (38-126); ALT/SGPT 24 U/L (9-52); AST/SGOT 26 U/L (14-36); BILIRUBIN,TOTAL 0.3 mg/dl (0.2-1.3); BLOOD UREA NITROGEN 18 mg/dl (7-17); CALCIUM 9.1 mg/dL (8.4-10.2); CARBON DIOXIDE 28 mmol/L (22-30); CHLORIDE 99 mmol/L (98-107); GFR AFRICAN-AMERICAN > 60; GLUCOSE,RANDOM 91 mg/dL (65-105); POTASSIUM 3.8 MMOL/L (3.6-5.0); SODIUM 136 mmol/l (132-148); TOTAL PROTEIN 8.2 G/DL (6.3-8.2)
[2017-10-03] MEDS ORDERED: Sodium Chloride 3% for Inhalation 4 ML VIAL.NEB IH PRN ×2 (13:12→13:44)
[2017-10-03] MEDS ORDERED: Albuterol-Ipratrop 3 mg / 0.5 (3 ml) UD INH PRN (13:13)
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
--- NOTE | 2017-10-03 15:20 | RAD ---
HISTORY: Cough COMPARISON: 06/03/2017 TECHNIQUE: Chest PA and lateral FINDINGS: LUNGS: Chronic interstitial lung disease essentially stable compared to the prior study. Hyperinflation/manifestations of COPD. PLEURA: No significant pleural effusion identified. No pneumothorax apparent. CARDIOVASCULAR: No radiographic findings to suggest acute or significant cardiovascular disease.Position/ configuration of pacemaker device: Satisfactory. OSSEOUS STRUCTURES: No significant abnormalities. VISUALIZED UPPER ABDOMEN: Normal. OTHER FINDINGS: None. IMPRESSION: No active disease. No significant interval change compared to the prior examination(s).
--- NOTE | 2017-10-03 15:51 | CARD ---
APPROVED REPORT EKG Measurement Heart [id number] <Conclusion> Atrial-sensed ventricular-paced rhythm Abnormal ECG
[2017-10-03] MEDS: Gentamicin 60mg/50ml NS 60 MG/50 ML BAG IVPB SCH (16:53)
[2017-10-03] MEDS ORDERED: methylPREDNISolone 60 MG in Sodium Chloride 0.9% 50 ML IVPB SCH (17:00)
--- NOTE | 2017-10-03 21:46 | HP ---
HISTORY OF PRESENT ILLNESS: Ms. Mccord is an 82-year-old female who was admitted via the emergency room because of fever, chills, headaches, body aches for the past several days prior to presentation, worse on the day of admission, associated with a temperature of 102.6 degrees Fahrenheit. She was seen in the emergency room and workup was remarkable for bilateral pneumonia. She was therefore admitted for workup and therapy. PAST MEDICAL HISTORY: She has a past medical history of chronic atrial fibrillation status post recent pacemaker placement at [facility]. She also has chronic obstructive pulmonary disease, bronchiectasis, granulomatous lung disease, mitral valve prolapse, hypertension, and weight loss. FAMILY HISTORY: Unremarkable except for sister who of recent pancreatic disease. SOCIAL HISTORY: She quit smoking years ago, does not drink, does use drugs. Lives alone, but has a supportive family. REVIEW OF SYSTEMS: Remarkable for shortness of breath, cough, recurrent bronchiectasis with occasional hemoptysis. PHYSICAL EXAMINATION GENERAL: The patient is emaciated, appears much more comfortable since admission. VITAL SIGNS: Blood pressure 132/60, pulse of 104, respiratory rate 21, temperature maximum 102 degrees Fahrenheit, O2 sat 96% on room air. SKIN: Shows fair turgor. HEENT: Pupils are equal and reactive to light and accommodation. Mouth shows fair hygiene. JVP flat. LUNGS: Bilateral scattered rales and wheezing. HEART: S1, S2. There is a pacemaker in place over the left anterior chest wall. ABDOMEN: Soft, nontender, no organomegaly. EXTREMITIES: Show no edema or cyanosis. CENTRAL NERVOUS SYSTEM: Grossly intact. GENITOURINARY: Deferred. RECTAL: Deferred. LABORATORY DATA: Remarkable for WBC of 7.1, hemoglobin 10.6, platelet count 235,000. Sodium 136, potassium 3.8, BUN of 18, creatinine 0.9. Venous blood gas; pH 7.44, pCO2 44, pO2 of 17. Lactate level 0.9. EKG and chest x-ray, official report pending; but chest x-ray reviewed by me shows bilateral chronic interstitial lung disease with superimposed pulmonary infiltrates. IMPRESSION: Bilateral pneumonia, history of bronchiectasis with recurrent Pseudomonas infection, history of cardiac arrhythmia status post pacemaker placement, and hypertension. PLAN: Intravenous antibiotics as well as bronchodilators, oxygen. Would obtain sputum for cultures and blood cultures. Further therapy will depend on findings. Infectious Disease evaluation called with Dr. Ambrose. Castillo Castaneda MD
[2017-10-03 22:55] LABS: RBC URINE 3 /hpf (0-3); URINE BILIRUBIN NEGATIVE (NEGATIVE); URINE BLOOD NEGATIVE (NEGATIVE); URINE COLOR YELLOW (YELLOW); URINE GLUCOSE (UA) NEG (Normal); URINE KETONE TRACE mg/dL (NEGATIVE); URINE LEUKOCYTE ESTERASE NEG Leu/uL (Negative); URINE PROTEIN NEGATIVE (NEGATIVE); URINE UROBILINOGEN 0.2-1.0 mg/dL (0.2-1.0); WBC URINE < 1 /hpf (0-5)
[2017-10-04] MEDS: Gentamicin 60mg/50ml NS 60 MG/50 ML BAG IVPB SCH ×3 (00:11→16:47)
[2017-10-04 08:16] LABS: BASO % 0.3 % (0.0-2.0); HEMATOCRIT 29.4 % (34.0-47.0); LYMPH # 0.7 K/uL (1.0-4.3); LYMPH % 15.7 % (20.0-40.0); MEAN CELL VOLUME 86.8 fl (81.0-99.0); MEAN CORPUSCULAR HEMOGLOBIN 27.9 pg (27.0-31.0); MEAN CORPUSCULAR HGB CONC 32.2 g/dL (33.0-37.0); MEAN PLATELET VOLUME 9.4 fl (7.2-11.7); MONO # 0.2 K/uL (0.0-0.8); MONO % 5.3 % (0.0-10.0); NEUT # 3.4 K/uL (1.8-7.0); NEUT % 78.7 % (50.0-75.0); RED CELL DISTRIBUTION WIDTH 15.7 % (11.5-14.5); WHITE BLOOD COUNT 4.3 K/uL (4.8-10.8)
[2017-10-04 08:36] LABS: BLOOD UREA NITROGEN 24 mg/dl (7-17); CALCIUM 8.7 mg/dL (8.4-10.2); CARBON DIOXIDE 25 mmol/L (22-30); CHLORIDE 103 mmol/L (98-107); GFR AFRICAN-AMERICAN > 60; GLUCOSE,RANDOM 122 mg/dL (65-105); POTASSIUM 4.2 MMOL/L (3.6-5.0); SODIUM 138 mmol/l (132-148)
--- NOTE | 2017-10-04 10:22 | CP.PCM.PN ---
Subjective - Date & Time of Evaluation Date of Evaluation: 10/04/17 Time of Evaluation: 10:23 - Subjective Subjective: COUGH LESS SOB IMPROVING WANTS TO GO HOME FOR XMAS Objective - Vital Signs/Intake and Output Vital Signs (last 24 hours): Temp Pulse Resp BP Pulse Ox 97.4 F L 89 20 106/50 L 97 10/04/17 07:31 10/04/17 07:31 10/04/17 07:31 10/04/17 07:31 10/04/17 07:31 - Medications Medications: Current Medications Acetaminophen (Tylenol 325mg Tab) 650 mg PO Q4 PRN PRN Reason: Headache Acetaminophen (Tylenol 325mg Tab) 650 mg PO Q4 PRN PRN Reason: Fever >100.4 F Albuterol/Ipratropium (Duoneb 3 Mg/0.5 Mg (3 Ml) Ud) 3 ml INH RQ6 PRN PRN Reason: Shortness of Breath Gentamicin Sulfate/Sodium Chloride (Gentamicin 60mg/50ml Ns) 60 mg in 50 mls @ 50 mls/hr IVPB Q8 [facility] Last Admin: 10/04/17 08:50 Dose: 50 mls/hr Methylprednisolone (Solu-Medrol) 60 mg IV Q8 [facility] Last Admin: 10/04/17 08:49 Dose: 60 mg - Labs Labs: 10/04/17 06:30 10/04/17 06:30 - Constitutional Appears: No Acute Distress - Head Exam Head Exam: ATRAUMATIC, NORMAL INSPECTION, NORMOCEPHALIC - Eye Exam Eye Exam: EOMI, Normal appearance, PERRL Pupil Exam: NORMAL ACCOMODATION, PERRL - ENT Exam ENT Exam: Mucous Membranes Moist, Normal Exam - Neck Exam Neck Exam: Full ROM, Normal Inspection. absent: Lymphadenopathy - Respiratory Exam Respiratory Exam: Decreased Breath Sounds, Rales, Wheezes, NORMAL BREATHING PATTERN - Cardiovascular Exam Cardiovascular Exam: REGULAR RHYTHM, +S1, +S2. absent: Murmur - GI/Abdominal Exam GI & Abdominal Exam: Soft, Normal Bowel Sounds. absent: Tenderness - Rectal Exam Rectal Exam: NORMAL INSPECTION - Extremities Exam Extremities Exam: Full ROM, Normal Capillary Refill, Normal Inspection. absent : Joint Swelling, Pedal Edema - Back Exam Back Exam: NORMAL INSPECTION - Neurological Exam Neurological Exam: Alert, Awake, CN II-XII Intact, Normal Gait, Oriented x3 - Psychiatric Exam Psychiatric exam: Normal Affect, Normal Mood - Skin Skin Exam: Dry, Intact, Normal Color, Warm Assessment and Plan - Assessment and Plan (Free Text) Assessment: ACUTE EXAC OF COPD PNEUMONIA BRONCHIECTASIS ARRYTHMIAS CHRONIC ANEMIA HX OF HEMOPTYSIS AND GI BLEED Plan: CONTINUE PRESENT RX
[2017-10-05] MEDS: Gentamicin 60mg/50ml NS 60 MG/50 ML BAG IVPB SCH ×2 (00:17→12:09)
[2017-10-05 07:49] LABS: LYMPH # 0.4 K/uL (1.0-4.3); LYMPH % 4.5 % (20.0-40.0); MEAN CELL VOLUME 88.1 fl (81.0-99.0); MEAN CORPUSCULAR HEMOGLOBIN 28.3 pg (27.0-31.0); MEAN CORPUSCULAR HGB CONC 32.1 g/dL (33.0-37.0); MEAN PLATELET VOLUME 9.6 fl (7.2-11.7); MONO # 0.7 K/uL (0.0-0.8); MONO % 9.1 % (0.0-10.0); NEUT # 6.9 K/uL (1.8-7.0); NEUT % 86.4 % (50.0-75.0); PLATELET COUNT 230 K/uL (130-400); RED CELL DISTRIBUTION WIDTH 16.1 % (11.5-14.5)
[2017-10-05 08:24] LABS: ALB/GLOB RATIO 0.9 (1.0-2.1); ALKALINE PHOSPHATASE 50 U/L (38-126); ALT/SGPT 30 U/L (9-52); AST/SGOT 27 U/L (14-36); BILIRUBIN,TOTAL < 0.1 mg/dl (0.2-1.3); BLOOD UREA NITROGEN 31 mg/dl (7-17); CALCIUM 8.5 mg/dL (8.4-10.2); CARBON DIOXIDE 28 mmol/L (22-30); CHLORIDE 102 mmol/L (98-107); GFR AFRICAN-AMERICAN > 60; GLUCOSE,RANDOM 128 mg/dL (65-105); POTASSIUM 4.4 MMOL/L (3.6-5.0); SODIUM 139 mmol/l (132-148); TOTAL PROTEIN 7.1 G/DL (6.3-8.2)
[2017-10-05 10:27] LABS: NEUTROPHIL 83 % (42-75); TOTAL CELLS COUNTED 100
--- NOTE | 2017-10-05 11:34 | CP.PCM.PN ---
Subjective - Date & Time of Evaluation Date of Evaluation: 10/05/17 Time of Evaluation: 11:34 - Subjective Subjective: C/O COUGH NO FEVER/SOB WANTS TO GO HOME TOMORROW TO BE WITH FAMILY DESPITE MY OBJECTIONS Objective - Vital Signs/Intake and Output Vital Signs (last 24 hours): Temp Pulse Resp BP Pulse Ox 98.1 F 96 H 20 94/60 L 97 10/05/17 07:21 10/05/17 07:21 10/05/17 07:21 10/05/17 07:21 10/05/17 07:21 - Medications Medications: Current Medications Acetaminophen (Tylenol 325mg Tab) 650 mg PO Q4 PRN PRN Reason: Headache Acetaminophen (Tylenol 325mg Tab) 650 mg PO Q4 PRN PRN Reason: Fever >100.4 F Albuterol/Ipratropium (Duoneb 3 Mg/0.5 Mg (3 Ml) Ud) 3 ml INH RQ6 PRN PRN Reason: Shortness of Breath Last Admin: 10/05/17 02:55 Dose: 3 ml Gentamicin Sulfate/Sodium Chloride (Gentamicin 60mg/50ml Ns) 60 mg in 50 mls @ 50 mls/hr IVPB Q12H [facility] Methylprednisolone (Solu-Medrol) 60 mg IV Q8 [facility] Last Admin: 10/05/17 10:14 Dose: 60 mg - Labs Labs: 10/05/17 05:30 10/05/17 05:30 - Constitutional Appears: No Acute Distress - Head Exam Head Exam: ATRAUMATIC, NORMAL INSPECTION, NORMOCEPHALIC - Eye Exam Eye Exam: EOMI, Normal appearance, PERRL Pupil Exam: NORMAL ACCOMODATION, PERRL - ENT Exam ENT Exam: Mucous Membranes Moist, Normal Exam - Neck Exam Neck Exam: Full ROM, Normal Inspection. absent: Lymphadenopathy - Respiratory Exam Respiratory Exam: Decreased Breath Sounds, Prolonged Expiratory Phase, Rales, Wheezes, NORMAL BREATHING PATTERN - Cardiovascular Exam Cardiovascular Exam: REGULAR RHYTHM, +S1, +S2. absent: Murmur - GI/Abdominal Exam GI & Abdominal Exam: Soft, Normal Bowel Sounds. absent: Tenderness - Rectal Exam Rectal Exam: NORMAL INSPECTION - Extremities Exam Extremities Exam: Full ROM, Normal Capillary Refill, Normal Inspection. absent : Joint Swelling, Pedal Edema - Back Exam Back Exam: NORMAL INSPECTION - Neurological Exam Neurological Exam: Alert, Awake, CN II-XII Intact, Normal Gait, Oriented x3 - Psychiatric Exam Psychiatric exam: Normal Affect, Normal Mood - Skin Skin Exam: Dry, Intact, Normal Color, Warm Assessment and Plan - Assessment and Plan (Free Text) Assessment: PNEUMONIA BRONCHIECTASIS COPD ARRYTHMIAS Plan: CONTINUE PRESENT RX D/C IN AM ON PO DOXYCYCLINE IF ALL CULTURES ARE NON-REVEALING
--- NOTE | 2017-10-05 11:49 | RAD ---
PROCEDURE: CHEST RADIOGRAPH, 1 VIEW HISTORY: PNEUMONIA COMPARISON: Chest radiograph dated 10/03/2017. FINDINGS: LUNGS: Stable chronic prominence of the bilateral interstitial markings with fibrotic changes. Bibasilar pleural thickening. PLEURA: No pneumothorax or pleural fluid seen. CARDIOVASCULAR: Left subclavian access pacemaker redemonstrated. Atherosclerotic aortic calcifications. Cardiomediastinal silhouette unchanged. OSSEOUS STRUCTURES: Unchanged. VISUALIZED UPPER ABDOMEN: Normal. OTHER FINDINGS: None. IMPRESSION: Stable chronic interstitial lung disease. No focal consolidation or pleural effusion.
--- NOTE | 2017-10-05 12:04 | CP.PCM.PN ---
Subjective - Date & Time of Evaluation Date of Evaluation: 10/05/17 Time of Evaluation: 09:00 - Subjective Subjective: awake alert c/o cough no fever insists on going home for chris Objective - Vital Signs/Intake and Output Vital Signs (last 24 hours): Temp Pulse Resp BP Pulse Ox 98.1 F 96 H 20 94/60 L 97 10/05/17 07:21 10/05/17 07:21 10/05/17 07:21 10/05/17 07:21 10/05/17 07:21 - Medications Medications: Current Medications Acetaminophen (Tylenol 325mg Tab) 650 mg PO Q4 PRN PRN Reason: Headache Acetaminophen (Tylenol 325mg Tab) 650 mg PO Q4 PRN PRN Reason: Fever >100.4 F Albuterol/Ipratropium (Duoneb 3 Mg/0.5 Mg (3 Ml) Ud) 3 ml INH RQ6 PRN PRN Reason: Shortness of Breath Last Admin: 10/05/17 02:55 Dose: 3 ml Gentamicin Sulfate/Sodium Chloride (Gentamicin 60mg/50ml Ns) 60 mg in 50 mls @ 50 mls/hr IVPB Q12H [facility] Methylprednisolone (Solu-Medrol) 60 mg IV Q8 [facility] Last Admin: 10/05/17 10:14 Dose: 60 mg - Labs Labs: 10/05/17 05:30 10/05/17 05:30 - Constitutional Appears: Non-toxic, Cachectic, Chronically Ill - Head Exam Head Exam: NORMOCEPHALIC - Eye Exam Eye Exam: PERRL. absent: Scleral icterus - ENT Exam ENT Exam: Mucous Membranes Dry - Neck Exam Neck Exam: absent: Lymphadenopathy - Respiratory Exam Respiratory Exam: Decreased Breath Sounds, Prolonged Expiratory Phase, Rales, Rhonchi - Cardiovascular Exam Cardiovascular Exam: REGULAR RHYTHM, +S1, +S2 - GI/Abdominal Exam GI & Abdominal Exam: Distended, Soft. absent: Tenderness - Rectal Exam Rectal Exam: Deferred - Exam Exam: NORMAL INSPECTION - Extremities Exam Extremities Exam: absent: Calf Tenderness, Pedal Edema - Back Exam Back Exam: absent: CVA tenderness (L), CVA tenderness (R) - Neurological Exam Neurological Exam: Alert, Awake, Oriented x3 - Psychiatric Exam Psychiatric exam: Normal Mood - Skin Skin Exam: Dry Assessment and Plan (1) Acute bronchitis with chronic obstructive pulmonary disease (COPD) Status: Acute - Assessment and Plan (Free Text) Assessment: severe bronchiectasis with recurrent pseudomonas infections prognosis guarded
[2017-10-05] MEDS ORDERED: Promethazine 12.5 mg/10 ml Syrup PO PRN ×2 (12:16→13:47)
[2017-10-05] MEDS ORDERED: Promethazine 12.5 mg/10 ml Syrup PO SCH (16:00)
[2017-10-06] MEDS: Gentamicin 60mg/50ml NS 60 MG/50 ML BAG IVPB SCH (00:42)
[2017-10-06 08:12] VITALS: BP 118/65; PULSE 75; RESP 18; TEMP 97.8; O2SAT 97
--- NOTE | 2017-10-06 09:19 | CP.PCM.DIS ---
Provider - Provider Date of Admission: 10/03/17 10:15 Attending physician: Castillo Castaneda MD Time Spent in preparation of Discharge (in minutes): 35 Diagnosis - Discharge Diagnosis (1) COPD exacerbation Status: Acute (2) Acute bronchitis with chronic obstructive pulmonary disease (COPD) Status: Acute (3) Anemia Status: Acute (4) Atrial fibrillation Status: Acute (5) Bronchiectasis Status: Acute (6) COPD with acute exacerbation Status: Acute (7) Pneumonia Status: Acute Hospital Course - Lab Results Lab Results: Micro Results 10/03/17 11:30 Sputum Gram Stain - Final 10/03/17 11:30 Sputum Sputum Culture - Preliminary NORMAL ORAL DEBBIE 10/03/17 22:40 Urine Urine Culture - Final No Growth (<1,000 CFU/ML) 10/03/17 09:40 Blood-Venous Blood Culture - Preliminary NO GROWTH AFTER 48 HOURS 10/03/17 09:23 Blood-Venous Blood Culture - Preliminary NO GROWTH AFTER 48 HOURS Most Recent Lab Values WBC 8.0 K/uL (4.8-10.8) D 10/05/17 05:30 RBC 3.52 Mil/uL (3.80-5.20) L 10/05/17 05:30 Hgb 10.0 g/dL (12.0-16.0) L 10/05/17 05:30 Hct 31.0 % (34.0-47.0) L 10/05/17 05:30 MCV 88.1 fl (81.0-99.0) 10/05/17 05:30 MCH 28.3 pg (27.0-31.0) 10/05/17 05:30 MCHC 32.1 g/dL (33.0-37.0) L 10/05/17 05:30 RDW 16.1 % (11.5-14.5) H 10/05/17 05:30 Plt Count 230 K/uL (130-400) 10/05/17 05:30 MPV 9.6 fl (7.2-11.7) 10/05/17 05:30 Neut % (Auto) 86.4 % (50.0-75.0) H 10/05/17 05:30 Lymph % (Auto) 4.5 % (20.0-40.0) L 10/05/17 05:30 [place] % (Auto) 9.1 % (0.0-10.0) 10/05/17 05:30 Eos % (Auto) 0.0 % (0.0-4.0) 10/05/17 05:30 Baso % (Auto) 0.0 % (0.0-2.0) 10/05/17 05:30 Neut # 6.9 K/uL (1.8-7.0) 10/05/17 05:30 Lymph # 0.4 K/uL (1.0-4.3) L 10/05/17 05:30 [place] # 0.7 K/uL (0.0-0.8) 10/05/17 05:30 Eos # 0.0 K/uL (0.0-0.7) 10/05/17 05:30 Baso # 0.0 K/uL (0.0-0.2) 10/05/17 05:30 Neutrophils % (Manual) 83 % (42-75) H 10/05/17 05:30 Band Neutrophils % 2 % (0-2) 10/05/17 05:30 Lymphocytes % (Manual) 7 % (20-50) L 10/05/17 05:30 Monocytes % (Manual) 8 % (0-10) 10/05/17 05:30 Platelet Estimate Normal (NORMAL) 10/05/17 05:30 Hypochromasia (manual) Slight 10/05/17 05:30 Anisocytosis (manual) Slight 10/05/17 05:30 Ovalocytes Slight 10/05/17 05:30 ESR 71 mm/hr (0-30) H 10/04/17 06:30 pO2 17 mm/Hg (30-55) L 10/03/17 09:02 VBG pH 7.44 (7.32-7.43) H 10/03/17 09:02 VBG pCO2 44 mmHg (40-60) 10/03/17 09:02 VBG HCO3 27.6 mmol/L 10/03/17 09:02 VBG Total CO2 31.3 mmol/L (22-28) H 10/03/17 09:02 VBG O2 Sat (Calc) 33.1 % (40-65) L 10/03/17 09:02 VBG Base Excess 5.1 mmol/L (0.0-2.0) H 10/03/17 09:02 VBG Potassium 3.7 mmol/L (3.6-5.2) 10/03/17 09:02 Sodium 136.0 mmol/L (132-148) 10/03/17 09:02 Chloride 103.0 mmol/L (98-107) 10/03/17 09:02 Glucose 95 mg/dL (65-105) 10/03/17 09:02 Lactate 0.9 mmol/L (0.7-2.1) 10/03/17 09:02 FiO2 21.0 % 10/03/17 09:02 Sodium 139 mmol/l (132-148) 10/05/17 05:30 Potassium 4.4 MMOL/L (3.6-5.0) 10/05/17 05:30 Chloride 102 mmol/L (98-107) 10/05/17 05:30 Carbon Dioxide 28 mmol/L (22-30) 10/05/17 05:30 Anion Gap 13 (10-20) 10/05/17 05:30 BUN 31 mg/dl (7-17) H 10/05/17 05:30 Creatinine 0.9 mg/dl (0.7-1.2) 10/05/17 05:30 Est GFR ( Amer) > 60 10/05/17 05:30 Est GFR (Non-Af Amer) > 60 10/05/17 05:30 Random Glucose 128 mg/dL (65-105) H 10/05/17 05:30 Calcium 8.5 mg/dL (8.4-10.2) 10/05/17 05:30 Total Bilirubin < 0.1 mg/dl (0.2-1.3) L 10/05/17 05:30 AST 27 U/L (14-36) 10/05/17 05:30 ALT 30 U/L (9-52) 10/05/17 05:30 Alkaline Phosphatase 50 U/L (38-126) 10/05/17 05:30 Total Protein 7.1 G/DL (6.3-8.2) 10/05/17 05:30 Albumin 3.3 g/dL (3.5-5.0) L 10/05/17 05:30 Globulin 3.8 gm/dL (2.2-3.9) 10/05/17 05:30 Albumin/Globulin Ratio 0.9 (1.0-2.1) L 10/05/17 05:30 Procalcitonin 0.05 NG/ML (0.19-0.49) L 10/04/17 06:30 Venous Blood Potassium 3.7 mmol/L (3.6-5.2) 10/03/17 09:02 Urine Color Yellow (YELLOW) 10/03/17 22:40 Urine Clarity Clear (Clear) 10/03/17 22:40 Urine pH 6.0 (5.0-8.0) 10/03/17 22:40 Ur Specific [place] < 1.005 (1.003-1.030) 10/03/17 22:40 Urine Protein Negative mg/dL (NEGATIVE) 10/03/17 22:40 Urine Glucose (UA) Neg mg/dL (Normal) 10/03/17 22:40 Urine Ketones Trace mg/dL (NEGATIVE) 10/03/17 22:40 Urine Blood Negative (NEGATIVE) 10/03/17 22:40 Urine Nitrate Negative (NEGATIVE) 10/03/17 22:40 Urine Bilirubin Negative (NEGATIVE) 10/03/17 22:40 Urine Urobilinogen 0.2-1.0 mg/dL (0.2-1.0) 10/03/17 22:40 Ur Leukocyte Esterase Neg Dom/uL (Negative) 10/03/17 22:40 Urine RBC (Auto) 3 /hpf (0-3) 10/03/17 22:40 Urine Microscopic WBC < 1 /hpf (0-5) 10/03/17 22:40 Ur Squamous Epith Cells < 1 /hpf (0-5) 10/03/17 22:40 Gentamicin Trough 2.5 ug/mL (0.0-0.9) H* 10/04/17 06:30 Influenza Typ A,B (EIA) Negative for flu a/b (NEGATIVE) 10/03/17 09:30 - Hospital Course Hospital Course: STILL COUGHING BUT SOB RESOLVED NO FEVER INSISTS ON GOING HOME TODAY TO BE WITH FAMILY DESPITE BEING ADVISED TO STAY Discharge Exam - Head Exam Head Exam: NORMOCEPHALIC - Eye Exam Eye Exam: EOMI, Normal appearance, PERRL Pupil Exam: NORMAL ACCOMODATION, PERRL - Respiratory Exam Respiratory Exam: Decreased Breath Sounds, Prolonged Expiratory Phase, Rales - GI/Abdominal Exam GI & Abdominal Exam: Normal Bowel Sounds - Rectal Exam Rectal Exam: NORMAL INSPECTION - Neurological Exam Neurological exam: Alert, CN II-XII Intact, Normal Gait, Oriented x3, Reflexes Normal - Psychiatric Exam Psychiatric exam: Normal Affect, Normal Mood - Skin Skin Exam: Dry, Intact, Normal Color, Warm Discharge Plan - Follow Up Plan Condition: STABLE Disposition: HOME/ ROUTINE Patient education suggested?: Yes Additional Instructions: DISCHARGE TODAY ON DOXYCYCLINE 100MG BID X 5 DAYS AND ROBITUSSIN,PRN
== END 2017-10-06 12:28 | disposition home or self-care (01) | DRG 190 ==
LOC: H.ER 08:28 → H.ERHOLD 10:15 → H.MEDSURG1 11:48
PROVIDERS: ADMIT Internal Medicine Pulmonary Disease; ATTEND Internal Medicine Pulmonary Disease
PROC: 3E0F73Z Introduction of Anti-inflammatory into Respiratory Tract, Via Natural or Artificial Opening (ICD-10-PCS; principal; 2017-10-03)
DX: J44.0 Chronic obstructive pulmonary disease with (acute) lower respiratory infection (principal); J18.9 Pneumonia, unspecified organism; J44.1 Chronic obstructive pulmonary disease with (acute) exacerbation; J20.9 Acute bronchitis, unspecified; I48.2 Chronic atrial fibrillation; I34.1 Nonrheumatic mitral (valve) prolapse; B96.5 Pseudomonas (aeruginosa) (mallei) (pseudomallei) as the cause of diseases classified elsewhere; D64.9 Anemia, unspecified; I10 Essential (primary) hypertension; K29.70 Gastritis, unspecified, without bleeding; Z95.0 Presence of cardiac pacemaker; Z86.711 Personal history of pulmonary embolism; Z87.01 Personal history of pneumonia (recurrent); Z87.891 Personal history of nicotine dependence; Z88.6 Allergy status to analgesic agent; Z88.1 Allergy status to other antibiotic agents

== ENCOUNTER 2017-10-07 10:06 | Inpatient (IN) | payer MEDICARE, BC ==
[2017-10-07 10:07] VITALS: BMI 18.1
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
[2017-10-07] MEDS ORDERED: Sodium Chloride 0.9% 500 ML IV STA (10:58)
[2017-10-07 11:30] LABS: BASO % 0.4 % (0.0-2.0); HEMOGLOBIN 10.9 g/dL (12.0-16.0); LYMPH # 0.5 K/uL (1.0-4.3); LYMPH % 5.3 % (20.0-40.0); MEAN CORPUSCULAR HEMOGLOBIN 28.4 pg (27.0-31.0); MEAN PLATELET VOLUME 8.9 fl (7.2-11.7); MONO # 0.7 K/uL (0.0-0.8); MONO % 7.1 % (0.0-10.0); NEUT # 8.4 K/uL (1.8-7.0); NEUT % 87.2 % (50.0-75.0); NRBC % 0.1 % (0.0-0.0); RBC 3.84 Mil/uL (3.80-5.20); WHITE BLOOD COUNT 9.6 K/uL (4.8-10.8)
--- NOTE | 2017-10-07 11:35 | RAD ---
HISTORY: fevers COMPARISON: 10/05/2017 FINDINGS: LUNGS: Persistent left basilar opacity. Increasing multifocal right lung opacity. Possible multifocal pneumonia. Underlying chronic interstitial changes noted. PLEURA: No significant pleural effusion identified, no pneumothorax apparent. CARDIOVASCULAR: Permanent pacemaker. Normal heart size. OSSEOUS STRUCTURES: No significant abnormalities. VISUALIZED UPPER ABDOMEN: Normal. OTHER FINDINGS: None. IMPRESSION: Multifocal opacities representing interval change, possible multifocal pneumonia. Underlying interstitial disease is again noted.
[2017-10-07 12:00] LABS: ALB/GLOB RATIO 0.9 (1.0-2.1); ALBUMIN 3.5 g/dL (3.5-5.0); ALT/SGPT 42 U/L (9-52); AST/SGOT 40 U/L (14-36); BLOOD UREA NITROGEN 24 mg/dl (7-17); CALCIUM 8.1 mg/dL (8.4-10.2); GFR AFRICAN-AMERICAN > 60; GFR NON-AFRICAN AMERICAN > 60
--- NOTE | 2017-10-07 12:09 | CARD ---
APPROVED REPORT EKG Measurement Heart [id number] <Conclusion> Atrial-sensed ventricular-paced rhythm Abnormal ECG
[2017-10-07] MEDS ORDERED: Gentamicin 80 mg/2mL Inj. IVPB STA (12:52)
[2017-10-07] MEDS ORDERED: Gentamicin 160 MG in Sodium Chloride 0.9% 100 ML IVPB SCH (13:00)
[2017-10-07 13:50] LABS: VENOUS BLOOD GAS BASE EXCESS 6.4 mmol/L (0.0-2.0); VENOUS BLOOD GAS PCO2 41 mmHg (40-60); VENOUS BLOOD GAS PO2 46 mm/Hg (30-55); VENOUS BLOOD PH 7.48 (7.32-7.43)
[2017-10-07] MEDS ORDERED: Sodium Chloride 3% for Inhalation 4 ML VIAL.NEB IH PRN (14:11)
--- NOTE | 2017-10-07 14:37 | CT ---
PROCEDURE: CT Chest without contrast HISTORY: coughm, fever, abnormal xray COMPARISON: 12/01/2016 TECHNIQUE: Contiguous axial images were obtained through the chest without intravenous contrast enhancement. Sagittal and coronal reconstructions were performed. Radiation dose (DLP): 210.60 mGy-cm. This CT exam was performed using one or more of the following dose reduction techniques: Automated exposure control, adjustment of the mA and/or kV according to patient size, and/or use of iterative reconstruction technique. FINDINGS: LUNGS: There is no acute consolidation. There is mild bronchiectasis in both upper lobes new since prior examination. Bilateral apical pleural thickening is noted with a linear opacity seen within the right apical pleural-based soft tissue, possibly calcified suture material. This is unchanged from prior. There is also bronchiectasis seen in the right lower lobe and right middle lobe, again mild and new since prior examination. There is mild right middle lobe subsegmental atelectasis and lingular subsegmental atelectasis. Multifocal small opacities are seen bilaterally, most of which are new since prior examination. Most prominently, these are seen in the anterior segment right upper lobe but also in the superior segment right lower lobe and in the left upper lobe. There is a 10 mm nodule in the right lower lobe on series 3, image 56. There are smaller discrete nodules noted in the left upper lobe in the left lower lobe. There is diffuse reticulonodular interstitial disease, somewhat heterogeneous, seen in both lung bases, as well as in the superior segment both lower lobes and in both right upper lobes. There is a cylindrical opacity in the left lower lobe on series 3, image 75. This may represent mucoid impaction. It is possible that some of the 3rd opacities could represent mucoid impaction as well. However, given the presence of multifocal ill-defined and discrete nodular opacities, the possibility of metastatic disease must be considered as well. MEDIASTINUM: Unremarkable thoracic aorta. No aneurysm. Normal-sized heart. Minimal pericardial effusion. Permanent pacemaker. Mild dilatation of main pulmonary artery to a 3.2 cm diameter. This may correlate with pulmonary arterial hypertension. There is mediastinal lymphadenopathy as was present on prior examination as well. Right hilar lymphadenopathy seen on prior examination is likely present as well although evaluation is limited by the absence of intravenous contrast. PLEURA: No pleural fluid. No pneumothorax. BONES: No fracture. No destructive lesion. UPPER ABDOMEN: Grossly unremarkable. OTHER FINDINGS: None. IMPRESSION: No acute consolidation. Multifocal heterogeneous interstitial disease, more extensive in the lower lobes than on prior examination. Also advanced in the superior segment right lower lobe. The extent of disease is grossly unchanged in the upper lobes. Multifocal mild bronchiectasis. Multifocal ill-defined small opacities as well as small discrete nodules. Cylindrical opacity in the left lower lobe may represent mucoid impaction. It is likely that some of the other ill-defined opacities represent mucoid impaction as well. Cannot rule out metastatic disease. Stable mediastinal lymphadenopathy.
[2017-10-07] MEDS ORDERED: guaiFENesin 100 mg/5 ml Syrup UD PO PRN (17:25)
[2017-10-07] MEDS ORDERED: Levalbuterol 1.25 MG/3 ML Inhal Soln UD INH PRN (17:29)
[2017-10-07] MEDS ORDERED: Gentamicin 80mg/50ml NS 80 MG/50 ML BAG IVPB SCH (17:30)
[2017-10-07] MEDS ORDERED: guaiFENesin 200 mg/10 ml Syrup UD PO PRN (17:34)
[2017-10-07] MEDS ORDERED: methylPREDNISolone 60 MG in Sodium Chloride 0.9% 50 ML IVPB SCH (21:00)
[2017-10-07] MEDS: Gentamicin 80mg/50ml NS 80 MG/50 ML BAG IVPB SCH (22:21)
[2017-10-08] MEDS: Gentamicin 80mg/50ml NS 80 MG/50 ML BAG IVPB SCH ×3 (06:49→22:18)
[2017-10-08 12:02] LABS: BLOOD UREA NITROGEN 39 mg/dl (7-17); CALCIUM 7.9 mg/dL (8.4-10.2); GFR AFRICAN-AMERICAN > 60; GFR NON-AFRICAN AMERICAN > 60
--- NOTE | 2017-10-08 13:30 | CP.PCM.CON ---
History of Present Illness - History of Present Illness History of Present Illness: 82 YO FEMALE WITH SEVERE COPD/ BRONCHIECTASIS AND RECURRENT PSEUDOMONAS INFECTION OF LUNG IS ADMITTED [facility] AFTER RECENTLY SIGNING OUT AMA HAS MULTIPLE ALLERGIES TO PCN, QUINOLONES MAKING OPTIONS FEW Review of Systems - Constitutional Constitutional: As Per HPI, Chills, Fever, Malaise - EENT Eyes: absent: As Per HPI, Blind Spots, Blurred Vision, Change in Vision, Decreased Night Vision, Diplopia, Discharge, Dry Eye, Exophthalmos, Floaters, Irritation, Itchy Eyes, Loss of Peripheral Vision, Pain, Photophobia, Requires Corrective Lenses, Sees Flashes, Spots in Vision, Tunnel Vision, Other Visual Disturbances, Loss of Vision, Other Ears: absent: As Per HPI, Decreased Hearing, Ear Discharge, Ear Pain, Tinnitus, Abnormal Hearing, Disequilibrium, Dizziness, Other Nose/Mouth/Throat: absent: As Per HPI, Epistaxis, Nasal Congestion, Nasal Discharge, Nasal Obstruction, Nasal Trauma, Nose Pain, Post Nasal Drip, Sinus Pain, Sinus Pressure, Bleeding Gums, Change in Voice, Dental Pain, Dry Mouth, Dysphagia, Halitosis, Hoarsness, Lip Swelling, Mouth Lesions, Mouth Pain, Odynophagia, Sore Throat, Throat Swelling, Tongue Swelling, Facial Pain, Neck Pain, Neck Mass, Other - Breasts Breasts: absent: As Per HPI, Change in Shape, Mass, Pain, Nipple Discharge, Nipple Inversion, Skin Changes, Swelling, Other - Cardiovascular Cardiovascular: absent: As Per HPI, Acrocyanosis, Chest Pain, Chest Pain at Rest , Chest Pain with Activity, Claudication, Diaphoresis, Dyspnea, Dyspnea on Exertion, Edema, Irregular Heart Rhythm, Pain Radiating to Arm/Neck/Jaw, Leg Edema, Leg Ulcers, Lightheadedness, Orthopnea, Palpitations, Paroxysmal Nocturnal Dyspnea, Pedal Edema, Radiating Pain, Rapid Heart Rate, Slow Heart Rate, Syncope, Other - Respiratory Respiratory: As Per HPI, Cough, Dyspnea. absent: Hemoptysis - Gastrointestinal Gastrointestinal: absent: As Per HPI, Abdominal Pain, Belching, Bloating, Change in Bowel Habits, Change in Stool Character, Coffee Ground Emesis, Constipation, Cramping, Diarrhea, Dyspepsia, Dysphagia, Early Satiety, Excessive Flatus, Fecal Incontinence, Heartburn, Hematemesis, Hematochezia, Loose Stools, Melena, Nausea, Odynophagia, Temesmus, Vomiting, Other - Genitourinary Genitourinary: absent: As Per HPI, Change in Urinary Stream, Difficulty Urinating, Dysuria, Flank Pain, Hematuria, Pyuria, Nocturia, Urinary Incontinence, Urinary Frequency, Urinary Hesitance, Urinary Urgency, Voiding Freq/Small Amts, Freq UTI, Hx Renal/Bladder Calculi, Hx /Renal Surgery, Bladder Distension, Other - Reproductive: Female Reproductive:Female: absent: As Per HPI, Amenorrhea, Amenorrhea/ Control, Currently Menstual, Cycle <21 Days, Cycle >35 Days, Cycle Variable, Menses 1-7 Days, Menses >/= 8 Days, Menses Variable, Cycle > 4 Weeks Between, No Menses for 6 Months, Heavy Menses, Light Menses, Normal Menses, Spotting Between Cycles , S/P Hysterectomy, Menopausal, Post Menopausal, Premenarche, Abnormal Vaginal Bleeding, Dysmenorrhea, Dyspareunia, Genital Lesions, Genital Pruritis, Pelvic Pain, Prolapse Symptoms, Sexual Dysfunction, Vaginal Discharge, Vaginal Dryness , Vaginal Odor, Vaginal Pruritis, Other - Menstruation Menstruation: absent: As Per HPI, Amenorrhea, Amenorrhea/ Control, Currently Menstual, Cycle <21 Days, Cycle >35 Days, Cycle Variable, Menses 1-7 Days, Menses >/= 8 Days, Menses Variable, Cycle > 4 Weeks Between, No Menses for 6 Months, Heavy Menses, Light Menses, Normal Menses, Spotting Between Cycles , S/P Hysterectomy, Menopausal, Post Menopausal, Premenarche, Abnormal Vaginal Bleeding, Dysmenorrhea, Other - Musculoskeletal Musculoskeletal: absent: As Per HPI, Abnormal Gait, Arthralgias, Atrophy, Back Pain, Deformity, Joint Swelling, Limited Range of Motion, Loss of Height, Muscle Cramps, Muscle Weakness, Myalgias, Neck Pain, Numbness, Radiating Pain into Limb, Stiffness, Tingling, Other - Integumentary Integumentary: absent: As Per HPI, Acne, Alopecia, Bleeding Lesions, Change in Hair, Change in Nails, Change in Pigmentation, Changing Lesions, Dry Skin, Erythema, Furuncle, Hirsutism, Lesions, New Lesions, Non-Healing Lesions, Photosensitivity, Pruritus, Rash, Skin Pain, Skin Ulcer, Sores, Striae, Swelling , Unusual Bruising, Wounds, Jaundice, Other - Neurological Neurological: absent: As Per HPI, Abnormal Gait, Abnormal Hearing, Abnormal Movements, Abnormal Speech, Behavioral Changes, Burning Sensations, Confusion, Convulsions, Disequilibrium, Dizziness, Numbness, Focal Weakness, Frequent Falls , Headaches, Lack of Coordination, Loss of Vision, Memory Loss, Paresthesias, Radicular Pain, Restless Legs, Sensory Deficit, Syncope, Tingling, Tremor, Vertigo, Weakness, Other Visual Disturbances, Other - Psychiatric Psychiatric: absent: As Per HPI, Abnormal Sleep Pattern, Anhedonia, Anxiety, Auditory Hallucinations, Behavioral Changes, Change in Appetite, Change in Libido, Confusion, Depression, Difficulty Concentrating, Hallucinations, Homicidal Ideation, Hopelessness, Irritability, Memory Loss, Mood Swings, Panic Attacks, Paranoia, Suicidal Ideation, Visual Hallucinations, Tactile Hallucinations, Other - Endocrine Endocrine: absent: As Per HPI, Change in Body Appearance, Change in Libido, Cold Intolorance, Deepening of Voice, Excessive Sweating, Fatigue, Flushing, Heat Intolorance, Increase in Ring/Shoe/Hat Size, Palpitations, Polydipsia, Polyphagia, Polyuria, Other - Hematologic/Lymphatic Hematologic: absent: As Per HPI, Easy Bleeding, Easy Bruising, Lymphadenopathy, Other Past Patient History - Infectious Disease Hx of Infectious Diseases: None - Past Medical History & Family History Past Medical History?: Yes - Past Social History Smoking Status: Former Smoker - CARDIAC Hx Atrial Fibrillation: Yes Hx Cardia Arrhythmia: Yes Hx Congestive Heart Failure: Yes Hx Hypercholesterolemia: No Hx Hypertension: Yes Hx Mitral Valve Prolapse: Yes Hx Pacemaker: Yes Hx Peripheral Edema: No - PULMONARY Hx Asthma: Yes Hx Bronchitis: Yes Hx Chronic Obstructive Pulmonary Disease (COPD): Yes Hx Emphysema: Yes Hx Pneumonia: Yes Hx Pulmonary Embolism: Yes Hx Sleep Apnea: No - NEUROLOGICAL Hx Alzheimer's Disease: No Hx Dementia: No Hx Migraine: No Hx Multiple Sclerosis: No Hx Parkinson's Disease: No Hx Seizures: No Hx Transient Ischemic Attacks (TIA): No - HEENT Hx HEENT Problems: No - RENAL Hx Chronic Kidney Disease: No Hx Kidney Stones: No - ENDOCRINE/METABOLIC Hx Hyperthyroidism: No Hx Hypothyroidism: No - HEMATOLOGICAL/ONCOLOGICAL Hx AIDS: No Hx Anemia: No Hx Human Immunodeficiency Virus (HIV): No Hx Sickle Cell Disease: No - INTEGUMENTARY Hx Dermatological Problems: No - MUSCULOSKELETAL/RHEUMATOLOGICAL Hx Arthritis: No Hx Falls: No Hx Fractures: Yes (ribs, wrist,thumb) Hx Osteoporosis: No Hx Rheumatoid Arthritis: No - GASTROINTESTINAL Hx Crohn's Disease: No Hx Diverticulitis: No Hx Gall Bladder Disease: Yes (gb removed) Hx Gastritis: Yes Hx Pancreatitis: No - GENITOURINARY/GYNECOLOGICAL Hx Sexually Transmitted Disorders: No - PSYCHIATRIC Hx Anxiety: No Hx Bipolar Disorder: No Hx Depression: No Hx Paranoia: No Hx Post Traumatic Stress Disorder: No Hx Schizophrenia: No Hx Substance Use: No - SURGICAL HISTORY Hx Appendectomy: Yes Hx Cholecystectomy: Yes Hx Coronary Artery Bypass Graft: No Hx Coronary Stent: No Hx Tonsillectomy: No - ANESTHESIA Hx Anesthesia: Yes Hx Anesthesia Reactions: No Hx Malignant Hyperthermia: No Meds Allergies/Adverse Reactions: Allergies Allergy/AdvReac Type Severity Reaction Status Date / Time aztreonam Allergy RASH Verified 04/04/17 18:58 clarithromycin Allergy RASH Verified 10/03/17 08:39 clindamycin Allergy RASH Verified 10/03/17 08:39 erythromycin base Allergy RASH Verified 10/03/17 08:39 ibuprofen Allergy RASH Verified 10/03/17 08:39 levofloxacin [From Levaquin] Allergy RASH Verified 10/03/17 08:39 moxifloxacin HCl Allergy RASH Verified 10/03/17 08:39 [From Avelox] Penicillins Allergy RASH Verified 10/03/17 08:39 rifampin Allergy RASH Verified 10/03/17 08:39 sulfamethoxazole Allergy RASH Verified 10/03/17 08:39 [From Sulfatrim] tramadol HCl [From Ultracet] Allergy RASH Verified 10/03/17 10:38 trimethoprim [From Sulfatrim] Allergy RASH Verified 04/04/17 18:58 vancomycin Allergy RASH Verified 04/04/17 18:58 - Medications Medications: Current Medications Acetaminophen (Tylenol 325mg Tab) 650 mg PO Q4 PRN PRN Reason: Pain, moderate (4-7) Guaifenesin (Robitussin) 200 mg PO Q6 PRN PRN Reason: Cough Gentamicin Sulfate/Sodium Chloride (Gentamicin 80mg/50ml Ns) 80 mg in 50 mls @ 49.02 mls/hr IVPB Q8@0700,1500,2300 YVETTE PRN Reason: Protocol Last Admin: 10/08/17 06:49 Dose: 49.02 mls/hr Levalbuterol HCl (Xopenex) 1.25 mg INH RQ8 PRN PRN Reason: Shortness of Breath Methylprednisolone (Solu-Medrol) 60 mg IV Q12H [facility] Last Admin: 10/08/17 09:59 Dose: 60 mg Ondansetron HCl (Zofran Inj) 4 mg IVP Q4 PRN PRN Reason: Nausea/Vomiting Physical Exam - Constitutional Appears: No Acute Distress, Cachectic, Chronically Ill - Head Exam Head Exam: ATRAUMATIC, NORMAL INSPECTION, NORMOCEPHALIC - Eye Exam Eye Exam: PERRL. absent: Scleral icterus - ENT Exam ENT Exam: Mucous Membranes Dry, Normal External Ear Exam - Neck Exam Neck exam: Negative for: Lymphadenopathy - Respiratory Exam Respiratory Exam: Decreased Breath Sounds, Prolonged Expiratory Phase, Rales, Rhonchi - Cardiovascular Exam Cardiovascular Exam: REGULAR RHYTHM, +S1, +S2 - GI/Abdominal Exam GI & Abdominal Exam: Diminished Bowel Sounds, Soft. absent: Tenderness - Rectal Exam Rectal Exam: Deferred - Exam Exam: NORMAL INSPECTION - Extremities Exam Extremities exam: Positive for: pedal pulses present. Negative for: calf tenderness, pedal edema, tenderness - Back Exam Back exam: absent: CVA tenderness (L), CVA tenderness (R) - Neurological Exam Neurological exam: Alert, CN II-XII Intact, Oriented x3, Reflexes Normal - Psychiatric Exam Psychiatric exam: Depressed - Skin Skin Exam: Dry Results - Vital Signs Recent Vital Signs: Last Vital Signs Temp 97.1 F L 10/08/17 07:48 Pulse 86 10/08/17 07:48 Resp 20 10/08/17 07:48 BP 113/64 10/08/17 07:48 Pulse Ox 91 L 10/08/17 07:48 - Labs Result Diagrams: 10/07/17 11:20 10/08/17 10:50 Labs: Laboratory Results - last 24 hr 10/07/17 10/08/17 13:19 10:50 pO2 46 VBG pH 7.48 H VBG pCO2 41 VBG HCO3 29.7 VBG Total CO2 31.8 H VBG O2 Sat (Calc) 89.7 H VBG Base Excess 6.4 H VBG Potassium 3.2 L Sodium 129.0 L 135 Chloride 98.0 96 L Glucose 97 Lactate 0.8 FiO2 21.0 Potassium 3.7 Carbon Dioxide 32 H Anion Gap 11 BUN 39 H Creatinine 0.9 Est GFR ( Amer) > 60 Est GFR (Non-Af Amer) > 60 Random Glucose 174 H Calcium 7.9 L Venous Blood Potassium 3.2 L Assessment & Plan (1) Pseudomonas aeruginosa infection Status: Acute (2) Multifocal pneumonia Status: Acute (3) Pneumonia Status: Acute (4) Bronchiectasis Status: Acute - Assessment and Plan (Free Text) Plan: CONT ANTIPSEUDIOMONAL RX WITH BRONCHODILATORS MAY NEED TOBRAMYCIN INHALATION RX
--- NOTE | 2017-10-08 15:43 | HP ---
HISTORY OF PRESENT ILLNESS: Mrs. Mccord is an [id number] who was admitted to the medical floor because of fever, chills, cough, shortness of breath, and exercise intolerance, which started about a week prior to this presentation. She was admitted to the hospital and treated with IV antibiotics, but insisted on going home for despite feeling ill. She was discharged on , then readmitted late 10/07/2017, feeling exactly the same. She indicates that everybody in her house is sick including her son and grandchildren. She has a past medical history of chronic obstructive pulmonary disease, interstitial lung disease, severe bronchiectasis with recurrent Pseudomonas upper respiratory tract infection. She also has granulomatous lung disease, cardiac arrhythmia, status post permanent pacemaker placement several months ago, coronary artery disease, MULTIPLE ALLERGIES TO MULTIPLE DRUGS, and gastritis with history of peptic ulcer and GI bleed in the past. FAMILY HISTORY: Nonrevealing except for sister who from pancreatic complications. SOCIAL HISTORY: She quit smoking many years ago. Does not drink, does not use any drugs, and lives alone at home but has a supportive family. PHYSICAL EXAMINATION: GENERAL: The patient is thin built, alert, oriented, still in some distress from coughing. VITAL SIGNS: Blood pressure 113/64 with a pulse of 86, respiratory rate of 20 per minute. She is febrile. O2 sat 91% on room air. SKIN: Shows fair turgor. HEENT: Pupils are equal, reactive to light and accommodation. Mouth shows fair hygiene with mucous engorgement of pharynx. JVP flat. LUNGS: Poor aeration bilaterally with audible rales and wheezing, dullness at both bases. HEART: S1, S2. Pacemaker in place over the left anterior chest wall. BREASTS: Normal. ABDOMEN: Soft, nontender, no organomegaly. EXTREMITIES: Show no edema or cyanosis. CENTRAL NERVOUS SYSTEM: Grossly intact. LABORATORY DATA: Remarkable for WBC of 9.6, hemoglobin 10.9, platelet count 178,000. Sodium 130, potassium 3.3, BUN 24, creatinine 0.9. AST 40, ALT 42. Venous blood gas reveals a pH of 7.48, pCO2 of 41, pO2 of 46, O2 sat 89.7. Chest x-ray is remarkable for persistent left basilar opacity, increasing multifocal right lung opacity, possible multifocal pneumonia, and underlying chronic interstitial changes, confirmed on CT scan of the chest. EKG, pacemaker rhythm. IMPRESSION: Acute exacerbation of chronic obstructive pulmonary disease and pneumonia, bilateral, multifocal; history of bronchiectasis; cardiac arrhythmias; coronary artery disease; granulomatous lung disease; history of peptic ulcer disease (bleeding). PLAN: Aerosolized bronchodilators, intravenous steroids, oxygen. I would obtain sputum for Gram stain and cultures. Continue IV antibiotic therapy. We will not give anticoagulation because of history of peptic ulcer disease but we will give CHARMAINE stockings. We will continue therapy as ordered and further therapy will depend on findings. The patient may need IV antibiotic therapy at home or in Transitional Care Unit once clinically stable. Castillo Castaneda MD
[2017-10-09 04:38] LABS: BASO % 0.2 % (0.0-2.0); HEMOGLOBIN 10.1 g/dL (12.0-16.0); LYMPH # 0.7 K/uL (1.0-4.3); MEAN CELL VOLUME 86.1 fl (81.0-99.0); MEAN CORPUSCULAR HEMOGLOBIN 28.1 pg (27.0-31.0); MEAN CORPUSCULAR HGB CONC 32.7 g/dL (33.0-37.0); MEAN PLATELET VOLUME 9.2 fl (7.2-11.7); MONO # 0.5 K/uL (0.0-0.8); NEUT # 6.4 K/uL (1.8-7.0); NEUT % 84.8 % (50.0-75.0); PLATELET COUNT 177 K/uL (130-400); RBC 3.59 Mil/uL (3.80-5.20); WHITE BLOOD COUNT 7.5 K/uL (4.8-10.8)
[2017-10-09 04:50] LABS: BLOOD UREA NITROGEN 45 mg/dl (7-17); CALCIUM 8.1 mg/dL (8.4-10.2); GFR AFRICAN-AMERICAN > 60; GFR NON-AFRICAN AMERICAN > 60
[2017-10-09] MEDS: Gentamicin 80mg/50ml NS 80 MG/50 ML BAG IVPB SCH ×3 (06:10→22:06)
[2017-10-09 06:34] LABS: ANISOCYTOSIS SLIGHT; LARGE PLATELETS PRESENT; LYMPHOCYTE 5 % (20-50); MONOCYTE 2 % (0-10); NEUTROPHIL 93 % (42-75); PLATELET ESTIMATE NORMAL (NORMAL); POLYCHROMIC SLIGHT; TOTAL CELLS COUNTED 100
--- NOTE | 2017-10-09 08:47 | PQF GENQUE ---
This form is a permanent part of the medical record 10/09/17 Dr. Castaneda, Please specify the type or suspected type of pneumonia in the progress notes after workup. Note: CAP, HAP, and HCAP indicate where the pneumonia was acquired, not a specific type Aspiration pneumonia Bacterial (specify organism) Bronchopneumonia (specify organism) Interstitial pneumonia Pneumonia with influenza, scarlett flu, or H1N1 flu Viral pneumonia Other pneumonia (specify organism or type) Clinically unable to determine Unknown Patient with a history of chronic obstructive pulmonary disease, interstitial lung disease, severe bronchiectasis with recurrent Pseudomonas upper respiratory tract infection and granulomatous lung disease is admitted with fever, chills, SOB and exercise intolerance. Was admitted to the hospital and given IVAB but insisted on going home for [place] despite feeling ill and returned on 10/07/17. Multiple sick contacts in her home. CXR: Multifocal opacities representing interval change, possible multifocal pneumonia. Underlying interstitial disease is again noted. CT CHEST: NO acute consolidation, ILD, bronchiectasis, opacities. Full report in EMR Afebrile, WBC 9.6 with a L shift. Sputum CS pending. Treated with Gentamycin. Clarification of your documentation is requested to better reflect the severity of illness and intensity of treatment of your patient. Indicators present [] Specify: [] [] Specify: [] [] Specify: [] [] Specify: [] Location in the medical record that reflects the above clinical findings: [] Treatment Provided: [] PHYSICIAN'S RESPONSE Based on your medical judgment of the clinical indicators outlined above please clarify the following: [X] Practitioner response BRONCHOPNEUMONIA--UNSPECIFIED ORGANISM [] If unable to determine, please check the box, sign and date. Present On Admission (POA) Indicator: [] Present at the time of admission [] Not present at the time of admission [] Clinically Undetermined In responding to this query, please exercise your independent professional judgment. The fact that a question is asked does not imply that any particular answer is desired or expected. Thank you for your clarification on this documentation. If you have any questions please call:extension [phone] * Thank you, Tatyana Solorio RN CDMP [facility]
--- NOTE | 2017-10-09 09:10 | CP.PCM.PN ---
Subjective - Date & Time of Evaluation Date of Evaluation: 10/09/17 Time of Evaluation: 09:11 - Subjective Subjective: FEELING BETTER SOB AND COUGH LESS Objective - Vital Signs/Intake and Output Vital Signs (last 24 hours): Temp Pulse Resp BP Pulse Ox 97.5 F L 88 20 123/67 89 L 10/09/17 07:46 10/09/17 07:46 10/09/17 07:46 10/09/17 07:46 10/09/17 07:46 - Medications Medications: Current Medications Acetaminophen (Tylenol 325mg Tab) 650 mg PO Q4 PRN PRN Reason: Pain, moderate (4-7) Guaifenesin (Robitussin) 200 mg PO Q6 PRN PRN Reason: Cough Gentamicin Sulfate/Sodium Chloride (Gentamicin 80mg/50ml Ns) 80 mg in 50 mls @ 49.02 mls/hr IVPB Q8@0700,1500,2300 YVETTE PRN Reason: Protocol Last Admin: 10/09/17 06:10 Dose: 49.02 mls/hr Levalbuterol HCl (Xopenex) 1.25 mg INH RQ8 PRN PRN Reason: Shortness of Breath Methylprednisolone (Solu-Medrol) 60 mg IV Q12H [facility] Last Admin: 10/09/17 09:02 Dose: 60 mg Ondansetron HCl (Zofran Inj) 4 mg IVP Q4 PRN PRN Reason: Nausea/Vomiting - Labs Labs: 10/09/17 04:00 10/09/17 04:00 - Constitutional Appears: No Acute Distress - Head Exam Head Exam: ATRAUMATIC, NORMAL INSPECTION, NORMOCEPHALIC - Eye Exam Eye Exam: EOMI, Normal appearance, PERRL Pupil Exam: NORMAL ACCOMODATION, PERRL - ENT Exam ENT Exam: Mucous Membranes Moist, Normal Exam - Neck Exam Neck Exam: Full ROM, Normal Inspection. absent: Lymphadenopathy - Respiratory Exam Respiratory Exam: Decreased Breath Sounds, Prolonged Expiratory Phase, Rales, NORMAL BREATHING PATTERN - Cardiovascular Exam Cardiovascular Exam: REGULAR RHYTHM, +S1, +S2. absent: Murmur - GI/Abdominal Exam GI & Abdominal Exam: Soft, Normal Bowel Sounds. absent: Tenderness - Extremities Exam Extremities Exam: Full ROM, Normal Capillary Refill, Normal Inspection. absent : Joint Swelling, Pedal Edema - Back Exam Back Exam: NORMAL INSPECTION - Neurological Exam Neurological Exam: Alert, Awake, CN II-XII Intact, Normal Gait, Oriented x3 - Psychiatric Exam Psychiatric exam: Normal Affect, Normal Mood - Skin Skin Exam: Dry, Intact, Normal Color, Warm Assessment and Plan - Assessment and Plan (Free Text) Assessment: COPD EXAC PNEUMONIA BRONCHIECTASIS ARRYTHMIAS Plan: CONTINUE IV ANTIBIOTICS AND STEROIDS TRANSFER TO TCU IN AM
--- NOTE | 2017-10-09 12:50 | CP.PCM.PN ---
Subjective - Date & Time of Evaluation Date of Evaluation: 10/09/17 Time of Evaluation: 10:00 - Subjective Subjective: slow progress await genta trough Objective - Vital Signs/Intake and Output Vital Signs (last 24 hours): Temp Pulse Resp BP Pulse Ox 97.5 F L 88 20 123/67 89 L 10/09/17 07:46 10/09/17 07:46 10/09/17 07:46 10/09/17 07:46 10/09/17 07:46 - Medications Medications: Current Medications Acetaminophen (Tylenol 325mg Tab) 650 mg PO Q4 PRN PRN Reason: Pain, moderate (4-7) Guaifenesin (Robitussin) 200 mg PO Q6 PRN PRN Reason: Cough Gentamicin Sulfate/Sodium Chloride (Gentamicin 80mg/50ml Ns) 80 mg in 50 mls @ 49.02 mls/hr IVPB Q8@0700,1500,2300 YVETTE PRN Reason: Protocol Last Admin: 10/09/17 06:10 Dose: 49.02 mls/hr Levalbuterol HCl (Xopenex) 1.25 mg INH RQ8 PRN PRN Reason: Shortness of Breath Methylprednisolone (Solu-Medrol) 60 mg IV Q12H [facility] Last Admin: 10/09/17 09:02 Dose: 60 mg Ondansetron HCl (Zofran Inj) 4 mg IVP Q4 PRN PRN Reason: Nausea/Vomiting - Labs Labs: 10/09/17 04:00 10/09/17 04:00 - Constitutional Appears: Cachectic, Chronically Ill - Head Exam Head Exam: NORMOCEPHALIC - Eye Exam Eye Exam: PERRL - ENT Exam ENT Exam: Mucous Membranes Dry - Neck Exam Neck Exam: absent: Lymphadenopathy - Respiratory Exam Respiratory Exam: Decreased Breath Sounds - Cardiovascular Exam Cardiovascular Exam: REGULAR RHYTHM - GI/Abdominal Exam GI & Abdominal Exam: Distended - Rectal Exam Rectal Exam: Deferred - Exam Exam: NORMAL INSPECTION External exam: absent: Swelling - Extremities Exam Extremities Exam: absent: Pedal Edema - Back Exam Back Exam: absent: CVA tenderness (L), CVA tenderness (R) Assessment and Plan (1) Pseudomonas aeruginosa infection Status: Acute (2) Multifocal pneumonia Status: Acute (3) Pneumonia Status: Acute (4) Bronchiectasis Status: Acute
--- NOTE | 2017-10-09 13:36 | RAD ---
HISTORY: Pneumonia. COMPARISON: 10/07/2017 single-view chest. 10/07/2017 CT abdomen and pelvis TECHNIQUE: Chest PA and lateral FINDINGS: LUNGS: Stable primarily interstitial lung disease. Hyperinflation, findings consistent with COPD. PLEURA: No significant pleural effusion identified. No pneumothorax apparent. CARDIOVASCULAR: No radiographic findings to suggest acute or significant cardiovascular disease. Position/ configuration of pacemaker device: Satisfactory. OSSEOUS STRUCTURES: No significant abnormalities. VISUALIZED UPPER ABDOMEN: Normal. OTHER FINDINGS: None. IMPRESSION: No significant interval change compared to the prior examination(s).
[2017-10-10 07:37] VITALS: BP 111/71; PULSE 85; RESP 18; TEMP 97.4; O2SAT 96
[2017-10-10] MEDS: Gentamicin 80mg/50ml NS 80 MG/50 ML BAG IVPB SCH (09:07)
--- NOTE | 2017-10-10 12:18 | CP.PCM.PN ---
Subjective - Date & Time of Evaluation Date of Evaluation: 10/10/17 Time of Evaluation: 08:00 - Subjective Subjective: genta on hold levels toxic Objective - Vital Signs/Intake and Output Vital Signs (last 24 hours): Temp Pulse Resp BP Pulse Ox 97.4 F L 85 18 111/71 96 10/10/17 07:36 10/10/17 07:36 10/10/17 07:36 10/10/17 07:36 10/10/17 07:36 - Medications Medications: Current Medications Acetaminophen (Tylenol 325mg Tab) 650 mg PO Q4 PRN PRN Reason: Pain, moderate (4-7) Guaifenesin (Robitussin) 200 mg PO Q6 PRN PRN Reason: Cough Gentamicin Sulfate/Sodium Chloride (Gentamicin 80mg/50ml Ns) 80 mg in 50 mls @ 49.02 mls/hr IVPB Q8@0700,1500,2300 YVETTE PRN Reason: Protocol Last Admin: 10/10/17 09:07 Dose: Not Given Levalbuterol HCl (Xopenex) 1.25 mg INH RQ8 PRN PRN Reason: Shortness of Breath Methylprednisolone (Solu-Medrol) 60 mg IV Q12H [facility] Last Admin: 10/10/17 09:04 Dose: 60 mg Ondansetron HCl (Zofran Inj) 4 mg IVP Q4 PRN PRN Reason: Nausea/Vomiting - Labs Labs: 10/09/17 04:00 10/09/17 04:00 - Constitutional Appears: Non-toxic, Cachectic, Chronically Ill - Head Exam Head Exam: NORMOCEPHALIC - Eye Exam Eye Exam: PERRL - ENT Exam ENT Exam: Mucous Membranes Dry - Neck Exam Neck Exam: absent: Lymphadenopathy - Respiratory Exam Respiratory Exam: Decreased Breath Sounds - Cardiovascular Exam Cardiovascular Exam: REGULAR RHYTHM - GI/Abdominal Exam GI & Abdominal Exam: Distended, Soft - Rectal Exam Rectal Exam: Deferred - Exam Exam: NORMAL INSPECTION Assessment and Plan (1) Pseudomonas aeruginosa infection Status: Acute (2) Multifocal pneumonia Status: Acute (3) Pneumonia Status: Acute (4) Bronchiectasis Status: Acute
--- NOTE | 2017-10-10 13:12 | CP.PCM.DIS ---
Provider - Provider Date of Admission: 10/07/17 14:03 Attending physician: Castillo Castaneda MD Time Spent in preparation of Discharge (in minutes): 30 Diagnosis - Discharge Diagnosis (1) Bronchiectasis Status: Acute (2) Multifocal pneumonia Status: Acute (3) Anemia Status: Acute (4) Arrhythmia Status: Acute (5) Atrial fibrillation Status: Acute (6) COPD (chronic obstructive pulmonary disease) Status: Acute (7) Iron deficiency anemia Status: Acute Hospital Course - Lab Results Lab Results: Micro Results 10/07/17 11:00 Blood Blood Culture - Preliminary NO GROWTH AFTER 3 DAYS 10/07/17 11:30 Blood Blood Culture - Preliminary NO GROWTH AFTER 3 DAYS 10/07/17 15:55 Sputum Gram Stain - Final 10/07/17 15:55 Sputum Sputum Culture - Final NORMAL ORAL DEBBIE Most Recent Lab Values WBC 7.5 K/uL (4.8-10.8) 10/09/17 04:00 RBC 3.59 Mil/uL (3.80-5.20) L 10/09/17 04:00 Hgb 10.1 g/dL (12.0-16.0) L 10/09/17 04:00 Hct 30.9 % (34.0-47.0) L 10/09/17 04:00 MCV 86.1 fl (81.0-99.0) 10/09/17 04:00 MCH 28.1 pg (27.0-31.0) 10/09/17 04:00 MCHC 32.7 g/dL (33.0-37.0) L 10/09/17 04:00 RDW 16.0 % (11.5-14.5) H 10/09/17 04:00 Plt Count 177 K/uL (130-400) 10/09/17 04:00 MPV 9.2 fl (7.2-11.7) 10/09/17 04:00 Neut % (Auto) 84.8 % (50.0-75.0) H 10/09/17 04:00 Lymph % (Auto) 9.0 % (20.0-40.0) L 10/09/17 04:00 [place] % (Auto) 6.0 % (0.0-10.0) 10/09/17 04:00 Eos % (Auto) 0.0 % (0.0-4.0) 10/09/17 04:00 Baso % (Auto) 0.2 % (0.0-2.0) 10/09/17 04:00 Neut # 6.4 K/uL (1.8-7.0) 10/09/17 04:00 Lymph # 0.7 K/uL (1.0-4.3) L 10/09/17 04:00 [place] # 0.5 K/uL (0.0-0.8) 10/09/17 04:00 Eos # 0.0 K/uL (0.0-0.7) 10/09/17 04:00 Baso # 0.0 K/uL (0.0-0.2) 10/09/17 04:00 Neutrophils % (Manual) 93 % (42-75) H 10/09/17 04:00 Lymphocytes % (Manual) 5 % (20-50) L 10/09/17 04:00 Monocytes % (Manual) 2 % (0-10) 10/09/17 04:00 Platelet Estimate Normal (NORMAL) 10/09/17 04:00 Large Platelets Present 10/09/17 04:00 Polychromasia Slight 10/09/17 04:00 Anisocytosis (manual) Slight 10/09/17 04:00 ESR 49 mm/hr (0-30) H 10/09/17 04:00 pO2 46 mm/Hg (30-55) 10/07/17 13:19 VBG pH 7.48 (7.32-7.43) H 10/07/17 13:19 VBG pCO2 41 mmHg (40-60) 10/07/17 13:19 VBG HCO3 29.7 mmol/L 10/07/17 13:19 VBG Total CO2 31.8 mmol/L (22-28) H 10/07/17 13:19 VBG O2 Sat (Calc) 89.7 % (40-65) H 10/07/17 13:19 VBG Base Excess 6.4 mmol/L (0.0-2.0) H 10/07/17 13:19 VBG Potassium 3.2 mmol/L (3.6-5.2) L 10/07/17 13:19 Sodium 129.0 mmol/L (132-148) L 10/07/17 13:19 Chloride 98.0 mmol/L (98-107) 10/07/17 13:19 Glucose 97 mg/dL (65-105) 10/07/17 13:19 Lactate 0.8 mmol/L (0.7-2.1) 10/07/17 13:19 FiO2 21.0 % 10/07/17 13:19 Sodium 134 mmol/l (132-148) 10/09/17 04:00 Potassium 3.9 MMOL/L (3.6-5.0) 10/09/17 04:00 Chloride 98 mmol/L (98-107) 10/09/17 04:00 Carbon Dioxide 31 mmol/L (22-30) H 10/09/17 04:00 Anion Gap 9 (10-20) L 10/09/17 04:00 BUN 45 mg/dl (7-17) H 10/09/17 04:00 Creatinine 0.8 mg/dl (0.7-1.2) 10/09/17 04:00 Est GFR ( Amer) > 60 10/09/17 04:00 Est GFR (Non-Af Amer) > 60 10/09/17 04:00 Random Glucose 139 mg/dL (65-105) H 10/09/17 04:00 Calcium 8.1 mg/dL (8.4-10.2) L 10/09/17 04:00 Total Bilirubin 0.2 mg/dl (0.2-1.3) 10/07/17 11:20 AST 40 U/L (14-36) H D 10/07/17 11:20 ALT 42 U/L (9-52) 10/07/17 11:20 Alkaline Phosphatase 57 U/L (38-126) 10/07/17 11:20 Troponin I 0.0390 ng/mL (0.00-0.120) 10/07/17 11:20 Total Protein 7.4 G/DL (6.3-8.2) 10/07/17 11:20 Albumin 3.5 g/dL (3.5-5.0) 10/07/17 11:20 Globulin 3.9 gm/dL (2.2-3.9) 10/07/17 11:20 Albumin/Globulin Ratio 0.9 (1.0-2.1) L 10/07/17 11:20 Venous Blood Potassium 3.2 mmol/L (3.6-5.2) L 10/07/17 13:19 Gentamicin Trough 4.9 ug/mL (0.0-0.9) H* 10/09/17 04:00 Influenza Typ A,B (EIA) Negative for flu a/b (NEGATIVE) 10/07/17 11:20 - Hospital Course Hospital Course: clinically improving Discharge Exam - Head Exam Head Exam: NORMOCEPHALIC - Eye Exam Eye Exam: EOMI, Normal appearance, PERRL Pupil Exam: NORMAL ACCOMODATION, PERRL - Respiratory Exam Respiratory Exam: Decreased Breath Sounds - GI/Abdominal Exam GI & Abdominal Exam: Normal Bowel Sounds - Rectal Exam Rectal Exam: NORMAL INSPECTION - Neurological Exam Neurological exam: Alert, CN II-XII Intact, Normal Gait, Oriented x3, Reflexes Normal - Psychiatric Exam Psychiatric exam: Normal Affect, Normal Mood - Skin Skin Exam: Dry, Intact, Normal Color, Warm Discharge Plan - Discharge Medications Prescriptions: Gentamicin 80mg/50ml NS 80 mg IVPB Q8 #10 bag methylPREDNISolone [Solu-Medrol] 60 mg IV Q12 #8 vial - Follow Up Plan Condition: FAIR Disposition: REHAB FACILITY/REHAB UNIT Patient education suggested?: Yes Additional Instructions: transfer to transitional care for iv antibiotics
== END 2017-10-10 13:35 | DRG 194 ==
LOC: H.ER 10:06 → H.ERHOLD 14:03 → H.MEDSURG1 16:40
PROVIDERS: ADMIT Internal Medicine Pulmonary Disease; ATTEND Internal Medicine Pulmonary Disease
DX: J18.0 Bronchopneumonia, unspecified organism (principal); J47.0 Bronchiectasis with acute lower respiratory infection; I27.21 Secondary pulmonary arterial hypertension; I48.91 Unspecified atrial fibrillation; J98.11 Atelectasis; B96.5 Pseudomonas (aeruginosa) (mallei) (pseudomallei) as the cause of diseases classified elsewhere; D50.9 Iron deficiency anemia, unspecified; I25.10 Atherosclerotic heart disease of native coronary artery without angina pectoris; I34.1 Nonrheumatic mitral (valve) prolapse; Y95 Nosocomial condition; Z86.711 Personal history of pulmonary embolism; Z87.01 Personal history of pneumonia (recurrent); Z87.11 Personal history of peptic ulcer disease; Z87.891 Personal history of nicotine dependence; Z88.0 Allergy status to penicillin; Z90.49 Acquired absence of other specified parts of digestive tract; Z90.710 Acquired absence of both cervix and uterus; Z95.0 Presence of cardiac pacemaker; I49.9 Cardiac arrhythmia, unspecified; K29.70 Gastritis, unspecified, without bleeding; R59.0 Localized enlarged lymph nodes; R91.1 Solitary pulmonary nodule; I10 Essential (primary) hypertension

== ENCOUNTER 2017-10-10 11:17 | Inpatient (IN) | payer OTHER, BC ==
[2017-10-10] MEDS ORDERED: guaiFENesin 200 mg/10 ml Syrup UD PO PRN (14:12)
[2017-10-10] MEDS ORDERED: Levalbuterol 1.25 MG/3 ML Inhal Soln UD INH PRN (14:12)
[2017-10-10 15:39] VITALS: RESP 20
[2017-10-10] MEDS: Levalbuterol 1.25 MG/3 ML Inhal Soln UD INH SCH (16:15)
[2017-10-10] MEDS ORDERED: Gentamicin 80mg/50ml NS 80 MG/50 ML BAG IVPB SCH (17:00)
[2017-10-10] MEDS ORDERED: GENTAMICIN 80 MG/50 ML IVPB SCH (17:00)
[2017-10-10] MEDS ORDERED: [UNRECOGNIZED DRUG - OTHER] IVPB SCH (17:00)
[2017-10-11] MEDS: Levalbuterol 1.25 MG/3 ML Inhal Soln UD INH SCH ×4 (00:10→23:06)
[2017-10-11] MEDS: Omega-3-Acid Ethyl Esters 1 GM Cap PO SCH (09:08)
[2017-10-11] MEDS: Cholecalciferol 1,000 INTLU TAB PO SCH (09:09)
--- NOTE | 2017-10-11 14:44 | HP ---
HISTORY OF PRESENT ILLNESS: Mrs. Mccord is an 82-year-old female who was admitted to the medical floor, then transferred to the Transitional Care Unit. She was admitted because of fever, chills, cough productive of thick tenacious mucus, expectoration and chest tightness. She was originally discharged from the hospital after she had been urged to stay for further therapy of pneumonia, but she refused. She, however, went home and then was readmitted the next day because of both symptoms including fever and chest x-ray that shows bilateral bronchopneumonia. She spent a few days on the medical floor, then was transferred to the Transitional Care Unit for IV antibiotic therapy and physical therapy. She has a past medical history of bronchiectasis, chronic obstructive pulmonary disease, cardiac arrhythmia, status post pacemaker placement, hypertension, peptic ulcer disease with gastrointestinal bleeding and chronic anemia. FAMILY HISTORY: Unremarkable. SOCIAL HISTORY: She quit smoking many years ago. Does not drink. Does not use drugs. REVIEW OF SYSTEMS: Remarkable for cough, shortness of breath, exercise intolerance. PHYSICAL EXAMINATION: GENERAL: The patient is alert, oriented, appears to be much more comfortable since admission. VITAL SIGNS: Remarkable for blood pressure of 122/62, pulse of 86, respiratory rate 20. She is febrile. O2 sat 98% on room air. SKIN: Shows fair turgor. HEENT: Pupils equal, reactive to light and accommodation. Mouth shows fair hygiene. LUNGS: Fair aeration with some basal dullness and some rales. HEART: S1, S2. There is pacemaker in place over the left anterior chest wall. ABDOMEN: Soft, nontender. No organomegaly. EXTREMITIES: Show no edema or cyanosis. CENTRAL NERVOUS SYSTEM: Grossly intact. LABORATORY DATA: Laboratory data and chest x-ray are pending. IMPRESSION: Acute exacerbation of chronic obstructive pulmonary disease; bronchopneumonia, questionable etiology; chronic obstructive pulmonary disease; cardiac arrhythmias, status post pacemaker placement; history of chronic anemia; history of peptic ulcer disease. PLAN: The plan is continue intravenous antibiotics and physical therapy. Further therapy will depend on findings. I will repeat chest x-ray to evaluate progress of pneumonia. Castillo Castaneda MD
[2017-10-11] MEDS: MethylPREDNISolone 40 mg Vial IV SCH (22:17)
[2017-10-12 07:24] LABS: BASO % 0.2 % (0.0-2.0); HEMOGLOBIN 10.3 g/dL (12.0-16.0); LYMPH # 0.9 K/uL (1.0-4.3); LYMPH % 13.5 % (20.0-40.0); MEAN CELL VOLUME 87.1 fl (81.0-99.0); MEAN CORPUSCULAR HEMOGLOBIN 28.3 pg (27.0-31.0); MEAN CORPUSCULAR HGB CONC 32.5 g/dL (33.0-37.0); MEAN PLATELET VOLUME 9.2 fl (7.2-11.7); MONO # 0.7 K/uL (0.0-0.8); MONO % 9.9 % (0.0-10.0); NEUT # 5.1 K/uL (1.8-7.0); NEUT % 76.4 % (50.0-75.0); RBC 3.63 Mil/uL (3.80-5.20); RED CELL DISTRIBUTION WIDTH 15.9 % (11.5-14.5); WHITE BLOOD COUNT 6.7 K/uL (4.8-10.8)
[2017-10-12] MEDS: Levalbuterol 1.25 MG/3 ML Inhal Soln UD INH SCH ×2 (07:34→15:26)
[2017-10-12 07:38] LABS: BLOOD UREA NITROGEN 34 mg/dl (7-17); CALCIUM 8.3 mg/dL (8.4-10.2); GFR AFRICAN-AMERICAN > 60; GFR NON-AFRICAN AMERICAN > 60
[2017-10-12] MEDS: MethylPREDNISolone 40 mg Vial IV SCH ×2 (08:39→20:56)
[2017-10-12] MEDS: Cholecalciferol 1,000 INTLU TAB PO SCH (08:39)
[2017-10-12] MEDS: Omega-3-Acid Ethyl Esters 1 GM Cap PO SCH (08:39)
--- NOTE | 2017-10-12 12:26 | CP.PCM.PN ---
Subjective - Date & Time of Evaluation Date of Evaluation: 10/12/17 Time of Evaluation: 12:25 - Subjective Subjective: COUGH LESS NO CHEST PAINS C/O CONSTIPATION Objective - Vital Signs/Intake and Output Vital Signs (last 24 hours): Temp Pulse Resp BP Pulse Ox 97.5 F L 85 20 123/66 98 10/12/17 08:44 10/12/17 08:44 10/12/17 08:44 10/12/17 08:44 10/12/17 08:44 - Medications Medications: Current Medications Acetaminophen (Tylenol 325mg Tab) 650 mg PO Q4 PRN PRN Reason: Pain, moderate (4-7) Ascorbic Acid (Vitamin C 500 Mg Tab) 500 mg PO DAILY [facility] Last Admin: 10/12/17 08:39 Dose: 500 mg Cholecalciferol (Vitamin D) 1,000 intlu PO DAILY [facility] Last Admin: 10/12/17 08:39 Dose: 1,000 intlu Guaifenesin (Robitussin) 200 mg PO Q6 PRN PRN Reason: Cough Gentamicin Sulfate/Sodium Chloride (Gentamicin 80mg/50ml Ns) 80 mg in 50 mls @ 50 mls/hr IVPB Q8 [facility] Levalbuterol HCl (Xopenex) 1.25 mg INH RQ8 [facility] Last Admin: 10/12/17 07:34 Dose: 1.25 mg Methylprednisolone (Solu-Medrol) 40 mg IV Q12 [facility] Last Admin: 10/12/17 08:39 Dose: 40 mg [id number] Ethyl Esters (Lovaza) 1 gm PO DAILY [facility] Last Admin: 10/12/17 08:39 Dose: 1 gm Ondansetron HCl (Zofran Tab) 4 mg PO Q6 PRN PRN Reason: Nausea/Vomiting Vitamin E (Vitamin E 400 Units Cap) 400 intlu PO DAILY [facility] Last Admin: 10/12/17 08:39 Dose: 400 intlu - Labs Labs: 10/12/17 05:30 10/12/17 05:30 - Constitutional Appears: No Acute Distress - Head Exam Head Exam: ATRAUMATIC, NORMAL INSPECTION, NORMOCEPHALIC - Eye Exam Eye Exam: EOMI, Normal appearance, PERRL Pupil Exam: NORMAL ACCOMODATION, PERRL - ENT Exam ENT Exam: Mucous Membranes Moist, Normal Exam - Neck Exam Neck Exam: Full ROM, Normal Inspection. absent: Lymphadenopathy - Respiratory Exam Respiratory Exam: Decreased Breath Sounds, Prolonged Expiratory Phase, Rales, NORMAL BREATHING PATTERN - Cardiovascular Exam Cardiovascular Exam: REGULAR RHYTHM, +S1, +S2. absent: Murmur - GI/Abdominal Exam GI & Abdominal Exam: Soft, Normal Bowel Sounds. absent: Tenderness - Rectal Exam Rectal Exam: NORMAL INSPECTION - Extremities Exam Extremities Exam: Full ROM, Normal Capillary Refill, Normal Inspection. absent : Joint Swelling, Pedal Edema - Back Exam Back Exam: NORMAL INSPECTION - Neurological Exam Neurological Exam: Alert, Awake, CN II-XII Intact, Normal Gait, Oriented x3 - Psychiatric Exam Psychiatric exam: Normal Affect, Normal Mood - Skin Skin Exam: Dry, Intact, Normal Color, Warm Assessment and Plan - Assessment and Plan (Free Text) Assessment: PNEUMONIA COPD Plan: CONTINUE PRESENT RX WILL GIVE LACTULOSE FOR CONSTIPATION
--- NOTE | 2017-10-12 12:48 | CP.PCM.CON ---
History of Present Illness - History of Present Illness History of Present Illness: 82 yo female with hx ashd htn copd bronchiectasis admitted to TCU for exac copd, bronchiectasis has multiple allergies to antibiotics surg hx- + PPM FH- N/C Review of Systems - Review of Systems All systems: reviewed and no additional remarkable complaints except - Constitutional Constitutional: As Per HPI, Anorexia - EENT Eyes: absent: As Per HPI, Blind Spots, Blurred Vision, Change in Vision, Decreased Night Vision, Diplopia, Discharge, Dry Eye, Exophthalmos, Floaters, Irritation, Itchy Eyes, Loss of Peripheral Vision, Pain, Photophobia, Requires Corrective Lenses, Sees Flashes, Spots in Vision, Tunnel Vision, Other Visual Disturbances, Loss of Vision, Other Ears: absent: As Per HPI, Decreased Hearing, Ear Discharge, Ear Pain, Tinnitus, Abnormal Hearing, Disequilibrium, Dizziness, Other Nose/Mouth/Throat: absent: As Per HPI, Epistaxis, Nasal Congestion, Nasal Discharge, Nasal Obstruction, Nasal Trauma, Nose Pain, Post Nasal Drip, Sinus Pain, Sinus Pressure, Bleeding Gums, Change in Voice, Dental Pain, Dry Mouth, Dysphagia, Halitosis, Hoarsness, Lip Swelling, Mouth Lesions, Mouth Pain, Odynophagia, Sore Throat, Throat Swelling, Tongue Swelling, Facial Pain, Neck Pain, Neck Mass, Other - Breasts Breasts: absent: As Per HPI, Change in Shape, Mass, Pain, Nipple Discharge, Nipple Inversion, Skin Changes, Swelling, Other - Cardiovascular Cardiovascular: absent: As Per HPI, Acrocyanosis, Chest Pain, Chest Pain at Rest , Chest Pain with Activity, Claudication, Diaphoresis, Dyspnea, Dyspnea on Exertion, Edema, Irregular Heart Rhythm, Pain Radiating to Arm/Neck/Jaw, Leg Edema, Leg Ulcers, Lightheadedness, Orthopnea, Palpitations, Paroxysmal Nocturnal Dyspnea, Pedal Edema, Radiating Pain, Rapid Heart Rate, Slow Heart Rate, Syncope, Other - Respiratory Respiratory: As Per HPI - Gastrointestinal Gastrointestinal: absent: As Per HPI, Abdominal Pain, Belching, Bloating, Change in Bowel Habits, Change in Stool Character, Coffee Ground Emesis, Constipation, Cramping, Diarrhea, Dyspepsia, Dysphagia, Early Satiety, Excessive Flatus, Fecal Incontinence, Heartburn, Hematemesis, Hematochezia, Loose Stools, Melena, Nausea, Odynophagia, Temesmus, Vomiting, Other - Genitourinary Genitourinary: absent: As Per HPI, Change in Urinary Stream, Difficulty Urinating, Dysuria, Flank Pain, Hematuria, Pyuria, Nocturia, Urinary Incontinence, Urinary Frequency, Urinary Hesitance, Urinary Urgency, Voiding Freq/Small Amts, Freq UTI, Hx Renal/Bladder Calculi, Hx /Renal Surgery, Bladder Distension, Other - Reproductive: Female Reproductive:Female: absent: As Per HPI, Amenorrhea, Amenorrhea/ Control, Currently Menstual, Cycle <21 Days, Cycle >35 Days, Cycle Variable, Menses 1-7 Days, Menses >/= 8 Days, Menses Variable, Cycle > 4 Weeks Between, No Menses for 6 Months, Heavy Menses, Light Menses, Normal Menses, Spotting Between Cycles , S/P Hysterectomy, Menopausal, Post Menopausal, Premenarche, Abnormal Vaginal Bleeding, Dysmenorrhea, Dyspareunia, Genital Lesions, Genital Pruritis, Pelvic Pain, Prolapse Symptoms, Sexual Dysfunction, Vaginal Discharge, Vaginal Dryness , Vaginal Odor, Vaginal Pruritis, Other - Menstruation Menstruation: absent: As Per HPI, Amenorrhea, Amenorrhea/ Control, Currently Menstual, Cycle <21 Days, Cycle >35 Days, Cycle Variable, Menses 1-7 Days, Menses >/= 8 Days, Menses Variable, Cycle > 4 Weeks Between, No Menses for 6 Months, Heavy Menses, Light Menses, Normal Menses, Spotting Between Cycles , S/P Hysterectomy, Menopausal, Post Menopausal, Premenarche, Abnormal Vaginal Bleeding, Dysmenorrhea, Other - Musculoskeletal Musculoskeletal: absent: As Per HPI, Abnormal Gait, Arthralgias, Atrophy, Back Pain, Deformity, Joint Swelling, Limited Range of Motion, Loss of Height, Muscle Cramps, Muscle Weakness, Myalgias, Neck Pain, Numbness, Radiating Pain into Limb, Stiffness, Tingling, Other - Neurological Neurological: absent: As Per HPI, Abnormal Gait, Abnormal Hearing, Abnormal Movements, Abnormal Speech, Behavioral Changes, Burning Sensations, Confusion, Convulsions, Disequilibrium, Dizziness, Numbness, Focal Weakness, Frequent Falls , Headaches, Lack of Coordination, Loss of Vision, Memory Loss, Paresthesias, Radicular Pain, Restless Legs, Sensory Deficit, Syncope, Tingling, Tremor, Vertigo, Weakness, Other Visual Disturbances, Other - Psychiatric Psychiatric: absent: As Per HPI, Abnormal Sleep Pattern, Anhedonia, Anxiety, Auditory Hallucinations, Behavioral Changes, Change in Appetite, Change in Libido, Confusion, Depression, Difficulty Concentrating, Hallucinations, Homicidal Ideation, Hopelessness, Irritability, Memory Loss, Mood Swings, Panic Attacks, Paranoia, Suicidal Ideation, Visual Hallucinations, Tactile Hallucinations, Other - Endocrine Endocrine: absent: As Per HPI, Change in Body Appearance, Change in Libido, Cold Intolorance, Deepening of Voice, Excessive Sweating, Fatigue, Flushing, Heat Intolorance, Increase in Ring/Shoe/Hat Size, Palpitations, Polydipsia, Polyphagia, Polyuria, Other - Hematologic/Lymphatic Hematologic: absent: As Per HPI, Easy Bleeding, Easy Bruising, Lymphadenopathy, Other Past Patient History - Infectious Disease Hx of Infectious Diseases: None - Past Medical History & Family History Past Medical History?: Yes - Past Social History Smoking Status: Former Smoker - CARDIAC Hx Cardiac Disorders: Yes Hx Congestive Heart Failure: Yes - PULMONARY Hx Chronic Obstructive Pulmonary Disease (COPD): Yes - NEUROLOGICAL Hx Alzheimer's Disease: No Hx Dementia: No Hx Migraine: No Hx Multiple Sclerosis: No Hx Parkinson's Disease: No Hx Seizures: No Hx Transient Ischemic Attacks (TIA): No - HEENT Hx HEENT Problems: No - RENAL Hx Chronic Kidney Disease: No Hx Kidney Stones: No - ENDOCRINE/METABOLIC Hx Hypothyroidism: No - HEMATOLOGICAL/ONCOLOGICAL Hx AIDS: No Hx Anemia: No Hx Human Immunodeficiency Virus (HIV): No Hx Sickle Cell Disease: No - INTEGUMENTARY Hx Dermatological Problems: No - MUSCULOSKELETAL/RHEUMATOLOGICAL Hx Arthritis: No Hx Rheumatoid Arthritis: No - GASTROINTESTINAL Hx Crohn's Disease: No Hx Diverticulitis: No Hx Gall Bladder Disease: Yes (gb removed) Hx Gastritis: Yes Hx Pancreatitis: No - GENITOURINARY/GYNECOLOGICAL Hx Sexually Transmitted Disorders: No - PSYCHIATRIC Hx Anxiety: No Hx Bipolar Disorder: No Hx Depression: No Hx Paranoia: No Hx Post Traumatic Stress Disorder: No Hx Schizophrenia: No Hx Substance Use: No - SURGICAL HISTORY Hx Appendectomy: Yes Hx Cholecystectomy: Yes Hx Coronary Artery Bypass Graft: No Hx Coronary Stent: No Hx Tonsillectomy: No - ANESTHESIA Hx Anesthesia: Yes Hx Anesthesia Reactions: No Hx Malignant Hyperthermia: No Meds Allergies/Adverse Reactions: Allergies Allergy/AdvReac Type Severity Reaction Status Date / Time aztreonam Allergy RASH Verified 04/04/17 18:58 clarithromycin Allergy RASH Verified 10/10/17 13:31 clindamycin Allergy RASH Verified 10/10/17 13:31 erythromycin base Allergy RASH Verified 10/10/17 13:31 ibuprofen Allergy RASH Verified 10/10/17 13:31 levofloxacin [From Levaquin] Allergy RASH Verified 10/10/17 13:31 moxifloxacin HCl Allergy RASH Verified 10/10/17 13:31 [From Avelox] Penicillins Allergy RASH Verified 10/10/17 13:31 rifampin Allergy RASH Verified 10/10/17 13:31 sulfamethoxazole Allergy RASH Verified 10/10/17 13:31 [From Sulfatrim] tramadol HCl [From Ultracet] Allergy RASH Verified 10/10/17 13:31 trimethoprim [From Sulfatrim] Allergy RASH Verified 10/10/17 13:31 vancomycin Allergy RASH Verified 10/10/17 13:31 - Medications Medications: Current Medications Acetaminophen (Tylenol 325mg Tab) 650 mg PO Q4 PRN PRN Reason: Pain, moderate (4-7) Ascorbic Acid (Vitamin C 500 Mg Tab) 500 mg PO DAILY [facility] Last Admin: 10/12/17 08:39 Dose: 500 mg Cholecalciferol (Vitamin D) 1,000 intlu PO DAILY [facility] Last Admin: 10/12/17 08:39 Dose: 1,000 intlu Guaifenesin (Robitussin) 200 mg PO Q6 PRN PRN Reason: Cough Gentamicin Sulfate/Sodium Chloride (Gentamicin 80mg/50ml Ns) 80 mg in 50 mls @ 50 mls/hr IVPB Q8 [facility] Levalbuterol HCl (Xopenex) 1.25 mg INH RQ8 [facility] Last Admin: 10/12/17 07:34 Dose: 1.25 mg Methylprednisolone (Solu-Medrol) 40 mg IV Q12 [facility] Last Admin: 10/12/17 08:39 Dose: 40 mg [id number]-6-[id number] Ethyl Esters (Lovaza) 1 gm PO DAILY [facility] Last Admin: 10/12/17 08:39 Dose: 1 gm Ondansetron HCl (Zofran Tab) 4 mg PO Q6 PRN PRN Reason: Nausea/Vomiting Vitamin E (Vitamin E 400 Units Cap) 400 intlu PO DAILY [facility] Last Admin: 10/12/17 08:39 Dose: 400 intlu Physical Exam - Constitutional Appears: Non-toxic, Cachectic, Chronically Ill - Head Exam Head Exam: NORMOCEPHALIC - Eye Exam Eye Exam: PERRL. absent: Scleral icterus - ENT Exam ENT Exam: Mucous Membranes Dry - Neck Exam Neck exam: Negative for: Lymphadenopathy - Respiratory Exam Respiratory Exam: Decreased Breath Sounds, Clear to Auscultation Bilateral - Cardiovascular Exam Cardiovascular Exam: REGULAR RHYTHM, +S1, +S2 - GI/Abdominal Exam GI & Abdominal Exam: Diminished Bowel Sounds, Soft. absent: Tenderness - Rectal Exam Rectal Exam: Deferred - Exam Exam: NORMAL INSPECTION - Extremities Exam Extremities exam: Positive for: pedal pulses present. Negative for: calf tenderness, pedal edema, tenderness - Back Exam Back exam: absent: CVA tenderness (L), CVA tenderness (R) - Neurological Exam Neurological exam: Alert, CN II-XII Intact, Oriented x3, Reflexes Normal - Psychiatric Exam Psychiatric exam: Depressed - Skin Skin Exam: Dry, Intact Results - Vital Signs Recent Vital Signs: Last Vital Signs Temp 97.5 F L 10/12/17 10:00 Pulse 85 10/12/17 10:00 Resp 20 10/12/17 10:00 BP 123/66 10/12/17 10:00 Pulse Ox 98 10/12/17 10:00 - Labs Result Diagrams: 10/12/17 05:30 10/12/17 05:30 Labs: Laboratory Results - last 24 hr 10/11/17 10/12/17 10/12/17 05:20 05:30 05:30 WBC 6.7 RBC 3.63 L Hgb 10.3 L Hct 31.6 L MCV 87.1 MCH 28.3 MCHC 32.5 L RDW 15.9 H Plt Count 210 MPV 9.2 Neut % (Auto) 76.4 H Lymph % (Auto) 13.5 L [place] % (Auto) 9.9 Eos % (Auto) 0.0 Baso % (Auto) 0.2 Neut # 5.1 Lymph # 0.9 L [place] # 0.7 Eos # 0.0 Baso # 0.0 Sodium 136 Potassium 4.5 Chloride 98 Carbon Dioxide 34 H Anion Gap 9 L BUN 34 H Creatinine 0.7 Est GFR ( Amer) > 60 Est GFR (Non-Af Amer) > 60 Random Glucose 102 Calcium 8.3 L Random Gentamicin < 0.6 Assessment & Plan (1) Acute bronchitis with chronic obstructive pulmonary disease (COPD) Status: Acute (2) Arrhythmia Status: Acute (3) Bronchiectasis Status: Acute (4) COPD (chronic obstructive pulmonary disease) Status: Acute (5) COPD with acute exacerbation Status: Acute (6) Pseudomonas respiratory infection Status: Acute - Assessment and Plan (Free Text) Assessment: cont rx pseudomonas limited options poor prognosis
[2017-10-12] MEDS: Gentamicin 80mg/50ml NS 80 MG/50 ML BAG IVPB SCH (13:16)
--- NOTE | 2017-10-12 13:36 | RAD ---
HISTORY: PNEUMONIA COMPARISON: 10/09/2017 TECHNIQUE: Chest PA and lateral FINDINGS: LUNGS: Pulmonary hyperinflation consistent with emphysema. Patchy left basilar opacity unchanged from prior examination. Patchy right upper lobe opacity unchanged from prior examination. PLEURA: There is blunting of both costophrenic angles which likely reflects chronic pleural thickening. No pneumothorax. CARDIOVASCULAR: Normal heart size. No congestive change. Permanent pacemaker. OSSEOUS STRUCTURES: No significant abnormalities. VISUALIZED UPPER ABDOMEN: Normal. OTHER FINDINGS: None. IMPRESSION: Stable right upper lobe and left basilar opacity. Emphysema.
[2017-10-13] MEDS: Levalbuterol 1.25 MG/3 ML Inhal Soln UD INH SCH ×4 (00:56→23:30)
[2017-10-13 07:12] LABS: BLOOD UREA NITROGEN 35 mg/dl (7-17); CALCIUM 8.5 mg/dL (8.4-10.2); GFR AFRICAN-AMERICAN > 60; GFR NON-AFRICAN AMERICAN > 60
--- NOTE | 2017-10-13 08:41 | CP.PCM.PN ---
Subjective - Date & Time of Evaluation Date of Evaluation: 10/13/17 Time of Evaluation: 08:44 - Subjective Subjective: DENIES CHEST PAINS/SOB COUGH LESS Objective - Vital Signs/Intake and Output Vital Signs (last 24 hours): Temp Pulse Resp BP Pulse Ox 97.3 F L 85 20 106/54 L 99 10/13/17 07:58 10/13/17 07:58 10/13/17 07:58 10/13/17 07:58 10/13/17 07:58 - Medications Medications: Current Medications Acetaminophen (Tylenol 325mg Tab) 650 mg PO Q4 PRN PRN Reason: Pain, moderate (4-7) Ascorbic Acid (Vitamin C 500 Mg Tab) 500 mg PO DAILY [facility] Last Admin: 10/12/17 08:39 Dose: 500 mg Cholecalciferol (Vitamin D) 1,000 intlu PO DAILY [facility] Last Admin: 10/12/17 08:39 Dose: 1,000 intlu Guaifenesin (Robitussin) 200 mg PO Q6 PRN PRN Reason: Cough Gentamicin Sulfate/Sodium Chloride (Gentamicin 80mg/50ml Ns) 80 mg in 50 mls @ 50 mls/hr IVPB Q8 [facility] Gentamicin Sulfate/Sodium Chloride (Gentamicin 80mg/50ml Ns) 80 mg in 50 mls @ 50 mls/hr IVPB Q24H [facility] Last Admin: 10/12/17 13:16 Dose: 50 mls/hr Levalbuterol HCl (Xopenex) 1.25 mg INH RQ8 [facility] Last Admin: 10/13/17 08:04 Dose: 1.25 mg Methylprednisolone (Solu-Medrol) 40 mg IV Q12 [facility] Last Admin: 10/12/17 20:56 Dose: 40 mg [id number]-2-Zulq Ethyl Esters (Lovaza) 1 gm PO DAILY [facility] Last Admin: 10/12/17 08:39 Dose: 1 gm Ondansetron HCl (Zofran Tab) 4 mg PO Q6 PRN PRN Reason: Nausea/Vomiting Vitamin E (Vitamin E 400 Units Cap) 400 intlu PO DAILY [facility] Last Admin: 10/12/17 08:39 Dose: 400 intlu - Labs Labs: 10/12/17 05:30 10/13/17 06:51 - Constitutional Appears: No Acute Distress - Head Exam Head Exam: ATRAUMATIC, NORMAL INSPECTION, NORMOCEPHALIC - Eye Exam Eye Exam: EOMI, Normal appearance, PERRL Pupil Exam: NORMAL ACCOMODATION, PERRL - ENT Exam ENT Exam: Mucous Membranes Moist, Normal Exam - Neck Exam Neck Exam: Full ROM, Normal Inspection. absent: Lymphadenopathy - Respiratory Exam Respiratory Exam: Decreased Breath Sounds, Rales, NORMAL BREATHING PATTERN - Cardiovascular Exam Cardiovascular Exam: REGULAR RHYTHM, +S1, +S2. absent: Murmur - GI/Abdominal Exam GI & Abdominal Exam: Soft, Normal Bowel Sounds. absent: Tenderness - Rectal Exam Rectal Exam: NORMAL INSPECTION - Extremities Exam Extremities Exam: Full ROM, Normal Capillary Refill, Normal Inspection. absent : Joint Swelling, Pedal Edema - Back Exam Back Exam: NORMAL INSPECTION - Neurological Exam Neurological Exam: Alert, Awake, CN II-XII Intact, Normal Gait, Oriented x3 - Psychiatric Exam Psychiatric exam: Normal Affect, Normal Mood - Skin Skin Exam: Dry, Intact, Normal Color, Warm Assessment and Plan - Assessment and Plan (Free Text) Assessment: PNEUMONIA COPD BRONCHIECTASES ARRYTHMIAS CHRONIC ANEMIA Plan: CONTINUE PRESENT RX
[2017-10-13] MEDS: MethylPREDNISolone 40 mg Vial IV SCH ×2 (09:01→21:05)
[2017-10-13] MEDS: Cholecalciferol 1,000 INTLU TAB PO SCH (09:02)
[2017-10-13] MEDS: Omega-3-Acid Ethyl Esters 1 GM Cap PO SCH (09:02)
[2017-10-13] MEDS: Gentamicin 80mg/50ml NS 80 MG/50 ML BAG IVPB SCH (13:26)
[2017-10-14] MEDS: Levalbuterol 1.25 MG/3 ML Inhal Soln UD INH SCH ×3 (07:17→23:44)
--- NOTE | 2017-10-14 07:40 | CP.PCM.PN ---
Subjective - Date & Time of Evaluation Date of Evaluation: 10/14/17 Time of Evaluation: 07:42 - Subjective Subjective: FEELS BETTER WANTS TO GO HOME COUGH LESS SOB IMPROVED Objective - Vital Signs/Intake and Output Vital Signs (last 24 hours): Temp Pulse Resp BP Pulse Ox 97.2 F L 86 20 104/62 96 10/13/17 19:55 10/13/17 19:55 10/13/17 19:55 10/13/17 19:55 10/13/17 19:55 - Medications Medications: Current Medications Acetaminophen (Tylenol 325mg Tab) 650 mg PO Q4 PRN PRN Reason: Pain, moderate (4-7) Ascorbic Acid (Vitamin C 500 Mg Tab) 500 mg PO DAILY [facility] Last Admin: 10/13/17 09:02 Dose: 500 mg Cholecalciferol (Vitamin D) 1,000 intlu PO DAILY [facility] Last Admin: 10/13/17 09:02 Dose: 1,000 intlu Guaifenesin (Robitussin) 200 mg PO Q6 PRN PRN Reason: Cough Gentamicin Sulfate/Sodium Chloride (Gentamicin 80mg/50ml Ns) 80 mg in 50 mls @ 50 mls/hr IVPB Q24H [facility] Last Admin: 10/13/17 13:26 Dose: 50 mls/hr Levalbuterol HCl (Xopenex) 1.25 mg INH RQ8 [facility] Last Admin: 10/14/17 07:17 Dose: 1.25 mg Methylprednisolone (Solu-Medrol) 40 mg IV Q12 [facility] Last Admin: 10/13/17 21:05 Dose: 40 mg Zvkod-4-Tios Ethyl Esters (Lovaza) 1 gm PO DAILY [facility] Last Admin: 10/13/17 09:02 Dose: 1 gm Ondansetron HCl (Zofran Tab) 4 mg PO Q6 PRN PRN Reason: Nausea/Vomiting Vitamin E (Vitamin E 400 Units Cap) 400 intlu PO DAILY [facility] Last Admin: 10/13/17 09:02 Dose: 400 intlu - Labs Labs: 10/12/17 05:30 10/13/17 06:51 - Constitutional Appears: No Acute Distress - Head Exam Head Exam: ATRAUMATIC, NORMAL INSPECTION, NORMOCEPHALIC - Eye Exam Eye Exam: EOMI, Normal appearance, PERRL Pupil Exam: NORMAL ACCOMODATION, PERRL - ENT Exam ENT Exam: Mucous Membranes Moist, Normal Exam - Neck Exam Neck Exam: Full ROM, Normal Inspection. absent: Lymphadenopathy - Respiratory Exam Respiratory Exam: Prolonged Expiratory Phase, NORMAL BREATHING PATTERN - Cardiovascular Exam Cardiovascular Exam: REGULAR RHYTHM, +S1, +S2. absent: Murmur - GI/Abdominal Exam GI & Abdominal Exam: Soft, Normal Bowel Sounds. absent: Tenderness - Rectal Exam Rectal Exam: NORMAL INSPECTION - Extremities Exam Extremities Exam: Full ROM, Normal Capillary Refill, Normal Inspection. absent : Joint Swelling, Pedal Edema - Back Exam Back Exam: NORMAL INSPECTION - Neurological Exam Neurological Exam: Alert, Awake, CN II-XII Intact, Normal Gait, Oriented x3 - Psychiatric Exam Psychiatric exam: Normal Affect, Normal Mood - Skin Skin Exam: Dry, Intact, Normal Color, Warm Assessment and Plan - Assessment and Plan (Free Text) Assessment: PNEUMONIA-RESOLVED COPD IMPROVED BRONCHIECTASES Plan: TAPER STEROIDS DISCHARGE HOME IN AM
[2017-10-14] MEDS: Omega-3-Acid Ethyl Esters 1 GM Cap PO SCH (08:53)
[2017-10-14] MEDS: Cholecalciferol 1,000 INTLU TAB PO SCH (08:54)
--- NOTE | 2017-10-14 13:02 | CP.PCM.PN ---
Subjective - Date & Time of Evaluation Date of Evaluation: 10/14/17 Time of Evaluation: 08:00 - Subjective Subjective: events noted iv rx in progress cxr shows pneumonia consider cont iv rx poor prognosis Objective - Vital Signs/Intake and Output Vital Signs (last 24 hours): Temp Pulse Resp BP Pulse Ox 97.6 F 91 H 20 101/56 L 95 10/14/17 07:46 10/14/17 10:51 10/14/17 07:46 10/14/17 07:46 10/14/17 10:51 - Medications Medications: Current Medications Acetaminophen (Tylenol 325mg Tab) 650 mg PO Q4 PRN PRN Reason: Pain, moderate (4-7) Ascorbic Acid (Vitamin C 500 Mg Tab) 500 mg PO DAILY [facility] Last Admin: 10/14/17 08:54 Dose: 500 mg Cholecalciferol (Vitamin D) 1,000 intlu PO DAILY [facility] Last Admin: 10/14/17 08:54 Dose: 1,000 intlu Guaifenesin (Robitussin) 200 mg PO Q6 PRN PRN Reason: Cough Gentamicin Sulfate 160 mg/ (Sodium Chloride) 104 mls @ 100 mls/hr IVPB Q24H [facility] PRN Reason: Protocol Levalbuterol HCl (Xopenex) 1.25 mg INH RQ8 [facility] Last Admin: 10/14/17 07:17 Dose: 1.25 mg Wjwdo-6-Snys Ethyl Esters (Lovaza) 1 gm PO DAILY [facility] Last Admin: 10/14/17 08:53 Dose: 1 gm Ondansetron HCl (Zofran Tab) 4 mg PO Q6 PRN PRN Reason: Nausea/Vomiting Prednisone (Prednisone Tab) 5 mg PO DAILY [facility] Last Admin: 10/14/17 12:03 Dose: 5 mg Vitamin E (Vitamin E 400 Units Cap) 400 intlu PO DAILY [facility] Last Admin: 10/14/17 08:53 Dose: 400 intlu - Labs Labs: 10/12/17 05:30 10/13/17 06:51 Assessment and Plan (1) Acute bronchitis with chronic obstructive pulmonary disease (COPD) Status: Acute (2) Arrhythmia Status: Acute (3) Bronchiectasis Status: Acute (4) COPD (chronic obstructive pulmonary disease) Status: Acute (5) COPD with acute exacerbation Status: Acute (6) Pseudomonas respiratory infection Status: Acute
[2017-10-14] MEDS: Gentamicin 160 MG in Sodium Chloride 0.9% 100 ML IVPB SCH (15:22)
[2017-10-15] MEDS: Levalbuterol 1.25 MG/3 ML Inhal Soln UD INH SCH (07:31)
[2017-10-15] MEDS: Omega-3-Acid Ethyl Esters 1 GM Cap PO SCH (08:19)
[2017-10-15] MEDS: Cholecalciferol 1,000 INTLU TAB PO SCH (08:21)
[2017-10-15 09:20] VITALS: BP 98/56; TEMP 97.3
[2017-10-15 10:40] VITALS: PULSE 88; O2SAT 92
[2017-10-15] MEDS: Gentamicin 160 MG in Sodium Chloride 0.9% 100 ML IVPB SCH (12:35)
== END 2017-10-15 13:20 | disposition home or self-care (01) | DRG 190 ==
LOC: H.TCU 13:47
PROVIDERS: ADMIT Internal Medicine Pulmonary Disease; ATTEND Internal Medicine Pulmonary Disease
PROC: F07Z9ZZ Gait Training/Functional Ambulation Treatment (ICD-10-PCS; principal; 2017-10-10)
PROC: F07Z5ZZ Bed Mobility Treatment (ICD-10-PCS; 2017-10-10)
PROC: F07Z8ZZ Transfer Training Treatment (ICD-10-PCS; 2017-10-10)
PROC: F07L6ZZ Therapeutic Exercise Treatment of Musculoskeletal System - Lower Back / Lower Extremity (ICD-10-PCS; 2017-10-10)
PROC: 5A0955Z Assistance with Respiratory Ventilation, Greater than 96 Consecutive Hours (ICD-10-PCS; 2017-10-10)
DX: J44.0 Chronic obstructive pulmonary disease with (acute) lower respiratory infection (principal); J18.0 Bronchopneumonia, unspecified organism; D64.9 Anemia, unspecified; B96.5 Pseudomonas (aeruginosa) (mallei) (pseudomallei) as the cause of diseases classified elsewhere; I49.9 Cardiac arrhythmia, unspecified; J20.9 Acute bronchitis, unspecified; K59.00 Constipation, unspecified; J47.9 Bronchiectasis, uncomplicated; J44.1 Chronic obstructive pulmonary disease with (acute) exacerbation; Z87.11 Personal history of peptic ulcer disease; Z95.0 Presence of cardiac pacemaker; Z88.1 Allergy status to other antibiotic agents; I10 Essential (primary) hypertension; I25.10 Atherosclerotic heart disease of native coronary artery without angina pectoris; Z87.891 Personal history of nicotine dependence

== ENCOUNTER 2017-10-25 15:34 | Inpatient (IN) | payer MEDICARE, BC ==
[2017-10-25 15:47] VITALS: BMI 16.8
[2017-10-25] MEDS ORDERED: Albuterol-Ipratrop 3 mg / 0.5 (3 ml) UD INH STA ×2 (16:18→18:53)
[2017-10-25] MEDS ORDERED: Albuterol-Ipratrop 3 mg / 0.5 (3 ml) UD ONE ×2 (16:51→19:50)
[2017-10-25 17:10] LABS: BASO # 0.1 K/uL (0.0-0.2); BASO % 1.3 % (0.0-2.0); EOS # 0.2 K/uL (0.0-0.7); EOS % 1.8 % (0.0-4.0); HEMOGLOBIN 9.5 g/dL (12.0-16.0); LYMPH # 1.4 K/uL (1.0-4.3); LYMPH % 15.2 % (20.0-40.0); MEAN CELL VOLUME 87.1 fl (81.0-99.0); MEAN CORPUSCULAR HEMOGLOBIN 28.5 pg (27.0-31.0); MEAN CORPUSCULAR HGB CONC 32.7 g/dL (33.0-37.0); MEAN PLATELET VOLUME 8.4 fl (7.2-11.7); MONO # 1.2 K/uL (0.0-0.8); MONO % 13.1 % (0.0-10.0); NEUT # 6.5 K/uL (1.8-7.0); NEUT % 68.6 % (50.0-75.0); RBC 3.35 Mil/uL (3.80-5.20); RED CELL DISTRIBUTION WIDTH 15.5 % (11.5-14.5); WHITE BLOOD COUNT 9.4 K/uL (4.8-10.8)
--- NOTE | 2017-10-25 17:20 | RAD ---
HISTORY: Cough SOB COMPARISON: Chest radiograph dated 10/12/2017. TECHNIQUE: Chest PA and lateral FINDINGS: LUNGS: Stable chronic prominence of the bilateral interstitial markings. Biapical bibasilar fibrotic changes redemonstrated. PLEURA: No significant pleural effusion identified. No pneumothorax apparent. CARDIOVASCULAR: Left subclavian access dual lead pacemaker redemonstrated. Atherosclerotic aortic calcifications. Cardiomediastinal silhouette within normal limits. OSSEOUS STRUCTURES: Unchanged. VISUALIZED UPPER ABDOMEN: Normal. OTHER FINDINGS: None. IMPRESSION: No active disease.
[2017-10-25 18:11] LABS: B-TYPE NATRIURETIC PEPTIDE 781 pg/ml (0-900)
[2017-10-25 18:14] LABS: BLOOD UREA NITROGEN 21 mg/dl (7-17); GFR AFRICAN-AMERICAN > 60; GFR NON-AFRICAN AMERICAN 53
[2017-10-25 18:15] LABS: ALB/GLOB RATIO 0.9 (1.0-2.1); ALBUMIN 3.5 g/dL (3.5-5.0); ALT/SGPT 11 U/L (9-52); AST/SGOT 42 U/L (14-36); CALCIUM 8.4 mg/dL (8.4-10.2)
[2017-10-25 18:29] LABS: SQUAMOUS EPITHIAL < 1 /hpf (0-5); URINE BACTERIA RARE (<OCC); URINE BILIRUBIN NEGATIVE (NEGATIVE); URINE BLOOD NEGATIVE (NEGATIVE); URINE CLARITY CLOUDY (Clear); URINE COLOR AMBER (YELLOW); URINE GLUCOSE (UA) NEG (Normal); URINE HYALINE CAST 0-2 /hpf (0-2); URINE LEUKOCYTE ESTERASE NEG Leu/uL (Negative); URINE NITRATE NEGATIVE (NEGATIVE); URINE PROTEIN 30 mg/dL (NEGATIVE); URINE UROBILINOGEN 0.2-1.0 mg/dL (0.2-1.0)
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
[2017-10-25] MEDS ORDERED: Gentamicin 80mg/50ml NS 80 MG/50 ML BAG IVPB STA (18:34)
[2017-10-25] MEDS ORDERED: Levalbuterol 1.25 MG/3 ML Inhal Soln UD INH PRN (21:38)
[2017-10-25] MEDS ORDERED: Sodium Chloride 3% for Inhalation 4 ML VIAL.NEB IH PRN (21:41)
[2017-10-25] MEDS ORDERED: Promethazine 12.5 mg/10 ml Syrup PO PRN (22:04)
[2017-10-25] MEDS ORDERED: methylPREDNISolone 40 MG in Sodium Chloride 0.9% 50 ML IVPB SCH (22:15)
[2017-10-25] MEDS: MethylPREDNISolone 40 mg Vial IVP SCH (22:30)
[2017-10-26] MEDS: Gentamicin 80mg/50ml NS 80 MG/50 ML BAG IVPB SCH ×3 (01:11→17:01)
[2017-10-26] MEDS: MethylPREDNISolone 40 mg Vial IVP SCH ×2 (09:00→21:38)
--- NOTE | 2017-10-26 13:02 | HP ---
Ms. Mccord is an 82-year-old female who was admitted via the emergency room because of shortness of breath, cough productive of thick tenacious mucoid sputum associated with fever, chills, body aches for the past several days prior to presentation. She was just discharged from [facility] weeks ago after treatment for acute exacerbation of chronic obstructive pulmonary disease and bronchiectasis with recurrent upper respiratory tract infection. She spent several days in hospital and also in the Transitional Care Unit on IV antibiotics and steroids and was discharged feeling better. Symptoms however, returned. She, therefore, came to the emergency room where she was admitted for workup and therapy of recurrent bronchiectasis and exacerbation of chronic obstructive pulmonary disease. 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 She also has a history of hypertension, cardiac arrhythmias, peptic ulcer disease with GI bleed, status post pacemaker placement for atrial fibrillation with severe arrhythmias. She also has a history of multiple drug allergies and bronchiectasis with recurrent pulmonary infection with Pseudomonas. FAMILY HISTORY Nonrevealing. SOCIAL HISTORY Socially, she used to smoke years ago, but quit. Does not drink, does not use drugs and lives alone, but has a very supportive family. REVIEW OF SYSTEMS Remarkable for weight loss, shortness of breath and cough. PHYSICAL EXAMINATION GENERAL: The patient is alert and oriented. She is emaciated. VITAL SIGNS: Blood pressure 120/100, pulse of 89, respiratory rate of 12 to 16 per minute, O2 saturation 96% on room air. She is febrile. Skin: Shows fair turgor. HEENT: Pupils equal, reactive to light and accommodation. JVP flat. Mouth shows fair hygiene. LUNGS: Fair aeration with scattered bilateral rales and wheezing. HEART: S1, S2. There is a pacemaker in place over her left anterior chest wall. ABDOMEN: Soft, nontender. No organomegaly. EXTREMITIES: Shows no edema or cyanosis. CENTRAL NERVOUS SYSTEM: Exam grossly intact. LABORATORY DATA WBC 9.4, hemoglobin 9.5, platelet count of 65,000. Sodium 136, potassium 3.8, BUN 21, creatinine 1.0, serum glucose 91. Chest x-ray remarkable for chronic lung disease with possible superimposed pneumonia and this could be compatible with a history of bronchiectasis. EKG reviewed shows tachycardia with atrial paced rhythm. No other acute findings noted. IMPRESSION Acute exacerbation of chronic obstructive pulmonary disease and bronchiectasis, one has to rule out superimposed pneumonia; history of recurrent Pseudomonas pneumonia; cardiac arrhythmia, status post pacemaker placement; cachexia. Plan is IV antibiotics as well as bronchodilators, oxygen. We will probably give IV steroids. Further therapy will depend on findings. Presently, the patient seems to be improving with IV medications. We will continue therapy as ordered. MANUEL HISTORY: Text. SOCIAL HISTORY: Text. REVIEW OF SYSTEMS: Text. PHYSICAL EXAMINATION GENERAL: Text. VITAL SIGNS: Text. HEENT: Text. NECK: Text. CARDIOPULMONARY: Text. LUNGS: Text. ABDOMEN: Text. EXTREMITIES: Text. LABORATORY DATA: Text. IMPRESSION: Text. PLAN: Text. Castillo Castaneda MD cc:
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
[2017-10-26] MEDS: guaiFENesin DM 200 mg-20 mg/10 ml UD PO PRN (21:39)
[2017-10-27] MEDS: Gentamicin 80mg/50ml NS 80 MG/50 ML BAG IVPB SCH ×2 (01:20→09:37)
--- NOTE | 2017-10-27 08:37 | CP.PCM.PN ---
Subjective - Date & Time of Evaluation Date of Evaluation: 10/27/17 Time of Evaluation: 08:38 - Subjective Subjective: COUGH AND SOB IMPROVING NO FEVER NO CHEST PAIN Objective - Vital Signs/Intake and Output Vital Signs (last 24 hours): Temp Pulse Resp BP Pulse Ox 97.4 F L 92 H 18 97/61 L 96 10/27/17 08:10 10/27/17 08:10 10/27/17 08:10 10/27/17 08:10 10/27/17 08:10 - Medications Medications: Current Medications Acetaminophen (Tylenol 325mg Tab) 650 mg PO Q4 PRN PRN Reason: Pain, moderate (4-7) Guaifenesin/Dextromethorphan (Robitussin Dm) 10 ml PO Q6 PRN PRN Reason: Cough Last Admin: 10/26/17 21:39 Dose: 10 ml Gentamicin Sulfate/Sodium Chloride (Gentamicin 80mg/50ml Ns) 80 mg in 50 mls @ 49.02 mls/hr IVPB Q8H [facility]TE PRN Reason: Protocol Last Admin: 10/27/17 01:20 Dose: 49.02 mls/hr Levalbuterol HCl (Xopenex) 1.25 mg INH RQ8 PRN PRN Reason: Shortness of Breath Methylprednisolone (Solu-Medrol) 40 mg IVP Q12H [facility] Last Admin: 10/26/17 21:38 Dose: 40 mg Promethazine HCl (Phenergan Syrup) 12.5 mg PO Q6 PRN PRN Reason: Cough - Labs Labs: 10/25/17 17:01 10/25/17 17:01 - Constitutional Appears: Chronically Ill - Head Exam Head Exam: ATRAUMATIC, NORMAL INSPECTION, NORMOCEPHALIC - Eye Exam Eye Exam: EOMI, Normal appearance, PERRL Pupil Exam: NORMAL ACCOMODATION, PERRL - ENT Exam ENT Exam: Mucous Membranes Moist, Normal Exam - Neck Exam Neck Exam: Full ROM, Normal Inspection. absent: Lymphadenopathy - Respiratory Exam Respiratory Exam: Decreased Breath Sounds, Rales, NORMAL BREATHING PATTERN - Cardiovascular Exam Cardiovascular Exam: REGULAR RHYTHM, +S1, +S2. absent: Murmur - GI/Abdominal Exam GI & Abdominal Exam: Soft, Normal Bowel Sounds. absent: Tenderness - Rectal Exam Rectal Exam: NORMAL INSPECTION - Extremities Exam Extremities Exam: Full ROM, Normal Capillary Refill, Normal Inspection. absent : Joint Swelling, Pedal Edema - Back Exam Back Exam: NORMAL INSPECTION - Neurological Exam Neurological Exam: Alert, Awake, CN II-XII Intact, Normal Gait, Oriented x3 - Psychiatric Exam Psychiatric exam: Normal Affect, Normal Mood - Skin Skin Exam: Dry, Intact, Normal Color, Warm Assessment and Plan - Assessment and Plan (Free Text) Assessment: ACUTE EXAC OF COPD BRONCHIECTASES PNEUMONIA ARRYTMIAS RECURRENT PSEUDOMONAS PULMONARY INFECTIONS Plan: CONTINUE IV ANTIBIOTICS AND STEROIDS O2 AEROSOLIZED BRONCHODILATORS
[2017-10-27] MEDS: MethylPREDNISolone 40 mg Vial IVP SCH (09:37)
[2017-10-27] MEDS: guaiFENesin DM 200 mg-20 mg/10 ml UD PO PRN (09:38)
--- NOTE | 2017-10-28 09:06 | CP.PCM.PN ---
Subjective - Date & Time of Evaluation Date of Evaluation: 10/28/17 Time of Evaluation: 09:06 - Subjective Subjective: COUGHING UP CLEAR MUCOID SPUTUM Objective - Vital Signs/Intake and Output Vital Signs (last 24 hours): Temp Pulse Resp BP Pulse Ox 98.0 F 90 18 101/61 95 10/28/17 08:14 10/28/17 08:14 10/28/17 08:14 10/28/17 08:14 10/28/17 08:14 - Medications Medications: Current Medications Acetaminophen (Tylenol 325mg Tab) 650 mg PO Q4 PRN PRN Reason: Pain, moderate (4-7) Guaifenesin/Dextromethorphan (Robitussin Dm) 10 ml PO Q6 PRN PRN Reason: Cough Last Admin: 10/27/17 09:38 Dose: 10 ml Levalbuterol HCl (Xopenex) 1.25 mg INH RQ8 PRN PRN Reason: Shortness of Breath Methylprednisolone (Solu-Medrol) 40 mg IVP DAILY [facility] Last Admin: 10/27/17 09:37 Dose: 40 mg - Labs Labs: 10/25/17 17:01 10/25/17 17:01 - Constitutional Appears: Chronically Ill - Head Exam Head Exam: ATRAUMATIC, NORMAL INSPECTION, NORMOCEPHALIC - Eye Exam Eye Exam: EOMI, Normal appearance, PERRL Pupil Exam: NORMAL ACCOMODATION, PERRL - ENT Exam ENT Exam: Mucous Membranes Moist, Normal Exam - Neck Exam Neck Exam: Full ROM, Normal Inspection. absent: Lymphadenopathy - Respiratory Exam Respiratory Exam: Decreased Breath Sounds, Rales, Wheezes, NORMAL BREATHING PATTERN - Cardiovascular Exam Cardiovascular Exam: REGULAR RHYTHM, +S1, +S2. absent: Murmur - GI/Abdominal Exam GI & Abdominal Exam: Soft, Normal Bowel Sounds. absent: Tenderness - Rectal Exam Rectal Exam: NORMAL INSPECTION - Extremities Exam Extremities Exam: Full ROM, Normal Capillary Refill, Normal Inspection. 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
[2017-10-28] MEDS: MethylPREDNISolone 40 mg Vial IVP SCH (09:50)
[2017-10-28] MEDS: guaiFENesin DM 200 mg-20 mg/10 ml UD PO PRN ×2 (09:51→23:12)
[2017-10-28 10:04] LABS: CALCIUM 8.7 mg/dL (8.4-10.2)
--- NOTE | 2017-10-28 10:28 | CP.PCM.PN ---
Subjective - Date & Time of Evaluation Date of Evaluation: 10/28/17 Time of Evaluation: 08:00 - Subjective Subjective: genta on hold as of yest Objective - Vital Signs/Intake and Output Vital Signs (last 24 hours): Temp Pulse Resp BP Pulse Ox 98.0 F 90 18 101/61 95 10/28/17 08:14 10/28/17 08:14 10/28/17 08:14 10/28/17 08:14 10/28/17 08:14 - Medications Medications: Current Medications Acetaminophen (Tylenol 325mg Tab) 650 mg PO Q4 PRN PRN Reason: Pain, moderate (4-7) Guaifenesin/Dextromethorphan (Robitussin Dm) 10 ml PO Q6 PRN PRN Reason: Cough Last Admin: 10/28/17 09:51 Dose: 10 ml Levalbuterol HCl (Xopenex) 1.25 mg INH RQ6 [facility] Methylprednisolone (Solu-Medrol) 40 mg IVP DAILY [facility] Last Admin: 10/28/17 09:50 Dose: 40 mg - Labs Labs: 10/25/17 17:01 10/28/17 09:33 Assessment and Plan (1) COPD exacerbation Status: Acute (2) Pneumonia Status: Acute (3) Bronchiectasis Status: Acute (4) COPD (chronic obstructive pulmonary disease) Status: Acute (5) COPD exacerbation Status: Acute (6) Chr obstructive pulmonary disease w/ acute lower respiratory infxn Status: Acute (7) Pseudomonas aeruginosa infection Status: Acute
[2017-10-28] MEDS: Levalbuterol 1.25 MG/3 ML Inhal Soln UD INH SCH ×3 (10:41→19:20)
[2017-10-29] MEDS: Levalbuterol 1.25 MG/3 ML Inhal Soln UD INH SCH ×4 (01:28→19:26)
[2017-10-29] MEDS: guaiFENesin DM 200 mg-20 mg/10 ml UD PO PRN ×2 (05:29→23:02)
[2017-10-29] MEDS: MethylPREDNISolone 40 mg Vial IVP SCH (09:47)
[2017-10-29 10:49] LABS: HEMOGLOBIN 9.1 g/dL (12.0-16.0); MEAN CELL VOLUME 87.8 fl (81.0-99.0); MEAN CORPUSCULAR HEMOGLOBIN 27.9 pg (27.0-31.0); MEAN CORPUSCULAR HGB CONC 31.8 g/dL (33.0-37.0); RBC 3.26 Mil/uL (3.80-5.20); RED CELL DISTRIBUTION WIDTH 15.3 % (11.5-14.5); WHITE BLOOD COUNT 11.8 K/uL (4.8-10.8)
[2017-10-29] MEDS ORDERED: Potassium Chloride 20 mEq ER Tab PO ONE (11:42)
--- NOTE | 2017-10-29 11:56 | CP.PCM.PN ---
Subjective - Date & Time of Evaluation Date of Evaluation: 10/29/17 Time of Evaluation: 11:56 - Subjective Subjective: C/O FEVER THIS AM AFTER HOLDING IV GENTAMYCIN C/O MILD NAUSEA AND COUGH Objective - Vital Signs/Intake and Output Vital Signs (last 24 hours): Temp Pulse Resp BP Pulse Ox 101.3 F H 93 H 20 106/61 96 10/29/17 08:03 10/29/17 08:03 10/29/17 08:03 10/29/17 08:03 10/29/17 08:03 Intake and Output: 10/29/17 10/29/17 06:59 18:59 Intake Total 240 Balance 240 - Medications Medications: Current Medications Acetaminophen (Tylenol 325mg Tab) 650 mg PO Q4 PRN PRN Reason: Pain, moderate (4-7) Guaifenesin/Dextromethorphan (Robitussin Dm) 10 ml PO Q6 PRN PRN Reason: Cough Last Admin: 10/29/17 05:29 Dose: 10 ml Gentamicin Sulfate/Sodium Chloride (Gentamicin 60mg/50ml Ns) 60 mg in 50 mls @ 50 mls/hr IVPB Q12 [facility] Levalbuterol HCl (Xopenex) 1.25 mg INH RQ6 [facility] Last Admin: 10/29/17 07:56 Dose: 1.25 mg Methylprednisolone (Solu-Medrol) 40 mg IVP DAILY [facility] Last Admin: 10/29/17 09:47 Dose: 40 mg - Labs Labs: 10/29/17 10:39 10/28/17 09:33 - Constitutional Appears: No Acute Distress - Head Exam Head Exam: ATRAUMATIC, NORMAL INSPECTION, NORMOCEPHALIC - Eye Exam Eye Exam: EOMI, Normal appearance, PERRL Pupil Exam: NORMAL ACCOMODATION, PERRL - ENT Exam ENT Exam: Mucous Membranes Moist, Normal Exam - Neck Exam Neck Exam: Full ROM, Normal Inspection. absent: Lymphadenopathy - Respiratory Exam Respiratory Exam: Clear to Ausculation Bilateral, NORMAL BREATHING PATTERN - Cardiovascular Exam Cardiovascular Exam: REGULAR RHYTHM, +S1, +S2. absent: Murmur - GI/Abdominal Exam GI & Abdominal Exam: Soft, Normal Bowel Sounds. absent: Tenderness - Rectal Exam Rectal Exam: NORMAL INSPECTION - Extremities Exam Extremities Exam: Full ROM, Normal Capillary Refill, Normal Inspection. absent : Joint Swelling, Pedal Edema - Back Exam Back Exam: NORMAL INSPECTION - Neurological Exam Neurological Exam: Alert, Awake, CN II-XII Intact, Normal Gait, Oriented x3 - Psychiatric Exam Psychiatric exam: Normal Affect, Normal Mood - Skin Skin Exam: Dry, Intact, Normal Color, Warm Assessment and Plan - Assessment and Plan (Free Text) Plan: PNEUMONIA BRONCHIECTASIS COPD EXAC ARRYTHMIAS HYPOKALEMIA PICC LINE INSERTION PLANNED PLAN D/C WITH IV GENTAMYCIN WEEKLY X 3 WEEKS INS WILL NOT PAY FOR AEROSOLIZED AMIKACIN
[2017-10-29] MEDS: Gentamicin 60mg/50ml NS 60 MG/50 ML BAG IVPB SCH ×2 (12:51→20:55)
--- NOTE | 2017-10-29 13:07 | RAD ---
HISTORY: bronchiectases COMPARISON: 10/25/2017 TECHNIQUE: Chest PA and lateral FINDINGS: LUNGS: Diffuse coarse interstitial markings unchanged from prior examination. No focal consolidation. PLEURA: No pleural effusion or pneumothorax. Mild bilateral apical pleural thickening. CARDIOVASCULAR: Normal heart size. Permanent pacemaker. OSSEOUS STRUCTURES: No significant abnormalities. VISUALIZED UPPER ABDOMEN: Normal. OTHER FINDINGS: None. IMPRESSION: Diffuse coarse interstitial markings. The appearance is grossly stable since 09/27/2016. No acute infiltrate.
[2017-10-29 13:12] LABS: INR 1.1 (0.9-1.2); PROTHROMBIN TIME 12.1 Seconds (9.8-13.1)
--- NOTE | 2017-10-29 13:20 | PQF GENQUE ---
This form is a permanent part of the medical record 10/29/17 Dr. Castaneda, Patient presents with SOB, productive cough, fever, chills, body aches. Recent admission for COPD exacerbation. History of bronchiectasis with recurrent pulmonary infection with Pseudomonas . CXR: No active disease. Sputum CS: Normal oral tyrell. H&P: Acute exacerbation of COPD and Bronchiectasis, one has to rule out superimposed pneumonia. Following Progress notes: Acute exacerbation of COPD, Bronchiectasis and Pneumonia. Started on Gentamycin Please specify the type or suspected type of Pneumonia. Note: CAP, HAP, and HCAP indicate where the pneumonia was acquired, not a specific type. Clarification of your documentation is requested to better reflect the severity of illness and intensity of treatment of your patient. Indicators present [] Specify: [] [] Specify: [] [] Specify: [] [] Specify: [] Location in the medical record that reflects the above clinical findings: [] Treatment Provided: [] PHYSICIAN'S RESPONSE Type of Pneumonia: [] Aspiration pneumonia [] Bacterial (specify organism) [x] Bronchopneumonia (specify organism)--organism undetermined [] Interstitial pneumonia [] Organizing pneumonia/BOOP [] Pneumonia with influenza, scarlett flu, or H1N1 flu [] RSV pneumonia [] Tuberculosis, pulmonary [] Viral pneumonia [] Other pneumonia (specify organism or type) [] Clinically unable to determine [] Unknown Based on your medical judgment of the clinical indicators outlined above please clarify the following: [] Practitioner response [] If unable to determine, please check the box, sign and date. Present On Admission (POA) Indicator: [] Present at the time of admission [] Not present at the time of admission [] Clinically Undetermined In responding to this query, please exercise your independent professional judgment. The fact that a question is asked does not imply that any particular answer is desired or expected. Thank you for your clarification on this documentation. If you have any questions please call:[phone] * Thank you, Tatyana Solorio RN, CDMP [facility]
--- NOTE | 2017-10-29 13:20 | CP.PCM.PN ---
Subjective - Date & Time of Evaluation Date of Evaluation: 10/29/17 Time of Evaluation: 07:00 - Subjective Subjective: fever again today - 101 cough less alert nad genta restarted Objective - Vital Signs/Intake and Output Vital Signs (last 24 hours): Temp Pulse Resp BP Pulse Ox 101.3 F H 93 H 20 106/61 96 10/29/17 08:03 10/29/17 08:03 10/29/17 08:03 10/29/17 08:03 10/29/17 08:03 Intake and Output: 10/29/17 10/29/17 06:59 18:59 Intake Total 240 Balance 240 - Medications Medications: Current Medications Acetaminophen (Tylenol 325mg Tab) 650 mg PO Q4 PRN PRN Reason: Pain, moderate (4-7) Guaifenesin/Dextromethorphan (Robitussin Dm) 10 ml PO Q6 PRN PRN Reason: Cough Last Admin: 10/29/17 05:29 Dose: 10 ml Gentamicin Sulfate/Sodium Chloride (Gentamicin 60mg/50ml Ns) 60 mg in 50 mls @ 50 mls/hr IVPB Q12 YVETTE Levalbuterol HCl (Xopenex) 1.25 mg INH RQ6 YVETTE Last Admin: 10/29/17 07:56 Dose: 1.25 mg Methylprednisolone (Solu-Medrol) 40 mg IVP DAILY YVETTE Last Admin: 10/29/17 09:47 Dose: 40 mg - Labs Labs: 10/29/17 10:39 10/28/17 09:33 PT 12.1 Seconds (9.8-13.1) 10/29/17 12:54 INR 1.1 (0.9-1.2) 10/29/17 12:54 APTT 29.0 Seconds (25.6-37.1) 10/29/17 12:54 - Constitutional Appears: Non-toxic, Cachectic, Chronically Ill - Head Exam Head Exam: NORMOCEPHALIC - Eye Exam Eye Exam: PERRL. absent: Scleral icterus - ENT Exam ENT Exam: Mucous Membranes Dry - Neck Exam Neck Exam: absent: Lymphadenopathy - Respiratory Exam Respiratory Exam: Decreased Breath Sounds, Rales - Cardiovascular Exam Cardiovascular Exam: REGULAR RHYTHM, +S1, +S2 - GI/Abdominal Exam GI & Abdominal Exam: Distended, Soft - Rectal Exam Rectal Exam: Deferred - Exam Exam: NORMAL INSPECTION - Extremities Exam Extremities Exam: absent: Pedal Edema, Tenderness - Back Exam Back Exam: absent: CVA tenderness (L), CVA tenderness (R) - Neurological Exam Neurological Exam: Alert, Awake, Oriented x3 - Psychiatric Exam Psychiatric exam: Normal Mood - Skin Skin Exam: Dry Assessment and Plan (1) COPD exacerbation Status: Acute (2) Pneumonia Status: Acute (3) Bronchiectasis Status: Acute (4) COPD (chronic obstructive pulmonary disease) Status: Acute (5) COPD exacerbation Status: Acute (6) Chr obstructive pulmonary disease w/ acute lower respiratory infxn Status: Acute (7) Pseudomonas aeruginosa infection Status: Acute - Assessment and Plan (Free Text) Assessment: cont iv genta as out pt repeat trough level am
[2017-10-30] MEDS: Levalbuterol 1.25 MG/3 ML Inhal Soln UD INH SCH ×4 (01:01→19:51)
[2017-10-30 07:40] LABS: BLOOD UREA NITROGEN 20 mg/dl (7-17); CALCIUM 8.7 mg/dL (8.4-10.2); GFR AFRICAN-AMERICAN > 60; GFR NON-AFRICAN AMERICAN > 60
[2017-10-30] MEDS: MethylPREDNISolone 40 mg Vial IVP SCH (08:45)
[2017-10-30] MEDS: Gentamicin 60mg/50ml NS 60 MG/50 ML BAG IVPB SCH ×2 (08:47→20:52)
--- NOTE | 2017-10-30 09:48 | CP.PCM.PN ---
Subjective - Date & Time of Evaluation Date of Evaluation: 10/30/17 Time of Evaluation: 09:49 - Subjective Subjective: C/O RETROSTERNAL CHEST PAIN SINCE LAST NIGHT--WORSE ON COUGHING AFEBRILE Objective - Vital Signs/Intake and Output Vital Signs (last 24 hours): Temp Pulse Resp BP Pulse Ox 98.2 F 88 20 99/54 L 96 10/30/17 07:56 10/30/17 07:56 10/30/17 07:56 10/30/17 07:56 10/30/17 07:56 - Medications Medications: Current Medications Acetaminophen (Tylenol 325mg Tab) 650 mg PO Q4 PRN PRN Reason: Pain, moderate (4-7) Last Admin: 10/29/17 23:04 Dose: 650 mg Guaifenesin/Dextromethorphan (Robitussin Dm) 10 ml PO Q6 PRN PRN Reason: Cough Last Admin: 10/29/17 23:02 Dose: 10 ml Gentamicin Sulfate/Sodium Chloride (Gentamicin 60mg/50ml Ns) 60 mg in 50 mls @ 50 mls/hr IVPB Q12 YVETTE Last Admin: 10/30/17 08:47 Dose: 50 mls/hr Levalbuterol HCl (Xopenex) 1.25 mg INH RQ6 YVETTE Last Admin: 10/30/17 08:05 Dose: 1.25 mg Methylprednisolone (Solu-Medrol) 40 mg IVP DAILY YVETTE Last Admin: 10/30/17 08:45 Dose: 40 mg - Labs Labs: 10/29/17 10:39 10/30/17 06:00 PT 12.1 Seconds (9.8-13.1) 10/29/17 12:54 INR 1.1 (0.9-1.2) 10/29/17 12:54 APTT 29.0 Seconds (25.6-37.1) 10/29/17 12:54 - Constitutional Appears: Chronically Ill - Head Exam Head Exam: ATRAUMATIC, NORMAL INSPECTION, NORMOCEPHALIC - Eye Exam Eye Exam: EOMI, Normal appearance, PERRL Pupil Exam: NORMAL ACCOMODATION, PERRL - ENT Exam ENT Exam: Mucous Membranes Moist, Normal Exam - Neck Exam Neck Exam: Full ROM, Normal Inspection. absent: Lymphadenopathy - Respiratory Exam Respiratory Exam: Decreased Breath Sounds, Rales, NORMAL BREATHING PATTERN - Cardiovascular Exam Cardiovascular Exam: REGULAR RHYTHM, +S1, +S2. absent: Murmur - GI/Abdominal Exam GI & Abdominal Exam: Soft, Normal Bowel Sounds. absent: Tenderness - Rectal Exam Rectal Exam: NORMAL INSPECTION - Extremities Exam Extremities Exam: Full ROM, Normal Capillary Refill, Normal Inspection. absent : Joint Swelling, Pedal Edema - Back Exam Back Exam: NORMAL INSPECTION - Neurological Exam Neurological Exam: Alert, Awake, CN II-XII Intact, Normal Gait, Oriented x3 - Psychiatric Exam Psychiatric exam: Normal Affect, Normal Mood - Skin Skin Exam: Dry, Intact, Normal Color, Warm Assessment and Plan - Assessment and Plan (Free Text) Assessment: CHEST PAIN--PROBABLY DUE TO PULMONARY DZ Plan: EKG TROPONIN LEVEL TYLENOL,PRN CARDIAC EVAL ADVISED TO STAY IN HOSPITAL FOR FURTHER EVAL BUT REFUSES--SHE WANTS TO GO HOME BECAUSE SHE HAS TO ATTEND A PRICE SHOW AND ALREADY HAS TICKETS SH IS ADVISED TO SPEAK WITH CHILDREN ABOUT CANCELLING THE PLAY AND STAYING IN HOSPITAL IF SHE REFUSES TO STAY,WILL DISCHARGE IN AM ON IV GENTAMYCIN WEEKLY X 3-4 WEEKS
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
[2017-10-30] MEDS ORDERED: Lidocaine 1% Inj (20ml) ONE (13:53)
--- NOTE | 2017-10-30 14:09 | CARD ---
APPROVED REPORT EKG Measurement Heart [id number] <Conclusion> Atrial-sensed ventricular-paced rhythm Abnormal ECG
--- NOTE | 2017-10-30 14:47 | PCM.SURG1 ---
Surgeon's Initial Post Op Note - Surgeon's Notes Surgeon: Markus Moya MD Forensic Pathologist: None Type of Anesthesia: Local Pre-Operative Diagnosis: infection requiring senior living IV antibiotics Operative Findings: patent right basilic vein. catheter length: 33 cm. catheter tip: cavoatrial junction Post-Operative Diagnosis: same Operation Performed: RUE PICC Insertion Specimen/Specimens Removed: n/a Estimated Blood Loss: EBL {In ML}: 0 Date of Surgery/Procedure: 10/30/17 Time of Surgery/Procedure: 14:35
--- NOTE | 2017-10-30 15:53 | VASCULAR ---
PROCEDURE: PERIPHERALLY INSERTED CENTRAL VENOUS CATHETER INSERTION CLINICAL HISTORY: 82-year-old female requiring fpc intravenous antibiotics is referred to Interventional Radiology for PICC insertion. COMPARISON: PICC insertion dated 04/03/2017. PROCEDURE: 1. Focused ultrasound of the right upper extremity vasculature. 2. Ultrasound-guided access. 3. Insertion of peripherally inserted central venous catheter. 4. Fluoroscopic localization of catheter tip. PRE-PROCEDURE FINDINGS: 1. Patent right basilic vein. POST-PROCEDURE FINDINGS: 1. Placement of 4 Egyptian single-lumen PICC. 2. Catheter length: 33 cm. 3. Catheter tip at cavoatrial junction. INTERVENTIONAL RADIOLOGIST: Markus Moya M.D. (the attending was present for the entire procedure) ANESTHESIA: None. MEDICATION: Lidocaine 1% for local subcutaneous analgesia. COMPLICATIONS: None. RADIATION DOSE: Fluoroscopy Time: 13.4 seconds Cumulative Dose: 0.58 mGy PROCEDURE DESCRIPTION AND FINDINGS: The risks, benefits, alternatives and possible complications of the procedure were fully discussed; all questions were answered and informed consent was obtained. The patient was brought into the interventional suite and a pre-procedure 'time-out' was performed. The patient was placed on the fluoroscopy table in the supine position. The right upper extremity was prepped and draped in the usual sterile fashion. Maximum sterile barrier precautions were maintained throughout the entire procedure. Preliminary ultrasound images of the right upper extremity vasculature demonstrate patency of the right basilic vein. Following subcutaneous infiltration of 1% lidocaine for local analgesia, under ultrasound guidance, a 21-gauge needle was advanced into the right basilic vein with real-time visualization of needle entry. The ultrasound images were permanently recorded and submitted to the PACS. A 0.018 guidewire was advanced centrally to the cavoatrial junction. A 4.5 Egyptian peel-away sheath was advanced over the guidewire. After obtaining length measurement, a 4 Egyptian single-lumen PICC was placed with the tip of the catheter at the cavoatrial junction. The total length of the catheter is 33 cm. The hub of the PICC was secured to the skin using a sterile adhesive bandage. The patient tolerated the procedure well without immediate post-procedure complications and was transferred back to the floor in stable condition. IMPRESSION: SUCCESSFUL INSERTION OF RIGHT UPPER EXTREMITY PICC. PICC OK TO USE.
--- NOTE | 2017-10-30 16:22 | CP.PCM.PN ---
Subjective - Date & Time of Evaluation Date of Evaluation: 10/30/17 Time of Evaluation: 07:00 - Subjective Subjective: fever less s/p gentamicin PICC line in place will switch Genta to 80 mg daily cont rx as out pt for min 10 days to 14 days with trough level and bun/ creat biweekly Objective - Vital Signs/Intake and Output Vital Signs (last 24 hours): Temp Pulse Resp BP Pulse Ox 98 F 89 20 97/57 L 94 L 10/30/17 16:00 10/30/17 16:00 10/30/17 16:00 10/30/17 16:00 10/30/17 16:00 - Medications Medications: Current Medications Acetaminophen (Tylenol 325mg Tab) 650 mg PO Q4 PRN PRN Reason: Pain, moderate (4-7) Last Admin: 10/29/17 23:04 Dose: 650 mg Guaifenesin/Dextromethorphan (Robitussin Dm) 10 ml PO Q6 PRN PRN Reason: Cough Last Admin: 10/29/17 23:02 Dose: 10 ml Gentamicin Sulfate/Sodium Chloride (Gentamicin 60mg/50ml Ns) 60 mg in 50 mls @ 50 mls/hr IVPB Q12 YVETTE Last Admin: 10/30/17 08:47 Dose: 50 mls/hr Levalbuterol HCl (Xopenex) 1.25 mg INH RQ6 YVETTE Last Admin: 10/30/17 13:28 Dose: 1.25 mg Methylprednisolone (Solu-Medrol) 40 mg IVP DAILY YVETTE Last Admin: 10/30/17 08:45 Dose: 40 mg - Labs Labs: 10/29/17 10:39 10/30/17 06:00 PT 12.1 Seconds (9.8-13.1) 10/29/17 12:54 INR 1.1 (0.9-1.2) 10/29/17 12:54 APTT 29.0 Seconds (25.6-37.1) 10/29/17 12:54 - Constitutional Appears: Non-toxic, Cachectic, Chronically Ill - Head Exam Head Exam: NORMOCEPHALIC - Eye Exam Eye Exam: PERRL. absent: Scleral icterus - ENT Exam ENT Exam: Mucous Membranes Dry, Normal External Ear Exam - Neck Exam Neck Exam: absent: Lymphadenopathy - Respiratory Exam Respiratory Exam: Decreased Breath Sounds - Cardiovascular Exam Cardiovascular Exam: REGULAR RHYTHM - GI/Abdominal Exam GI & Abdominal Exam: Distended, Soft - Rectal Exam Rectal Exam: Deferred - Exam Exam: NORMAL INSPECTION - Extremities Exam Extremities Exam: absent: Pedal Edema Assessment and Plan (1) COPD exacerbation Status: Acute (2) Pneumonia Status: Acute (3) Bronchiectasis Status: Acute (4) COPD (chronic obstructive pulmonary disease) Status: Acute (5) COPD exacerbation Status: Acute (6) Chr obstructive pulmonary disease w/ acute lower respiratory infxn Status: Acute (7) Pseudomonas aeruginosa infection Status: Acute
[2017-10-31 00:25] VITALS: O2SAT 95
[2017-10-31] MEDS: Levalbuterol 1.25 MG/3 ML Inhal Soln UD INH SCH (01:00)
[2017-10-31 08:41] VITALS: BP 134/81; PULSE 56; RESP 20; TEMP 98
[2017-10-31] MEDS: Gentamicin 60mg/50ml NS 60 MG/50 ML BAG IVPB SCH (08:50)
[2017-10-31] MEDS: MethylPREDNISolone 40 mg Vial IVP SCH (08:54)
--- NOTE | 2017-10-31 12:25 | CP.PCM.DIS ---
Provider - Provider Date of Admission: 10/25/17 18:39 Attending physician: Castillo Castaneda MD Time Spent in preparation of Discharge (in minutes): 32 Diagnosis - Discharge Diagnosis (1) COPD exacerbation Status: Acute (2) Pneumonia Status: Acute (3) Acute bronchitis with chronic obstructive pulmonary disease (COPD) Status: Acute (4) Anemia Status: Acute (5) Arrhythmia Status: Acute (6) Bronchiectasis Status: Acute (7) COPD exacerbation Status: Acute (8) Iron deficiency anemia Status: Acute (9) Pneumonia Status: Acute (10) Pseudomonas aeruginosa infection Status: Acute Hospital Course - Lab Results Lab Results: Micro Results 10/25/17 20:05 Blood Blood Culture - Final NO GROWTH AFTER 5 DAYS 10/25/17 20:05 Blood Gram Stain - Final TEST NOT PERFORMED 10/25/17 19:50 Blood Blood Culture - Final NO GROWTH AFTER 5 DAYS 10/25/17 19:50 Blood Gram Stain - Final TEST NOT PERFORMED 10/26/17 16:05 Sputum Gram Stain - Final 10/26/17 16:05 Sputum Sputum Culture - Final NORMAL ORAL DEBBIE Most Recent Lab Values WBC 11.8 K/uL (4.8-10.8) H 10/29/17 10:39 RBC 3.26 Mil/uL (3.80-5.20) L 10/29/17 10:39 Hgb 9.1 g/dL (12.0-16.0) L 10/29/17 10:39 Hct 28.7 % (34.0-47.0) L 10/29/17 10:39 MCV 87.8 fl (81.0-99.0) 10/29/17 10:39 MCH 27.9 pg (27.0-31.0) 10/29/17 10:39 MCHC 31.8 g/dL (33.0-37.0) L 10/29/17 10:39 RDW 15.3 % (11.5-14.5) H 10/29/17 10:39 Plt Count 277 K/uL (130-400) 10/29/17 10:39 MPV 8.4 fl (7.2-11.7) 10/25/17 17:01 Neut % (Auto) 68.6 % (50.0-75.0) 10/25/17 17:01 Lymph % (Auto) 15.2 % (20.0-40.0) L 10/25/17 17:01 [place] % (Auto) 13.1 % (0.0-10.0) H 10/25/17 17:01 Eos % (Auto) 1.8 % (0.0-4.0) 10/25/17 17:01 Baso % (Auto) 1.3 % (0.0-2.0) 10/25/17 17:01 Neut # 6.5 K/uL (1.8-7.0) 10/25/17 17:01 Lymph # 1.4 K/uL (1.0-4.3) 10/25/17 17:01 [place] # 1.2 K/uL (0.0-0.8) H 10/25/17 17:01 Eos # 0.2 K/uL (0.0-0.7) 10/25/17 17:01 Baso # 0.1 K/uL (0.0-0.2) 10/25/17 17:01 PT 12.1 Seconds (9.8-13.1) 10/29/17 12:54 INR 1.1 (0.9-1.2) 10/29/17 12:54 APTT 29.0 Seconds (25.6-37.1) 10/29/17 12:54 Sodium 138 mmol/l (132-148) 10/30/17 06:00 Potassium 4.1 MMOL/L (3.6-5.0) 10/30/17 06:00 Chloride 98 mmol/L (98-107) 10/30/17 06:00 Carbon Dioxide 33 mmol/L (22-30) H 10/30/17 06:00 Anion Gap 11 (10-20) 10/30/17 06:00 BUN 20 mg/dl (7-17) H 10/30/17 06:00 Creatinine 0.9 mg/dl (0.7-1.2) 10/30/17 06:00 Est GFR ( Amer) > 60 10/30/17 06:00 Est GFR (Non-Af Amer) > 60 10/30/17 06:00 Random Glucose 86 mg/dL (65-105) 10/30/17 06:00 Lactic Acid 1.1 MMOL/L (0.7-2.1) 10/29/17 15:30 Calcium 8.7 mg/dL (8.4-10.2) 10/30/17 06:00 Total Bilirubin 0.3 mg/dl (0.2-1.3) 10/25/17 17:01 AST 42 U/L (14-36) H 10/25/17 17:01 ALT 11 U/L (9-52) 10/25/17 17:01 Alkaline Phosphatase 80 U/L (38-126) 10/25/17 17:01 Troponin I 0.0150 ng/mL (0.00-0.120) 10/30/17 10:49 NT-Pro-B Natriuret Pep 781 pg/ml (0-900) 10/25/17 17:01 Total Protein 7.6 G/DL (6.3-8.2) 10/25/17 17:01 Albumin 3.5 g/dL (3.5-5.0) 10/25/17 17:01 Globulin 4.1 gm/dL (2.2-3.9) H 10/25/17 17:01 Albumin/Globulin Ratio 0.9 (1.0-2.1) L 10/25/17 17:01 Procalcitonin < 0.05 NG/ML (0.19-0.49) L 10/27/17 04:20 Urine Color Marissa (YELLOW) 10/25/17 18:08 Urine Clarity Cloudy (Clear) 10/25/17 18:08 Urine pH 5.0 (5.0-8.0) 10/25/17 18:08 Ur Specific [place] 1.019 (1.003-1.030) 10/25/17 18:08 Urine Protein 30 mg/dL (NEGATIVE) 10/25/17 18:08 Urine Glucose (UA) Neg mg/dL (Normal) 10/25/17 18:08 Urine Ketones Negative mg/dL (NEGATIVE) 10/25/17 18:08 Urine Blood Negative (NEGATIVE) 10/25/17 18:08 Urine Nitrate Negative (NEGATIVE) 10/25/17 18:08 Urine Bilirubin Negative (NEGATIVE) 10/25/17 18:08 Urine Urobilinogen 0.2-1.0 mg/dL (0.2-1.0) 10/25/17 18:08 Ur Leukocyte Esterase Neg Dom/uL (Negative) 10/25/17 18:08 Urine RBC (Auto) 4 /hpf (0-3) H 10/25/17 18:08 Urine Microscopic WBC 3 /hpf (0-5) 10/25/17 18:08 Ur Squamous Epith Cells < 1 /hpf (0-5) 10/25/17 18:08 Urine Bacteria Rare (<OCC) 10/25/17 18:08 Hyaline Casts 0-2 /hpf (0-2) 10/25/17 18:08 Gentamicin Trough 1.6 ug/mL (0.0-0.9) H 10/30/17 06:00 Random Gentamicin < 0.6 ug/mL 10/29/17 05:50 Serum Immunofixation Not detected (Not Detected) 10/27/17 04:20 Influenza Typ A,B (EIA) Negative for flu a/b (NEGATIVE) 10/25/17 17:08 - Hospital Course Hospital Course: FEELS BETTER NO CHEST PAINS/SOB OR COUGH Discharge Exam - Head Exam Head Exam: NORMOCEPHALIC - Eye Exam Eye Exam: EOMI, Normal appearance, PERRL Pupil Exam: NORMAL ACCOMODATION, PERRL - GI/Abdominal Exam GI & Abdominal Exam: Normal Bowel Sounds - Rectal Exam Rectal Exam: NORMAL INSPECTION - Neurological Exam Neurological exam: Alert, CN II-XII Intact, Normal Gait, Oriented x3, Reflexes Normal - Psychiatric Exam Psychiatric exam: Normal Affect, Normal Mood - Skin Skin Exam: Dry, Intact, Normal Color, Warm Discharge Plan - Follow Up Plan Condition: STABLE Disposition: HOME/ ROUTINE Patient education suggested?: Yes Instructions: COPD (Chronic Obstructive Pulmonary Disease) (DC) Additional Instructions: return for infusions: Gentamycin weekly for 3-4 weeks Referrals: Good Glover MD [Staff Provider] - Saravanan Ambrose MD [Staff Provider] - Castillo Castaneda MD [Family Provider] -
== END 2017-10-31 13:41 | disposition home or self-care (01) | DRG 194 ==
LOC: H.ER 15:34 → H.ERHOLD 18:39 → H.TEL 21:22 → H.MEDSURG1 10-27 14:48
PROVIDERS: ADMIT Internal Medicine Pulmonary Disease; ATTEND Internal Medicine Pulmonary Disease
PROC: 3E0F7GC Introduction of Other Therapeutic Substance into Respiratory Tract, Via Natural or Artificial Opening (ICD-10-PCS; 2017-10-28)
PROC: 02HV33Z Insertion of Infusion Device into Superior Vena Cava, Percutaneous Approach (ICD-10-PCS; principal; 2017-10-29)
PROC: B518ZZA Fluoroscopy of Superior Vena Cava, Guidance (ICD-10-PCS; 2017-10-29)
PROC: B548ZZA Ultrasonography of Superior Vena Cava, Guidance (ICD-10-PCS; 2017-10-29)
DX: J18.0 Bronchopneumonia, unspecified organism (principal); J47.0 Bronchiectasis with acute lower respiratory infection; I11.0 Hypertensive heart disease with heart failure; I48.91 Unspecified atrial fibrillation; I50.9 Heart failure, unspecified; D50.9 Iron deficiency anemia, unspecified; I34.1 Nonrheumatic mitral (valve) prolapse; J20.9 Acute bronchitis, unspecified; R62.7 Adult failure to thrive; Z86.711 Personal history of pulmonary embolism; Z87.01 Personal history of pneumonia (recurrent); Z87.891 Personal history of nicotine dependence; Z90.49 Acquired absence of other specified parts of digestive tract; Z95.0 Presence of cardiac pacemaker; K29.70 Gastritis, unspecified, without bleeding; K82.9 Disease of gallbladder, unspecified; R07.2 Precordial pain; R11.0 Nausea; R63.4 Abnormal weight loss; B96.5 Pseudomonas (aeruginosa) (mallei) (pseudomallei) as the cause of diseases classified elsewhere

== ENCOUNTER 2017-11-07 11:14 | Inpatient (IN) | payer MEDICARE, BC ==
[2017-11-07 11:20] VITALS: BMI 16.6
[2017-11-07] MEDS ORDERED: Albuterol-Ipratrop 3 mg / 0.5 (3 ml) UD INH STA (11:37)
[2017-11-07] MEDS ORDERED: Sodium Chloride 0.9% 1,000 ML IV STA (11:37)
[2017-11-07] MEDS ORDERED: Albuterol-Ipratrop 3 mg / 0.5 (3 ml) UD ONE (11:46)
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
[2017-11-07 12:26] LABS: VENOUS BLOOD GAS BASE EXCESS 6.3 mmol/L (0.0-2.0); VENOUS BLOOD GAS PCO2 48 mmHg (40-60); VENOUS BLOOD GAS PO2 23 mm/Hg (30-55); VENOUS BLOOD PH 7.43 (7.32-7.43)
[2017-11-07 12:32] LABS: BASO # 0.1 K/uL (0.0-0.2); BASO % 0.5 % (0.0-2.0); EOS # 0.1 K/uL (0.0-0.7); EOS % 0.6 % (0.0-4.0); HEMOGLOBIN 9.3 g/dL (12.0-16.0); LYMPH % 13.8 % (20.0-40.0); MEAN CELL VOLUME 85.3 fl (81.0-99.0); MEAN CORPUSCULAR HEMOGLOBIN 27.4 pg (27.0-31.0); MEAN CORPUSCULAR HGB CONC 32.1 g/dL (33.0-37.0); MEAN PLATELET VOLUME 8.4 fl (7.2-11.7); MONO # 2.1 K/uL (0.0-0.8); MONO % 15.1 % (0.0-10.0); NEUT # 9.9 K/uL (1.8-7.0); RBC 3.38 Mil/uL (3.80-5.20); RED CELL DISTRIBUTION WIDTH 15.8 % (11.5-14.5); WHITE BLOOD COUNT 14.1 K/uL (4.8-10.8)
[2017-11-07 12:39] LABS: ALB/GLOB RATIO 0.8 (1.0-2.1); ALBUMIN 3.5 g/dL (3.5-5.0); CALCIUM 8.7 mg/dL (8.4-10.2)
[2017-11-07 12:42] LABS: INR 1.2 (0.9-1.2); PARTIAL THROMBOPLASTIN TIME 29.4 Seconds (25.6-37.1); PROTHROMBIN TIME 13.2 Seconds (9.8-13.1)
[2017-11-07 12:50] LABS: TROPONIN I 0.034 ng/mL (0.00-0.120)
[2017-11-07] MEDS ORDERED: Potassium Chloride 20 mEq ER Tab PO STA (13:03)
[2017-11-07] MEDS ORDERED: Potassium Chloride 20 mEq ER Tab PO ONE (13:42)
[2017-11-07 17:52] LABS: SQUAMOUS EPITHIAL 1 /hpf (0-5); URINE BACTERIA RARE (<OCC); URINE BILIRUBIN NEGATIVE (NEGATIVE); URINE BLOOD NEGATIVE (NEGATIVE); URINE CLARITY CLOUDY (Clear); URINE COLOR YELLOW (YELLOW); URINE GLUCOSE (UA) NEG (Normal); URINE LEUKOCYTE ESTERASE NEG Leu/uL (Negative); URINE NITRATE NEGATIVE (NEGATIVE); URINE PROTEIN 30 mg/dL (NEGATIVE); URINE UROBILINOGEN 0.2-1.0 mg/dL (0.2-1.0)
--- NOTE | 2017-11-07 18:05 | CARD ---
APPROVED REPORT EKG Measurement Heart [id number] <Conclusion> Ventricular-paced rhythm Abnormal ECG
[2017-11-07] MEDS ORDERED: Sodium Chloride 3% for Inhalation 4 ML VIAL.NEB IH PRN (20:38)
[2017-11-07] MEDS ORDERED: Levalbuterol 1.25 MG/3 ML Inhal Soln UD INH PRN (20:46)
[2017-11-07] MEDS: Dextrose 5%/0.45% NS 1,000 ML IV SCH (20:50)
[2017-11-07] MEDS: Gentamicin 80mg/50ml NS 80 MG/50 ML BAG IVPB SCH (21:26)
[2017-11-07] MEDS: Levalbuterol 1.25 MG/3 ML Inhal Soln UD INH SCH ×2 (23:21)
[2017-11-08] MEDS: Gentamicin 80mg/50ml NS 80 MG/50 ML BAG IVPB SCH ×3 (04:15→20:09)
[2017-11-08] MEDS: Levalbuterol 1.25 MG/3 ML Inhal Soln UD INH SCH ×3 (07:15→23:27)
[2017-11-08 07:24] LABS: HEMOGLOBIN 8.6 g/dL (12.0-16.0); MEAN CELL VOLUME 85.4 fl (81.0-99.0); MEAN CORPUSCULAR HEMOGLOBIN 27.7 pg (27.0-31.0); MEAN CORPUSCULAR HGB CONC 32.4 g/dL (33.0-37.0); RBC 3.09 Mil/uL (3.80-5.20); RED CELL DISTRIBUTION WIDTH 15.3 % (11.5-14.5); WHITE BLOOD COUNT 7.3 K/uL (4.8-10.8)
[2017-11-08 07:46] LABS: CALCIUM 8.3 mg/dL (8.4-10.2)
[2017-11-08 12:15] LABS: IRON 50 ug/dL (37-170)
[2017-11-08 12:26] LABS: % IRON SATURATION 25 % (20-55); TOTAL IRON BINDING CAPACITY 203 ug/dL (250-450)
--- NOTE | 2017-11-08 21:02 | HP ---
HISTORY OF PRESENT ILLNESS: Mrs. Mccord is an 82-year-old female who was admitted via the emergency room with generalized weakness associated with nausea and diarrhea for 48 hours prior to presentation. She also indicates that she had difficulty breathing with cough, shortness of breath, and profuse copious yellow mucoid sputum for the past several days. She was recently discharged from [facility] after therapy for acute exacerbation of chronic obstructive pulmonary disease and bronchiectasis. She was placed on IV gentamicin via a PICC line and has just been home for a few days. She insisted on going home during the last admission because she had left in for a [place] show despite being asked to stay in the hospital for appropriate therapy. PAST MEDICAL DISEASE: She has a past medical history of multiple frequent admissions to [facility] for similar conditions including recurrence of bronchiectasis exacerbation and COPD exacerbation. She also has a past medical history of chronic atrial fibrillation, status post pacemaker placement, chronic obstructive pulmonary disease, granulomatous lung disease, hemoptysis, gastrointestinal bleeding secondary to peptic ulcer disease. ALLERGIES: MULTIPLE DRUG ALLERGIES. FAMILY HISTORY: Unremarkable. SOCIAL HISTORY: She quit smoking many years ago. Does not drink, does not use alcohol and lives alone, but has a supportive family. PHYSICAL EXAMINATION: GENERAL: The patient is alert and oriented, appears frail looking. Denies recurrence of diarrhea. VITAL SIGNS: Blood pressure 98/40, pulse of 87, respiratory rate 20. She is afebrile. O2 sat 100% on nasal cannula oxygen. SKIN: Shows fair turgor. HEENT: Pupils equal, reactive to light and accommodation. Mouth shows fair hygiene. NECK: JVP flat. LUNGS: Fair aeration with coarse bilateral rales and wheezing. HEART: Pacemaker in place. S1, S2. ABDOMEN: Soft, nontender, no organomegaly. EXTREMITIES: Show no edema or cyanosis. CENTRAL NERVOUS SYSTEM: Grossly intact. LABORATORY DATA: Remarkable for WBC of 14.1, hemoglobin 9.3, platelet count 264,000. Sodium 136, potassium 3.4, BUN 24, creatinine 1.4. Troponin 0.034. AST 29, ALT 20. Venous blood gas: pH 7.43, pCO2 of 48, pO2 of 23. EKG: Pacemaker rhythm. Chest x-ray: Chronic interstitial lung disease, stable when compared to old x-rays. IMPRESSION: Acute exacerbation of chronic obstructive pulmonary disease with superimposed bronchiectasis, dehydration secondary to profuse diarrhea, rule out Clostridium difficile colitis. The patient was recently discharged from the hospital, history of coronary artery disease with cardiac arrhythmias, anemia which appears to have worsened since last admission, probably secondary to chronic disease. PLAN: Continue IV hydration, resume IV gentamicin therapy. Obtain Hematology evaluation for possible iron infusion therapy. Patient was advised to probably go to subacute care in a senior living setting for a few weeks prior to going home. She will talk it about with her son through for C. diff or any other to rule out C. diff colitis. We will continue therapy as ordered. Castillo Castaneda MD
[2017-11-09] MEDS: Gentamicin 80mg/50ml NS 80 MG/50 ML BAG IVPB SCH ×3 (04:15→20:48)
[2017-11-09] MEDS: Dextrose 5%/0.45% NS 1,000 ML IV SCH (04:16)
[2017-11-09 08:33] LABS: BASO # 0.1 K/uL (0.0-0.2); BASO % 0.6 % (0.0-2.0); EOS # 0.1 K/uL (0.0-0.7); EOS % 0.5 % (0.0-4.0); HEMOGLOBIN 10.1 g/dL (12.0-16.0); LYMPH # 1.1 K/uL (1.0-4.3); LYMPH % 10.2 % (20.0-40.0); MEAN CELL VOLUME 85.8 fl (81.0-99.0); MEAN CORPUSCULAR HEMOGLOBIN 27.7 pg (27.0-31.0); MEAN CORPUSCULAR HGB CONC 32.3 g/dL (33.0-37.0); MEAN PLATELET VOLUME 8.3 fl (7.2-11.7); MONO # 1.5 K/uL (0.0-0.8); MONO % 13.5 % (0.0-10.0); NEUT # 8.3 K/uL (1.8-7.0); NEUT % 75.2 % (50.0-75.0); RBC 3.64 Mil/uL (3.80-5.20); RED CELL DISTRIBUTION WIDTH 15.7 % (11.5-14.5); WHITE BLOOD COUNT 11.1 K/uL (4.8-10.8)
--- NOTE | 2017-11-09 11:02 | CP.PCM.PN ---
Subjective - Date & Time of Evaluation Date of Evaluation: 11/09/17 Time of Evaluation: 11:02 - Subjective Subjective: C/O NAUSEA THIS AM NO VOMITING/CHEST PAINS NO DIARRHEA Objective - Vital Signs/Intake and Output Vital Signs (last 24 hours): Temp Pulse Resp BP Pulse Ox 98.3 F 87 18 92/58 L 94 L 11/09/17 08:32 11/09/17 08:32 11/09/17 08:32 11/09/17 08:32 11/09/17 08:32 - Medications Medications: Current Medications Acetaminophen (Tylenol 325mg Tab) 650 mg PO Q6 PRN PRN Reason: Headache Last Admin: 11/08/17 22:27 Dose: 650 mg Gentamicin Sulfate/Sodium Chloride (Gentamicin 80mg/50ml Ns) 80 mg in 50 mls @ 49.02 mls/hr IVPB Q8H YVETTE PRN Reason: Protocol Last Admin: 11/09/17 04:15 Dose: 49.02 mls/hr Levalbuterol HCl (Xopenex) 1.25 mg INH RQ8 YVETTE Last Admin: 11/08/17 23:27 Dose: 1.25 mg Ondansetron HCl (Zofran Inj) 4 mg IVP Q6 PRN PRN Reason: Nausea/Vomiting - Labs Labs: 11/09/17 07:00 11/08/17 06:00 PT 13.2 Seconds (9.8-13.1) H 11/07/17 12:10 INR 1.2 (0.9-1.2) 11/07/17 12:10 APTT 29.4 Seconds (25.6-37.1) 11/07/17 12:10 - Constitutional Appears: Chronically Ill - Head Exam Head Exam: ATRAUMATIC, NORMAL INSPECTION, NORMOCEPHALIC - Eye Exam Eye Exam: EOMI, Normal appearance, PERRL Pupil Exam: NORMAL ACCOMODATION, PERRL - ENT Exam ENT Exam: Mucous Membranes Moist, Normal Exam - Neck Exam Neck Exam: Full ROM, Normal Inspection. absent: Lymphadenopathy - Respiratory Exam Respiratory Exam: Clear to Ausculation Bilateral, NORMAL BREATHING PATTERN - Cardiovascular Exam Cardiovascular Exam: REGULAR RHYTHM, +S1, +S2. absent: Murmur - GI/Abdominal Exam GI & Abdominal Exam: Soft, Normal Bowel Sounds. absent: Tenderness - Rectal Exam Rectal Exam: NORMAL INSPECTION - Extremities Exam Extremities Exam: Full ROM, Normal Capillary Refill, Normal Inspection. absent : Joint Swelling, Pedal Edema - Back Exam Back Exam: NORMAL INSPECTION - Neurological Exam Neurological Exam: Alert, Awake, CN II-XII Intact, Normal Gait, Oriented x3 - Psychiatric Exam Psychiatric exam: Normal Affect, Normal Mood - Skin Skin Exam: Dry, Intact, Normal Color, Warm Assessment and Plan - Assessment and Plan (Free Text) Assessment: COLITIS RESOLVED GASTRITIS COPD EXAC BRONCHIECTASIS ARRYTHMIAS ANEMIA Plan: TRANSFER TO REGULAR FLOOR GIVE ZOFRAN AND PROTONIX IV MONITOR GENTA LEVEL D/C CONTACT PRECAUTIONS TRANSFER TO REGULAR FLOOR
[2017-11-09] MEDS: Levalbuterol 1.25 MG/3 ML Inhal Soln UD INH SCH ×2 (16:47→23:16)
[2017-11-09 17:51] LABS: FOLATE 15.2 ng/mL
[2017-11-10] MEDS: Gentamicin 80mg/50ml NS 80 MG/50 ML BAG IVPB SCH (04:32)
[2017-11-10] MEDS: Levalbuterol 1.25 MG/3 ML Inhal Soln UD INH SCH ×3 (07:20→23:11)
--- NOTE | 2017-11-10 07:59 | PQF GENQUE ---
This form is a permanent part of the medical record 11/10/17 Dr Castaneda, 1) ER with an additional diagnosis of Acute Bronchitis. Please clarify if this is ruled in or ruled out 2) Documentation of Bronchiectasis. Please further clarify if it is uncomplicated or with acute exacerbation or other explanation or unable to determine. Treated with Xopenex and Gentamycin. Clarification of your documentation is requested to better reflect the severity of illness and intensity of treatment of your patient. Indicators present [] Specify: [] [] Specify: [] [] Specify: [] [] Specify: [] Location in the medical record that reflects the above clinical findings: [] Treatment Provided: [] PHYSICIAN'S RESPONSE Based on your medical judgment of the clinical indicators outlined above please clarify the following: x[] Practitioner response --acute bronchitis ruled in [] If unable to determine, please check the box, sign and date. Present On Admission (POA) Indicator: [] Present at the time of admission [] Not present at the time of admission [] Clinically Undetermined In responding to this query, please exercise your independent professional judgment. The fact that a question is asked does not imply that any particular answer is desired or expected. Thank you for your clarification on this documentation. If you have any questions please call:ext [phone] * Thank you, Tatyana Solorio RN [facility]
--- NOTE | 2017-11-10 09:10 | CP.PCM.PN ---
Subjective - Date & Time of Evaluation Date of Evaluation: 11/10/17 Time of Evaluation: 09:11 - Subjective Subjective: C/O NAUSEA AND VOMITING TODAY STILL COUGHING WITH THICK TENACEOUS SPUTUM Objective - Vital Signs/Intake and Output Vital Signs (last 24 hours): Temp Pulse Resp BP Pulse Ox 99.4 F 94 H 20 88/53 L 98 11/10/17 08:10 11/10/17 08:10 11/10/17 08:10 11/10/17 08:10 11/10/17 08:10 - Medications Medications: Current Medications Acetaminophen (Tylenol 325mg Tab) 650 mg PO Q6 PRN PRN Reason: Headache Last Admin: 11/08/17 22:27 Dose: 650 mg Acetylcysteine (Acetylcysteine 20%) 2 ml INH RBID YVETTE Gentamicin Sulfate/Sodium Chloride (Gentamicin 80mg/50ml Ns) 80 mg in 50 mls @ 49.02 mls/hr IVPB Q8H YVETTE PRN Reason: Protocol Last Admin: 11/10/17 04:32 Dose: 49.02 mls/hr Levalbuterol HCl (Xopenex) 1.25 mg INH RQ8 YVETTE Last Admin: 11/10/17 07:20 Dose: 1.25 mg Ondansetron HCl (Zofran Inj) 4 mg IVP Q6 PRN PRN Reason: Nausea/Vomiting Last Admin: 11/10/17 09:07 Dose: 4 mg Pantoprazole Sodium (Protonix Inj) 40 mg IVP DAILY [facility] Last Admin: 11/10/17 09:06 Dose: 40 mg - Labs Labs: 11/09/17 07:00 11/09/17 12:20 PT 13.2 Seconds (9.8-13.1) H 11/07/17 12:10 INR 1.2 (0.9-1.2) 11/07/17 12:10 APTT 29.4 Seconds (25.6-37.1) 11/07/17 12:10 - Constitutional Appears: Chronically Ill - Head Exam Head Exam: ATRAUMATIC, NORMAL INSPECTION, NORMOCEPHALIC - Eye Exam Eye Exam: EOMI, Normal appearance, PERRL Pupil Exam: NORMAL ACCOMODATION, PERRL - ENT Exam ENT Exam: Mucous Membranes Moist, Normal Exam - Neck Exam Neck Exam: Full ROM, Normal Inspection. absent: Lymphadenopathy - Respiratory Exam Respiratory Exam: Decreased Breath Sounds, Prolonged Expiratory Phase, Rales, Wheezes, NORMAL BREATHING PATTERN - Cardiovascular Exam Cardiovascular Exam: REGULAR RHYTHM, +S1, +S2. absent: Murmur - GI/Abdominal Exam GI & Abdominal Exam: Soft, Tenderness, Normal Bowel Sounds - Rectal Exam Rectal Exam: NORMAL INSPECTION - Extremities Exam Extremities Exam: Full ROM, Normal Capillary Refill, Normal Inspection. absent : Joint Swelling, Pedal Edema - Back Exam Back Exam: NORMAL INSPECTION - Neurological Exam Neurological Exam: Alert, Awake, CN II-XII Intact, Normal Gait, Oriented x3 - Psychiatric Exam Psychiatric exam: Normal Affect, Normal Mood - Skin Skin Exam: Dry, Intact, Normal Color, Warm Assessment and Plan - Assessment and Plan (Free Text) Assessment: INTRACTABLE VOMITING ACUTE EXAC OF COPD AND BRONCHIECTASES DIARRHEA RESOLVED ASHD ANEMIA OF CHRONIC DZ Plan: HOLD IV GENTA FOR NOW ZOFRAN AND PROTONIX GIVEN RN IMCU FOR SUBACUTE CARE MAY CHANGE TO LIQUID DIET IF NAUSEA/VOMITING PERSISTS
--- NOTE | 2017-11-10 09:12 | CP.PCM.CON ---
History of Present Illness - History of Present Illness History of Present Illness: This is a 82 yrs old female who was admitted for UTI and cough. he has a h/o copd, bronchectesis, CAD and in the past had anemia for which she was given iv iron therapy.. Now she came in with a hgb of 8.6 but now her her hgb is 10.1 ( without transfusion.) Her ferritin is high and the b12 is more than 450. She has no bleeding from ay site. She is afebrile at this time, but she still has cough , nausea ad vomiting, Past Patient History - Infectious Disease Hx of Infectious Diseases: None - Past Medical History & Family History Past Medical History?: Yes - Past Social History Smoking Status: Former Smoker - CARDIAC Hx Cardiac Disorders: Yes Hx Atrial Fibrillation: Yes Hx Cardia Arrhythmia: Yes Hx Congestive Heart Failure: Yes Hx Hypercholesterolemia: No Hx Hypertension: Yes Hx Mitral Valve Prolapse: Yes Hx Pacemaker: Yes Hx Peripheral Edema: No - PULMONARY Hx Respiratory Disorders: Yes Hx Asthma: Yes Hx Bronchitis: Yes Hx Chronic Obstructive Pulmonary Disease (COPD): Yes Hx Emphysema: Yes Hx Pneumonia: Yes Hx Pulmonary Embolism: Yes Hx Sleep Apnea: No - NEUROLOGICAL Hx Neurological Disorder: No Hx Alzheimer's Disease: No Hx Dementia: No Hx Migraine: No Hx Multiple Sclerosis: No Hx Parkinson's Disease: No Hx Seizures: No Hx Transient Ischemic Attacks (TIA): No - HEENT Hx HEENT Problems: No - RENAL Hx Chronic Kidney Disease: No - ENDOCRINE/METABOLIC Hx Endocrine Disorders: No Hx Hyperthyroidism: No Hx Hypothyroidism: No - HEMATOLOGICAL/ONCOLOGICAL Hx Blood Disorders: No Hx AIDS: No Hx Anemia: No Hx Blood Transfusions: Yes Hx Human Immunodeficiency Virus (HIV): No Hx Sickle Cell Disease: No - INTEGUMENTARY Hx Dermatological Problems: No - MUSCULOSKELETAL/RHEUMATOLOGICAL Hx Musculoskeletal Disorders: Yes Hx Arthritis: No Hx Falls: No Hx Fractures: Yes (ribs, wrist,thumb) Hx Osteoporosis: No Hx Rheumatoid Arthritis: No - GASTROINTESTINAL Hx Gastrointestinal Disorders: Yes Hx Crohn's Disease: No Hx Diverticulitis: No Hx Gall Bladder Disease: Yes (gb removed) Hx Gastritis: Yes Hx Pancreatitis: No - GENITOURINARY/GYNECOLOGICAL Hx Genitourinary Disorders: No Hx Sexually Transmitted Disorders: No - PSYCHIATRIC Hx Psychophysiologic Disorder: No Hx Anxiety: No Hx Bipolar Disorder: No Hx Depression: No Hx Paranoia: No Hx Post Traumatic Stress Disorder: No Hx Schizophrenia: No Hx Substance Use: No - SURGICAL HISTORY Hx Surgeries: Yes Hx Appendectomy: Yes Hx Cholecystectomy: Yes Hx Coronary Artery Bypass Graft: No Hx Coronary Stent: No Hx Tonsillectomy: No - ANESTHESIA Hx Anesthesia: Yes Hx Anesthesia Reactions: No Hx Malignant Hyperthermia: No Meds Allergies/Adverse Reactions: Allergies Allergy/AdvReac Type Severity Reaction Status Date / Time aztreonam Allergy RASH Verified 04/04/17 18:58 clarithromycin Allergy RASH Verified 11/07/17 11:19 clindamycin Allergy RASH Verified 11/07/17 11:19 erythromycin base Allergy RASH Verified 11/07/17 11:19 ibuprofen Allergy RASH Verified 11/07/17 11:19 levofloxacin [From Levaquin] Allergy RASH Verified 11/07/17 11:19 moxifloxacin HCl Allergy RASH Verified 11/07/17 11:19 [From Avelox] Penicillins Allergy RASH Verified 11/07/17 11:19 rifampin Allergy RASH Verified 11/07/17 11:19 sulfamethoxazole Allergy RASH Verified 11/07/17 11:19 [From Sulfatrim] tramadol HCl [From Ultracet] Allergy RASH Verified 11/07/17 11:19 trimethoprim [From Sulfatrim] Allergy RASH Verified 10/10/17 13:31 vancomycin Allergy RASH Verified 10/10/17 13:31 - Medications Medications: Current Medications Acetaminophen (Tylenol 325mg Tab) 650 mg PO Q6 PRN PRN Reason: Headache Last Admin: 11/08/17 22:27 Dose: 650 mg Gentamicin Sulfate/Sodium Chloride (Gentamicin 80mg/50ml Ns) 80 mg in 50 mls @ 49.02 mls/hr IVPB Q8H YVETTE PRN Reason: Protocol Last Admin: 11/10/17 04:32 Dose: 49.02 mls/hr Levalbuterol HCl (Xopenex) 1.25 mg INH RQ8 YVETTE Last Admin: 11/10/17 07:20 Dose: 1.25 mg Ondansetron HCl (Zofran Inj) 4 mg IVP Q6 PRN PRN Reason: Nausea/Vomiting Last Admin: 11/09/17 22:23 Dose: 4 mg Pantoprazole Sodium (Protonix Inj) 40 mg IVP DAILY [facility] Last Admin: 11/09/17 12:46 Dose: 40 mg Physical Exam - Additional Findings Additional findings: Physical exam; Alert, well oriented in no acute distress. neck; Supple, no adenopathy Chest; Air entry poor, sacttered rales and rhonchi Heart;RSR, grade 2/6 systolic murmur murmur Abd Soft, no mass, no h/s megaly Results - Vital Signs Recent Vital Signs: Last Vital Signs Temp 99.4 F 11/10/17 08:10 Pulse 94 H 11/10/17 08:10 Resp 20 11/10/17 08:10 BP 88/53 L 11/10/17 08:10 Pulse Ox 98 11/10/17 08:10 - Labs Result Diagrams: 11/09/17 07:00 11/09/17 12:20 Labs: Laboratory Results - last 24 hr 11/09/17 11/09/17 11/09/17 07:00 12:20 12:20 Sodium 135 Potassium 3.8 Chloride 99 Carbon Dioxide 30 Anion Gap 10 BUN 26 H Creatinine 1.1 Est GFR ( Amer) 58 Est GFR (Non-Af Amer) 48 Random Glucose 83 Calcium 8.0 L Ferritin 1060.0 H Vitamin B12 644 Folate 15.2 Random Gentamicin 7.8 Assessment & Plan - Assessment and Plan (Free Text) Assessment: Impression; anemia of chronic disease Plan: Plan; considering her ferritin and B12 level, i dont think she needs any IV iron or B12 at this time,
[2017-11-10] MEDS ORDERED: Benzocaine/Menthol (Cepacol) Lozenge PO PRN (12:46)
[2017-11-10] MEDS: Phenol 1.4% Throat Spray MT PRN ×3 (14:12→23:39)
[2017-11-10] MEDS: Acetylcysteine 20% Inhal Soln (4ml) INH SCH (15:39)
[2017-11-11] MEDS: Levalbuterol 1.25 MG/3 ML Inhal Soln UD INH SCH ×3 (07:51→23:14)
[2017-11-11] MEDS: Acetylcysteine 20% Inhal Soln (4ml) INH SCH ×2 (07:51→20:00)
[2017-11-11] MEDS: Phenol 1.4% Throat Spray MT PRN ×4 (08:56→21:25)
--- NOTE | 2017-11-11 09:20 | IP.NPCORE ---
COPD Progress Note - COPD Progress Note Spirometry Assessment Completed:: No Plan to assess at outpatient follow up: Yes Symptoms:: Cough, Increase in sputum volume
--- NOTE | 2017-11-11 10:07 | CP.PCM.PN ---
Subjective - Date & Time of Evaluation Date of Evaluation: 11/11/17 Time of Evaluation: 10:08 - Subjective Subjective: STILL NAUSEOUS COUGHING UP COPIOUS AMTS OF SPUTUM Objective - Vital Signs/Intake and Output Vital Signs (last 24 hours): Temp Pulse Resp BP Pulse Ox 98.6 F 102 H 20 97/57 L 94 L 11/11/17 08:31 11/11/17 08:31 11/11/17 08:31 11/11/17 08:31 11/11/17 08:31 - Medications Medications: Current Medications Acetaminophen (Tylenol 325mg Tab) 650 mg PO Q6 PRN PRN Reason: Headache Last Admin: 11/10/17 18:42 Dose: 650 mg Acetylcysteine (Acetylcysteine 20%) 2 ml INH RBID [facility] Last Admin: 11/11/17 07:51 Dose: 2 ml Benzocaine/Menthol (Cepacol Sore Throat) 1 zeyad PO Q3 PRN PRN Reason: Sore Throat Gentamicin Sulfate/Sodium Chloride (Gentamicin 80mg/50ml Ns) 80 mg in 50 mls @ 49.02 mls/hr IVPB Q8H [facility] PRN Reason: Protocol Last Admin: 11/10/17 04:32 Dose: 49.02 mls/hr Levalbuterol HCl (Xopenex) 1.25 mg INH RQ8 [facility] Last Admin: 11/11/17 07:51 Dose: 1.25 mg Ondansetron HCl (Zofran Inj) 4 mg IVP Q6 PRN PRN Reason: Nausea/Vomiting Last Admin: 11/11/17 08:52 Dose: 4 mg Pantoprazole Sodium (Protonix Inj) 40 mg IVP DAILY [facility] Last Admin: 11/11/17 08:54 Dose: 40 mg Phenol/Menthol (Phenaseptic 1.4% Throat [place]) 1 spry MT Q2 PRN PRN Reason: Sore Throat Last Admin: 11/11/17 08:56 Dose: 1 spray - Labs Labs: 11/09/17 07:00 11/09/17 12:20 PT 13.2 Seconds (9.8-13.1) H 11/07/17 12:10 INR 1.2 (0.9-1.2) 11/07/17 12:10 APTT 29.4 Seconds (25.6-37.1) 11/07/17 12:10 - Constitutional Appears: Chronically Ill - Head Exam Head Exam: ATRAUMATIC, NORMAL INSPECTION, NORMOCEPHALIC - Eye Exam Eye Exam: EOMI, Normal appearance, PERRL Pupil Exam: NORMAL ACCOMODATION, PERRL - ENT Exam ENT Exam: Mucous Membranes Moist, Normal Exam - Neck Exam Neck Exam: Full ROM, Normal Inspection. absent: Lymphadenopathy - Respiratory Exam Respiratory Exam: Decreased Breath Sounds, Prolonged Expiratory Phase, Rales, NORMAL BREATHING PATTERN - Cardiovascular Exam Cardiovascular Exam: REGULAR RHYTHM, +S1, +S2. absent: Murmur - GI/Abdominal Exam GI & Abdominal Exam: Soft, Normal Bowel Sounds. absent: Tenderness - Rectal Exam Rectal Exam: NORMAL INSPECTION - Extremities Exam Extremities Exam: Full ROM, Normal Capillary Refill, Normal Inspection. absent : Joint Swelling, Pedal Edema - Back Exam Back Exam: NORMAL INSPECTION - Neurological Exam Neurological Exam: Alert, Awake, CN II-XII Intact, Normal Gait, Oriented x3 - Psychiatric Exam Psychiatric exam: Normal Affect, Normal Mood - Skin Skin Exam: Dry, Intact, Normal Color, Warm Assessment and Plan - Assessment and Plan (Free Text) Assessment: BRONCHIECTASES PSEUDOMONAS PNEUMONIA GASTRITIS Plan: RESTART IV GENTA ID [employer] FOR SUBACUTE CARE
[2017-11-11] MEDS: Gentamicin 80mg/50ml NS 80 MG/50 ML BAG IVPB SCH (12:03)
--- NOTE | 2017-11-11 12:38 | CP.PCM.CON ---
History of Present Illness - History of Present Illness History of Present Illness: 82 YO FEMALE WITH SEVERE COPD/ BRONCHIECTASIS AND RECURRENT PSEUDOMONAS INFECTION OF LUNG [facility] - recently trerated as out pt HAS MULTIPLE ALLERGIES TO PCN, QUINOLONES MAKING OPTIONS FEW AGREE WITH GENTA FOR NOW Review of Systems - Constitutional Constitutional: As Per HPI - EENT Eyes: absent: As Per HPI, Blind Spots, Blurred Vision, Change in Vision, Decreased Night Vision, Diplopia, Discharge, Dry Eye, Exophthalmos, Floaters, Irritation, Itchy Eyes, Loss of Peripheral Vision, Pain, Photophobia, Requires Corrective Lenses, Sees Flashes, Spots in Vision, Tunnel Vision, Other Visual Disturbances, Loss of Vision, Other Ears: absent: As Per HPI, Decreased Hearing, Ear Discharge, Ear Pain, Tinnitus, Abnormal Hearing, Disequilibrium, Dizziness, Other Nose/Mouth/Throat: absent: As Per HPI, Epistaxis, Nasal Congestion, Nasal Discharge, Nasal Obstruction, Nasal Trauma, Nose Pain, Post Nasal Drip, Sinus Pain, Sinus Pressure, Bleeding Gums, Change in Voice, Dental Pain, Dry Mouth, Dysphagia, Halitosis, Hoarsness, Lip Swelling, Mouth Lesions, Mouth Pain, Odynophagia, Sore Throat, Throat Swelling, Tongue Swelling, Facial Pain, Neck Pain, Neck Mass, Other - Breasts Breasts: absent: As Per HPI, Change in Shape, Mass, Pain, Nipple Discharge, Nipple Inversion, Skin Changes, Swelling, Other - Cardiovascular Cardiovascular: As Per HPI - Respiratory Respiratory: As Per HPI - Gastrointestinal Gastrointestinal: absent: As Per HPI, Abdominal Pain, Belching, Bloating, Change in Bowel Habits, Change in Stool Character, Coffee Ground Emesis, Constipation, Cramping, Diarrhea, Dyspepsia, Dysphagia, Early Satiety, Excessive Flatus, Fecal Incontinence, Heartburn, Hematemesis, Hematochezia, Loose Stools, Melena, Nausea, Odynophagia, Temesmus, Vomiting, Other - Genitourinary Genitourinary: absent: As Per HPI, Change in Urinary Stream, Difficulty Urinating, Dysuria, Flank Pain, Hematuria, Pyuria, Nocturia, Urinary Incontinence, Urinary Frequency, Urinary Hesitance, Urinary Urgency, Voiding Freq/Small Amts, Freq UTI, Hx Renal/Bladder Calculi, Hx /Renal Surgery, Bladder Distension, Other - Reproductive: Female Reproductive:Female: absent: As Per HPI, Amenorrhea, Amenorrhea/ Control, Currently Menstual, Cycle <21 Days, Cycle >35 Days, Cycle Variable, Menses 1-7 Days, Menses >/= 8 Days, Menses Variable, Cycle > 4 Weeks Between, No Menses for 6 Months, Heavy Menses, Light Menses, Normal Menses, Spotting Between Cycles , S/P Hysterectomy, Menopausal, Post Menopausal, Premenarche, Abnormal Vaginal Bleeding, Dysmenorrhea, Dyspareunia, Genital Lesions, Genital Pruritis, Pelvic Pain, Prolapse Symptoms, Sexual Dysfunction, Vaginal Discharge, Vaginal Dryness , Vaginal Odor, Vaginal Pruritis, Other - Menstruation Menstruation: absent: As Per HPI, Amenorrhea, Amenorrhea/ Control, Currently Menstual, Cycle <21 Days, Cycle >35 Days, Cycle Variable, Menses 1-7 Days, Menses >/= 8 Days, Menses Variable, Cycle > 4 Weeks Between, No Menses for 6 Months, Heavy Menses, Light Menses, Normal Menses, Spotting Between Cycles , S/P Hysterectomy, Menopausal, Post Menopausal, Premenarche, Abnormal Vaginal Bleeding, Dysmenorrhea, Other - Musculoskeletal Musculoskeletal: absent: As Per HPI, Abnormal Gait, Arthralgias, Atrophy, Back Pain, Deformity, Joint Swelling, Limited Range of Motion, Loss of Height, Muscle Cramps, Muscle Weakness, Myalgias, Neck Pain, Numbness, Radiating Pain into Limb, Stiffness, Tingling, Other - Integumentary Integumentary: absent: As Per HPI, Acne, Alopecia, Bleeding Lesions, Change in Hair, Change in Nails, Change in Pigmentation, Changing Lesions, Dry Skin, Erythema, Furuncle, Hirsutism, Lesions, New Lesions, Non-Healing Lesions, Photosensitivity, Pruritus, Rash, Skin Pain, Skin Ulcer, Sores, Striae, Swelling , Unusual Bruising, Wounds, Jaundice, Other - Neurological Neurological: absent: As Per HPI, Abnormal Gait, Abnormal Hearing, Abnormal Movements, Abnormal Speech, Behavioral Changes, Burning Sensations, Confusion, Convulsions, Disequilibrium, Dizziness, Numbness, Focal Weakness, Frequent Falls , Headaches, Lack of Coordination, Loss of Vision, Memory Loss, Paresthesias, Radicular Pain, Restless Legs, Sensory Deficit, Syncope, Tingling, Tremor, Vertigo, Weakness, Other Visual Disturbances, Other - Psychiatric Psychiatric: absent: As Per HPI, Abnormal Sleep Pattern, Anhedonia, Anxiety, Auditory Hallucinations, Behavioral Changes, Change in Appetite, Change in Libido, Confusion, Depression, Difficulty Concentrating, Hallucinations, Homicidal Ideation, Hopelessness, Irritability, Memory Loss, Mood Swings, Panic Attacks, Paranoia, Suicidal Ideation, Visual Hallucinations, Tactile Hallucinations, Other - Endocrine Endocrine: absent: As Per HPI, Change in Body Appearance, Change in Libido, Cold Intolorance, Deepening of Voice, Excessive Sweating, Fatigue, Flushing, Heat Intolorance, Increase in Ring/Shoe/Hat Size, Palpitations, Polydipsia, Polyphagia, Polyuria, Other - Hematologic/Lymphatic Hematologic: absent: As Per HPI, Easy Bleeding, Easy Bruising, Lymphadenopathy, Other Past Patient History - Infectious Disease Hx of Infectious Diseases: None - Past Medical History & Family History Past Medical History?: Yes - Past Social History Smoking Status: Former Smoker - CARDIAC Hx Cardiac Disorders: Yes Hx Atrial Fibrillation: Yes Hx Cardia Arrhythmia: Yes Hx Congestive Heart Failure: Yes Hx Hypercholesterolemia: No Hx Hypertension: Yes Hx Mitral Valve Prolapse: Yes Hx Pacemaker: Yes Hx Peripheral Edema: No - PULMONARY Hx Respiratory Disorders: Yes Hx Asthma: Yes Hx Bronchitis: Yes Hx Chronic Obstructive Pulmonary Disease (COPD): Yes Hx Emphysema: Yes Hx Pneumonia: Yes Hx Pulmonary Embolism: Yes Hx Sleep Apnea: No - NEUROLOGICAL Hx Neurological Disorder: No Hx Alzheimer's Disease: No Hx Dementia: No Hx Migraine: No Hx Multiple Sclerosis: No Hx Parkinson's Disease: No Hx Seizures: No Hx Transient Ischemic Attacks (TIA): No - HEENT Hx HEENT Problems: No - RENAL Hx Chronic Kidney Disease: No - ENDOCRINE/METABOLIC Hx Endocrine Disorders: No Hx Hyperthyroidism: No Hx Hypothyroidism: No - HEMATOLOGICAL/ONCOLOGICAL Hx Blood Disorders: No Hx AIDS: No Hx Anemia: No Hx Blood Transfusions: Yes Hx Human Immunodeficiency Virus (HIV): No Hx Sickle Cell Disease: No - INTEGUMENTARY Hx Dermatological Problems: No - MUSCULOSKELETAL/RHEUMATOLOGICAL Hx Musculoskeletal Disorders: Yes Hx Arthritis: No Hx Falls: No Hx Fractures: Yes (ribs, wrist,thumb) Hx Osteoporosis: No Hx Rheumatoid Arthritis: No - GASTROINTESTINAL Hx Gastrointestinal Disorders: Yes Hx Crohn's Disease: No Hx Diverticulitis: No Hx Gall Bladder Disease: Yes (gb removed) Hx Gastritis: Yes Hx Pancreatitis: No - GENITOURINARY/GYNECOLOGICAL Hx Genitourinary Disorders: No Hx Sexually Transmitted Disorders: No - PSYCHIATRIC Hx Psychophysiologic Disorder: No Hx Anxiety: No Hx Bipolar Disorder: No Hx Depression: No Hx Paranoia: No Hx Post Traumatic Stress Disorder: No Hx Schizophrenia: No Hx Substance Use: No - SURGICAL HISTORY Hx Surgeries: Yes Hx Appendectomy: Yes Hx Cholecystectomy: Yes Hx Coronary Artery Bypass Graft: No Hx Coronary Stent: No Hx Tonsillectomy: No - ANESTHESIA Hx Anesthesia: Yes Hx Anesthesia Reactions: No Hx Malignant Hyperthermia: No Meds Allergies/Adverse Reactions: Allergies Allergy/AdvReac Type Severity Reaction Status Date / Time aztreonam Allergy RASH Verified 04/04/17 18:58 clarithromycin Allergy RASH Verified 11/07/17 11:19 clindamycin Allergy RASH Verified 11/07/17 11:19 erythromycin base Allergy RASH Verified 11/07/17 11:19 ibuprofen Allergy RASH Verified 11/07/17 11:19 levofloxacin [From Levaquin] Allergy RASH Verified 11/07/17 11:19 moxifloxacin HCl Allergy RASH Verified 11/07/17 11:19 [From Avelox] Penicillins Allergy RASH Verified 11/07/17 11:19 rifampin Allergy RASH Verified 11/07/17 11:19 sulfamethoxazole Allergy RASH Verified 11/07/17 11:19 [From Sulfatrim] tramadol HCl [From Ultracet] Allergy RASH Verified 11/07/17 11:19 trimethoprim [From Sulfatrim] Allergy RASH Verified 10/10/17 13:31 vancomycin Allergy RASH Verified 10/10/17 13:31 - Medications Medications: Current Medications Acetaminophen (Tylenol 325mg Tab) 650 mg PO Q6 PRN PRN Reason: Headache Last Admin: 11/10/17 18:42 Dose: 650 mg Acetylcysteine (Acetylcysteine 20%) 2 ml INH RBID [facility] Last Admin: 11/11/17 07:51 Dose: 2 ml Benzocaine/Menthol (Cepacol Sore Throat) 1 zeyad PO Q3 PRN PRN Reason: Sore Throat Gentamicin Sulfate/Sodium Chloride (Gentamicin 80mg/50ml Ns) 80 mg in 50 mls @ 49.02 mls/hr IVPB Q8H [facility] PRN Reason: Protocol Last Admin: 11/10/17 04:32 Dose: 49.02 mls/hr Gentamicin Sulfate/Sodium Chloride (Gentamicin 80mg/50ml Ns) 80 mg in 50 mls @ 50 mls/hr IVPB Q8 [facility] Last Admin: 11/11/17 12:03 Dose: 50 mls/hr Levalbuterol HCl (Xopenex) 1.25 mg INH RQ8 [facility] Last Admin: 11/11/17 07:51 Dose: 1.25 mg Ondansetron HCl (Zofran Inj) 4 mg IVP Q6 PRN PRN Reason: Nausea/Vomiting Last Admin: 11/11/17 08:52 Dose: 4 mg Pantoprazole Sodium (Protonix Inj) 40 mg IVP DAILY [facility] Last Admin: 11/11/17 08:54 Dose: 40 mg Phenol/Menthol (Phenaseptic 1.4% Throat [place]) 1 spry MT Q2 PRN PRN Reason: Sore Throat Last Admin: 11/11/17 08:56 Dose: 1 spray Physical Exam - Constitutional Appears: Cachectic, Chronically Ill - Head Exam Head Exam: NORMOCEPHALIC - Eye Exam Eye Exam: PERRL. absent: Scleral icterus - ENT Exam ENT Exam: Mucous Membranes Dry - Neck Exam Neck exam: Negative for: Lymphadenopathy - Respiratory Exam Respiratory Exam: Decreased Breath Sounds, Prolonged Expiratory Phase, Rales, Rhonchi - Cardiovascular Exam Cardiovascular Exam: Tachycardia, REGULAR RHYTHM, +S1, +S2 - GI/Abdominal Exam GI & Abdominal Exam: Diminished Bowel Sounds, Soft. absent: Tenderness - Rectal Exam Rectal Exam: Deferred - Exam Exam: NORMAL INSPECTION - Extremities Exam Extremities exam: Positive for: pedal pulses present. Negative for: calf tenderness, pedal edema, tenderness - Back Exam Back exam: absent: CVA tenderness (L), CVA tenderness (R) - Neurological Exam Neurological exam: Alert, CN II-XII Intact, Oriented x3, Reflexes Normal - Psychiatric Exam Psychiatric exam: Depressed - Skin Skin Exam: Dry Results - Vital Signs Recent Vital Signs: Last Vital Signs Temp 98.6 F 11/11/17 08:31 Pulse 102 H 11/11/17 08:31 Resp 20 11/11/17 08:31 BP 97/57 L 11/11/17 08:31 Pulse Ox 94 L 11/11/17 08:31 - Labs Result Diagrams: 11/09/17 07:00 11/09/17 12:20 Assessment & Plan (1) Acute bronchitis with chronic obstructive pulmonary disease (COPD) Status: Acute (2) Atrial fibrillation Status: Acute (3) Bronchiectasis Status: Acute (4) Failure to thrive in adult Status: Acute - Assessment and Plan (Free Text) Assessment: severe exxac copd/ recurrent chronic pseudomonas lung / bronchiectasis might benefit from long course iv rx and /or inhaled tobra very poor prognosis w/o lung transplant
[2017-11-11] MEDS: Nystatin 100,000 Units/ml Oral Susp 5 ml UD PO SCH ×3 (14:54→21:25)
[2017-11-12] MEDS: Gentamicin 80mg/50ml NS 80 MG/50 ML BAG IVPB SCH ×2 (01:10→09:32)
[2017-11-12 06:58] LABS: BASO # 0.1 K/uL (0.0-0.2); BASO % 0.7 % (0.0-2.0); EOS # 0.2 K/uL (0.0-0.7); EOS % 1.9 % (0.0-4.0); HEMOGLOBIN 9.4 g/dL (12.0-16.0); LYMPH # 1.7 K/uL (1.0-4.3); LYMPH % 16.8 % (20.0-40.0); MEAN CELL VOLUME 84.9 fl (81.0-99.0); MEAN CORPUSCULAR HEMOGLOBIN 27.9 pg (27.0-31.0); MEAN CORPUSCULAR HGB CONC 32.9 g/dL (33.0-37.0); MEAN PLATELET VOLUME 8.8 fl (7.2-11.7); MONO # 1.3 K/uL (0.0-0.8); MONO % 12.5 % (0.0-10.0); NEUT # 6.8 K/uL (1.8-7.0); NEUT % 68.1 % (50.0-75.0); RBC 3.38 Mil/uL (3.80-5.20); RED CELL DISTRIBUTION WIDTH 15.2 % (11.5-14.5)
[2017-11-12 07:32] LABS: CALCIUM 8.4 mg/dL (8.4-10.2)
[2017-11-12] MEDS: Levalbuterol 1.25 MG/3 ML Inhal Soln UD INH SCH (08:02)
[2017-11-12] MEDS: Acetylcysteine 20% Inhal Soln (4ml) INH SCH (08:02)
[2017-11-12 08:21] VITALS: RESP 20
[2017-11-12] MEDS: Nystatin 100,000 Units/ml Oral Susp 5 ml UD PO SCH ×3 (09:28→16:34)
--- NOTE | 2017-11-12 09:45 | CP.PCM.PN ---
Subjective - Date & Time of Evaluation Date of Evaluation: 11/12/17 Time of Evaluation: 09:45 - Subjective Subjective: COUGH PERSISTS LESS DYSPNEA NAUSEA PRESENT BUT LESS Objective - Vital Signs/Intake and Output Vital Signs (last 24 hours): Temp Pulse Resp BP Pulse Ox 97.9 F 91 H 20 91/50 L 93 L 11/12/17 08:20 11/12/17 08:20 11/12/17 08:20 11/12/17 08:20 11/12/17 08:20 - Medications Medications: Current Medications Acetaminophen (Tylenol 325mg Tab) 650 mg PO Q6 PRN PRN Reason: Headache Last Admin: 11/10/17 18:42 Dose: 650 mg Acetylcysteine (Acetylcysteine 20%) 2 ml INH RBID [facility] Last Admin: 11/12/17 08:02 Dose: 2 ml Benzocaine/Menthol (Cepacol Sore Throat) 1 zeyad PO Q3 PRN PRN Reason: Sore Throat Last Admin: 11/12/17 09:28 Dose: 1 zeayd Gentamicin Sulfate/Sodium Chloride (Gentamicin 80mg/50ml Ns) 80 mg in 50 mls @ 50 mls/hr IVPB Q8 [facility] Last Admin: 11/12/17 09:32 Dose: 50 mls/hr Levalbuterol HCl (Xopenex) 1.25 mg INH RQ8 [facility] Last Admin: 11/12/17 08:02 Dose: 1.25 mg Nystatin (Nystatin Oral Susp) 5 ml PO QID [facility] Last Admin: 11/12/17 09:28 Dose: 5 ml Ondansetron HCl (Zofran Inj) 4 mg IVP Q6 PRN PRN Reason: Nausea/Vomiting Last Admin: 11/12/17 09:36 Dose: 4 mg Pantoprazole Sodium (Protonix Inj) 40 mg IVP DAILY [facility] Last Admin: 11/12/17 09:27 Dose: 40 mg Phenol/Menthol (Phenaseptic 1.4% Throat [place]) 1 spry MT Q2 PRN PRN Reason: Sore Throat Last Admin: 11/11/17 21:25 Dose: 1 spray - Labs Labs: 11/12/17 05:45 11/12/17 05:45 PT 13.2 Seconds (9.8-13.1) H 11/07/17 12:10 INR 1.2 (0.9-1.2) 11/07/17 12:10 APTT 29.4 Seconds (25.6-37.1) 11/07/17 12:10 - Constitutional Appears: Chronically Ill - Head Exam Head Exam: ATRAUMATIC, NORMAL INSPECTION, NORMOCEPHALIC - Eye Exam Eye Exam: EOMI, Normal appearance, PERRL Pupil Exam: NORMAL ACCOMODATION, PERRL - ENT Exam ENT Exam: Mucous Membranes Moist, Normal Exam - Neck Exam Neck Exam: Full ROM, Normal Inspection. absent: Lymphadenopathy - Respiratory Exam Respiratory Exam: Decreased Breath Sounds, Rales, Wheezes, NORMAL BREATHING PATTERN - Cardiovascular Exam Cardiovascular Exam: REGULAR RHYTHM, +S1, +S2. absent: Murmur - GI/Abdominal Exam GI & Abdominal Exam: Soft, Normal Bowel Sounds. absent: Tenderness - Rectal Exam Rectal Exam: NORMAL INSPECTION - Extremities Exam Extremities Exam: Full ROM, Normal Capillary Refill, Normal Inspection. absent : Joint Swelling, Pedal Edema - Back Exam Back Exam: NORMAL INSPECTION - Neurological Exam Neurological Exam: Alert, Awake, CN II-XII Intact, Normal Gait, Oriented x3 - Psychiatric Exam Psychiatric exam: Normal Affect, Normal Mood - Skin Skin Exam: Dry, Intact, Normal Color, Warm Assessment and Plan - Assessment and Plan (Free Text) Assessment: ACUTE BRONCHIECTASES ACUTE COPD GASTRITIS ARRYTHMIAS PERSISTENT PSEUDOMONAS PULMONARY INFECTION Plan: CONTINUE PRESENT RX FOR D/C TO SUBACUTE CARE ON FRIDAY
--- NOTE | 2017-11-12 13:34 | CP.PCM.PN ---
Subjective - Date & Time of Evaluation Date of Evaluation: 11/12/17 Time of Evaluation: 07:00 - Subjective Subjective: events noted PO intake poor iv rx in -progress Objective - Vital Signs/Intake and Output Vital Signs (last 24 hours): Temp Pulse Resp BP Pulse Ox 97.9 F 91 H 20 91/50 L 93 L 11/12/17 08:20 11/12/17 08:20 11/12/17 08:20 11/12/17 08:20 11/12/17 08:20 - Medications Medications: Current Medications Acetaminophen (Tylenol 325mg Tab) 650 mg PO Q6 PRN PRN Reason: Headache Last Admin: 11/10/17 18:42 Dose: 650 mg Acetylcysteine (Acetylcysteine 20%) 2 ml INH RBID [facility] Last Admin: 11/12/17 08:02 Dose: 2 ml Benzocaine/Menthol (Cepacol Sore Throat) 1 zeyad PO Q3 PRN PRN Reason: Sore Throat Last Admin: 11/12/17 09:28 Dose: 1 zeyad Gentamicin Sulfate/Sodium Chloride (Gentamicin 80mg/50ml Ns) 80 mg in 50 mls @ 50 mls/hr IVPB Q8 [facility] Last Admin: 11/12/17 09:32 Dose: 50 mls/hr Levalbuterol HCl (Xopenex) 1.25 mg INH RQ8 [facility] Last Admin: 11/12/17 08:02 Dose: 1.25 mg Nystatin (Nystatin Oral Susp) 5 ml PO QID [facility] Last Admin: 11/12/17 09:28 Dose: 5 ml Ondansetron HCl (Zofran Inj) 4 mg IVP Q6 PRN PRN Reason: Nausea/Vomiting Last Admin: 11/12/17 09:36 Dose: 4 mg Pantoprazole Sodium (Protonix Inj) 40 mg IVP DAILY [facility] Last Admin: 11/12/17 09:27 Dose: 40 mg Phenol/Menthol (Phenaseptic 1.4% Throat [place]) 1 spry MT Q2 PRN PRN Reason: Sore Throat Last Admin: 11/11/17 21:25 Dose: 1 spray - Labs Labs: 11/12/17 05:45 11/12/17 05:45 PT 13.2 Seconds (9.8-13.1) H 11/07/17 12:10 INR 1.2 (0.9-1.2) 11/07/17 12:10 APTT 29.4 Seconds (25.6-37.1) 11/07/17 12:10 - Constitutional Appears: Non-toxic, Cachectic, Chronically Ill - Head Exam Head Exam: NORMOCEPHALIC - Eye Exam Eye Exam: PERRL - ENT Exam ENT Exam: Mucous Membranes Dry - Neck Exam Neck Exam: absent: Lymphadenopathy - Respiratory Exam Respiratory Exam: Decreased Breath Sounds - Cardiovascular Exam Cardiovascular Exam: REGULAR RHYTHM - GI/Abdominal Exam GI & Abdominal Exam: Distended - Rectal Exam Rectal Exam: Deferred Assessment and Plan (1) Acute bronchitis with chronic obstructive pulmonary disease (COPD) Status: Acute (2) Atrial fibrillation Status: Acute (3) Bronchiectasis Status: Acute (4) Failure to thrive in adult Status: Acute
[2017-11-12] MEDS ORDERED: Gentamicin 80mg/50ml NS 80 MG/50 ML BAG IVPB SCH (13:45)
[2017-11-12 16:14] VITALS: BP 93/60; PULSE 93; TEMP 98.2; O2SAT 92
== END 2017-11-12 18:10 | DRG 190 ==
LOC: H.ER 11:14 → H.ERHOLD 14:35 → H.TEL 18:10 → H.MEDSURG1 11-09 13:08
PROVIDERS: ADMIT Internal Medicine Pulmonary Disease; ATTEND Internal Medicine Pulmonary Disease
PROC: 3E0F73Z Introduction of Anti-inflammatory into Respiratory Tract, Via Natural or Artificial Opening (ICD-10-PCS; principal; 2017-11-07)
DX: J44.0 Chronic obstructive pulmonary disease with (acute) lower respiratory infection (principal); J15.1 Pneumonia due to Pseudomonas; J44.1 Chronic obstructive pulmonary disease with (acute) exacerbation; J20.9 Acute bronchitis, unspecified; Z68.1 Body mass index [BMI] 19.9 or less, adult; I48.2 Chronic atrial fibrillation; E86.0 Dehydration; D63.8 Anemia in other chronic diseases classified elsewhere; I34.1 Nonrheumatic mitral (valve) prolapse; I25.10 Atherosclerotic heart disease of native coronary artery without angina pectoris; K29.70 Gastritis, unspecified, without bleeding; K52.9 Noninfective gastroenteritis and colitis, unspecified; R62.7 Adult failure to thrive; I10 Essential (primary) hypertension; Z86.711 Personal history of pulmonary embolism; Z87.01 Personal history of pneumonia (recurrent); Z87.11 Personal history of peptic ulcer disease; Z87.891 Personal history of nicotine dependence; Z88.0 Allergy status to penicillin; Z95.0 Presence of cardiac pacemaker; Z88.6 Allergy status to analgesic agent; Z88.1 Allergy status to other antibiotic agents; Z88.2 Allergy status to sulfonamides

== ENCOUNTER 2017-11-12 15:01 | Inpatient (IN) | payer OTHER, BC ==
[2017-11-12 18:24] VITALS: BMI 15.8
[2017-11-12] MEDS ORDERED: Tuberculin 5 Units/0.1 ml Inj ID ONE (20:00)
[2017-11-12] MEDS: Acetylcysteine 20% Inhal Soln (4ml) INH SCH (20:20)
[2017-11-12] MEDS: Nystatin 100,000 Units/ml Oral Susp 5 ml UD PO SCH (21:30)
[2017-11-13] MEDS: Levalbuterol 1.25 MG/3 ML Inhal Soln UD INH PRN ×2 (07:25→20:27)
[2017-11-13] MEDS: Acetylcysteine 20% Inhal Soln (4ml) INH SCH ×2 (07:25→20:27)
[2017-11-13] MEDS: Benzocaine/Menthol (Cepacol) Lozenge PO PRN (08:12)
[2017-11-13] MEDS: Nystatin 100,000 Units/ml Oral Susp 5 ml UD PO SCH ×4 (08:12→21:42)
[2017-11-13] MEDS: Phenol 1.4% Throat Spray MT PRN ×2 (08:13→21:38)
[2017-11-13] MEDS: Cholecalciferol 1,000 INTLU TAB PO SCH (08:25)
[2017-11-13] MEDS ORDERED: Sodium Chloride 3% for Inhalation 4 ML VIAL.NEB IH PRN (08:40)
[2017-11-13] MEDS ORDERED: OMEGA PO SCH (09:00)
[2017-11-13] MEDS ORDERED: EPA PO SCH (09:00)
[2017-11-13] MEDS ORDERED: Gentamicin 80mg/50ml NS 80 MG/50 ML BAG IVPB SCH (09:00)
[2017-11-13] MEDS ORDERED: DHA PO SCH (09:00)
[2017-11-13] MEDS ORDERED: GENTAMICIN 80 MG/50 ML IVPB SCH (09:00)
[2017-11-13] MEDS ORDERED: [UNRECOGNIZED DRUG - OTHER] IVPB SCH (09:00)
[2017-11-13] MEDS ORDERED: FISH OIL PO SCH (09:00)
[2017-11-13] MEDS: Sucralfate 1 gm/10 ml Oral Susp UD PO SCH ×3 (11:53→21:38)
--- NOTE | 2017-11-13 14:10 | RAD ---
HISTORY: PNEUMONIA COMPARISON: Chest radiograph dated 11/07/2017. TECHNIQUE: Chest PA and lateral FINDINGS: LUNGS: Stable chronic prominence of the bilateral interstitial markings. Hyperinflated lungs. Biapical and bibasilar scarring. . PLEURA: No significant pleural effusion identified. No pneumothorax apparent. CARDIOVASCULAR: Left subclavian access pacemaker redemonstrated. Atherosclerotic aortic calcifications. Cardiomediastinal silhouette unchanged. OSSEOUS STRUCTURES: Unchanged. VISUALIZED UPPER ABDOMEN: Normal. OTHER FINDINGS: Right upper extremity PICC, unchanged. . IMPRESSION: Stable chronic prominence of the bilateral interstitial markings. No focal consolidation or pleural effusion.
[2017-11-13] MEDS: guaiFENesin DM 200 mg-20 mg/10 ml UD PO PRN (16:08)
[2017-11-13] MEDS: Gentamicin 80mg/50ml NS 80 MG/50 ML BAG IVPB SCH (16:11)
--- NOTE | 2017-11-13 20:00 | HP ---
HISTORY OF PRESENT ILLNESS: Mrs. Mccord is an 82-year-old female who was transferred from the medical floor to the Transitional Care Unit after she was admitted with diarrhea, generalized malaise, low blood pressure, pneumonia due to Pseudomonas and acute exacerbation of chronic obstructive pulmonary disease and bronchiectasis. She is in need of IV antibiotic therapy with gentamicin and was transferred to Transitional Care Unit for same. PAST MEDICAL HISTORY: She has a past medical history as mentioned above. FAMILY HISTORY: Nonrevealing. SOCIAL HISTORY: Socially, she does not drink, but quit smoking several years ago. REVIEW OF SYSTEMS: Essentially remarkable for generalized malaise, cough productive of thick tenacious sputum, abdominal pain with nausea and shortness of breath. PHYSICAL EXAMINATION: GENERAL: The patient is alert, oriented, appears to be still in some distress. VITAL SIGNS: Blood pressure 102/52, pulse of 96, respiratory rate is 20. She is febrile. Temperature of 98.4 degrees Fahrenheit, O2 sat is 93% on room air. SKIN: Shows fair turgor. HEENT: Pupils are equal, reactive to light and accommodation. Mouth shows fair hygiene with mucous engorgement of pharynx and nasal congestion. NECK: JVP flat. HEART: Regular. There is a pacemaker in place over the left anterior chest wall. LUNGS: Fair aeration with scattered bilateral rales and basal dullness. ABDOMEN: Soft, nontender, no organomegaly. EXTREMITIES: Shows no edema or cyanosis. CENTRAL NERVOUS SYSTEM: Grossly intact. RECTAL: Deferred. GENITAL: Deferred. LABORATORY DATA: Pending. Chest x-ray is pending. IMPRESSION: Acute exacerbation of bronchiectasis with recurrent Pseudomonas pulmonary infection (Pseudomonas pneumonia), acute exacerbation of chronic obstructive pulmonary disease, cardiac arrhythmia, status post pacemaker placement, gastroenteritis so far resolved, anxiety disorder, acute exacerbation of chronic obstructive pulmonary disease and chronic anemia. PLAN: Continue IV gentamicin. Continue aerosolized bronchodilators. We will give Carafate 4 times a day for presumed diagnosis of gastritis, oxygen therapy already started, Mucomyst b.i.d. to help expectorate specimens, will also give nasal spray to decongest nasal mucosa. The patient will need at least 2-3 more weeks of IV antibiotics prior to discharge home. Infectious Disease evaluation already requested. Castillo Castaneda MD [facility] # [phone]
[2017-11-14 06:38] LABS: BASO # 0.1 K/uL (0.0-0.2); BASO % 0.9 % (0.0-2.0); EOS # 0.3 K/uL (0.0-0.7); EOS % 4.6 % (0.0-4.0); LYMPH # 1.3 K/uL (1.0-4.3); LYMPH % 17.8 % (20.0-40.0); MEAN CELL VOLUME 83.4 fl (81.0-99.0); MEAN CORPUSCULAR HEMOGLOBIN 28.5 pg (27.0-31.0); MEAN CORPUSCULAR HGB CONC 34.2 g/dL (33.0-37.0); MEAN PLATELET VOLUME 8.8 fl (7.2-11.7); MONO # 1.4 K/uL (0.0-0.8); MONO % 19.6 % (0.0-10.0); NEUT # 4.1 K/uL (1.8-7.0); NEUT % 57.1 % (50.0-75.0); NRBC % 0.1 % (0.0-0.0); RBC 3.16 Mil/uL (3.80-5.20); RED CELL DISTRIBUTION WIDTH 15.6 % (11.5-14.5); WHITE BLOOD COUNT 7.2 K/uL (4.8-10.8)
[2017-11-14 06:47] LABS: CALCIUM 8.4 mg/dL (8.4-10.2)
[2017-11-14] MEDS: Sucralfate 1 gm/10 ml Oral Susp UD PO SCH ×4 (07:58→22:32)
[2017-11-14] MEDS: Acetylcysteine 20% Inhal Soln (4ml) INH SCH ×2 (08:05→21:13)
[2017-11-14] MEDS: Cholecalciferol 1,000 INTLU TAB PO SCH (09:09)
[2017-11-14] MEDS: Nystatin 100,000 Units/ml Oral Susp 5 ml UD PO SCH ×4 (09:09→22:32)
--- NOTE | 2017-11-14 13:06 | CP.PCM.PN ---
Subjective - Date & Time of Evaluation Date of Evaluation: 11/14/17 Time of Evaluation: 13:07 - Subjective Subjective: C/O DIZZINESS/ABDOMINAL DISCOMFORT AND NAUSEA TODAY Objective - Vital Signs/Intake and Output Vital Signs (last 24 hours): Temp Pulse Resp BP Pulse Ox 96.8 F L 90 20 99/44 L 92 L 11/14/17 09:30 11/14/17 09:30 11/14/17 09:30 11/14/17 09:30 11/14/17 09:30 - Medications Medications: Current Medications Acetaminophen (Tylenol 325mg Tab) 650 mg PO Q6 PRN PRN Reason: Headache Acetylcysteine (Acetylcysteine 20%) 2 ml INH RBID [facility] Last Admin: 11/14/17 08:05 Dose: Not Given Benzocaine/Menthol (Cepacol Sore Throat) 1 zeyad PO Q3 PRN PRN Reason: Sore Throat Last Admin: 11/13/17 08:12 Dose: 1 zeyad Cholecalciferol (Vitamin D) 1,000 intlu PO DAILY [facility] Last Admin: 11/14/17 09:09 Dose: 1,000 intlu Fluticasone Propionate (Flonase) 1 spr SAMEERA BID [facility] Last Admin: 11/14/17 09:09 Dose: 1 spr Guaifenesin/Dextromethorphan (Robitussin Dm) 10 ml PO Q6 PRN PRN Reason: Cough Last Admin: 11/13/17 16:08 Dose: 10 ml Gentamicin Sulfate/Sodium Chloride (Gentamicin 80mg/50ml Ns) 80 mg in 50 mls @ 50 mls/hr IVPB DAILY@1700 [facility] Last Admin: 11/13/17 16:11 Dose: 50 mls/hr Levalbuterol HCl (Xopenex) 1.25 mg INH RQ8 PRN PRN Reason: Shortness of Breath Last Admin: 11/13/17 20:27 Dose: 1.25 mg Nystatin (Nystatin Oral Susp) 5 ml PO QID [facility] Last Admin: 11/14/17 12:45 Dose: 5 ml Ondansetron HCl (Zofran Inj) 4 mg IVP Q6 PRN PRN Reason: Nausea/Vomiting Last Admin: 11/14/17 09:09 Dose: 4 mg Phenol/Menthol (Phenaseptic 1.4% Throat [place]) 1 spry MT Q2 PRN PRN Reason: Sore Throat Last Admin: 11/13/17 21:38 Dose: 1 spr Sucralfate (Carafate Oral Susp) 1 gm PO ACHS [facility] Last Admin: 11/14/17 11:38 Dose: 1 gm - Labs Labs: 11/14/17 05:50 11/14/17 05:50 - Constitutional Appears: Chronically Ill - Head Exam Head Exam: ATRAUMATIC, NORMAL INSPECTION, NORMOCEPHALIC - Eye Exam Eye Exam: EOMI, Normal appearance, PERRL Pupil Exam: NORMAL ACCOMODATION, PERRL - ENT Exam ENT Exam: Mucous Membranes Moist, Normal Exam - Neck Exam Neck Exam: Full ROM, Normal Inspection. absent: Lymphadenopathy - Respiratory Exam Respiratory Exam: Decreased Breath Sounds, Rales, Wheezes, NORMAL BREATHING PATTERN - Cardiovascular Exam Cardiovascular Exam: REGULAR RHYTHM, +S1, +S2. absent: Murmur - GI/Abdominal Exam GI & Abdominal Exam: Soft, Tenderness, Normal Bowel Sounds - Rectal Exam Rectal Exam: NORMAL INSPECTION - Extremities Exam Extremities Exam: Full ROM, Normal Capillary Refill, Normal Inspection. absent : Joint Swelling, Pedal Edema - Back Exam Back Exam: NORMAL INSPECTION - Neurological Exam Neurological Exam: Alert, Awake, CN II-XII Intact, Normal Gait, Oriented x3 - Psychiatric Exam Psychiatric exam: Normal Affect, Normal Mood - Skin Skin Exam: Dry, Intact, Normal Color, Warm Assessment and Plan - Assessment and Plan (Free Text) Assessment: ACUTE EXAC OF COPD BRONCHIECTASIS ASHD ANEMIA HYPOKALEMIA GASTRITIS PSEUDOMONAS PNEUMONIA Plan: CONTINUE CURRENT RX IV FLUIDS
--- NOTE | 2017-11-14 13:39 | CP.PCM.CON ---
History of Present Illness - History of Present Illness History of Present Illness: 82 YO FEMALE WITH SEVERE COPD/ BRONCHIECTASIS AND RECURRENT PSEUDOMONAS INFECTION OF LUNG [facility] - recently trerated as out pt HAS MULTIPLE ALLERGIES TO PCN, QUINOLONES MAKING OPTIONS FEW AGREE WITH GENT[facility] FOR NOW Review of Systems - Constitutional Constitutional: As Per HPI - EENT Eyes: absent: As Per HPI, Blind Spots, Blurred Vision, Change in Vision, Decreased Night Vision, Diplopia, Discharge, Dry Eye, Exophthalmos, Floaters, Irritation, Itchy Eyes, Loss of Peripheral Vision, Pain, Photophobia, Requires Corrective Lenses, Sees Flashes, Spots in Vision, Tunnel Vision, Other Visual Disturbances, Loss of Vision, Other Ears: absent: As Per HPI, Decreased Hearing, Ear Discharge, Ear Pain, Tinnitus, Abnormal Hearing, Disequilibrium, Dizziness, Other Nose/Mouth/Throat: absent: As Per HPI, Epistaxis, Nasal Congestion, Nasal Discharge, Nasal Obstruction, Nasal Trauma, Nose Pain, Post Nasal Drip, Sinus Pain, Sinus Pressure, Bleeding Gums, Change in Voice, Dental Pain, Dry Mouth, Dysphagia, Halitosis, Hoarsness, Lip Swelling, Mouth Lesions, Mouth Pain, Odynophagia, Sore Throat, Throat Swelling, Tongue Swelling, Facial Pain, Neck Pain, Neck Mass, Other - Breasts Breasts: absent: As Per HPI, Change in Shape, Mass, Pain, Nipple Discharge, Nipple Inversion, Skin Changes, Swelling, Other - Cardiovascular Cardiovascular: As Per HPI - Respiratory Respiratory: As Per HPI - Gastrointestinal Gastrointestinal: absent: As Per HPI, Abdominal Pain, Belching, Bloating, Change in Bowel Habits, Change in Stool Character, Coffee Ground Emesis, Constipation, Cramping, Diarrhea, Dyspepsia, Dysphagia, Early Satiety, Excessive Flatus, Fecal Incontinence, Heartburn, Hematemesis, Hematochezia, Loose Stools, Melena, Nausea, Odynophagia, Temesmus, Vomiting, Other - Genitourinary Genitourinary: absent: As Per HPI, Change in Urinary Stream, Difficulty Urinating, Dysuria, Flank Pain, Hematuria, Pyuria, Nocturia, Urinary Incontinence, Urinary Frequency, Urinary Hesitance, Urinary Urgency, Voiding Freq/Small Amts, Freq UTI, Hx Renal/Bladder Calculi, Hx /Renal Surgery, Bladder Distension, Other - Reproductive: Female Reproductive:Female: absent: As Per HPI, Amenorrhea, Amenorrhea/ Control, Currently Menstual, Cycle <21 Days, Cycle >35 Days, Cycle Variable, Menses 1-7 Days, Menses >/= 8 Days, Menses Variable, Cycle > 4 Weeks Between, No Menses for 6 Months, Heavy Menses, Light Menses, Normal Menses, Spotting Between Cycles , S/P Hysterectomy, Menopausal, Post Menopausal, Premenarche, Abnormal Vaginal Bleeding, Dysmenorrhea, Dyspareunia, Genital Lesions, Genital Pruritis, Pelvic Pain, Prolapse Symptoms, Sexual Dysfunction, Vaginal Discharge, Vaginal Dryness , Vaginal Odor, Vaginal Pruritis, Other - Menstruation Menstruation: absent: As Per HPI, Amenorrhea, Amenorrhea/ Control, Currently Menstual, Cycle <21 Days, Cycle >35 Days, Cycle Variable, Menses 1-7 Days, Menses >/= 8 Days, Menses Variable, Cycle > 4 Weeks Between, No Menses for 6 Months, Heavy Menses, Light Menses, Normal Menses, Spotting Between Cycles , S/P Hysterectomy, Menopausal, Post Menopausal, Premenarche, Abnormal Vaginal Bleeding, Dysmenorrhea, Other - Musculoskeletal Musculoskeletal: absent: As Per HPI, Abnormal Gait, Arthralgias, Atrophy, Back Pain, Deformity, Joint Swelling, Limited Range of Motion, Loss of Height, Muscle Cramps, Muscle Weakness, Myalgias, Neck Pain, Numbness, Radiating Pain into Limb, Stiffness, Tingling, Other - Integumentary Integumentary: absent: As Per HPI, Acne, Alopecia, Bleeding Lesions, Change in Hair, Change in Nails, Change in Pigmentation, Changing Lesions, Dry Skin, Erythema, Furuncle, Hirsutism, Lesions, New Lesions, Non-Healing Lesions, Photosensitivity, Pruritus, Rash, Skin Pain, Skin Ulcer, Sores, Striae, Swelling , Unusual Bruising, Wounds, Jaundice, Other - Neurological Neurological: absent: As Per HPI, Abnormal Gait, Abnormal Hearing, Abnormal Movements, Abnormal Speech, Behavioral Changes, Burning Sensations, Confusion, Convulsions, Disequilibrium, Dizziness, Numbness, Focal Weakness, Frequent Falls , Headaches, Lack of Coordination, Loss of Vision, Memory Loss, Paresthesias, Radicular Pain, Restless Legs, Sensory Deficit, Syncope, Tingling, Tremor, Vertigo, Weakness, Other Visual Disturbances, Other - Psychiatric Psychiatric: absent: As Per HPI, Abnormal Sleep Pattern, Anhedonia, Anxiety, Auditory Hallucinations, Behavioral Changes, Change in Appetite, Change in Libido, Confusion, Depression, Difficulty Concentrating, Hallucinations, Homicidal Ideation, Hopelessness, Irritability, Memory Loss, Mood Swings, Panic Attacks, Paranoia, Suicidal Ideation, Visual Hallucinations, Tactile Hallucinations, Other - Endocrine Endocrine: absent: As Per HPI, Change in Body Appearance, Change in Libido, Cold Intolorance, Deepening of Voice, Excessive Sweating, Fatigue, Flushing, Heat Intolorance, Increase in Ring/Shoe/Hat Size, Palpitations, Polydipsia, Polyphagia, Polyuria, Other - Hematologic/Lymphatic Hematologic: absent: As Per HPI, Easy Bleeding, Easy Bruising, Lymphadenopathy, Other Past Patient History - Infectious Disease Hx of Infectious Diseases: None - Past Medical History & Family History Past Medical History?: Yes - Past Social History Smoking Status: Former Smoker Past Patient History - Infectious Disease Hx of Infectious Diseases: None - Past Medical History & Family History Past Medical History?: Yes - Past Social History Smoking Status: Former Smoker - CARDIAC Hx Cardiac Disorders: Yes Hx Atrial Fibrillation: Yes Hx Cardia Arrhythmia: Yes Hx Congestive Heart Failure: Yes Hx Hypercholesterolemia: No Hx Hypertension: Yes Hx Mitral Valve Prolapse: Yes Hx Pacemaker: Yes (left) Hx Peripheral Edema: No - PULMONARY Hx Respiratory Disorders: Yes Hx Asthma: Yes Hx Bronchitis: Yes Hx Chronic Obstructive Pulmonary Disease (COPD): Yes Hx Emphysema: Yes Hx Lung Cancer: No Hx Pneumonia: Yes Hx Pulmonary Embolism: Yes Hx Sleep Apnea: No - NEUROLOGICAL Hx Neurological Disorder: No Hx Alzheimer's Disease: No Hx Dementia: No Hx Migraine: No Hx Multiple Sclerosis: No Hx Parkinson's Disease: No Hx Seizures: No Hx Transient Ischemic Attacks (TIA): No - HEENT Hx HEENT Problems: No - RENAL Hx Chronic Kidney Disease: No - ENDOCRINE/METABOLIC Hx Endocrine Disorders: No Hx Hyperthyroidism: No Hx Hypothyroidism: No - HEMATOLOGICAL/ONCOLOGICAL Hx Blood Disorders: No Hx AIDS: No Hx Anemia: No Hx Blood Transfusions: Yes Hx Human Immunodeficiency Virus (HIV): No Hx Sickle Cell Disease: No - INTEGUMENTARY Hx Dermatological Problems: No - MUSCULOSKELETAL/RHEUMATOLOGICAL Hx Musculoskeletal Disorders: Yes Hx Arthritis: No Hx Falls: Yes Hx Fractures: Yes (ribs, wrist,thumb) Hx Osteoporosis: No Hx Rheumatoid Arthritis: No - GASTROINTESTINAL Hx Gastrointestinal Disorders: Yes Hx Crohn's Disease: No Hx Diverticulitis: No Hx Gall Bladder Disease: Yes (gb removed) Hx Gastritis: Yes Hx Pancreatitis: No - GENITOURINARY/GYNECOLOGICAL Hx Genitourinary Disorders: No Hx Sexually Transmitted Disorders: No - PSYCHIATRIC Hx Psychophysiologic Disorder: No Hx Anxiety: No Hx Bipolar Disorder: No Hx Depression: No Hx Paranoia: No Hx Post Traumatic Stress Disorder: No Hx Schizophrenia: No Hx Substance Use: No - SURGICAL HISTORY Hx Surgeries: Yes Hx Appendectomy: Yes Hx Section: Yes (twice) Hx Cholecystectomy: Yes Hx Coronary Artery Bypass Graft: No Hx Coronary Stent: No Hx Tonsillectomy: No - ANESTHESIA Hx Anesthesia: Yes Hx Anesthesia Reactions: No Hx Malignant Hyperthermia: No Meds Allergies/Adverse Reactions: Allergies Allergy/AdvReac Type Severity Reaction Status Date / Time aztreonam Allergy RASH Verified 04/04/17 18:58 clarithromycin Allergy RASH Verified 11/07/17 11:19 clindamycin Allergy RASH Verified 11/07/17 11:19 erythromycin base Allergy RASH Verified 11/07/17 11:19 ibuprofen Allergy RASH Verified 11/07/17 11:19 levofloxacin [From Levaquin] Allergy RASH Verified 11/07/17 11:19 moxifloxacin HCl Allergy RASH Verified 11/07/17 11:19 [From Avelox] Penicillins Allergy RASH Verified 11/07/17 11:19 rifampin Allergy RASH Verified 11/07/17 11:19 sulfamethoxazole Allergy RASH Verified 11/07/17 11:19 [From Sulfatrim] tramadol HCl [From Ultracet] Allergy RASH Verified 11/07/17 11:19 trimethoprim [From Sulfatrim] Allergy RASH Verified 10/10/17 13:31 vancomycin Allergy RASH Verified 10/10/17 13:31 - Medications Medications: Current Medications Acetaminophen (Tylenol 325mg Tab) 650 mg PO Q6 PRN PRN Reason: Headache Acetylcysteine (Acetylcysteine 20%) 2 ml INH RBID [facility] Last Admin: 11/14/17 08:05 Dose: Not Given Benzocaine/Menthol (Cepacol Sore Throat) 1 zeyad PO Q3 PRN PRN Reason: Sore Throat Last Admin: 11/13/17 08:12 Dose: 1 zeyad Cholecalciferol (Vitamin D) 1,000 intlu PO DAILY [facility] Last Admin: 11/14/17 09:09 Dose: 1,000 intlu Fluticasone Propionate (Flonase) 1 spr SAMEERA BID [facility] Last Admin: 11/14/17 09:09 Dose: 1 spr Guaifenesin/Dextromethorphan (Robitussin Dm) 10 ml PO Q6 PRN PRN Reason: Cough Last Admin: 11/13/17 16:08 Dose: 10 ml Gentamicin Sulfate/Sodium Chloride (Gentamicin 80mg/50ml Ns) 80 mg in 50 mls @ 50 mls/hr IVPB DAILY@1700 [facility] Last Admin: 11/13/17 16:11 Dose: 50 mls/hr Potassium Chloride/Dextrose/Sod Cl (Potassium Chl 20 Meq In D5-1/2ns) 1,000 mls @ 42 mls/hr IV .[id number] [facility] Stop: 11/15/17 13:08 Levalbuterol HCl (Xopenex) 1.25 mg INH RQ8 PRN PRN Reason: Shortness of Breath Last Admin: 11/13/17 20:27 Dose: 1.25 mg Nystatin (Nystatin Oral Susp) 5 ml PO QID [facility] Last Admin: 11/14/17 12:45 Dose: 5 ml Ondansetron HCl (Zofran Inj) 4 mg IVP Q6 PRN PRN Reason: Nausea/Vomiting Last Admin: 11/14/17 09:09 Dose: 4 mg Phenol/Menthol (Phenaseptic 1.4% Throat [place]) 1 spry MT Q2 PRN PRN Reason: Sore Throat Last Admin: 11/13/17 21:38 Dose: 1 spr Sucralfate (Carafate Oral Susp) 1 gm PO ACHS [facility] Last Admin: 11/14/17 11:38 Dose: 1 gm Physical Exam - Constitutional Appears: Chronically Ill - Head Exam Head Exam: ATRAUMATIC, NORMOCEPHALIC - Eye Exam Eye Exam: PERRL. absent: Scleral icterus - ENT Exam ENT Exam: Mucous Membranes Dry - Neck Exam Neck exam: Negative for: Lymphadenopathy - Respiratory Exam Respiratory Exam: Decreased Breath Sounds, Rales - Cardiovascular Exam Cardiovascular Exam: REGULAR RHYTHM - GI/Abdominal Exam GI & Abdominal Exam: Diminished Bowel Sounds, Soft. absent: Tenderness - Rectal Exam Rectal Exam: Deferred - Exam Exam: NORMAL INSPECTION - Extremities Exam Extremities exam: Positive for: pedal pulses present. Negative for: calf tenderness, pedal edema, tenderness - Back Exam Back exam: absent: CVA tenderness (L), CVA tenderness (R) - Neurological Exam Neurological exam: Alert, CN II-XII Intact, Oriented x3, Reflexes Normal - Psychiatric Exam Psychiatric exam: Depressed Results - Vital Signs Recent Vital Signs: Last Vital Signs Temp 96.8 F L 11/14/17 09:30 Pulse 90 11/14/17 09:30 Resp 20 11/14/17 09:30 BP 99/44 L 11/14/17 09:30 Pulse Ox 92 L 11/14/17 09:30 - Labs Result Diagrams: 11/14/17 05:50 11/14/17 05:50 Labs: Laboratory Results - last 24 hr 11/14/17 11/14/17 05:50 05:50 WBC 7.2 RBC 3.16 L Hgb 9.0 L Hct 26.4 L MCV 83.4 MCH 28.5 MCHC 34.2 RDW 15.6 H Plt Count 305 MPV 8.8 Neut % (Auto) 57.1 Lymph % (Auto) 17.8 L [place] % (Auto) 19.6 H Eos % (Auto) 4.6 H Baso % (Auto) 0.9 Neut # (Auto) 4.1 Lymph # (Auto) 1.3 [place] # (Auto) 1.4 H Eos # (Auto) 0.3 Baso # (Auto) 0.1 Sodium 136 Potassium 3.3 L Chloride 92 L Carbon Dioxide 35 H Anion Gap 12 BUN 26 H Creatinine 1.4 H Est GFR ( Amer) 44 Est GFR (Non-Af Amer) 36 Random Glucose 89 Calcium 8.4 Assessment & Plan (1) Acute bronchitis with chronic obstructive pulmonary disease (COPD) Status: Acute (2) Anxiety Status: Acute (3) Arrhythmia Status: Acute (4) Atrial fibrillation Status: Acute (5) Bronchiectasis Status: Acute (6) COPD (chronic obstructive pulmonary disease) Status: Acute (7) COPD with acute exacerbation Status: Acute (8) Chr obstructive pulmonary disease w/ acute lower respiratory infxn Status: Acute (9) Pseudomonas aeruginosa infection Status: Acute - Assessment and Plan (Free Text) Assessment: cont iv rx discussed plan in detail with pt and Dr Castaneda
[2017-11-14] MEDS: Potassium Ch 20mEq in D5-1/2NS 1,000 ML IV SCH (14:56)
[2017-11-14] MEDS: Gentamicin 80mg/50ml NS 80 MG/50 ML BAG IVPB SCH (17:13)
[2017-11-14] MEDS: guaiFENesin DM 200 mg-20 mg/10 ml UD PO PRN (18:51)
[2017-11-15 07:12] LABS: CALCIUM 8.5 mg/dL (8.4-10.2)
[2017-11-15] MEDS: Levalbuterol 1.25 MG/3 ML Inhal Soln UD INH PRN ×2 (07:22→20:19)
[2017-11-15] MEDS: Acetylcysteine 20% Inhal Soln (4ml) INH SCH ×2 (07:22→20:20)
[2017-11-15] MEDS: Sucralfate 1 gm/10 ml Oral Susp UD PO SCH ×4 (08:09→21:15)
[2017-11-15] MEDS: Cholecalciferol 1,000 INTLU TAB PO SCH (08:10)
[2017-11-15] MEDS: Nystatin 100,000 Units/ml Oral Susp 5 ml UD PO SCH ×4 (08:10→21:15)
--- NOTE | 2017-11-15 11:01 | CP.PCM.PN ---
Subjective - Date & Time of Evaluation Date of Evaluation: 11/15/17 Time of Evaluation: 11:01 - Subjective Subjective: STILL COUGHING SOB/NAUSEA/VOMITING AND ABDOMINAL PAIN LESS Objective - Vital Signs/Intake and Output Vital Signs (last 24 hours): Temp Pulse Resp BP Pulse Ox 98.2 F 88 20 97/41 L 98 11/15/17 08:00 11/15/17 08:00 11/15/17 08:00 11/15/17 08:00 11/15/17 08:00 - Medications Medications: Current Medications Acetaminophen (Tylenol 325mg Tab) 650 mg PO Q6 PRN PRN Reason: Headache Acetylcysteine (Acetylcysteine 20%) 2 ml INH RBID [facility] Last Admin: 11/15/17 07:22 Dose: 2 ml Benzocaine/Menthol (Cepacol Sore Throat) 1 zeyad PO Q3 PRN PRN Reason: Sore Throat Last Admin: 11/13/17 08:12 Dose: 1 zeyad Cholecalciferol (Vitamin D) 1,000 intlu PO DAILY [facility] Last Admin: 11/15/17 08:10 Dose: 1,000 intlu Fluticasone Propionate (Flonase) 1 spr SAMEERA BID [facility] Last Admin: 11/15/17 08:10 Dose: 1 spr Guaifenesin/Dextromethorphan (Robitussin Dm) 10 ml PO Q6 PRN PRN Reason: Cough Last Admin: 11/14/17 18:51 Dose: 10 ml Gentamicin Sulfate/Sodium Chloride (Gentamicin 80mg/50ml Ns) 80 mg in 50 mls @ 50 mls/hr IVPB DAILY@1700 [facility] Last Admin: 11/14/17 17:13 Dose: 50 mls/hr Potassium Chloride/Dextrose/Sod Cl (Potassium Chl 20 Meq In D5-1/2ns) 1,000 mls @ 42 mls/hr IV .[id number] [facility] Stop: 11/15/17 13:08 Last Admin: 11/14/17 14:56 Dose: 42 mls/hr Levalbuterol HCl (Xopenex) 1.25 mg INH RQ8 PRN PRN Reason: Shortness of Breath Last Admin: 11/15/17 07:22 Dose: 1.25 mg Nystatin (Nystatin Oral Susp) 5 ml PO QID [facility] Last Admin: 11/15/17 08:10 Dose: 5 ml Ondansetron HCl (Zofran Inj) 4 mg IVP Q6 PRN PRN Reason: Nausea/Vomiting Last Admin: 11/14/17 09:09 Dose: 4 mg Phenol/Menthol (Phenaseptic 1.4% Throat [place]) 1 spry MT Q2 PRN PRN Reason: Sore Throat Last Admin: 11/13/17 21:38 Dose: 1 spr Sucralfate (Carafate Oral Susp) 1 gm PO ACHS [facility] Last Admin: 11/15/17 08:09 Dose: 1 gm - Labs Labs: 11/14/17 05:50 11/15/17 05:30 - Constitutional Appears: Chronically Ill - Head Exam Head Exam: ATRAUMATIC, NORMAL INSPECTION, NORMOCEPHALIC - Eye Exam Eye Exam: EOMI, Normal appearance, PERRL Pupil Exam: NORMAL ACCOMODATION, PERRL - ENT Exam ENT Exam: Mucous Membranes Moist, Normal Exam - Neck Exam Neck Exam: Full ROM, Normal Inspection. absent: Lymphadenopathy - Respiratory Exam Respiratory Exam: Decreased Breath Sounds, Rales, NORMAL BREATHING PATTERN - Cardiovascular Exam Cardiovascular Exam: REGULAR RHYTHM, +S1, +S2. absent: Murmur - GI/Abdominal Exam GI & Abdominal Exam: Soft, Normal Bowel Sounds. absent: Tenderness - Rectal Exam Rectal Exam: NORMAL INSPECTION - Extremities Exam Extremities Exam: Full ROM, Normal Capillary Refill, Normal Inspection. absent : Joint Swelling, Pedal Edema - Back Exam Back Exam: NORMAL INSPECTION - Neurological Exam Neurological Exam: Alert, Awake, CN II-XII Intact, Normal Gait, Oriented x3 - Psychiatric Exam Psychiatric exam: Normal Affect, Normal Mood - Skin Skin Exam: Dry, Intact, Normal Color, Warm Assessment and Plan - Assessment and Plan (Free Text) Assessment: ACUTE EXAC OF COPD BRONCHIECTASES WITH RECURRENT PSEUDOMONAS PULM INFECTION GASTRITIS Plan: CONTINUE PRESENT RX WILL BENEFIT FROM SUBACUTE CARE
[2017-11-15] MEDS: Potassium Ch 20mEq in D5-1/2NS 1,000 ML IV SCH (12:36)
[2017-11-15] MEDS: Gentamicin 80mg/50ml NS 80 MG/50 ML BAG IVPB SCH (16:25)
[2017-11-15] MEDS: guaiFENesin DM 200 mg-20 mg/10 ml UD PO PRN (17:42)
[2017-11-16 07:17] LABS: CALCIUM 8.7 mg/dL (8.4-10.2)
[2017-11-16] MEDS: Nystatin 100,000 Units/ml Oral Susp 5 ml UD PO SCH ×4 (09:01→21:09)
[2017-11-16] MEDS: Cholecalciferol 1,000 INTLU TAB PO SCH (09:02)
[2017-11-16] MEDS: Sucralfate 1 gm/10 ml Oral Susp UD PO SCH ×4 (09:02→21:17)
[2017-11-16] MEDS: Levalbuterol 1.25 MG/3 ML Inhal Soln UD INH PRN ×2 (09:39→19:30)
[2017-11-16] MEDS: Acetylcysteine 20% Inhal Soln (4ml) INH SCH ×2 (09:39→19:29)
--- NOTE | 2017-11-16 10:19 | CP.PCM.PN ---
Subjective - Date & Time of Evaluation Date of Evaluation: 11/16/17 Time of Evaluation: 10:21 - Subjective Subjective: STILL COUGHING FEELS BETTER NO CHEST PAINS/SOB NAUSEA/VOMITING IMPROVED Objective - Vital Signs/Intake and Output Vital Signs (last 24 hours): Temp Pulse Resp BP Pulse Ox 98.2 F 88 20 102/46 L 94 L 11/16/17 08:02 11/16/17 08:02 11/16/17 08:02 11/16/17 08:02 11/16/17 08:02 - Medications Medications: Current Medications Acetaminophen (Tylenol 325mg Tab) 650 mg PO Q6 PRN PRN Reason: Headache Acetylcysteine (Acetylcysteine 20%) 2 ml INH RBID [facility] Last Admin: 11/16/17 09:39 Dose: 2 ml Benzocaine/Menthol (Cepacol Sore Throat) 1 zeyad PO Q3 PRN PRN Reason: Sore Throat Last Admin: 11/13/17 08:12 Dose: 1 zeyad Cholecalciferol (Vitamin D) 1,000 intlu PO DAILY [facility] Last Admin: 11/16/17 09:02 Dose: 1,000 intlu Fluticasone Propionate (Flonase) 1 spr SAMEERA BID [facility] Last Admin: 11/16/17 09:02 Dose: 1 spr Guaifenesin/Dextromethorphan (Robitussin Dm) 10 ml PO Q6 PRN PRN Reason: Cough Last Admin: 11/15/17 17:42 Dose: 10 ml Gentamicin Sulfate/Sodium Chloride (Gentamicin 80mg/50ml Ns) 80 mg in 50 mls @ 50 mls/hr IVPB DAILY@1700 [facility] Last Admin: 11/15/17 16:25 Dose: 50 mls/hr Potassium Chloride/Dextrose/Sod Cl (Potassium Chl 40 Meq In D5-1/2ns) 1,000 mls @ 42 mls/hr IV .[id number] [facility] Stop: 11/17/17 10:16 Levalbuterol HCl (Xopenex) 1.25 mg INH RQ8 PRN PRN Reason: Shortness of Breath Last Admin: 11/16/17 09:39 Dose: 1.25 mg Nystatin (Nystatin Oral Susp) 5 ml PO QID [facility] Last Admin: 11/16/17 09:01 Dose: 5 ml Ondansetron HCl (Zofran Inj) 4 mg IVP Q6 PRN PRN Reason: Nausea/Vomiting Last Admin: 11/15/17 17:42 Dose: 4 mg Phenol/Menthol (Phenaseptic 1.4% Throat [place]) 1 spry MT Q2 PRN PRN Reason: Sore Throat Last Admin: 11/13/17 21:38 Dose: 1 spr Sucralfate (Carafate Oral Susp) 1 gm PO ACHS [facility] Last Admin: 11/16/17 09:02 Dose: 1 gm - Labs Labs: 11/14/17 05:50 11/16/17 05:30 - Constitutional Appears: Chronically Ill - Head Exam Head Exam: ATRAUMATIC, NORMAL INSPECTION, NORMOCEPHALIC - Eye Exam Eye Exam: EOMI, Normal appearance, PERRL Pupil Exam: NORMAL ACCOMODATION, PERRL - ENT Exam ENT Exam: Mucous Membranes Moist, Normal Exam - Neck Exam Neck Exam: Full ROM, Normal Inspection. absent: Lymphadenopathy - Respiratory Exam Respiratory Exam: Decreased Breath Sounds, Rales, Wheezes, NORMAL BREATHING PATTERN - Cardiovascular Exam Cardiovascular Exam: REGULAR RHYTHM, +S1, +S2. absent: Murmur - GI/Abdominal Exam GI & Abdominal Exam: Soft, Normal Bowel Sounds. absent: Tenderness - Rectal Exam Rectal Exam: NORMAL INSPECTION - Extremities Exam Extremities Exam: Full ROM, Normal Capillary Refill, Normal Inspection. absent : Joint Swelling, Pedal Edema - Back Exam Back Exam: NORMAL INSPECTION - Neurological Exam Neurological Exam: Alert, Awake, CN II-XII Intact, Normal Gait, Oriented x3 - Psychiatric Exam Psychiatric exam: Normal Affect, Normal Mood - Skin Skin Exam: Dry, Intact, Normal Color, Warm Assessment and Plan - Assessment and Plan (Free Text) Assessment: ACUTE EXAC OF COPD BRONCHIECTASIS PSUEDOMONAS PNEUMONIA ARRYTHMIAS ANEMIA OF CHRONIC DZ GASTRITIS HYPOKALEMIA Plan: K+SUPPLEMENTS CONTINUE ANTIBIOTIC RX AEROSOLIZED BRONCHODILATORS MONITOR LYTES WILL BENEFIT FROM SUBACUTE CARE
[2017-11-16] MEDS ORDERED: Potassium Chl 40 mEq in D5-1/2 1,000 ML IV SCH (10:30)
--- NOTE | 2017-11-16 15:22 | CP.PCM.PN ---
Subjective - Date & Time of Evaluation Date of Evaluation: 11/16/17 Time of Evaluation: 07:00 - Subjective Subjective: events noted genta trough in am Objective - Vital Signs/Intake and Output Vital Signs (last 24 hours): Temp Pulse Resp BP Pulse Ox 98.2 F 88 20 102/46 L 94 L 11/16/17 10:00 11/16/17 10:00 11/16/17 10:00 11/16/17 10:00 11/16/17 10:00 - Medications Medications: Current Medications Acetaminophen (Tylenol 325mg Tab) 650 mg PO Q6 PRN PRN Reason: Headache Last Admin: 11/16/17 14:38 Dose: 650 mg Acetylcysteine (Acetylcysteine 20%) 2 ml INH RBID [facility] Last Admin: 11/16/17 09:39 Dose: 2 ml Benzocaine/Menthol (Cepacol Sore Throat) 1 zeyad PO Q3 PRN PRN Reason: Sore Throat Last Admin: 11/13/17 08:12 Dose: 1 zeyad Cholecalciferol (Vitamin D) 1,000 intlu PO DAILY [facility] Last Admin: 11/16/17 09:02 Dose: 1,000 intlu Fluticasone Propionate (Flonase) 1 spr SAMEERA BID [facility] Last Admin: 11/16/17 09:02 Dose: 1 spr Guaifenesin/Dextromethorphan (Robitussin Dm) 10 ml PO Q6 PRN PRN Reason: Cough Last Admin: 11/15/17 17:42 Dose: 10 ml Gentamicin Sulfate/Sodium Chloride (Gentamicin 80mg/50ml Ns) 80 mg in 50 mls @ 50 mls/hr IVPB DAILY@1700 [facility] Last Admin: 11/15/17 16:25 Dose: 50 mls/hr Potassium Chloride/Dextrose/Sod Cl (Potassium Chl 40 Meq In D5-1/2ns) 1,000 mls @ 42 mls/hr IV .[id number] [facility] Stop: 11/17/17 10:16 Levalbuterol HCl (Xopenex) 1.25 mg INH RQ8 PRN PRN Reason: Shortness of Breath Last Admin: 11/16/17 09:39 Dose: 1.25 mg Nystatin (Nystatin Oral Susp) 5 ml PO QID [facility] Last Admin: 11/16/17 13:39 Dose: 5 ml Ondansetron HCl (Zofran Inj) 4 mg IVP Q6 PRN PRN Reason: Nausea/Vomiting Last Admin: 11/15/17 17:42 Dose: 4 mg Phenol/Menthol (Phenaseptic 1.4% Throat [place]) 1 spry MT Q2 PRN PRN Reason: Sore Throat Last Admin: 11/13/17 21:38 Dose: 1 spr Sucralfate (Carafate Oral Susp) 1 gm PO ACHS [facility] Last Admin: 11/16/17 11:39 Dose: 1 gm - Labs Labs: 11/14/17 05:50 11/16/17 05:30 Assessment and Plan (1) Acute bronchitis with chronic obstructive pulmonary disease (COPD) Status: Acute (2) Anxiety Status: Acute (3) Arrhythmia Status: Acute (4) Atrial fibrillation Status: Acute (5) Bronchiectasis Status: Acute (6) COPD (chronic obstructive pulmonary disease) Status: Acute (7) COPD with acute exacerbation Status: Acute (8) Chr obstructive pulmonary disease w/ acute lower respiratory infxn Status: Acute (9) Pseudomonas aeruginosa infection Status: Acute
[2017-11-16] MEDS: Gentamicin 80mg/50ml NS 80 MG/50 ML BAG IVPB SCH (17:00)
[2017-11-16] MEDS: guaiFENesin DM 200 mg-20 mg/10 ml UD PO PRN (21:09)
[2017-11-17] MEDS: guaiFENesin DM 200 mg-20 mg/10 ml UD PO PRN (04:25)
[2017-11-17 08:05] LABS: CALCIUM 8.4 mg/dL (8.4-10.2)
[2017-11-17] MEDS: Acetylcysteine 20% Inhal Soln (4ml) INH SCH ×2 (08:28→20:04)
[2017-11-17] MEDS: Levalbuterol 1.25 MG/3 ML Inhal Soln UD INH PRN ×2 (08:28→20:04)
--- NOTE | 2017-11-17 08:33 | CP.PCM.PN ---
Subjective - Date & Time of Evaluation Date of Evaluation: 11/17/17 Time of Evaluation: 08:34 - Subjective Subjective: C/O BACK AND CHEST PAINS DUE TO COUGHING SINCE LAST NIGHT DENIES SOB NAUSEA IMPROVED Objective - Vital Signs/Intake and Output Vital Signs (last 24 hours): Temp Pulse Resp BP Pulse Ox 97.9 F 91 H 20 101/56 L 94 L 11/17/17 08:12 11/17/17 08:12 11/17/17 08:12 11/17/17 08:12 11/17/17 08:12 - Medications Medications: Current Medications Acetaminophen (Tylenol 325mg Tab) 650 mg PO Q6 PRN PRN Reason: Headache Last Admin: 11/17/17 04:24 Dose: 650 mg Acetylcysteine (Acetylcysteine 20%) 2 ml INH RBID [facility] Last Admin: 11/17/17 08:28 Dose: Not Given Benzocaine/Menthol (Cepacol Sore Throat) 1 zeyad PO Q3 PRN PRN Reason: Sore Throat Last Admin: 11/13/17 08:12 Dose: 1 zeyad Cholecalciferol (Vitamin D) 1,000 intlu PO DAILY [facility] Last Admin: 11/16/17 09:02 Dose: 1,000 intlu Fluticasone Propionate (Flonase) 1 spr SAMEERA BID [facility] Last Admin: 11/16/17 16:57 Dose: 1 spr Guaifenesin/Dextromethorphan (Robitussin Dm) 10 ml PO Q6 PRN PRN Reason: Cough Last Admin: 11/17/17 04:25 Dose: 10 ml Gentamicin Sulfate/Sodium Chloride (Gentamicin 80mg/50ml Ns) 80 mg in 50 mls @ 50 mls/hr IVPB DAILY@1700 [facility] Last Admin: 11/16/17 17:00 Dose: 50 mls/hr Potassium Chloride/Dextrose/Sod Cl (Potassium Chl 40 Meq In D5-1/2ns) 1,000 mls @ 42 mls/hr IV .[id number] [facility] Stop: 11/17/17 10:16 Last Admin: 11/16/17 21:09 Dose: 42 mls/hr Levalbuterol HCl (Xopenex) 1.25 mg INH RQ8 PRN PRN Reason: Shortness of Breath Last Admin: 11/17/17 08:28 Dose: 1.25 mg Nystatin (Nystatin Oral Susp) 5 ml PO QID [facility] Last Admin: 11/16/17 21:09 Dose: 5 ml Ondansetron HCl (Zofran Inj) 4 mg IVP Q6 PRN PRN Reason: Nausea/Vomiting Last Admin: 11/15/17 17:42 Dose: 4 mg Phenol/Menthol (Phenaseptic 1.4% Throat [place]) 1 spry MT Q2 PRN PRN Reason: Sore Throat Last Admin: 11/13/17 21:38 Dose: 1 spr Sucralfate (Carafate Oral Susp) 1 gm PO ACHS [facility] Last Admin: 11/16/17 21:17 Dose: 1 gm - Labs Labs: 11/14/17 05:50 11/17/17 07:30 - Constitutional Appears: Chronically Ill - Head Exam Head Exam: ATRAUMATIC, NORMAL INSPECTION, NORMOCEPHALIC - Eye Exam Eye Exam: EOMI, Normal appearance, PERRL Pupil Exam: NORMAL ACCOMODATION, PERRL - ENT Exam ENT Exam: Mucous Membranes Moist, Normal Exam - Neck Exam Neck Exam: Full ROM, Normal Inspection. absent: Lymphadenopathy - Respiratory Exam Respiratory Exam: Chest Wall Tenderness, Decreased Breath Sounds, Rales, NORMAL BREATHING PATTERN - Cardiovascular Exam Cardiovascular Exam: REGULAR RHYTHM, +S1, +S2. absent: Murmur - GI/Abdominal Exam GI & Abdominal Exam: Soft, Normal Bowel Sounds. absent: Tenderness - Rectal Exam Rectal Exam: NORMAL INSPECTION - Extremities Exam Extremities Exam: Full ROM, Normal Capillary Refill, Normal Inspection. absent : Joint Swelling, Pedal Edema - Back Exam Back Exam: NORMAL INSPECTION - Neurological Exam Neurological Exam: Alert, Awake, CN II-XII Intact, Normal Gait, Oriented x3 - Psychiatric Exam Psychiatric exam: Normal Affect, Normal Mood - Skin Skin Exam: Dry, Intact, Normal Color, Warm Assessment and Plan - Assessment and Plan (Free Text) Assessment: PLEURITIC CHEST PAIN COPD EXAC BRONCHIECTASES PSEUDOMONAS PNEUMONIA ARRYTHMIAS HYPOKALEMIA GASTRITIS Plan: CONTINUE RX ORDERED LIDODERM PATCH AND TYLENOL FOR PAIN CXR
[2017-11-17] MEDS: Sucralfate 1 gm/10 ml Oral Susp UD PO SCH ×4 (09:02→21:37)
[2017-11-17] MEDS: Nystatin 100,000 Units/ml Oral Susp 5 ml UD PO SCH ×4 (09:03→21:38)
[2017-11-17] MEDS: Cholecalciferol 1,000 INTLU TAB PO SCH (09:03)
[2017-11-17] MEDS: Lidocaine 5% Patch TD SCH (09:45)
--- NOTE | 2017-11-17 10:56 | RAD ---
HISTORY: Chest pain. Pneumonia. COMPARISON: Comparison chest dated 11/13/2017. Comparison also made with CT scan chest dated 10/07/2017. TECHNIQUE: Chest PA and lateral FINDINGS: LUNGS: Lung mendez remain hyperinflated consistent with changes of COPD. Diffuse chronic interstitial changes likely representing underlying fibrosis, bronchiectasis and bilateral scarring most pronounced in the lung bases. . . Note these changes are seen to much better advantage on prior exam. . Biapical pleural thickening. Previously noted scattered nodular opacities upper lobe predominance, better appreciated on CT scan poorly delineated on this exam. PLEURA: No significant pleural effusion identified. No pneumothorax apparent. CARDIOVASCULAR: Normal. OSSEOUS STRUCTURES: No significant abnormalities. VISUALIZED UPPER ABDOMEN: Normal. OTHER FINDINGS: None. IMPRESSION: Lung mendez remain hyperinflated consistent with changes of COPD. Diffuse chronic interstitial changes likely representing underlying fibrosis, bronchiectasis and bilateral scarring most pronounced in the lung bases. . . Note these changes are seen to much better advantage on prior exam. . Biapical pleural thickening. Previously noted scattered nodular opacities upper lobe predominance, better appreciated on CT scan poorly delineated on this exam.
[2017-11-17] MEDS: Oxycodone/Acetaminophen 5/325 mg Tab PO PRN ×2 (15:39→21:37)
[2017-11-17] MEDS: Gentamicin 80mg/50ml NS 80 MG/50 ML BAG IVPB SCH (16:41)
[2017-11-17] MEDS ORDERED: Potassium Chl 40 mEq in D5-1/2 1,000 ML IV SCH (23:00)
[2017-11-18] MEDS: Oxycodone/Acetaminophen 5/325 mg Tab PO PRN ×3 (03:46→16:55)
[2017-11-18 06:07] LABS: BASO # 0.1 K/uL (0.0-0.2); BASO % 0.9 % (0.0-2.0); EOS # 0.1 K/uL (0.0-0.7); EOS % 1.5 % (0.0-4.0); HEMOGLOBIN 8.5 g/dL (12.0-16.0); LYMPH # 1.6 K/uL (1.0-4.3); LYMPH % 16.9 % (20.0-40.0); MEAN CELL VOLUME 84.6 fl (81.0-99.0); MEAN CORPUSCULAR HEMOGLOBIN 27.7 pg (27.0-31.0); MEAN CORPUSCULAR HGB CONC 32.7 g/dL (33.0-37.0); MEAN PLATELET VOLUME 8.7 fl (7.2-11.7); MONO # 1.9 K/uL (0.0-0.8); MONO % 20.3 % (0.0-10.0); NEUT # 5.8 K/uL (1.8-7.0); NEUT % 60.4 % (50.0-75.0); NRBC % 0.1 % (0.0-0.0); PLATELET COUNT 263 K/uL (130-400); RBC 3.06 Mil/uL (3.80-5.20); RED CELL DISTRIBUTION WIDTH 15.7 % (11.5-14.5); WHITE BLOOD COUNT 9.6 K/uL (4.8-10.8)
[2017-11-18 06:39] LABS: CALCIUM 8.2 mg/dL (8.4-10.2)
[2017-11-18] MEDS: Levalbuterol 1.25 MG/3 ML Inhal Soln UD INH PRN ×2 (07:14→19:00)
[2017-11-18] MEDS: Acetylcysteine 20% Inhal Soln (4ml) INH SCH ×2 (07:14→19:00)
[2017-11-18] MEDS: Lidocaine 5% Patch TD SCH (08:10)
[2017-11-18] MEDS: Cholecalciferol 1,000 INTLU TAB PO SCH (08:11)
[2017-11-18] MEDS: Sucralfate 1 gm/10 ml Oral Susp UD PO SCH ×4 (08:11→22:04)
[2017-11-18] MEDS: Nystatin 100,000 Units/ml Oral Susp 5 ml UD PO SCH ×4 (08:11→22:04)
[2017-11-18 09:43] LABS: ANISOCYTOSIS SLIGHT; EOSINOPHIL 1 % (0-7); LYMPHOCYTE 19 % (20-50); MONOCYTE 14 % (0-10); NEUTROPHIL 66 % (42-75); PLATELET ESTIMATE NORMAL (NORMAL); TOTAL CELLS COUNTED 100
[2017-11-18 09:44] LABS: HYPOCHROMIC SLIGHT
--- NOTE | 2017-11-18 10:23 | CP.PCM.PN ---
Subjective - Date & Time of Evaluation Date of Evaluation: 11/18/17 Time of Evaluation: 10:26 - Subjective Subjective: STILL COUGHING WITH PRODUCTION OF THICK SPUTUM CHEST AND BACK PAIN IMPROVED ON PERCOCET RX DENIES SOB Objective - Vital Signs/Intake and Output Vital Signs (last 24 hours): Temp Pulse Resp BP Pulse Ox 98.3 F 88 20 112/55 L 93 L 11/18/17 08:50 11/18/17 08:50 11/18/17 08:50 11/18/17 08:50 11/18/17 08:50 - Medications Medications: Current Medications Acetaminophen (Tylenol 325mg Tab) 650 mg PO Q6 PRN PRN Reason: Headache Last Admin: 11/17/17 14:46 Dose: 650 mg Acetylcysteine (Acetylcysteine 20%) 2 ml INH RBID [facility] Last Admin: 11/18/17 07:14 Dose: 2 ml Benzocaine/Menthol (Cepacol Sore Throat) 1 zeyad PO Q3 PRN PRN Reason: Sore Throat Last Admin: 11/13/17 08:12 Dose: 1 zeyad Cholecalciferol (Vitamin D) 1,000 intlu PO DAILY [facility] Last Admin: 11/18/17 08:11 Dose: 1,000 intlu Fluticasone Propionate (Flonase) 1 spr SAMEERA BID [facility] Last Admin: 11/18/17 08:11 Dose: 1 spr Guaifenesin/Dextromethorphan (Robitussin Dm) 10 ml PO Q6 PRN PRN Reason: Cough Last Admin: 11/17/17 04:25 Dose: 10 ml Gentamicin Sulfate/Sodium Chloride (Gentamicin 80mg/50ml Ns) 80 mg in 50 mls @ 50 mls/hr IVPB DAILY@1700 [facility] Last Admin: 11/17/17 16:41 Dose: 50 mls/hr Levalbuterol HCl (Xopenex) 1.25 mg INH RQ8 PRN PRN Reason: Shortness of Breath Last Admin: 11/18/17 07:14 Dose: 1.25 mg Lidocaine (Lidoderm) 1 ea TD DAILY [facility] Last Admin: 11/18/17 08:10 Dose: 1 ea Nystatin (Nystatin Oral Susp) 5 ml PO QID [facility] Last Admin: 11/18/17 08:11 Dose: 5 ml Ondansetron HCl (Zofran Inj) 4 mg IVP Q6 PRN PRN Reason: Nausea/Vomiting Last Admin: 11/18/17 08:11 Dose: 4 mg Oxycodone/Acetaminophen (Percocet 5/325 Mg Tab) 1 tab PO Q6 PRN PRN Reason: Pain, severe (8-10) Stop: 11/20/17 15:32 Last Admin: 11/18/17 09:56 Dose: 1 tab Phenol/Menthol (Phenaseptic 1.4% Throat [place]) 1 spry MT Q2 PRN PRN Reason: Sore Throat Last Admin: 11/13/17 21:38 Dose: 1 spr Sucralfate (Carafate Oral Susp) 1 gm PO ACHS [facility] Last Admin: 11/18/17 08:11 Dose: 1 gm - Labs Labs: 11/18/17 05:45 11/18/17 05:45 - Constitutional Appears: Chronically Ill - Head Exam Head Exam: ATRAUMATIC, NORMAL INSPECTION, NORMOCEPHALIC - Eye Exam Eye Exam: EOMI, Normal appearance, PERRL Pupil Exam: NORMAL ACCOMODATION, PERRL - ENT Exam ENT Exam: Mucous Membranes Moist, Normal Exam - Neck Exam Neck Exam: Full ROM, Normal Inspection. absent: Lymphadenopathy - Respiratory Exam Respiratory Exam: Decreased Breath Sounds, Prolonged Expiratory Phase, Rales, Wheezes, NORMAL BREATHING PATTERN - Cardiovascular Exam Cardiovascular Exam: REGULAR RHYTHM, +S1, +S2. absent: Murmur - GI/Abdominal Exam GI & Abdominal Exam: Soft, Normal Bowel Sounds. absent: Tenderness - Rectal Exam Rectal Exam: NORMAL INSPECTION - Extremities Exam Extremities Exam: Full ROM, Normal Capillary Refill, Normal Inspection. absent : Joint Swelling, Pedal Edema - Back Exam Back Exam: NORMAL INSPECTION - Neurological Exam Neurological Exam: Alert, Awake, CN II-XII Intact, Normal Gait, Oriented x3 - Psychiatric Exam Psychiatric exam: Normal Affect, Normal Mood - Skin Skin Exam: Dry, Intact, Normal Color, Warm Assessment and Plan - Assessment and Plan (Free Text) Assessment: ACUTE EXAC OF COPD BRONCHIECTASES ASHD PSEUDOMONAS PNEUMONIA HYPOKALEMIA-RESOLVED GASTRITIS-IMPROVING CHRONIC ANEMIA PERSISTENTLY LOW BP Plan: D/C IV FLUID CONTINUE IV GENTAMYCIN AND BRONCHODILATORS CONSIDER SUBACUTE CARE
[2017-11-18] MEDS: Gentamicin 80mg/50ml NS 80 MG/50 ML BAG IVPB SCH (16:51)
[2017-11-18] MEDS: Benzocaine/Menthol (Cepacol) Lozenge PO PRN (22:04)
[2017-11-19] MEDS: Oxycodone/Acetaminophen 5/325 mg Tab PO PRN ×3 (00:29→21:59)
[2017-11-19] MEDS: Sucralfate 1 gm/10 ml Oral Susp UD PO SCH ×4 (07:30→21:08)
[2017-11-19] MEDS: Levalbuterol 1.25 MG/3 ML Inhal Soln UD INH PRN ×2 (07:35→19:38)
[2017-11-19] MEDS: Acetylcysteine 20% Inhal Soln (4ml) INH SCH ×2 (07:35→19:38)
[2017-11-19] MEDS: Nystatin 100,000 Units/ml Oral Susp 5 ml UD PO SCH ×4 (08:39→21:08)
[2017-11-19] MEDS: Lidocaine 5% Patch TD SCH (08:40)
[2017-11-19] MEDS: Cholecalciferol 1,000 INTLU TAB PO SCH (08:41)
--- NOTE | 2017-11-19 13:04 | CP.PCM.PN ---
Subjective - Date & Time of Evaluation Date of Evaluation: 11/19/17 Time of Evaluation: 08:00 - Subjective Subjective: yellow phlegm ++ no fever less toxic weak genta level ok Objective - Vital Signs/Intake and Output Vital Signs (last 24 hours): Temp Pulse Resp BP Pulse Ox 98.1 F 88 20 101/54 L 95 11/19/17 08:07 11/19/17 08:07 11/19/17 08:07 11/19/17 08:07 11/19/17 09:35 - Medications Medications: Current Medications Acetaminophen (Tylenol 325mg Tab) 650 mg PO Q6 PRN PRN Reason: Headache Last Admin: 11/17/17 14:46 Dose: 650 mg Acetylcysteine (Acetylcysteine 20%) 2 ml INH RBID [facility] Last Admin: 11/19/17 07:35 Dose: 2 ml Benzocaine/Menthol (Cepacol Sore Throat) 1 zeyad PO Q3 PRN PRN Reason: Sore Throat Last Admin: 11/18/17 22:04 Dose: 1 zeyad Cholecalciferol (Vitamin D) 1,000 intlu PO DAILY [facility] Last Admin: 11/19/17 08:41 Dose: 1,000 intlu Fluticasone Propionate (Flonase) 1 spr SAMEERA BID [facility] Last Admin: 11/19/17 08:40 Dose: 1 spr Guaifenesin/Dextromethorphan (Robitussin Dm) 10 ml PO Q6 PRN PRN Reason: Cough Last Admin: 11/17/17 04:25 Dose: 10 ml Gentamicin Sulfate/Sodium Chloride (Gentamicin 80mg/50ml Ns) 80 mg in 50 mls @ 50 mls/hr IVPB DAILY@1700 [facility] Last Admin: 11/18/17 16:51 Dose: 50 mls/hr Levalbuterol HCl (Xopenex) 1.25 mg INH RQ8 PRN PRN Reason: Shortness of Breath Last Admin: 11/19/17 07:35 Dose: 1.25 mg Lidocaine (Lidoderm) 1 ea TD DAILY [facility] Last Admin: 11/19/17 08:40 Dose: 1 ea Nystatin (Nystatin Oral Susp) 5 ml PO QID [facility] Last Admin: 11/19/17 08:39 Dose: 5 ml Ondansetron HCl (Zofran Inj) 4 mg IVP Q6 PRN PRN Reason: Nausea/Vomiting Last Admin: 11/19/17 08:39 Dose: 4 mg Oxycodone/Acetaminophen (Percocet 5/325 Mg Tab) 1 tab PO Q6 PRN PRN Reason: Pain, severe (8-10) Stop: 11/20/17 15:32 Last Admin: 11/19/17 10:43 Dose: 1 tab Phenol/Menthol (Phenaseptic 1.4% Throat [place]) 1 spry MT Q2 PRN PRN Reason: Sore Throat Last Admin: 11/13/17 21:38 Dose: 1 spr Sucralfate (Carafate Oral Susp) 1 gm PO ACHS [facility] Last Admin: 11/19/17 07:30 Dose: 1 gm - Labs Labs: 11/18/17 05:45 11/18/17 05:45 - Constitutional Appears: Well - Head Exam Head Exam: ATRAUMATIC, NORMAL INSPECTION, NORMOCEPHALIC - Eye Exam Eye Exam: EOMI, Normal appearance, PERRL Pupil Exam: NORMAL ACCOMODATION, PERRL - ENT Exam ENT Exam: Mucous Membranes Moist, Normal Exam - Neck Exam Neck Exam: Full ROM, Normal Inspection. absent: Lymphadenopathy - Respiratory Exam Respiratory Exam: Clear to Ausculation Bilateral, NORMAL BREATHING PATTERN - Cardiovascular Exam Cardiovascular Exam: REGULAR RHYTHM, +S1, +S2. absent: Murmur - GI/Abdominal Exam GI & Abdominal Exam: Soft, Normal Bowel Sounds. absent: Tenderness - Rectal Exam Rectal Exam: NORMAL INSPECTION - Exam Exam: Circumcision, NORMAL INSPECTION External exam: NORMAL EXTERNAL EXAM Speculum exam: NORMAL SPECULUM EXAM Bimanual exam: NORMAL BIMANUAL EXAM - Extremities Exam Extremities Exam: Full ROM, Normal Capillary Refill, Normal Inspection. absent : Joint Swelling, Pedal Edema - Back Exam Back Exam: NORMAL INSPECTION - Neurological Exam Neurological Exam: Alert, Awake, CN II-XII Intact, Normal Gait, Oriented x3 - Psychiatric Exam Psychiatric exam: Normal Affect, Normal Mood - Skin Skin Exam: Dry, Intact, Normal Color, Warm Assessment and Plan (1) Acute bronchitis with chronic obstructive pulmonary disease (COPD) Status: Acute (2) Anxiety Status: Acute (3) Arrhythmia Status: Acute (4) Atrial fibrillation Status: Acute (5) Bronchiectasis Status: Acute (6) COPD (chronic obstructive pulmonary disease) Status: Acute (7) COPD with acute exacerbation Status: Acute (8) Chr obstructive pulmonary disease w/ acute lower respiratory infxn Status: Acute (9) Pseudomonas aeruginosa infection Status: Acute - Assessment and Plan (Free Text) Assessment: cont genta daily
[2017-11-19] MEDS: Gentamicin 80mg/50ml NS 80 MG/50 ML BAG IVPB SCH (17:50)
[2017-11-20] MEDS: Levalbuterol 1.25 MG/3 ML Inhal Soln UD INH PRN ×2 (07:32→20:20)
[2017-11-20] MEDS: Acetylcysteine 20% Inhal Soln (4ml) INH SCH ×2 (07:32→20:20)
[2017-11-20] MEDS: Sucralfate 1 gm/10 ml Oral Susp UD PO SCH ×4 (08:17→21:38)
[2017-11-20] MEDS: Cholecalciferol 1,000 INTLU TAB PO SCH (08:17)
[2017-11-20] MEDS: Nystatin 100,000 Units/ml Oral Susp 5 ml UD PO SCH ×4 (08:17→21:38)
[2017-11-20] MEDS: Lidocaine 5% Patch TD SCH (08:18)
--- NOTE | 2017-11-20 13:07 | CP.PCM.PN ---
Subjective - Date & Time of Evaluation Date of Evaluation: 11/20/17 Time of Evaluation: 13:06 - Subjective Subjective: doign well tolerating ABX and participating with PT HD stable NAD Objective - Vital Signs/Intake and Output Vital Signs (last 24 hours): Temp Pulse Resp BP Pulse Ox 98.9 F 90 18 102/52 L 98 11/20/17 08:07 11/20/17 08:07 11/20/17 08:07 11/20/17 08:07 11/20/17 08:07 Vitals Reviewed GEN: WDWN, ALERT, COOPERATIVE HEENT: NCAT, PERRL, EOMI HEART: RRR, +S1S2, NO MRG LUNG: CTAB, NO WRR ABD: SOFT, NT, ND, NO HSM, NO MASSES EXT: NORMAL PEDAL PULSES, GOOD CAPILLARY REFILL NEURO: AAOX3, STRENGTH EQUAL BILATERAL UPPER AND LOWER EXTREMITIES SKIN: WARM, DRY PSYCH: NORMAL MOOD, NORMAL AFFECT - Medications Medications: Current Medications Acetaminophen (Tylenol 325mg Tab) 650 mg PO Q6 PRN PRN Reason: Headache Last Admin: 11/17/17 14:46 Dose: 650 mg Acetylcysteine (Acetylcysteine 20%) 2 ml INH RBID [facility] Last Admin: 11/20/17 07:32 Dose: 2 ml Benzocaine/Menthol (Cepacol Sore Throat) 1 zeyad PO Q3 PRN PRN Reason: Sore Throat Last Admin: 11/18/17 22:04 Dose: 1 zeyad Cholecalciferol (Vitamin D) 1,000 intlu PO DAILY [facility] Last Admin: 11/20/17 08:17 Dose: 1,000 intlu Fluticasone Propionate (Flonase) 1 spr SAMEERA BID [facility] Last Admin: 11/20/17 08:17 Dose: 1 spr Guaifenesin/Dextromethorphan (Robitussin Dm) 10 ml PO Q6 PRN PRN Reason: Cough Last Admin: 11/17/17 04:25 Dose: 10 ml Gentamicin Sulfate/Sodium Chloride (Gentamicin 80mg/50ml Ns) 80 mg in 50 mls @ 50 mls/hr IVPB DAILY@1700 [facility] Last Admin: 11/19/17 17:50 Dose: 50 mls/hr Levalbuterol HCl (Xopenex) 1.25 mg INH RQ8 PRN PRN Reason: Shortness of Breath Last Admin: 11/20/17 07:32 Dose: 1.25 mg Lidocaine (Lidoderm) 1 ea TD DAILY [facility] Last Admin: 11/20/17 08:18 Dose: 1 ea Nystatin (Nystatin Oral Susp) 5 ml PO QID [facility] Last Admin: 11/20/17 12:30 Dose: 5 ml Ondansetron HCl (Zofran Inj) 4 mg IVP Q6 PRN PRN Reason: Nausea/Vomiting Last Admin: 11/20/17 08:45 Dose: 4 mg Oxycodone/Acetaminophen (Percocet 5/325 Mg Tab) 1 tab PO Q6 PRN PRN Reason: Pain, severe (8-10) Stop: 11/20/17 15:32 Last Admin: 11/19/17 21:59 Dose: 1 tab Phenol/Menthol (Phenaseptic 1.4% Throat [place]) 1 spry MT Q2 PRN PRN Reason: Sore Throat Last Admin: 11/13/17 21:38 Dose: 1 spr Sucralfate (Carafate Oral Susp) 1 gm PO ACHS [facility] Last Admin: 11/20/17 11:29 Dose: 1 gm - Labs Labs: 11/18/17 05:45 11/18/17 05:45 Assessment and Plan - Assessment and Plan (Free Text) Plan: ASSESSMENT: ACUTE EXAC OF COPD BRONCHIECTASES ASHD PSEUDOMONAS PNEUMONIA HYPOKALEMIA-RESOLVED GASTRITIS-IMPROVING CHRONIC ANEMIA PERSISTENTLY LOW BP PLAN: Continue Antibiotics for pneumonia as well as bronchodilators continue home medications for COPD continue IV RX and PT
[2017-11-20] MEDS: Gentamicin 80mg/50ml NS 80 MG/50 ML BAG IVPB SCH (16:56)
[2017-11-21] MEDS: Sucralfate 1 gm/10 ml Oral Susp UD PO SCH ×4 (08:27→21:47)
[2017-11-21] MEDS: Nystatin 100,000 Units/ml Oral Susp 5 ml UD PO SCH ×4 (08:27→21:47)
[2017-11-21] MEDS: Lidocaine 5% Patch TD SCH (08:28)
[2017-11-21] MEDS: Cholecalciferol 1,000 INTLU TAB PO SCH (08:28)
[2017-11-21] MEDS: Acetylcysteine 20% Inhal Soln (4ml) INH SCH ×2 (10:31→20:41)
[2017-11-21] MEDS: Levalbuterol 1.25 MG/3 ML Inhal Soln UD INH PRN ×2 (10:32→20:41)
--- NOTE | 2017-11-21 12:54 | CP.PCM.PN ---
Subjective - Date & Time of Evaluation Date of Evaluation: 11/21/17 Time of Evaluation: 09:00 - Subjective Subjective: no fever less cough labs ok Objective - Vital Signs/Intake and Output Vital Signs (last 24 hours): Temp Pulse Resp BP Pulse Ox 98.1 F 86 20 102/52 L 98 11/21/17 08:11 11/21/17 08:11 11/21/17 08:11 11/21/17 08:11 11/21/17 08:11 - Medications Medications: Current Medications Acetaminophen (Tylenol 325mg Tab) 650 mg PO Q6 PRN PRN Reason: Headache Last Admin: 11/17/17 14:46 Dose: 650 mg Acetylcysteine (Acetylcysteine 20%) 2 ml INH RBID [facility] Last Admin: 11/21/17 10:31 Dose: 2 ml Benzocaine/Menthol (Cepacol Sore Throat) 1 zeyad PO Q3 PRN PRN Reason: Sore Throat Last Admin: 11/18/17 22:04 Dose: 1 zeyad Cholecalciferol (Vitamin D) 1,000 intlu PO DAILY [facility] Last Admin: 11/21/17 08:28 Dose: 1,000 intlu Fluticasone Propionate (Flonase) 1 spr SAMEERA BID [facility] Last Admin: 11/21/17 08:27 Dose: 1 spr Guaifenesin/Dextromethorphan (Robitussin Dm) 10 ml PO Q6 PRN PRN Reason: Cough Last Admin: 11/17/17 04:25 Dose: 10 ml Gentamicin Sulfate/Sodium Chloride (Gentamicin 80mg/50ml Ns) 80 mg in 50 mls @ 50 mls/hr IVPB DAILY@1700 [facility] Last Admin: 11/20/17 16:56 Dose: 50 mls/hr Lactulose (Enulose) 20 gm PO DAILY PRN PRN Reason: Constipation Levalbuterol HCl (Xopenex) 1.25 mg INH RQ8 PRN PRN Reason: Shortness of Breath Last Admin: 11/21/17 10:32 Dose: 1.25 mg Lidocaine (Lidoderm) 1 ea TD DAILY [facility] Last Admin: 11/21/17 08:28 Dose: 1 ea Nystatin (Nystatin Oral Susp) 5 ml PO QID [facility] Last Admin: 11/21/17 12:40 Dose: 5 ml Ondansetron HCl (Zofran Inj) 4 mg IVP Q6 PRN PRN Reason: Nausea/Vomiting Last Admin: 11/20/17 08:45 Dose: 4 mg Phenol/Menthol (Phenaseptic 1.4% Throat [place]) 1 spry MT Q2 PRN PRN Reason: Sore Throat Last Admin: 11/13/17 21:38 Dose: 1 spr Sucralfate (Carafate Oral Susp) 1 gm PO ACHS [facility] Last Admin: 11/21/17 11:36 Dose: 1 gm - Labs Labs: 11/18/17 05:45 11/18/17 05:45 - Constitutional Appears: Well - Head Exam Head Exam: ATRAUMATIC, NORMAL INSPECTION, NORMOCEPHALIC - Eye Exam Eye Exam: EOMI, Normal appearance, PERRL Pupil Exam: NORMAL ACCOMODATION, PERRL - ENT Exam ENT Exam: Mucous Membranes Moist, Normal Exam - Neck Exam Neck Exam: Full ROM, Normal Inspection. absent: Lymphadenopathy - Respiratory Exam Respiratory Exam: Decreased Breath Sounds, Prolonged Expiratory Phase, Rales, Rhonchi - Cardiovascular Exam Cardiovascular Exam: REGULAR RHYTHM, +S1, +S2. absent: Murmur - GI/Abdominal Exam GI & Abdominal Exam: Soft, Normal Bowel Sounds. absent: Tenderness - Rectal Exam Rectal Exam: NORMAL INSPECTION - Extremities Exam Extremities Exam: Full ROM, Normal Capillary Refill, Normal Inspection. absent : Joint Swelling, Pedal Edema - Back Exam Back Exam: NORMAL INSPECTION - Neurological Exam Neurological Exam: Alert, Awake, CN II-XII Intact, Normal Gait, Oriented x3 - Psychiatric Exam Psychiatric exam: Normal Affect, Normal Mood - Skin Skin Exam: Dry, Intact, Normal Color, Warm Assessment and Plan (1) Acute bronchitis with chronic obstructive pulmonary disease (COPD) Status: Acute (2) Anxiety Status: Acute (3) Arrhythmia Status: Acute (4) Atrial fibrillation Status: Acute (5) Bronchiectasis Status: Acute (6) COPD (chronic obstructive pulmonary disease) Status: Acute (7) COPD with acute exacerbation Status: Acute (8) Chr obstructive pulmonary disease w/ acute lower respiratory infxn Status: Acute (9) Pseudomonas aeruginosa infection Status: Acute
[2017-11-21] MEDS: Gentamicin 80mg/50ml NS 80 MG/50 ML BAG IVPB SCH (16:43)
[2017-11-21] MEDS: Phenol 1.4% Throat Spray MT PRN (22:49)
[2017-11-22 08:01] LABS: CALCIUM 8.3 mg/dL (8.4-10.2)
[2017-11-22] MEDS: Acetylcysteine 20% Inhal Soln (4ml) INH SCH ×2 (08:32→19:43)
[2017-11-22] MEDS: Phenol 1.4% Throat Spray MT PRN (09:18)
[2017-11-22] MEDS: Nystatin 100,000 Units/ml Oral Susp 5 ml UD PO SCH ×4 (09:18→21:16)
[2017-11-22] MEDS: Sucralfate 1 gm/10 ml Oral Susp UD PO SCH ×5 (09:19→21:15)
[2017-11-22] MEDS: Cholecalciferol 1,000 INTLU TAB PO SCH (09:20)
[2017-11-22] MEDS: Lidocaine 5% Patch TD SCH (09:20)
[2017-11-22] MEDS ORDERED: Potassium Chloride 20 mEq ER Tab PO STA (11:10)
[2017-11-22] MEDS: Magnesium Oxide 400 mg Tab UD PO SCH ×2 (12:00→17:16)
[2017-11-22] MEDS: guaiFENesin DM 200 mg-20 mg/10 ml UD PO PRN (17:17)
[2017-11-22] MEDS: Levalbuterol 1.25 MG/3 ML Inhal Soln UD INH PRN (19:43)
[2017-11-23] MEDS: guaiFENesin DM 200 mg-20 mg/10 ml UD PO PRN (02:58)
[2017-11-23] MEDS: Sucralfate 1 gm/10 ml Oral Susp UD PO SCH ×4 (06:57→21:05)
[2017-11-23] MEDS: Acetylcysteine 20% Inhal Soln (4ml) INH SCH ×2 (07:48→19:36)
[2017-11-23] MEDS: Levalbuterol 1.25 MG/3 ML Inhal Soln UD INH PRN ×2 (07:49→19:37)
[2017-11-23] MEDS: Nystatin 100,000 Units/ml Oral Susp 5 ml UD PO SCH ×4 (08:30→21:05)
[2017-11-23] MEDS: Lidocaine 5% Patch TD SCH (08:30)
[2017-11-23] MEDS: Phenol 1.4% Throat Spray MT PRN (08:30)
[2017-11-23] MEDS: Cholecalciferol 1,000 INTLU TAB PO SCH (08:35)
[2017-11-23] MEDS: Magnesium Oxide 400 mg Tab UD PO SCH ×2 (09:05→16:26)
[2017-11-23 09:57] LABS: CALCIUM 8.3 mg/dL (8.4-10.2); MAGNESIUM 1.7 MG/DL (1.6-2.3)
--- NOTE | 2017-11-23 12:42 | CP.PCM.PN ---
Subjective - Date & Time of Evaluation Date of Evaluation: 11/23/17 Time of Evaluation: 09:00 - Subjective Subjective: sputum + Pseudomonas await genta random creat stable cont rx Objective - Vital Signs/Intake and Output Vital Signs (last 24 hours): Temp Pulse Resp BP Pulse Ox 98.1 F 89 16 108/50 L 99 11/23/17 10:00 11/23/17 10:00 11/23/17 10:00 11/23/17 10:00 11/23/17 10:00 - Medications Medications: Current Medications Acetaminophen (Tylenol 325mg Tab) 650 mg PO Q6 PRN PRN Reason: Headache Last Admin: 11/17/17 14:46 Dose: 650 mg Acetylcysteine (Acetylcysteine 20%) 2 ml INH RBID [facility] Last Admin: 11/23/17 07:48 Dose: 2 ml Benzocaine/Menthol (Cepacol Sore Throat) 1 zeyad PO Q3 PRN PRN Reason: Sore Throat Last Admin: 11/18/17 22:04 Dose: 1 zeyad Cholecalciferol (Vitamin D) 1,000 intlu PO DAILY [facility] Last Admin: 11/23/17 08:35 Dose: 1,000 intlu Docusate Sodium (Colace) 100 mg PO DAILY PRN PRN Reason: Constipation Last Admin: 11/23/17 12:10 Dose: 100 mg Fluticasone Propionate (Flonase) 1 spr SAMEERA BID [facility] Last Admin: 11/23/17 12:08 Dose: 1 spr Guaifenesin/Dextromethorphan (Robitussin Dm) 10 ml PO Q6 PRN PRN Reason: Cough Last Admin: 11/23/17 02:58 Dose: 10 ml Gentamicin Sulfate/Sodium Chloride (Gentamicin 80mg/50ml Ns) 80 mg in 50 mls @ 50 mls/hr IVPB DAILY@1700 [facility] Last Admin: 11/21/17 16:43 Dose: 50 mls/hr Lactulose (Enulose) 20 gm PO DAILY PRN PRN Reason: Constipation Last Admin: 11/22/17 21:16 Dose: 20 gm Levalbuterol HCl (Xopenex) 1.25 mg INH RQ8 PRN PRN Reason: Shortness of Breath Last Admin: 11/23/17 07:49 Dose: 1.25 mg Lidocaine (Lidoderm) 1 ea TD DAILY [facility] Last Admin: 11/23/17 08:30 Dose: 1 ea Magnesium Oxide (Mag-Ox) 400 mg PO BID [facility] Last Admin: 11/23/17 09:05 Dose: 400 mg Nystatin (Nystatin Oral Susp) 5 ml PO QID [facility] Last Admin: 11/23/17 12:11 Dose: 5 ml Ondansetron HCl (Zofran Inj) 4 mg IVP Q6 PRN PRN Reason: Nausea/Vomiting Last Admin: 11/23/17 08:30 Dose: 4 mg Phenol/Menthol (Phenaseptic 1.4% Throat [place]) 1 spry MT Q2 PRN PRN Reason: Sore Throat Last Admin: 11/23/17 08:30 Dose: 1 spr Sucralfate (Carafate Oral Susp) 1 gm PO ACHS [facility] Last Admin: 11/23/17 12:08 Dose: 1 gm - Labs Labs: 11/18/17 05:45 11/23/17 09:25 - Constitutional Appears: Non-toxic, Cachectic, Chronically Ill - Head Exam Head Exam: NORMOCEPHALIC - Eye Exam Eye Exam: PERRL - ENT Exam ENT Exam: Mucous Membranes Dry - Neck Exam Neck Exam: absent: Lymphadenopathy - Respiratory Exam Respiratory Exam: Decreased Breath Sounds - Cardiovascular Exam Cardiovascular Exam: REGULAR RHYTHM - GI/Abdominal Exam GI & Abdominal Exam: Distended, Soft - Rectal Exam Rectal Exam: Deferred - Exam Exam: NORMAL INSPECTION - Back Exam Back Exam: absent: CVA tenderness (L), CVA tenderness (R) - Neurological Exam Neurological Exam: Alert, Awake Assessment and Plan (1) Acute bronchitis with chronic obstructive pulmonary disease (COPD) Status: Acute (2) Anxiety Status: Acute (3) Arrhythmia Status: Acute (4) Atrial fibrillation Status: Acute (5) Bronchiectasis Status: Acute (6) COPD (chronic obstructive pulmonary disease) Status: Acute (7) COPD with acute exacerbation Status: Acute (8) Chr obstructive pulmonary disease w/ acute lower respiratory infxn Status: Acute (9) Pseudomonas aeruginosa infection Status: Acute - Assessment and Plan (Free Text) Assessment: cont iv genta await random level
[2017-11-23] MEDS ORDERED: Potassium Chloride 20 mEq ER Tab PO ONE (14:25)
[2017-11-24] MEDS: guaiFENesin DM 200 mg-20 mg/10 ml UD PO PRN ×2 (00:20→23:31)
[2017-11-24 06:48] LABS: CALCIUM 8.5 mg/dL (8.4-10.2)
[2017-11-24] MEDS: Sucralfate 1 gm/10 ml Oral Susp UD PO SCH ×4 (06:51→21:05)
[2017-11-24] MEDS: Acetylcysteine 20% Inhal Soln (4ml) INH SCH ×2 (07:30→19:27)
[2017-11-24] MEDS: Levalbuterol 1.25 MG/3 ML Inhal Soln UD INH PRN ×2 (07:31→19:27)
[2017-11-24] MEDS: Nystatin 100,000 Units/ml Oral Susp 5 ml UD PO SCH ×4 (08:14→21:05)
[2017-11-24] MEDS: Magnesium Oxide 400 mg Tab UD PO SCH ×2 (08:14→17:23)
[2017-11-24] MEDS: Lidocaine 5% Patch TD SCH (08:14)
[2017-11-24] MEDS: Cholecalciferol 1,000 INTLU TAB PO SCH (08:15)
[2017-11-24] MEDS: Gentamicin 80mg/50ml NS 80 MG/50 ML BAG IVPB SCH (18:16)
[2017-11-24] MEDS: Benzocaine/Menthol (Cepacol) Lozenge PO PRN (21:15)
[2017-11-25] MEDS: Sucralfate 1 gm/10 ml Oral Susp UD PO SCH ×4 (07:03→21:24)
[2017-11-25] MEDS: Acetylcysteine 20% Inhal Soln (4ml) INH SCH ×2 (07:29→20:04)
[2017-11-25] MEDS: Levalbuterol 1.25 MG/3 ML Inhal Soln UD INH PRN (07:30)
[2017-11-25] MEDS: Lidocaine 5% Patch TD SCH (08:56)
[2017-11-25] MEDS: Nystatin 100,000 Units/ml Oral Susp 5 ml UD PO SCH ×4 (08:57→21:24)
[2017-11-25] MEDS: Magnesium Oxide 400 mg Tab UD PO SCH ×2 (08:57→16:54)
[2017-11-25] MEDS: Cholecalciferol 1,000 INTLU TAB PO SCH (08:57)
--- NOTE | 2017-11-25 14:13 | CP.PCM.PN ---
Subjective - Date & Time of Evaluation Date of Evaluation: 11/25/17 Time of Evaluation: 10:00 - Subjective Subjective: Patient seen and examined. Claimed she didn't feel good today and felt nauseous. Objective - Vital Signs/Intake and Output Vital Signs (last 24 hours): Temp Pulse Resp BP Pulse Ox 97.2 F L 86 20 101/52 L 99 11/25/17 07:49 11/25/17 07:49 11/25/17 07:49 11/25/17 07:49 11/25/17 07:49 - Medications Medications: Current Medications Acetaminophen (Tylenol 325mg Tab) 650 mg PO Q6 PRN PRN Reason: Headache Last Admin: 11/24/17 23:35 Dose: 650 mg Acetylcysteine (Acetylcysteine 20%) 2 ml INH RBID [facility] Last Admin: 11/25/17 07:29 Dose: 2 ml Benzocaine/Menthol (Cepacol Sore Throat) 1 zeyad PO Q3 PRN PRN Reason: Sore Throat Last Admin: 11/24/17 21:15 Dose: 1 zeyad Cholecalciferol (Vitamin D) 1,000 intlu PO DAILY [facility] Last Admin: 11/25/17 08:57 Dose: 1,000 intlu Docusate Sodium (Colace) 100 mg PO DAILY PRN PRN Reason: Constipation Last Admin: 11/24/17 21:08 Dose: 100 mg Fluticasone Propionate (Flonase) 1 spr SAMEERA BID [facility] Last Admin: 11/25/17 08:55 Dose: 1 spr Guaifenesin/Dextromethorphan (Robitussin Dm) 10 ml PO Q6 PRN PRN Reason: Cough Last Admin: 11/24/17 23:31 Dose: 10 ml Gentamicin Sulfate/Sodium Chloride (Gentamicin 80mg/50ml Ns) 80 mg in 50 mls @ 50 mls/hr IVPB DAILY@1700 [facility] Last Admin: 11/24/17 18:16 Dose: 50 mls/hr Lactulose (Enulose) 20 gm PO DAILY PRN PRN Reason: Constipation Last Admin: 11/24/17 21:08 Dose: 20 gm Lidocaine (Lidoderm) 1 ea TD DAILY [facility] Last Admin: 11/25/17 08:56 Dose: 1 ea Magnesium Oxide (Mag-Ox) 400 mg PO BID [facility] Last Admin: 11/25/17 08:57 Dose: 400 mg Nystatin (Nystatin Oral Susp) 5 ml PO QID [facility] Last Admin: 11/25/17 12:36 Dose: 5 ml Ondansetron HCl (Zofran Inj) 4 mg IVP Q6 PRN PRN Reason: Nausea/Vomiting Last Admin: 11/25/17 08:57 Dose: 4 mg Phenol/Menthol (Phenaseptic 1.4% Throat [place]) 1 spry MT Q2 PRN PRN Reason: Sore Throat Last Admin: 11/23/17 08:30 Dose: 1 spr Sucralfate (Carafate Oral Susp) 1 gm PO ACHS [facility] Last Admin: 11/25/17 12:36 Dose: 1 gm - Labs Labs: 11/18/17 05:45 11/24/17 05:40 - Constitutional Appears: No Acute Distress - Head Exam Head Exam: ATRAUMATIC - Eye Exam Eye Exam: absent: Scleral icterus - ENT Exam ENT Exam: Mucous Membranes Moist - Neck Exam Neck Exam: absent: Meningismus - Respiratory Exam Respiratory Exam: absent: Rhonchi, Wheezes, Respiratory Distress - Cardiovascular Exam Cardiovascular Exam: REGULAR RHYTHM, +S1, +S2 - GI/Abdominal Exam GI & Abdominal Exam: Soft. 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
[2017-11-25] MEDS: Gentamicin 80mg/50ml NS 80 MG/50 ML BAG IVPB SCH (16:56)
[2017-11-26] MEDS: Benzocaine/Menthol (Cepacol) Lozenge PO PRN ×4 (03:13→21:01)
[2017-11-26] MEDS: Acetylcysteine 20% Inhal Soln (4ml) INH SCH ×2 (07:32→20:29)
[2017-11-26] MEDS: Sucralfate 1 gm/10 ml Oral Susp UD PO SCH (08:21)
[2017-11-26] MEDS: Nystatin 100,000 Units/ml Oral Susp 5 ml UD PO SCH ×4 (08:21→21:00)
[2017-11-26] MEDS: Lidocaine 5% Patch TD SCH (08:22)
[2017-11-26] MEDS: Magnesium Oxide 400 mg Tab UD PO SCH (08:23)
[2017-11-26] MEDS: Cholecalciferol 1,000 INTLU TAB PO SCH (08:25)
--- NOTE | 2017-11-26 09:54 | CP.PCM.PN ---
Subjective - Date & Time of Evaluation Date of Evaluation: 11/26/17 Time of Evaluation: 09:56 - Subjective Subjective: C/O NAUSEA AND COUGH WITH SOB NOW AGREES TO GO TO SUBACUTE CARE FOR FURTHER ANTIBIOTIC RX CASE DISCUSSED WITH PT AND HER SON Objective - Vital Signs/Intake and Output Vital Signs (last 24 hours): Temp Pulse Resp BP Pulse Ox 97.3 F L 85 20 94/53 L 97 11/26/17 08:33 11/26/17 08:33 11/26/17 08:33 11/26/17 08:33 11/26/17 08:33 - Medications Medications: Current Medications Acetaminophen (Tylenol 325mg Tab) 650 mg PO Q6 PRN PRN Reason: Headache Last Admin: 11/26/17 03:12 Dose: 650 mg Acetylcysteine (Acetylcysteine 20%) 2 ml INH RBID [facility] Last Admin: 11/26/17 07:32 Dose: Not Given Benzocaine/Menthol (Cepacol Sore Throat) 1 zeyad PO Q3 PRN PRN Reason: Sore Throat Last Admin: 11/26/17 08:34 Dose: 1 zeyad Cholecalciferol (Vitamin D) 1,000 intlu PO DAILY [facility] Last Admin: 11/26/17 08:25 Dose: 1,000 intlu Docusate Sodium (Colace) 100 mg PO DAILY PRN PRN Reason: Constipation Last Admin: 11/24/17 21:08 Dose: 100 mg Fluticasone Propionate (Flonase) 1 spr SAMEERA BID [facility] Last Admin: 11/26/17 08:21 Dose: 1 spr Guaifenesin/Dextromethorphan (Robitussin Dm) 10 ml PO Q6 PRN PRN Reason: Cough Last Admin: 11/24/17 23:31 Dose: 10 ml Gentamicin Sulfate/Sodium Chloride (Gentamicin 80mg/50ml Ns) 80 mg in 50 mls @ 50 mls/hr IVPB DAILY@1700 [facility] Last Admin: 11/25/17 16:56 Dose: 50 mls/hr Lactulose (Enulose) 20 gm PO DAILY PRN PRN Reason: Constipation Last Admin: 11/24/17 21:08 Dose: 20 gm Lidocaine (Lidoderm) 1 ea TD DAILY [facility] Last Admin: 11/26/17 08:22 Dose: 1 ea Magnesium Oxide (Mag-Ox) 400 mg PO BID [facility] Last Admin: 11/26/17 08:23 Dose: 400 mg Nystatin (Nystatin Oral Susp) 5 ml PO QID [facility] Last Admin: 11/26/17 08:21 Dose: 5 ml Ondansetron HCl (Zofran Inj) 4 mg IVP Q6 PRN PRN Reason: Nausea/Vomiting Last Admin: 11/25/17 08:57 Dose: 4 mg Phenol/Menthol (Phenaseptic 1.4% Throat [place]) 1 spry MT Q2 PRN PRN Reason: Sore Throat Last Admin: 11/23/17 08:30 Dose: 1 spr Sucralfate (Carafate Oral Susp) 1 gm PO ACHS [facility] Last Admin: 11/26/17 08:21 Dose: 1 gm - Labs Labs: 11/18/17 05:45 11/24/17 05:40 - Constitutional Appears: Chronically Ill - Head Exam Head Exam: ATRAUMATIC, NORMAL INSPECTION, NORMOCEPHALIC - Eye Exam Eye Exam: EOMI, Normal appearance, PERRL Pupil Exam: NORMAL ACCOMODATION, PERRL - ENT Exam ENT Exam: Mucous Membranes Moist, Normal Exam - Neck Exam Neck Exam: Full ROM, Normal Inspection. absent: Lymphadenopathy - Respiratory Exam Respiratory Exam: Decreased Breath Sounds, Prolonged Expiratory Phase, Rales, Wheezes, NORMAL BREATHING PATTERN - Cardiovascular Exam Cardiovascular Exam: REGULAR RHYTHM, +S1, +S2. absent: Murmur - GI/Abdominal Exam GI & Abdominal Exam: Soft, Normal Bowel Sounds. absent: Tenderness - Rectal Exam Rectal Exam: NORMAL INSPECTION - Extremities Exam Extremities Exam: Full ROM, Normal Capillary Refill, Normal Inspection. absent : Joint Swelling, Pedal Edema - Back Exam Back Exam: NORMAL INSPECTION - Neurological Exam Neurological Exam: Alert, Awake, CN II-XII Intact, Normal Gait, Oriented x3 - Psychiatric Exam Psychiatric exam: Normal Affect, Normal Mood - Skin Skin Exam: Dry, Intact, Normal Color, Warm Assessment and Plan - Assessment and Plan (Free Text) Assessment: ACUTE EXAC OF COPD ACUTE BRONCHIECTASES GASTRITIS RECURRENT PSEUDOMONAS PULMONARY INFECTION Plan: CONTINUE PRESENT RX DISCHARGE TO SUBACUTE CARE ON FRIDAY---DISCUSSED WITH PT AND SON
--- NOTE | 2017-11-26 12:58 | CP.PCM.PN ---
Subjective - Date & Time of Evaluation Date of Evaluation: 11/26/17 Time of Evaluation: 09:00 - Subjective Subjective: STILL WEAK AND BEDRIDDEN TO CONT GENTA FOR 7 DAYS POOR PROGNOSIS Objective - Vital Signs/Intake and Output Vital Signs (last 24 hours): Temp Pulse Resp BP Pulse Ox 97.3 F L 85 20 94/53 L 97 11/26/17 08:33 11/26/17 08:33 11/26/17 08:33 11/26/17 08:33 11/26/17 08:33 - Medications Medications: Current Medications Acetaminophen (Tylenol 325mg Tab) 650 mg PO Q6 PRN PRN Reason: Headache Last Admin: 11/26/17 03:12 Dose: 650 mg Acetylcysteine (Acetylcysteine 20%) 2 ml INH RBID [facility] Last Admin: 11/26/17 07:32 Dose: Not Given Benzocaine/Menthol (Cepacol Sore Throat) 1 zeyad PO Q3 PRN PRN Reason: Sore Throat Last Admin: 11/26/17 08:34 Dose: 1 zeyad Cholecalciferol (Vitamin D) 1,000 intlu PO DAILY [facility] Last Admin: 11/26/17 08:25 Dose: 1,000 intlu Docusate Sodium (Colace) 100 mg PO DAILY PRN PRN Reason: Constipation Last Admin: 11/24/17 21:08 Dose: 100 mg Guaifenesin/Dextromethorphan (Robitussin Dm) 10 ml PO Q6 PRN PRN Reason: Cough Last Admin: 11/24/17 23:31 Dose: 10 ml Gentamicin Sulfate/Sodium Chloride (Gentamicin 80mg/50ml Ns) 80 mg in 50 mls @ 50 mls/hr IVPB DAILY@1700 [facility] Last Admin: 11/25/17 16:56 Dose: 50 mls/hr Lactulose (Enulose) 20 gm PO DAILY PRN PRN Reason: Constipation Last Admin: 11/24/17 21:08 Dose: 20 gm Lidocaine (Lidoderm) 1 ea TD DAILY [facility] Last Admin: 11/26/17 08:22 Dose: 1 ea Nystatin (Nystatin Oral Susp) 5 ml PO QID [facility] Last Admin: 11/26/17 12:36 Dose: 5 ml Ondansetron HCl (Zofran Inj) 4 mg IVP Q6 PRN PRN Reason: Nausea/Vomiting Last Admin: 11/25/17 08:57 Dose: 4 mg Phenol/Menthol (Phenaseptic 1.4% Throat [place]) 1 spry MT Q2 PRN PRN Reason: Sore Throat Last Admin: 11/23/17 08:30 Dose: 1 spr Sucralfate (Carafate Tab) 1 gm PO DAILY [facility] Last Admin: 11/26/17 12:32 Dose: 1 gm - Labs Labs: 11/18/17 05:45 11/24/17 05:40 - Constitutional Appears: Cachectic, Chronically Ill - Head Exam Head Exam: NORMOCEPHALIC - Eye Exam Eye Exam: PERRL - ENT Exam ENT Exam: Mucous Membranes Dry - Neck Exam Neck Exam: absent: Lymphadenopathy - Respiratory Exam Respiratory Exam: Decreased Breath Sounds, Rhonchi - Cardiovascular Exam Cardiovascular Exam: REGULAR RHYTHM - GI/Abdominal Exam GI & Abdominal Exam: Distended, Soft - Rectal Exam Rectal Exam: Deferred - Exam Exam: NORMAL INSPECTION Assessment and Plan (1) Acute bronchitis with chronic obstructive pulmonary disease (COPD) Status: Acute (2) Anxiety Status: Acute (3) Arrhythmia Status: Acute (4) Atrial fibrillation Status: Acute (5) Bronchiectasis Status: Acute (6) COPD (chronic obstructive pulmonary disease) Status: Acute (7) COPD with acute exacerbation Status: Acute (8) Chr obstructive pulmonary disease w/ acute lower respiratory infxn Status: Acute (9) Pseudomonas aeruginosa infection Status: Acute
[2017-11-26] MEDS: Gentamicin 80mg/50ml NS 80 MG/50 ML BAG IVPB SCH (17:53)
[2017-11-27] MEDS: Acetylcysteine 20% Inhal Soln (4ml) INH SCH ×2 (07:36→19:26)
[2017-11-27] MEDS: Lidocaine 5% Patch TD SCH (08:07)
[2017-11-27] MEDS: Cholecalciferol 1,000 INTLU TAB PO SCH (08:07)
[2017-11-27] MEDS: Nystatin 100,000 Units/ml Oral Susp 5 ml UD PO SCH ×4 (08:07→22:11)
--- NOTE | 2017-11-27 08:40 | CP.PCM.PN ---
Subjective - Date & Time of Evaluation Date of Evaluation: 11/27/17 Time of Evaluation: 08:41 - Subjective Subjective: C/O SORE THROAT AND NAUSEA FEELS WEAK NO CHEST PAINS/SOB Objective - Vital Signs/Intake and Output Vital Signs (last 24 hours): Temp Pulse Resp BP Pulse Ox 97.7 F 89 20 98/52 L 98 11/27/17 08:14 11/27/17 08:14 11/27/17 08:14 11/27/17 08:14 11/27/17 08:14 - Medications Medications: Current Medications Acetaminophen (Tylenol 325mg Tab) 650 mg PO Q6 PRN PRN Reason: Headache Last Admin: 11/27/17 08:36 Dose: 650 mg Acetylcysteine (Acetylcysteine 20%) 2 ml INH RBID [facility] Last Admin: 11/27/17 07:36 Dose: Not Given Cholecalciferol (Vitamin D) 1,000 intlu PO DAILY [facility] Last Admin: 11/27/17 08:07 Dose: 1,000 intlu Docusate Sodium (Colace) 100 mg PO DAILY PRN PRN Reason: Constipation Last Admin: 11/24/17 21:08 Dose: 100 mg Guaifenesin/Dextromethorphan (Robitussin Dm) 10 ml PO Q6 PRN PRN Reason: Cough Last Admin: 11/24/17 23:31 Dose: 10 ml Gentamicin Sulfate/Sodium Chloride (Gentamicin 80mg/50ml Ns) 80 mg in 50 mls @ 50 mls/hr IVPB DAILY@1700 [facility] Last Admin: 11/26/17 17:53 Dose: 50 mls/hr Lactulose (Enulose) 20 gm PO DAILY PRN PRN Reason: Constipation Last Admin: 11/24/17 21:08 Dose: 20 gm Lidocaine (Lidoderm) 1 ea TD DAILY [facility] Last Admin: 11/27/17 08:07 Dose: 1 ea Nystatin (Nystatin Oral Susp) 5 ml PO QID [facility] Last Admin: 11/27/17 08:07 Dose: 5 ml Ondansetron HCl (Zofran Inj) 4 mg IVP Q6 PRN PRN Reason: Nausea/Vomiting Last Admin: 11/27/17 08:36 Dose: 4 mg Saliva Substitute (First Magic Mouthwash) 5 ml PO QID [facility] Sucralfate (Carafate Tab) 1 gm PO DAILY [facility] Last Admin: 11/27/17 08:07 Dose: 1 gm - Labs Labs: 11/18/17 05:45 11/24/17 05:40 - Constitutional Appears: Chronically Ill - Head Exam Head Exam: ATRAUMATIC, NORMAL INSPECTION, NORMOCEPHALIC - Eye Exam Eye Exam: EOMI, Normal appearance, PERRL Pupil Exam: NORMAL ACCOMODATION, PERRL - ENT Exam ENT Exam: Mucous Membranes Moist, Normal Exam - Neck Exam Neck Exam: Full ROM, Normal Inspection. absent: Lymphadenopathy - Respiratory Exam Respiratory Exam: Rales, NORMAL BREATHING PATTERN - Cardiovascular Exam Cardiovascular Exam: REGULAR RHYTHM, +S1, +S2. absent: Murmur - GI/Abdominal Exam GI & Abdominal Exam: Soft, Normal Bowel Sounds. absent: Tenderness - Rectal Exam Rectal Exam: NORMAL INSPECTION - Extremities Exam Extremities Exam: Full ROM, Normal Capillary Refill, Normal Inspection. absent : Joint Swelling, Pedal Edema - Back Exam Back Exam: NORMAL INSPECTION - Neurological Exam Neurological Exam: Alert, Awake, CN II-XII Intact, Normal Gait, Oriented x3 - Psychiatric Exam Psychiatric exam: Normal Affect, Normal Mood - Skin Skin Exam: Dry, Intact, Normal Color, Warm Assessment and Plan - Assessment and Plan (Free Text) Assessment: ACUTE EXAC OF COPD ACUTE EXAC OF BRONCHIECTASES ANEMIA ARRYTHMIAS GASTRITIS PERSISTENT PSEUDOMONAS PULMONARY INFECTION Plan: MAGIC MOUTH WASH FOR SORE THROAT CONTINUE IV GENTAMYCIN FOR SUBACUTE CARE IN AM
[2017-11-27] MEDS: Mag&Al/Simet/Diphen/Lido 237 ML KIT PO SCH ×4 (09:37→22:09)
[2017-11-27 09:57] LABS: BASO # 0.1 K/uL (0.0-0.2); BASO % 0.6 % (0.0-2.0); EOS # 0.2 K/uL (0.0-0.7); HEMOGLOBIN 9.5 g/dL (12.0-16.0); LYMPH # 1.4 K/uL (1.0-4.3); LYMPH % 14.6 % (20.0-40.0); MEAN CELL VOLUME 84.1 fl (81.0-99.0); MEAN CORPUSCULAR HEMOGLOBIN 27.8 pg (27.0-31.0); MEAN PLATELET VOLUME 8.9 fl (7.2-11.7); MONO # 1.4 K/uL (0.0-0.8); MONO % 14.3 % (0.0-10.0); NEUT # 6.5 K/uL (1.8-7.0); NEUT % 68.5 % (50.0-75.0); RBC 3.43 Mil/uL (3.80-5.20); RED CELL DISTRIBUTION WIDTH 15.6 % (11.5-14.5); WHITE BLOOD COUNT 9.5 K/uL (4.8-10.8)
[2017-11-27 10:19] LABS: CALCIUM 8.8 mg/dL (8.4-10.2)
[2017-11-27] MEDS ORDERED: Potassium Chloride 20 mEq ER Tab PO ONE (12:01)
[2017-11-27] MEDS: Gentamicin 80mg/50ml NS 80 MG/50 ML BAG IVPB SCH (16:07)
[2017-11-27] MEDS: guaiFENesin DM 200 mg-20 mg/10 ml UD PO PRN (18:10)
[2017-11-28] MEDS: guaiFENesin DM 200 mg-20 mg/10 ml UD PO PRN (03:03)
[2017-11-28 07:34] LABS: CALCIUM 8.5 mg/dL (8.4-10.2)
[2017-11-28] MEDS: Acetylcysteine 20% Inhal Soln (4ml) INH SCH (08:37)
[2017-11-28] MEDS: Mag&Al/Simet/Diphen/Lido 237 ML KIT PO SCH ×2 (08:56→12:06)
[2017-11-28] MEDS: Nystatin 100,000 Units/ml Oral Susp 5 ml UD PO SCH ×2 (08:56→12:07)
[2017-11-28] MEDS: Cholecalciferol 1,000 INTLU TAB PO SCH (08:56)
[2017-11-28] MEDS: Lidocaine 5% Patch TD SCH (08:56)
[2017-11-28 09:29] VITALS: O2SAT 100
--- NOTE | 2017-11-28 12:10 | CP.PCM.PN ---
Subjective - Date & Time of Evaluation Date of Evaluation: 11/28/17 Time of Evaluation: 09:00 - Subjective Subjective: genta level is high will hold genta and advise Gent level for AM with bun/creat Objective - Vital Signs/Intake and Output Vital Signs (last 24 hours): Temp Pulse Resp BP Pulse Ox 97.9 F 88 20 89/45 L 100 11/28/17 09:28 11/28/17 09:28 11/28/17 09:28 11/28/17 09:28 11/28/17 09:28 - Medications Medications: Current Medications Acetaminophen (Tylenol 325mg Tab) 650 mg PO Q6 PRN PRN Reason: Headache Last Admin: 11/28/17 03:04 Dose: 650 mg Acetylcysteine (Acetylcysteine 20%) 2 ml INH RBID [facility] Last Admin: 11/28/17 08:37 Dose: Not Given Cholecalciferol (Vitamin D) 1,000 intlu PO DAILY [facility] Last Admin: 11/28/17 08:56 Dose: 1,000 intlu Docusate Sodium (Colace) 100 mg PO DAILY PRN PRN Reason: Constipation Last Admin: 11/27/17 22:08 Dose: 100 mg Guaifenesin/Dextromethorphan (Robitussin Dm) 10 ml PO Q6 PRN PRN Reason: Cough Last Admin: 11/28/17 03:03 Dose: 10 ml Gentamicin Sulfate 80 mg/ (Sodium Chloride) 52 mls @ 52 mls/hr IM DAILY@1700 [facility] Lactulose (Enulose) 20 gm PO DAILY PRN PRN Reason: Constipation Last Admin: 11/27/17 22:08 Dose: 20 gm Lidocaine (Lidoderm) 1 ea TD DAILY [facility] Last Admin: 11/28/17 08:56 Dose: 1 ea Nystatin (Nystatin Oral Susp) 5 ml PO QID [facility] Last Admin: 11/28/17 12:07 Dose: 5 ml Ondansetron HCl (Zofran Inj) 4 mg IVP Q6 PRN PRN Reason: Nausea/Vomiting Last Admin: 11/27/17 17:42 Dose: 4 mg Saliva Substitute (First Magic Mouthwash) 5 ml PO QID [facility] Last Admin: 11/28/17 12:06 Dose: 5 ml Sucralfate (Carafate Tab) 1 gm PO DAILY [facility] Last Admin: 11/28/17 08:56 Dose: 1 gm - Labs Labs: 11/27/17 09:44 11/28/17 06:24 - Constitutional Appears: Cachectic, Chronically Ill - Head Exam Head Exam: NORMOCEPHALIC - Eye Exam Eye Exam: absent: Scleral icterus - ENT Exam ENT Exam: Mucous Membranes Dry - Neck Exam Neck Exam: absent: Lymphadenopathy - Respiratory Exam Respiratory Exam: Decreased Breath Sounds - Cardiovascular Exam Cardiovascular Exam: REGULAR RHYTHM - GI/Abdominal Exam GI & Abdominal Exam: Distended - Rectal Exam Rectal Exam: Deferred Assessment and Plan (1) Acute bronchitis with chronic obstructive pulmonary disease (COPD) Status: Acute (2) Anxiety Status: Acute (3) Arrhythmia Status: Acute (4) Atrial fibrillation Status: Acute (5) Bronchiectasis Status: Acute (6) COPD (chronic obstructive pulmonary disease) Status: Acute (7) COPD with acute exacerbation Status: Acute (8) Chr obstructive pulmonary disease w/ acute lower respiratory infxn Status: Acute (9) Pseudomonas aeruginosa infection Status: Acute
[2017-11-28 13:32] VITALS: PULSE 89; RESP 21; TEMP 98.1
--- NOTE | 2017-11-28 14:02 | CP.PCM.DIS ---
Provider - Provider Date of Admission: 11/12/17 18:24 Attending physician: Castillo Castaneda MD Time Spent in preparation of Discharge (in minutes): 35 Diagnosis - Discharge Diagnosis (1) Acute bronchitis with chronic obstructive pulmonary disease (COPD) Status: Acute (2) Anemia Status: Acute (3) Arrhythmia Status: Acute (4) Bronchiectasis Status: Acute (5) COPD with acute exacerbation Status: Acute (6) Chr obstructive pulmonary disease w/ acute lower respiratory infxn Status: Acute (7) Gastritis Status: Acute (8) Iron deficiency anemia Status: Acute (9) Multifocal pneumonia Status: Acute (10) Pseudomonas aeruginosa infection Status: Acute (11) Pseudomonas infection Status: Acute Hospital Course - Lab Results Lab Results: Micro Results 11/13/17 09:18 Sputum Gram Stain - Final 11/13/17 09:18 Sputum Sputum Culture - Final Pseudomonas Aeruginosa Most Recent Lab Values WBC 9.5 K/uL (4.8-10.8) 11/27/17 09:44 RBC 3.43 Mil/uL (3.80-5.20) L 11/27/17 09:44 Hgb 9.5 g/dL (12.0-16.0) L 11/27/17 09:44 Hct 28.8 % (34.0-47.0) L 11/27/17 09:44 MCV 84.1 fl (81.0-99.0) 11/27/17 09:44 MCH 27.8 pg (27.0-31.0) 11/27/17 09:44 MCHC 33.0 g/dL (33.0-37.0) 11/27/17 09:44 RDW 15.6 % (11.5-14.5) H 11/27/17 09:44 Plt Count 341 K/uL (130-400) 11/27/17 09:44 MPV 8.9 fl (7.2-11.7) 11/27/17 09:44 Neut % (Auto) 68.5 % (50.0-75.0) 11/27/17 09:44 Lymph % (Auto) 14.6 % (20.0-40.0) L 11/27/17 09:44 [place] % (Auto) 14.3 % (0.0-10.0) H 11/27/17 09:44 Eos % (Auto) 2.0 % (0.0-4.0) 11/27/17 09:44 Baso % (Auto) 0.6 % (0.0-2.0) 11/27/17 09:44 Neut # (Auto) 6.5 K/uL (1.8-7.0) 11/27/17 09:44 Lymph # (Auto) 1.4 K/uL (1.0-4.3) 11/27/17 09:44 [place] # (Auto) 1.4 K/uL (0.0-0.8) H 11/27/17 09:44 Eos # (Auto) 0.2 K/uL (0.0-0.7) 11/27/17 09:44 Baso # (Auto) 0.1 K/uL (0.0-0.2) 11/27/17 09:44 Neutrophils % (Manual) 66 % (42-75) 11/18/17 05:45 Lymphocytes % (Manual) 19 % (20-50) L 11/18/17 05:45 Monocytes % (Manual) 14 % (0-10) H 11/18/17 05:45 Eosinophils % (Manual) 1 % (0-7) 11/18/17 05:45 Platelet Estimate Normal (NORMAL) 11/18/17 05:45 Hypochromasia (manual) Slight 11/18/17 05:45 Anisocytosis (manual) Slight 11/18/17 05:45 Sodium 138 mmol/l (132-148) 11/28/17 06:24 Potassium 3.2 MMOL/L (3.6-5.0) L 11/28/17 06:24 Chloride 95 mmol/L (98-107) L 11/28/17 06:24 Carbon Dioxide 32 mmol/L (22-30) H 11/28/17 06:24 Anion Gap 14 (10-20) 11/28/17 06:24 BUN 21 mg/dl (7-17) H 11/28/17 06:24 Creatinine 1.5 mg/dl (0.7-1.2) H 11/28/17 06:24 Est GFR ( Amer) 40 11/28/17 06:24 Est GFR (Non-Af Amer) 33 11/28/17 06:24 Random Glucose 87 mg/dL (65-105) 11/28/17 06:24 Calcium 8.5 mg/dL (8.4-10.2) 11/28/17 06:24 Magnesium 1.7 MG/DL (1.6-2.3) 11/23/17 09:25 Gentamicin Trough 7.5 ug/mL (0.0-0.9) H* 11/27/17 14:38 Random Gentamicin 1.4 ug/mL 11/25/17 05:50 - Hospital Course Hospital Course: still coughing with sputum production Discharge Exam - Head Exam Head Exam: NORMOCEPHALIC - Eye Exam Eye Exam: EOMI, Normal appearance, PERRL Pupil Exam: NORMAL ACCOMODATION, PERRL - Respiratory Exam Respiratory Exam: Prolonged Expiratory Phase, Rales, Wheezes - GI/Abdominal Exam GI & Abdominal Exam: Normal Bowel Sounds - Rectal Exam Rectal Exam: NORMAL INSPECTION - Neurological Exam Neurological exam: Alert, CN II-XII Intact, Normal Gait, Oriented x3, Reflexes Normal - Psychiatric Exam Psychiatric exam: Normal Affect, Normal Mood - Skin Skin Exam: Dry, Intact, Normal Color, Warm Discharge Plan - Follow Up Plan Condition: GOOD Disposition: HOME/ ROUTINE Patient education suggested?: Yes Instructions: Gastritis (DC), Exacerbation of COPD (DC) Additional Instructions: discharge to subacute care for continued iv antibiotic therapy
[2017-11-28 14:24] VITALS: BP 106/49
== END 2017-11-28 14:00 | DRG 178 ==
LOC: H.TCU 18:24
PROVIDERS: ADMIT Internal Medicine Pulmonary Disease; ATTEND Internal Medicine Pulmonary Disease
DX: J15.1 Pneumonia due to Pseudomonas (principal); J47.0 Bronchiectasis with acute lower respiratory infection; I11.0 Hypertensive heart disease with heart failure; I48.91 Unspecified atrial fibrillation; I50.9 Heart failure, unspecified; J47.1 Bronchiectasis with (acute) exacerbation; K29.70 Gastritis, unspecified, without bleeding; Z86.711 Personal history of pulmonary embolism; Z87.01 Personal history of pneumonia (recurrent); Z87.891 Personal history of nicotine dependence; Z88.0 Allergy status to penicillin; Z90.49 Acquired absence of other specified parts of digestive tract; Z95.0 Presence of cardiac pacemaker; K52.9 Noninfective gastroenteritis and colitis, unspecified; K82.9 Disease of gallbladder, unspecified; J02.9 Acute pharyngitis, unspecified; M54.9 Dorsalgia, unspecified; R42 Dizziness and giddiness; B96.5 Pseudomonas (aeruginosa) (mallei) (pseudomallei) as the cause of diseases classified elsewhere; D50.9 Iron deficiency anemia, unspecified; D63.8 Anemia in other chronic diseases classified elsewhere; E87.6 Hypokalemia; F41.9 Anxiety disorder, unspecified; I25.10 Atherosclerotic heart disease of native coronary artery without angina pectoris; I34.1 Nonrheumatic mitral (valve) prolapse

== ENCOUNTER 2018-08-05 13:56 | Emergency (ER) | payer MEDICARE, BC ==
[2018-08-05 13:57] VITALS: BMI 15.8
[2018-08-05 14:15] VITALS: RESP 16
[2018-08-05] MEDS ORDERED: Benzoin Compund Tincture 30 ML TP STA (15:14)
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
[2018-08-05] MEDS ORDERED: Benzoin Compund Tincture 30 ML TP ONE (15:35)
[2018-08-05 16:08] VITALS: BP 110/69; PULSE 88; TEMP 97.9; O2SAT 98
== END 2018-08-05 16:00 | disposition home or self-care (01) ==
LOC: H.ER 13:56
DX: S81.812A Laceration without foreign body, left lower leg, initial encounter (principal); W22.8XXA Striking against or struck by other objects, initial encounter; Y92.003 Bedroom of unspecified non-institutional (private) residence as the place of occurrence of the external cause

== ENCOUNTER 2018-11-07 11:14 | Emergency (ER) | payer MEDICARE, BC ==
[2018-11-07 11:14] VITALS: BMI 15.8
[2018-11-07 11:39] VITALS: BP 128/76; PULSE 94; RESP 20; TEMP 98; O2SAT 96
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
--- NOTE | 2018-11-07 15:12 | US ---
Date of service: 11/07/2018 PROCEDURE: Right lower extremity venous duplex Doppler. HISTORY: R/O DVT COMPARISON: Comparison made with prior DVT study dated 12/01/2016. TECHNIQUE: Common femoral, superficial femoral, popliteal and posterior tibial veins were evaluated. Flow was assessed with color Doppler, compressibility, assessment of phasic flow and augmentation response. FINDINGS: COMMON FEMORAL VEIN: Unremarkable. SUPERFICIAL FEMORAL VEIN: Unremarkable. POPLITEAL VEIN: Unremarkable. POSTERIOR TIBIAL VEIN: Unremarkable. OTHER FINDINGS: None. IMPRESSION: No evidence of deep venous thrombosis in the right lower extremity.
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
--- NOTE | 2018-11-07 16:32 | RAD ---
Date of service: 11/07/2018 PROCEDURE: Right Ankle Radiographs. HISTORY: ankle injury COMPARISON: Comparison made with prior radiographs of the right ankle dated 10/24/2014. FINDINGS: BONES: Normal. No fracture. JOINTS: Normal. No osteoarthritis. Ankle mortise maintained. Talar dome intact SOFT TISSUES: Normal. OTHER FINDINGS: None. IMPRESSION: No evidence acute displaced fracture nor dislocation
== END 2018-11-07 15:40 | disposition home or self-care (01) ==
LOC: H.ER 11:14
DX: M76.61 Achilles tendinitis, right leg (principal); I11.0 Hypertensive heart disease with heart failure; I34.1 Nonrheumatic mitral (valve) prolapse; Z86.711 Personal history of pulmonary embolism; Z88.0 Allergy status to penicillin; Z88.1 Allergy status to other antibiotic agents; Z88.2 Allergy status to sulfonamides; Z95.0 Presence of cardiac pacemaker

== ENCOUNTER 2019-02-18 12:41 | Observation (INO) | payer MEDICARE, BC ==
[2019-02-18] MEDS ORDERED: Sodium Chloride 0.9% 1,000 ML IV STA ×2 (13:22)
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
--- NOTE | 2019-02-18 14:07 | RAD ---
Date of service: 02/18/2019 HISTORY: COPD COMPARISON: 11/17/2017. TECHNIQUE: Chest PA and lateral FINDINGS: LINES AND TUBES: None. LUNG AND PLEURA: The lungs are hyperinflated and there is peribronchial thickening with chronic changes in both lungs. No focal consolidation. There is left lower lobe bronchiectasis. No pleural effusion or pneumothorax. There is biapical pleural thickening. HEART AND MEDIASTINUM: The heart is not enlarged. There is stable position of left-sided permanent pacing device. There are aortic atherosclerotic calcifications present. The hilar and mediastinal contours are within normal limits. SKELETAL STRUCTURES: The bony structures are within normal limits for the patient's age. VISUALIZED UPPER ABDOMEN: Normal. OTHER FINDINGS: None. IMPRESSION: No active pulmonary disease. COPD.
[2019-02-18 14:45] LABS: BASO % 0.5 % (0.0-2.0); EOS # 0.2 K/uL (0.0-0.7); EOS % 2.8 % (0.0-4.0); HEMOGLOBIN 10.3 g/dL (12.0-16.0); LYMPH % 11.5 % (20.0-40.0); MEAN CORPUSCULAR HEMOGLOBIN 29.8 pg (27.0-31.0); MEAN CORPUSCULAR HGB CONC 32.8 g/dL (33.0-37.0); MEAN PLATELET VOLUME 9.1 fl (7.2-11.7); MONO # 1.1 K/uL (0.0-0.8); MONO % 13.2 % (0.0-10.0); NEUT # 6.2 K/uL (1.8-7.0); NRBC % 0.2 % (0.0-0.0); RBC 3.46 Mil/uL (3.80-5.20); RED CELL DISTRIBUTION WIDTH 13.9 % (11.5-14.5); WHITE BLOOD COUNT 8.7 K/uL (4.8-10.8)
[2019-02-18 14:48] LABS: MEAN CELL VOLUME 90.9 fl (81.0-99.0)
[2019-02-18] MEDS ORDERED: Albuterol-Ipratrop 3 mg / 0.5 (3 ml) UD IH STA (14:54)
[2019-02-18 14:59] LABS: ALBUMIN 3.8 g/dL (3.5-5.0); ALT/SGPT 14 U/L (9-52); AST/SGOT 19 U/L (14-36); BLOOD UREA NITROGEN 17 mg/dl (7-17); CALCIUM 8.3 mg/dL (8.4-10.2); GFR NON-AFRICAN AMERICAN 60
[2019-02-18 15:02] LABS: VENOUS BLOOD GAS BASE EXCESS 0.8 mmol/L (0.0-2.0); VENOUS BLOOD GAS PCO2 66 mmHg (40-60); VENOUS BLOOD GAS PO2 27 mm/Hg (30-55); VENOUS BLOOD PH 7.26 (7.32-7.43)
[2019-02-18] MEDS ORDERED: Albuterol-Ipratrop 3 mg / 0.5 (3 ml) UD ONE (15:10)
--- NOTE | 2019-02-18 15:16 | ED PDOC ---
- Laboratory Results Result Diagrams: 02/18/19 14:35 02/18/19 14:35 Lab Results: pO2 27 mm/Hg (30-55) L 02/18/19 14:50 VBG pH 7.26 (7.32-7.43) L 02/18/19 14:50 VBG pCO2 66 mmHg (40-60) H* 02/18/19 14:50 VBG HCO3 24.0 mmol/L 02/18/19 14:50 VBG Total CO2 31.6 mmol/L (22-28) H 02/18/19 14:50 VBG O2 Sat (Calc) 46.5 % (40-65) 02/18/19 14:50 VBG Base Excess 0.8 mmol/L (0.0-2.0) 02/18/19 14:50 VBG Potassium 3.1 mmol/L (3.6-5.2) L 02/18/19 14:50 Sodium 138.0 mmol/L (132-148) 02/18/19 14:50 Chloride 100.0 mmol/L (98-107) 02/18/19 14:50 Glucose 111 mg/dL (65-105) H 02/18/19 14:50 Lactate 2.9 mmol/L (0.7-2.1) H 02/18/19 14:50 FiO2 21.0 % 02/18/19 14:50 Crit Value Called To Mary riley 02/18/19 14:50 Crit Value Called By 23 02/18/19 14:50 Crit Value Read Back Y 02/18/19 14:50 Blood Gas Notified Time 1500 02/18/19 14:50 Total Bilirubin 0.4 mg/dl (0.2-1.3) 02/18/19 14:35 AST 19 U/L (14-36) 02/18/19 14:35 ALT 14 U/L (9-52) 02/18/19 14:35 Alkaline Phosphatase 62 U/L (38-126) 02/18/19 14:35 Total Protein 7.5 G/DL (6.3-8.2) 02/18/19 14:35 Albumin 3.8 g/dL (3.5-5.0) 02/18/19 14:35 Globulin 3.7 gm/dL (2.2-3.9) 02/18/19 14:35 Albumin/Globulin Ratio 1.0 (1.0-2.1) 02/18/19 14:35 - ECG O2 Sat by Pulse Oximetry: 96 (RA) Pulse Ox Interpretation: Normal Medical Decision Making Medical Decision Makin Bedside rounds performed, patient resting in room Signed out to me by Dr. Mcadams pending labs, CT, reassessment. [address] Castaneda, who accepts patient for admission to [facility]. Scribe Attestation: Documented by Nannette Myrick acting as a scribe for Jolynn Milton MD. Provider Scribe Attestation: All medical record entries made by the Scribe were at my direction and personally dictated by me. I have reviewed the chart and agree that the record accurately reflects my personal performance of the history, physical exam, medical decision making, and the department course for this patient. I have also personally directed, reviewed, and agree with the discharge instructions and disposition. Disposition Discussed With : Castillo Castaneda Doctor Will See Patient In The: Hospital - Clinical Impression Clinical Impression: Abdominal pain, COPD (chronic obstructive pulmonary disease) - POA Present On Arrival: None - Disposition Disposition: Hospitalized as Observation Patient Disposition Time: 16:20 Condition: FAIR
[2019-02-18] MEDS ORDERED: Potassium Chloride 20 mEq ER Tab PO STA (15:22)
[2019-02-18] MEDS ORDERED: Potassium Chloride 20 mEq ER Tab PO ONE (15:49)
[2019-02-18] MEDS ORDERED: Sodium Chloride 0.9% 50 ML IV ONE (16:42)
[2019-02-18] MEDS ORDERED: Iohexol 300 100 ML IJ ONE (16:42)
--- NOTE | 2019-02-18 17:42 | CT ---
Date of service: 02/18/2019 PROCEDURE: CT Abdomen and Pelvis with contrast HISTORY: Abdominal pain COMPARISON: 03/25/2017. TECHNIQUE: CT scan of the abdomen and pelvis was performed after administration of intravenous contrast. Oral contrast was not administered. Coronal and sagittal reformatted images were obtained. Contrast dose: 90 mL Omnipaque 300 Radiation dose: Total exam DLP = 184.34 mGy-cm. This CT exam was performed using one or more of the following dose reduction techniques: Automated exposure control, adjustment of the mA and/or kV according to patient size, and/or use of iterative reconstruction technique. FINDINGS: LOWER THORAX: There is patchy and confluent airspace disease in the visualized lower lobes, worse in the left lateral lower lobe. There are also tree-in-bud opacities and bronchial wall thickening. LIVER: Mild hepatomegaly and fatty liver. Normal homogeneous enhancement. No gross lesion or ductal dilatation. GALLBLADDER AND BILE DUCTS: Well distended. No calcified gallstones, wall thickening or pericholecystic fluid. PANCREAS: Normal in size with homogeneous enhancement. No gross lesion or ductal dilatation. SPLEEN: Normal in size and appearance. ADRENALS: No discrete nodule. KIDNEYS AND URETERS: Normal in size with homogeneous enhancement. No hydronephrosis. No solid mass. Stable simple cysts in the kidneys. There is a small calcified cyst in the right lower pole. There is a punctate nonobstructing stone in the lower pole of the left kidney. VASCULATURE: No aortic aneurysm. There are aortic atherosclerotic calcifications and mural plaque present. BOWEL: Evaluation of the bowel is limited in the absence of oral contrast. There is mild dilatation of fluid-filled small bowel loops with fecalization of small bowel contents. There is fluid and moderate amount of stool in the colon. APPENDIX: Normal appendix. PERITONEUM: No free fluid. No free air. LYMPH NODES: No enlarged lymph nodes. BLADDER: Decompressed. REPRODUCTIVE: The uterus is surgically absent. BONES: No acute fracture. Within normal limits for the patient's age. OTHER FINDINGS: None. IMPRESSION: 1. Mild dilatation of fluid-filled small bowel loops with fecalization of small bowel contents and fluid in the colon may represent nonspecific enteritis and colitis. No bowel obstruction. 2. Mild hepatomegaly and fatty liver. 3. Infectious bronchiolitis and patchy pneumonia in the lungs, worse in the left lateral lung base.
[2019-02-18] MEDS ORDERED: Sodium Chloride 3% for Inhalation 4 ML VIAL.NEB IH PRN (20:35)
[2019-02-18] MEDS ORDERED: Promethazine DM 12.5 mg-30 mg/10 ml Syrup PO PRN (20:36)
[2019-02-18] MEDS ORDERED: Albuterol-Ipratrop 3 mg / 0.5 (3 ml) UD INH PRN (20:36)
[2019-02-18] MEDS ORDERED: Dextrose 5%/0.45% NS 1,000 ML IV SCH (20:45)
[2019-02-18 21:46] VITALS: BMI 18.3
[2019-02-19] MEDS: Enoxaparin 40 mg Syringe SC SCH (09:57)
[2019-02-19 23:35] VITALS: O2SAT 95
[2019-02-20 07:47] LABS: BLOOD UREA NITROGEN 13 mg/dl (7-17); CALCIUM 8.1 mg/dL (8.4-10.2); GFR NON-AFRICAN AMERICAN > 60
[2019-02-20 07:54] VITALS: BP 109/62; PULSE 87; RESP 19; TEMP 98
[2019-02-20] MEDS: Enoxaparin 40 mg Syringe SC SCH (09:15)
--- NOTE | 2019-02-20 10:37 | CP.PCM.DIS ---
Provider - Provider Date of Admission: 02/18/19 16:27 Attending physician: Castillo Markham MD Consults: 02/18/19 22:17 Social Work Referral Routine Comment: lives alone Physician Instructions: Reason For Exam: lives alone Time Spent in preparation of Discharge (in minutes): 30 Diagnosis - Discharge Diagnosis (1) Abdominal pain Status: Acute (2) COPD (chronic obstructive pulmonary disease) Status: Acute (3) Atrial fibrillation Status: Acute (4) Bronchiectasis Status: Acute Hospital Course - Lab Results Lab Results: Micro Results 02/19/19 11:10 Sputum Gram Stain - Final 02/18/19 14:25 Blood-Venous Blood Culture - Preliminary NO GROWTH AFTER 24 HOURS Most Recent Lab Values WBC 8.7 K/uL (4.8-10.8) 02/18/19 14:35 RBC 3.46 Mil/uL (3.80-5.20) L 02/18/19 14:35 Hgb 10.3 g/dL (12.0-16.0) L 02/18/19 14:35 Hct 31.5 % (34.0-47.0) L 02/18/19 14:35 MCV 90.9 fl (81.0-99.0) D 02/18/19 14:35 MCH 29.8 pg (27.0-31.0) 02/18/19 14:35 MCHC 32.8 g/dL (33.0-37.0) L 02/18/19 14:35 RDW 13.9 % (11.5-14.5) 02/18/19 14:35 Plt Count 240 K/uL (130-400) D 02/18/19 14:35 MPV 9.1 fl (7.2-11.7) 02/18/19 14:35 Neut % (Auto) 72.0 % (50.0-75.0) 02/18/19 14:35 Lymph % (Auto) 11.5 % (20.0-40.0) L 02/18/19 14:35 [place] % (Auto) 13.2 % (0.0-10.0) H 02/18/19 14:35 Eos % (Auto) 2.8 % (0.0-4.0) 02/18/19 14:35 Baso % (Auto) 0.5 % (0.0-2.0) 02/18/19 14:35 Neut # (Auto) 6.2 K/uL (1.8-7.0) 02/18/19 14:35 Lymph # (Auto) 1.0 K/uL (1.0-4.3) 02/18/19 14:35 [place] # (Auto) 1.1 K/uL (0.0-0.8) H 02/18/19 14:35 Eos # (Auto) 0.2 K/uL (0.0-0.7) 02/18/19 14:35 Baso # (Auto) 0.0 K/uL (0.0-0.2) 02/18/19 14:35 pO2 27 mm/Hg (30-55) L 02/18/19 14:50 VBG pH 7.26 (7.32-7.43) L 02/18/19 14:50 VBG pCO2 66 mmHg (40-60) H* 02/18/19 14:50 VBG HCO3 24.0 mmol/L 02/18/19 14:50 VBG Total CO2 31.6 mmol/L (22-28) H 02/18/19 14:50 VBG O2 Sat (Calc) 46.5 % (40-65) 02/18/19 14:50 VBG Base Excess 0.8 mmol/L (0.0-2.0) 02/18/19 14:50 VBG Potassium 3.1 mmol/L (3.6-5.2) L 02/18/19 14:50 Sodium 138.0 mmol/L (132-148) 02/18/19 14:50 Chloride 100.0 mmol/L (98-107) 02/18/19 14:50 Glucose 111 mg/dL (65-105) H 02/18/19 14:50 Lactate 2.9 mmol/L (0.7-2.1) H 02/18/19 14:50 FiO2 21.0 % 02/18/19 14:50 Crit Value Called To Mary riley 02/18/19 14:50 Crit Value Called By 23 02/18/19 14:50 Crit Value Read Back Y 02/18/19 14:50 Blood Gas Notified Time 1500 02/18/19 14:50 Sodium 136 mmol/l (132-148) 02/20/19 06:15 Potassium 3.9 MMOL/L (3.6-5.0) 02/20/19 06:15 Chloride 102 mmol/L (98-107) 02/20/19 06:15 Carbon Dioxide 27 mmol/L (22-30) 02/20/19 06:15 Anion Gap 11 (10-20) 02/20/19 06:15 BUN 13 mg/dl (7-17) 02/20/19 06:15 Creatinine 0.8 mg/dl (0.7-1.2) 02/20/19 06:15 Est GFR ( Amer) > 60 02/20/19 06:15 Est GFR (Non-Af Amer) > 60 02/20/19 06:15 Random Glucose 91 mg/dL (65-105) 02/20/19 06:15 Lactic Acid 1.5 mmol/L (0.7-2.1) 02/18/19 17:50 Calcium 8.1 mg/dL (8.4-10.2) L 02/20/19 06:15 Total Bilirubin 0.4 mg/dl (0.2-1.3) 02/18/19 14:35 AST 19 U/L (14-36) 02/18/19 14:35 ALT 14 U/L (9-52) 02/18/19 14:35 Alkaline Phosphatase 62 U/L (38-126) 02/18/19 14:35 Total Protein 7.5 G/DL (6.3-8.2) 02/18/19 14:35 Albumin 3.8 g/dL (3.5-5.0) 02/18/19 14:35 Globulin 3.7 gm/dL (2.2-3.9) 02/18/19 14:35 Albumin/Globulin Ratio 1.0 (1.0-2.1) 02/18/19 14:35 Venous Blood Potassium 3.1 mmol/L (3.6-5.2) L 02/18/19 14:50 - Hospital Course Hospital Course: 84 YR OLD FEMALE ADMITTED WITH C/O ABDOMINAL PAINS FOLLOWING THERAPY WITH ANTIBIOTICS FOR EXACERBATION OF BRONCHIECTASES.SHE C/O NAUSEA WITH DIFFICULTY EATING.SHE HAS A HX OF CHRONIC BRONCHIECTASES AND COPD WITH CARDIAC ARRYTHMIAS. SHE HAD BEEN ON ORAL ANTIBIOTIC RX PRIOR TO DEVELOPMENT OF SYMPTOMS. HER HOSPITAL COURSE WAS UNCOMPLICATED AND SHE IMPROVED WITH THERAPY. SHE WILL BE DISCHARGED ON ON CARAFATE AND OFF ANTIBIOTICS SHE WILL FOLLOW UP WITH DR MARKHAM IN 2 WEEKS Discharge Exam - Head Exam Head Exam: ATRAUMATIC, NORMAL INSPECTION, NORMOCEPHALIC - Eye Exam Eye Exam: EOMI, Normal appearance, PERRL Pupil Exam: NORMAL ACCOMODATION, PERRL - ENT Exam ENT Exam: Normal Exam - Respiratory Exam Respiratory Exam: NORMAL BREATHING PATTERN - Cardiovascular Exam Cardiovascular Exam: REGULAR RHYTHM - GI/Abdominal Exam GI & Abdominal Exam: Normal Bowel Sounds - Rectal Exam Rectal Exam: NORMAL INSPECTION - Extremities Exam Extremities exam: normal inspection - Back Exam Back exam: NORMAL INSPECTION - Neurological Exam Neurological exam: Alert, CN II-XII Intact, Normal Gait, Oriented x3, Reflexes Normal - Psychiatric Exam Psychiatric exam: Normal Affect, Normal Mood - Skin Skin Exam: Dry, Intact, Normal Color, Warm Discharge Plan - Follow Up Plan Condition: FAIR Disposition: HOME/ ROUTINE Additional Instructions: DISCHARGE TODAY FOLLOW UP WITH DR MARKHAM
--- NOTE | 2019-02-22 08:36 | HP ---
HISTORY OF PRESENT ILLNESS: Ms. Mccord is an 84-year-old female who was admitted via the emergency room because of severe abdominal pain with nausea for the past several days prior to presentation. She had been on oral antibiotics for treatment of COPD and bronchiectasis exacerbation. She indicates that her abdomen had become tender and she has not been able to keep any food down. She has a low-grade fever, but denies diarrhea, vomiting, or nausea. PAST MEDICAL HISTORY: Remarkable for chronic obstructive pulmonary disease, chronic atrial fibrillation requiring pacemaker placement, bronchiectasis. FAMILY HISTORY: Remarkable for a sister that of pancreatic cancer. SOCIAL HISTORY: The patient used to smoke years ago but quit. She does not use drugs and does not drink alcohol. ALLERGIES: SHE ALSO HAS MULTIPLE DRUG ALLERGIES TO MULTIPLE ANTIBIOTICS AND IS UNABLE TO TOLERATE MOST OF IT. REVIEW OF SYSTEMS: Essentially remarkable for recurrent cough with mucus production on a daily basis. PHYSICAL EXAMINATION: GENERAL: The patient is alert, oriented and thin built. VITAL SIGNS: On admission, blood pressure 108/53, pulse of 95, respiratory rate 18, temperature of 97.5 degrees Fahrenheit. O2 sat 96% on room air. SKIN: Shows fair turgor. Pupils equal and reactive to light and accommodation. Mouth shows fair hygiene. LUNGS: Coarse bilateral rales and wheezes. HEART: Regular. Pacemaker in place. BREASTS: Normal. ABDOMEN: Soft with midepigastric tenderness. No organomegaly appreciated. EXTREMITIES: Show no edema or cyanosis. CENTRAL NERVOUS SYSTEM: Grossly intact. LABORATORY DATA: WBC 8.7, hemoglobin 10.3, platelet count 240,000. Sodium 141, potassium 3.3, BUN 17, creatinine 0.9. AST 19, ALT 14, glucose 118. CT scan of abdomen and pelvis, mild dilatation of fluid-filled small bowel loops with fecalization of small bowel contents and fluid in the colon, may represent nonspecific enteritis and colitis. No bowel obstruction. Mild hepatomegaly and fatty liver, infectious bronchitis and patchy pneumonia in the lungs, worse in the left lateral lung base. Chest x-ray, no acute cardiopulmonary disease except for COPD picture. IMPRESSION: Abdominal pain and nausea secondary to antibiotic therapy and clinical picture of enteritis, acute exacerbation of chronic obstructive pulmonary disease and acute exacerbation of bronchiectasis, anxiety disorder, history of atrial fibrillation, status post pacemaker placement. PLAN: Hold antibiotics for now, place the patient on IV Protonix and oral Carafate. Continue bronchodilator therapy. If clinically stable, we will discharge in a.m. Castillo Castaneda MD
== END 2019-02-20 12:48 | disposition home or self-care (01) ==
LOC: H.ER 12:41 → H.ERHOLD 16:27 → H.MEDSURG1 18:44
PROVIDERS: ADMIT Internal Medicine Pulmonary Disease; ATTEND Internal Medicine Pulmonary Disease
DX: J43.9 Emphysema, unspecified (principal); J47.1 Bronchiectasis with (acute) exacerbation; F41.9 Anxiety disorder, unspecified; K52.9 Noninfective gastroenteritis and colitis, unspecified; I34.1 Nonrheumatic mitral (valve) prolapse; I50.9 Heart failure, unspecified; Z86.711 Personal history of pulmonary embolism; Z87.891 Personal history of nicotine dependence; Z95.0 Presence of cardiac pacemaker; I11.0 Hypertensive heart disease with heart failure; K29.70 Gastritis, unspecified, without bleeding; I48.2 Chronic atrial fibrillation
CPT/HCPCS: 36415; 71046; 74177; 80048; 80053; 82803; 83605; 85025; 87040; 87070; 96360; 99283; C9113; G0378; J1650; J7030; J7042; Q9967